=== PATIENT | female | born 1970 | race Caucasian/White ===

== ENCOUNTER → 2016-05-04 | Outpatient (CLI) | payer MEDICARE ==
--- NOTE | 2016-05-04 12:50 | CT ---
EXAMINATION TYPE: CT lumbar spine wo con DATE OF EXAM: 05/04/2016 12:35 PM COMPARISON: 10/30/2012 HISTORY: Spinal stenosis of lumbar region CT DLP: 973 mGycm CONTRAST: Unenhanced CT of the lumbar spine was performed with bone and soft tissue window settings submitted. Unenhanced CT of the lumbar spine was performed. Bone and soft tissue window settings are submitted as well as coronal and sagittal reconstructions. L1-L2: Normal disc space height. No disc herniation protrusion or central stenosis. No facet joint arthropathy. No evidence for foraminal encroachment. L2-L3: Normal disc space height. No disc herniation protrusion or central stenosis. No facet joint arthropathy. No evidence for foraminal encroachment. L3-L4: Interval decompressive laminectomy changes noted. Pedicular screws are in place with streak ar tifact limiting evaluation. Intervertebral stabilizers noted. There is now 6.5 mm anterolisthesis L3 on L4. No definite stenosis or recurrent disc herniation although examination is limited given strea k artifact. L4-L5: Decompressive laminectomy changes noted. Pedicular screws in place. Intervertebral body spacer noted persistent endplate irregularity. Pedicular screws result in streak artifact. Normal alignmen t. No definite stenosis or recurrent disc herniation although examination is limited given streak art ifact. L5-S1: Decompressive laminectomy changes again seen. Vertically oriented fixation screw traverses S1 and L5. Grade 1 retrolisthesis L5 on S1 measuring 5 mm. Streak artifact limits evaluation for recurre nt or residual disease. No obvious recurrent stenosis seen. Pedicular screws are in place. No paraspinal masses are identified. Lumbar segments are free of fracture. IMPRESSION: 1. Extensive postsurgical changes with the result in streak artifact limiting evaluation. As noted th ere is anterolisthesis of L3 on L4 grade 1 type as well as retrolisthesis L5 on S1 grade 1 type. No d efinite recurrent stenosis appreciated at this time. See above.
== END | disposition home or self-care (01) ==
LOC: RADCTMAIN 12:01
PROVIDERS: ATTEND Neurological Surgery
DX: M43.16 Spondylolisthesis, lumbar region (principal); Z98.1 Arthrodesis status
CPT/HCPCS: 72131

== ENCOUNTER 2017-07-02 18:32 | Observation (INO) | payer MEDICARE ==
[2017-07-02] MEDS ORDERED: NITROGLYCERIN OINT 1 INCH/GM PACKET TOPICAL STA (18:52)
[2017-07-02] MEDS ORDERED: ASPIRIN 81 MG PO STA (18:52)
--- NOTE | 2017-07-02 18:54 | ED ---
General Adult HPI - General Chief complaint: Chest Pain Stated complaint: Chest Pain /SOB Time Seen by Provider: 07/02/17 18:35 Source: patient, RN notes reviewed Mode of arrival: wheelchair Limitations: no limitations - History of Present Illness Initial comments: This is a 46-year-old female who presents with chest pain intermittent since Sunday. Patient describes it as a pressure sensation without any radiation. Patient states she also has been more short of breath lately. Patient states she is a smoker and does have high cholesterol. Patient also states she has a strong family history her brother last year at the age of 47 from a heart attack. Patient denies any diaphoretic episodes. Patient denies any nausea. Patient denies abdominal pain. Patient denies any recent fever chills or cough. Patient denies lightheadedness dizziness or near syncopal episode. Patient denies abdominal pain patient denies any vomiting or diarrhea recently. Patient denies any recent injury or trauma. Patient states the pain comes and goes and it does not seem to be brought on a relieved by doing anything. - Related Data Home Medications Medication Instructions Recorded Confirmed ALPRAZolam [Xanax] 0.5 mg PO Q8HR 04/02/14 04/30/14 Hydrocodone/Acetaminophen 1 each PO Q4-6H 04/02/14 04/30/14 [Hydrocodone/Acetaminophen 10-300] Ibuprofen [Motrin] 200 mg PO Q6HR PRN 04/02/14 04/30/14 Mirtazapine [Remeron] 15 mg PO HS 04/02/14 04/30/14 Phentermine HCl [Adipex-P] 37.5 mg PO QAM 04/02/14 04/30/14 Levothyroxine Sodium [Synthroid] 88 mcg PO DAILY 04/20/14 04/30/14 Previous Rx's Medication Instructions Recorded Ciprofloxacin HCl [Cipro] 500 mg PO Q12HR #28 tablet 04/20/14 Allergies Allergy/AdvReac Type Severity Reaction Status Date / Time Morpholine Analogues AdvReac Intermediate Hallucinati Verified 07/02/17 18:37 ons tramadol HCl [From Ultram] AdvReac Mild Unknown Verified 07/02/17 18:37 Review of Systems ROS Statement: Those systems with pertinent positive or pertinent negative responses have been documented in the HPI. ROS Other: All systems not noted in ROS Statement are negative. Past Medical History Past Medical History: Musculoskeletal Disorder, Osteoarthritis (OA), Thyroid Disorder History of Any Multi-Drug Resistant Organisms: MRSA Date of last positivie culture/infection: 2006 MDRO Source:: culture back Past Surgical History: Back Surgery, Section, Tonsillectomy Past Anesthesia/Blood Transfusion Reactions: No Reported Reaction Past Psychological History: Anxiety, Depression Smoking Status: Heavy tobacco smoker Past Alcohol Use History: Heavy Past Drug Use History: Marijuana - Past Family History Father Family Medical History: No Reported History Additional Family Medical History / Comment(s): never knew father. Mother Family Medical History: Diabetes Mellitus, Musculoskeletal Disorder General Exam - General Exam Comments Initial Comments: GENERAL: Patient is well-developed and well-nourished. Patient is nontoxic and well- hydrated and is in mild distress. ENT: Neck is soft and supple. No significant lymphadenopathy is noted. Oropharynx is clear. Moist mucous membranes. Neck has full range of motion without eliciting any pain. EYES: The sclera were anicteric and conjunctiva were pink and moist. Extraocular movements were intact and pupils were equal round and reactive to light. Eyelids were unremarkable. PULMONARY: Unlabored respirations. Good breath sounds bilaterally. No audible rales rhonchi or wheezing was noted. CARDIOVASCULAR: There is a regular rate and rhythm without any murmurs gallops or rubs. ABDOMEN: Soft and nontender with normal bowel sounds. No palpable organomegaly was noted. There is no palpable pulsatile mass. SKIN: Skin is clear with no lesions or rashes and otherwise unremarkable. NEUROLOGIC: Patient is alert and oriented x3. Cranial nerves II through XII are grossly intact. Motor and sensory are also intact. Normal speech, volume and content. Symmetrical smile. MUSCULOSKELETAL: Normal extremities with adequate strength and full range of motion. No lower extremity swelling or edema. No calf tenderness. LYMPHATICS: No significant lymphadenopathy is noted PSYCHIATRIC: Normal psychiatric evaluation. Normal interpersonal interactions appears functionally intact in deals appropriately with others. No signs of depression. No signs of anxiety. Limitations: no limitations Course Vital Signs 07/02/17 18:35 Temperature 98.6 F Pulse Rate 88 Respiratory 18 Rate Blood Pressure 137/82 O2 Sat by Pulse 95 Oximetry Medical Decision Making - Medical Decision Making EKG shows normal sinus rhythm at 82 bpm MI interval is 142 QRS is 80 QT interval 384 QTC is 448. Patient's EKG shows no ST segment elevation or depression or T wave abnormalities are noted. I reviewed the chest x-ray is normal. Because the patient's risk factors and chest pain is started the patient on heparin. I spoke with Dr. Powell's nurse practitioner and she agreed to admit the patient admitted the patient I consult cardiology continue the heparin Nitropaste and aspirin on the floor. - Lab Data Result diagrams: 07/02/17 19:07/02/17 19: Lab Results 07/02/17 07/02/17 07/02/17 Range/Units 19:01 19: 19:01 WBC (3.8-10.6) k/uL RBC (3.80-5.40) m/uL Hgb (11.4-16.0) gm/dL Hct (34.0-46.0) % MCV (80.0-100.0) fL MCH (25.0-35.0) pg MCHC (31.0-37.0) g/dL RDW (11.5-15.5) % Plt Count (150-450) k/uL Neutrophils % % Lymphocytes % % Monocytes % % Eosinophils % % Basophils % % Neutrophils # (1.3-7.7) k/uL Lymphocytes # (1.0-4.8) k/uL Monocytes # (0-1.0) k/uL Eosinophils # (0-0.7) k/uL Basophils # (0-0.2) k/uL PT 9.9 (9.0-12.0) sec INR 1.0 (<1.2) APTT 20.9 L (22.0-30.0) sec Sodium 147 H (137-145) mmol/L Potassium 3.6 (3.5-5.1) mmol/L Chloride 107 (98-107) mmol/L Carbon Dioxide 19 L (22-30) mmol/L Anion Gap 21 mmol/L BUN 11 (7-17) mg/dL Creatinine 0.50 L (0.52-1.04) mg/dL Est GFR (CKD-EPI)AfAm >90 (>60 ml/min/1.73 sqM) Est GFR (CKD-EPI)NonAf >90 (>60 ml/min/1.73 sqM) Glucose 90 (74-99) mg/dL Calcium 9.6 (8.4-10.2) mg/dL Magnesium 1.9 (1.6-2.3) mg/dL Total Bilirubin 0.4 (0.2-1.3) mg/dL AST 28 (14-36) U/L ALT 38 (9-52) U/L Alkaline Phosphatase 108 (38-126) U/L Total Creatine Kinase 431 H (30-135) U/L CK-MB (CK-2) 5.8 H* (0.0-2.4) ng/mL CK-MB (CK-2) Rel Index 1.3 Troponin I <0.012 (0.000-0.034) ng/mL Total Protein 7.7 (6.3-8.2) g/dL Albumin 4.8 (3.5-5.0) g/dL 07/02/17 Range/Units 19:01 WBC 7.2 (3.8-10.6) k/uL RBC 4.74 (3.80-5.40) m/uL Hgb 15.3 (11.4-16.0) gm/dL Hct 44.2 (34.0-46.0) % MCV 93.3 (80.0-100.0) fL MCH 32.2 (25.0-35.0) pg MCHC 34.5 (31.0-37.0) g/dL RDW 13.6 (11.5-15.5) % Plt Count 263 (150-450) k/uL Neutrophils % 67 % Lymphocytes % 26 % Monocytes % 4 % Eosinophils % 2 % Basophils % 1 % Neutrophils # 4.8 (1.3-7.7) k/uL Lymphocytes # 1.8 (1.0-4.8) k/uL Monocytes # 0.3 (0-1.0) k/uL Eosinophils # 0.1 (0-0.7) k/uL Basophils # 0.1 (0-0.2) k/uL PT (9.0-12.0) sec INR (<1.2) APTT (22.0-30.0) sec Sodium (137-145) mmol/L Potassium (3.5-5.1) mmol/L Chloride (98-107) mmol/L Carbon Dioxide (22-30) mmol/L Anion Gap mmol/L BUN (7-17) mg/dL Creatinine (0.52-1.04) mg/dL Est GFR (CKD-EPI)AfAm (>60 ml/min/1.73 sqM) Est GFR (CKD-EPI)NonAf (>60 ml/min/1.73 sqM) Glucose (74-99) mg/dL Calcium (8.4-10.2) mg/dL Magnesium (1.6-2.3) mg/dL Total Bilirubin (0.2-1.3) mg/dL AST (14-36) U/L ALT (9-52) U/L Alkaline Phosphatase (38-126) U/L Total Creatine Kinase (30-135) U/L CK-MB (CK-2) (0.0-2.4) ng/mL CK-MB (CK-2) Rel Index Troponin I (0.000-0.034) ng/mL Total Protein (6.3-8.2) g/dL Albumin (3.5-5.0) g/dL Critical Care Time Critical Care Time: Yes Total Critical Care Time: 35 Disposition Clinical Impression: Unstable angina pectoris Disposition: ADMITTED IP TO THIS HOSP Referrals: Richie Vickers MD [Primary Care Provider] - 1-2 days Time of Disposition: 20:20
[2017-07-02 19:27] LABS: ALT 38 U/L (9-52); AST 28 U/L (14-36); Albumin 4.8 g/dL (3.5-5.0); Alkaline Phosphatase 108 U/L (38-126); Blood Urea Nitrogen 11 mg/dL (7-17); Calcium 9.6 mg/dL (8.4-10.2); Chloride 107 mmol/L (98-107); Glucose 90 mg/dL (74-99); Magnesium 1.9 mg/dL (1.6-2.3); Potassium 3.6 mmol/L (3.5-5.1); Sodium 147 mmol/L (137-145); Total Bilirubin 0.4 mg/dL (0.2-1.3); Total Protein 7.7 g/dL (6.3-8.2)
[2017-07-02 19:39] LABS: Anion Gap 21 mmol/L; Carbon Dioxide 19 mmol/L (22-30)
[2017-07-02 19:56] LABS: Creatine Kinase 431 U/L (30-135)
--- NOTE | 2017-07-02 20:00 | XR ---
EXAMINATION: XR chest 2V DATE AND TIME: 07/02/2017 7:21 PM ORDERING PROVIDER: Jordan Alarcon MD CLINICAL INDICATION: Chest Pain right-sided chest pain TECHNIQUE: PA and lateral COMPARISON: 04/08/2015 DESCRIPTION: There is an ill-defined 2 cm added opacity laterally in the right midlung zone and a 1 cm rounded opa city at the left costophrenic angle. The lungs are otherwise unremarkable, given the overlying prominence of the soft tissues. The pleural spaces are negative. The cardiac silhouette is not enlarged. There is tortuosity of the thoracic aorta, seen on the prior study, perhaps more notable on today's s tudy. The skeletal structures are intact without acute findings. The soft tissues are prominent. IMPRESSION: 1. Subtle 2 cm added opacity laterally in the right midlung zone, suspect developing bronchopneumoni a if clinically corroborated. 2. 1 cm rounded opacity at the left costophrenic angle; would advise 6 week follow-up PA and lateral chest radiograph to further characterize.
[2017-07-02 20:01] LABS: Prothrombin Time 9.9 sec (9.0-12.0)
[2017-07-02 20:03] LABS: Partial Thromboplastin Time 20.9 sec (22.0-30.0)
[2017-07-02 20:09] LABS: Troponin I <0.012 ng/mL (0.000-0.034)
[2017-07-02 20:13] LABS: Creatine Kinase MB 5.8 ng/mL (0.0-2.4)
[2017-07-02 20:18] LABS: Basophils # (A) 0.1 k/uL (0-0.2); Basophils % (A) 1 %; Eosinophils # (A) 0.1 k/uL (0-0.7); Eosinophils % (A) 2 %; HCT 44.2 % (34.0-46.0); HGB 15.3 gm/dL (11.4-16.0); Lymphocytes # (A) 1.8 k/uL (1.0-4.8); Lymphocytes % (A) 26 %; MCH 32.2 pg (25.0-35.0); MCHC 34.5 g/dL (31.0-37.0); MCV 93.3 fL (80.0-100.0); Mean Platelet Volume 7.2; Monocytes # (A) 0.3 k/uL (0-1.0); Monocytes % (A) 4 %; Neutrophils # (A) 4.8 k/uL (1.3-7.7); Neutrophils % (A) 67 %; Platelet Count 263 k/uL (150-450); RBC 4.74 m/uL (3.80-5.40); RDW 13.6 % (11.5-15.5); WBC 7.2 k/uL (3.8-10.6)
[2017-07-02] MEDS ORDERED: HEPARIN SODIUM,PORCINE 5,000 UNIT/ML 1 ML VIAL IV ONE (20:18)
[2017-07-02] MEDS ORDERED: NITROGLYCERIN SL TABS 0.4 MG TAB SUBLINGUAL PRN (20:21)
[2017-07-02] MEDS ORDERED: HEPARIN SODIUM,PORCINE/D5W PMX 25,000 UNIT in DEXTROSE/WATER 1 500ML.BAG IV SCH (20:30)
[2017-07-02 21:51] VITALS: RESP 16
[2017-07-02 22:24] VITALS: BMI 34.9
[2017-07-03] MEDS ORDERED: HYDROCODONE PO PRN (00:15)
[2017-07-03] MEDS ORDERED: ACETAMINOPHEN PO PRN (00:15)
[2017-07-03] MEDS: NITROGLYCERIN OINT 1 INCH/GM PACKET TOPICAL SCH ×2 (00:17→06:31)
[2017-07-03] MEDS: IBUPROFEN 400 MG TAB PO PRN ×2 (00:42→11:49)
[2017-07-03] MEDS: HYDROcodone/APAP 7.5-325MG 1 EACH TAB PO PRN ×3 (00:43→13:47)
[2017-07-03] MEDS: ALPRAZolam 0.25 MG TAB PO PRN ×2 (00:44→11:49)
[2017-07-03] MEDS: NICOTINE 21MG/24HR PATCH TRANSDERM SCH ×2 (01:00→11:48)
[2017-07-03 03:09] LABS: Creatine Kinase 287 U/L (30-135)
[2017-07-03 03:19] LABS: Troponin I <0.012 ng/mL (0.000-0.034)
[2017-07-03] MEDS ORDERED: HEPARIN SODIUM,PORCINE 5,000 UNIT/ML 1 ML VIAL IV PRN (03:30)
[2017-07-03] MEDS ORDERED: LEVOTHYROXINE 88 MCG TAB PO SCH (06:30)
--- NOTE | 2017-07-03 07:27 | P.HPIM ---
History of Present Illness H&P Date: 07/03/17 This is a history of physical and a 38-year-old white female essentially admitted for left-sided chest pressure. She states stabbing type chest pain. Last week she states she had right-sided chest pressure but this was more at rest. The pain did not have any nausea or diaphoresis but because of family history of premature heart disease, she went to the emergency room. Nitroglycerin did relieve the patient's pain. She is now appropriately admitted. Significant tobacco abuse is noted for many many years. She is about 1/2-1 pack a day smoker for about 20 years. No overt syncope or headache. No significant nausea or vomiting. Review of Systems Constitutional: Denies chills, Denies fever Eyes: denies blurred vision, denies pain Cardiovascular: Reports chest pain, Reports shortness of breath Respiratory: Denies cough Gastrointestinal: Denies abdominal pain, Denies diarrhea, Denies nausea, Denies vomiting Genitourinary: Denies dysuria, Denies hematuria Past Medical History Past Medical History: Osteoarthritis (OA), Thyroid Disorder History of Any Multi-Drug Resistant Organisms: MRSA Date of last positivie culture/infection: 2006 MDRO Source:: culture back Past Surgical History: Back Surgery, Section, Tonsillectomy Additional Past Surgical History / Comment(s): back surgery x6. screws in back. Past Anesthesia/Blood Transfusion Reactions: No Reported Reaction Past Psychological History: Anxiety, Depression Smoking Status: Heavy tobacco smoker Past Alcohol Use History: Heavy Additional Past Alcohol Use History / Comment(s): 3 days a week. Past Drug Use History: Marijuana Additional Drug Use History / Comment(s): medical marijuana card. - Past Family History Father Family Medical History: No Reported History Additional Family Medical History / Comment(s): never knew father. Mother Family Medical History: Diabetes Mellitus, Musculoskeletal Disorder Medications and Allergies Home Medications Medication Instructions Recorded Confirmed Type Levothyroxine Sodium [Synthroid] 88 mcg PO DAILY 04/20/14 07/03/17 History ALPRAZolam [Xanax] 0.25 mg PO Q8HR PRN 07/03/17 07/03/17 History Hydrocodone/Acetaminophen 1 tab PO Q4HR PRN 07/03/17 07/03/17 History [Hydrocodone-Acetamin 7.5-300] Ibuprofen 800 mg PO Q6H PRN 07/03/17 07/03/17 History Allergies Allergy/AdvReac Type Severity Reaction Status Date / Time Morpholine Analogues AdvReac Intermediate Hallucinati Verified 07/02/17 18:37 ons tramadol HCl [From Ultram] AdvReac Mild Unknown Verified 07/02/17 18:37 Physical Exam Vitals: Vital Signs Temp Pulse Pulse Resp BP BP Pulse Ox 07/03/17 03:58 98.4 F 65 16 111/59 95 07/02/17 23:58 98.3 F 78 16 115/61 97 07/02/17 23:00 16 07/02/17 21:50 98.6 F 81 16 121/72 93 L 07/02/17 20:57 97.5 F L 76 18 118/7 98 07/02/17 18:35 98.6 F 88 18 137/82 95 Intake and Output 07/02/17 07/03/17 07/03/17 22:59 06:59 14:59 Intake Total 138.079 Balance 138.079 Intake: Intake, IV Titration 138.079 Amount Heparin Sodium,Porcine/ 138.079 D5w Pmx 25,000 unit In Dextrose/Water 1 500ml. bag @ 9.5 UNITS/KG/HR 19. 82 mls/hr IV .Q24H [facility] Rx #:[id number] Other: Weight 104.326 kg - Constitutional General appearance: obese - EENT Eyes: EOMI - Neck Neck: no lymphadenopathy - Cardiovascular Rhythm: regular Heart sounds: normal: S1, S2 Abnormal Heart Sounds: no S3 Gallop - Gastrointestinal General gastrointestinal: soft, no tenderness - Musculoskeletal Musculoskeletal: gait normal - Psychiatric Psychiatric: A&O x's 3, no appropriate affect Results CBC & Chem 7: 07/02/17 19:01 07/02/17 19:01 Labs: Abnormal Lab Results - Last 24 Hours (Table) 07/02/17 07/02/17 07/02/17 Range/Units 19:01 19:01 19:01 APTT 20.9 L (22.0-30.0) sec Sodium 147 H (137-145) mmol/L Carbon Dioxide 19 L (22-30) mmol/L Creatinine 0.50 L (0.52-1.04) mg/dL Total Creatine Kinase 431 H (30-135) U/L CK-MB (CK-2) 5.8 H* (0.0-2.4) ng/mL 07/03/17 Range/Units 02:22 APTT (22.0-30.0) sec Sodium (137-145) mmol/L Carbon Dioxide (22-30) mmol/L Creatinine (0.52-1.04) mg/dL Total Creatine Kinase 287 H (30-135) U/L CK-MB (CK-2) 4.0 H* (0.0-2.4) ng/mL Thrombosis Risk Factor Assmnt - Choose All That Apply Each Factor Represents 1 point: Age 41-60 years Thrombosis Risk Factor Assessment Total Risk Factor Score: 1 Thrombosis Risk Factor Assessment Level: Low Risk Assessment and Plan (1) Cigarette nicotine dependence Current Visit: Yes Status: Acute Code(s): F17.210 - NICOTINE DEPENDENCE, CIGARETTES, UNCOMPLICATED SNOMED Code(s): 81636127 (2) Unstable angina pectoris Current Visit: Yes Status: Acute Code(s): I20.0 - UNSTABLE ANGINA SNOMED Code(s): 7760804 (3) Hypothyroidism Current Visit: Yes Status: Acute Code(s): E03.9 - HYPOTHYROIDISM, UNSPECIFIED SNOMED Code(s): 66122662 Plan: Given her unstable angina, we will go ahead and rule out myocardial infarction and order stress testing per cardiology. Reconcile home medications. We'll continue to follow. The patient understands risks and benefits and we'll continue to follow. Time with Patient: Less than 30
[2017-07-03 07:28] LABS: Cholesterol 184 mg/dL (<200); HDL Cholesterol 32 mg/dL (40-60); LDL Cholesterol,Calculated 112 mg/dL (0-99); Triglycerides 200 mg/dL (<150)
[2017-07-03 07:54] LABS: Creatine Kinase 227 U/L (30-135)
[2017-07-03 08:08] LABS: Troponin I <0.012 ng/mL (0.000-0.034)
[2017-07-03 08:21] LABS: Creatine Kinase MB 3.7 ng/mL (0.0-2.4)
--- NOTE | 2017-07-03 08:31 | P.CRDCN ---
History of Present Illness History of present illness: Mrs. Collado is a pleasant 46-year-old female past medical history significant for hypothyroidism, osteoarthritis, anxiety, chronic nicotine dependence and back surgery x6. She denies history of coronary artery disease, hypertension or diabetes mellitus. She does state that she was recently told she has elevated cholesterol but was attempting lifestyle modifications. We have been asked to see her in consultation for chest pain. She states yesterday while she was working around in her kitchen she felt a stabbing pain in the left precordial region. The pain did not radiate to her arm, back, neck or jaw. She did feel mildly short of breath but denies nausea, vomiting, diaphoresis, palpitations or dizziness. The stabbing was momentary and then a dull ache persisted. No specific aggravating or alleviating factors. The pain ultimately seemed to subside on its own through the night. She has had no further symptoms of chest pain since admission. EKG is sinus mechanism with no acute ST or T-wave abnormalities. Chest xray shows subtle opacity in right midlung zone suspect bronchopneumonia. 1 cm opacity left costrophrenic angle, advise 6-week followup. Laboratory data reviewed, hgb 15.3, plt 263, sodium 147, potassium 3.6, magnesium 1.9, creatinine 0.5, cardiac enzymes negative 3 with elevated CK-MB, LDL 112, HDL 32, triglycerides 200, total cholesterol 184. Current medications include Synthroid, ibuprofen, Xanax and [place]. Review of Systems At the time of my exam: CONSTITUTIONAL: Denies fever. Denies chills. EYES: Denies blurred vision. Denies vision changes. Denies eye pain. EARS, NOSE, MOUTH & THROAT: Denies headache. Denies sore throat. Denies ear pain. CARDIOVASCULAR: Denies chest pain. Denies shortness of breath. Denies orthopnea. Denies PND. Denies palpitations. RESPIRATORY: Denies cough. GASTROINTESTINAL: Denies abdominal pain. Denies diarrhea. Denies constipation. Denies nausea. Denies vomiting. MUSCULOSKELETAL: Denies myalgias. INTEGUMENTARY: Denies pruitis. Denies rash. NEUROLOGIC: Denies numbness. Denies tingling. Denies weakness. PSYCHIATRIC: Denies anxiety. Denies depression. ENDOCRINE: Denies fatigue. Denies weight change. Denies polydipsia. Denies polyurina. GENITOURINARY: Denies burning, hematuria or urgency with micturation. HEMATOLOGIC: Denies history of anemia. Denies bleeding. Past Medical History Past Medical History: Osteoarthritis (OA), Thyroid Disorder History of Any Multi-Drug Resistant Organisms: MRSA Date of last positivie culture/infection: 2006 MDRO Source:: culture back Past Surgical History: Back Surgery, Section, Tonsillectomy Additional Past Surgical History / Comment(s): back surgery x6. screws in back. Past Anesthesia/Blood Transfusion Reactions: No Reported Reaction Past Psychological History: Anxiety, Depression Smoking Status: Heavy tobacco smoker Past Alcohol Use History: Heavy Additional Past Alcohol Use History / Comment(s): 3 days a week. Past Drug Use History: Marijuana Additional Drug Use History / Comment(s): medical marijuana card. - Past Family History Father Family Medical History: No Reported History Additional Family Medical History / Comment(s): never knew father. Mother Family Medical History: Diabetes Mellitus, Musculoskeletal Disorder Medications and Allergies Home Medications Medication Instructions Recorded Confirmed Type Levothyroxine Sodium [Synthroid] 88 mcg PO DAILY 04/20/14 07/03/17 History ALPRAZolam [Xanax] 0.25 mg PO Q8HR PRN 07/03/17 07/03/17 History Hydrocodone/Acetaminophen 1 tab PO Q4HR PRN 07/03/17 07/03/17 History [Hydrocodone-Acetamin 7.5-300] Ibuprofen 800 mg PO Q6H PRN 07/03/17 07/03/17 History Allergies Allergy/AdvReac Type Severity Reaction Status Date / Time Morpholine Analogues AdvReac Intermediate Hallucinati Verified 07/02/17 18:37 ons tramadol HCl [From Ultram] AdvReac Mild Unknown Verified 07/02/17 18:37 Physical Exam Vitals: Vital Signs Temp Pulse Pulse Resp BP BP Pulse Ox 07/03/17 07:37 97.9 F 70 16 129/79 97 07/03/17 04:00 16 07/03/17 03:58 98.4 F 65 16 111/59 95 07/02/17 23:58 98.3 F 78 16 115/61 97 07/02/17 23:00 16 07/02/17 21:50 98.6 F 81 16 121/72 93 L 07/02/17 20:57 97.5 F L 76 18 118/7 98 07/02/17 18:35 98.6 F 88 18 137/82 95 Intake and Output 07/02/17 07/03/17 07/03/17 22:59 06:59 14:59 Intake Total 138.079 Balance 138.079 Intake: Intake, IV Titration 138.079 Amount Heparin Sodium,Porcine/ 138.079 D5w Pmx 25,000 unit In Dextrose/Water 1 500ml. bag @ 9.5 UNITS/KG/HR 19. 82 mls/hr IV .Q24H NOEL Rx #:[id number] Other: # Voids 1 Weight 104.326 kg Blood pressure 129/79 heart rate 70 afebrile maintaining oxygen saturation on room air GENERAL: This is a 46-year-old female in no apparent distress at the time of my examination. Obese. HEENT: Head is atraumatic, normocephalic. Pupils are equal, round. Sclerae anicteric. Conjunctivae are clear. Mucous membranes of the mouth are moist. Neck is supple. There is no jugular venous distention. No carotid bruit is heard. LUNGS: Clear to auscultation no wheezes, rales or rhonchi. No chest wall tenderness is noted on palpation or with deep breathing. HEART: Regular rate and rhythm without murmurs, rubs or gallops. S1 and S2 heard. ABDOMEN: Soft, nontender. Bowel sounds are heard. No organomegaly noted. EXTREMITIES: No evidence of peripheral edema and no calf tenderness noted. VASCULAR: Radial and dorsalis pedis pulses palpated, no evidence of clubbing. NEUROLOGIC: Patient is awake, alert and oriented x3. Results 07/02/17 19:07/02/17 19:01 Cardiac Enzymes 07/02/17 07/02/17 07/03/17 Range/Units 19:01 19:01 02:22 AST 28 (14-36) U/L CK-MB (CK-2) 5.8 H* 4.0 H* (0.0-2.4) ng/mL Troponin I <0.012 <0.012 (0.000-0.034) ng/mL Coagulation 07/02/17 07/03/17 Range/Units 19:01 02:22 PT 9.9 (9.0-12.0) sec APTT 20.9 L 25.6 (22.0-30.0) sec Lipids 07/03/17 Range/Units 06:28 Triglycerides 200 H (<150) mg/dL Cholesterol 184 (<200) mg/dL HDL Cholesterol 32 L (40-60) mg/dL CBC 07/02/17 Range/Units 19:01 WBC 7.2 (3.8-10.6) k/uL RBC 4.74 (3.80-5.40) m/uL Hgb 15.3 (11.4-16.0) gm/dL Hct 44.2 (34.0-46.0) % Plt Count 263 (150-450) k/uL Comprehensive Metabolic Panel 07/02/17 Range/Units 19:01 Sodium 147 H (137-145) mmol/L Potassium 3.6 (3.5-5.1) mmol/L Chloride 107 (98-107) mmol/L Carbon Dioxide 19 L (22-30) mmol/L BUN 11 (7-17) mg/dL Creatinine 0.50 L (0.52-1.04) mg/dL Glucose 90 (74-99) mg/dL Calcium 9.6 (8.4-10.2) mg/dL AST 28 (14-36) U/L ALT 38 (9-52) U/L Alkaline Phosphatase 108 (38-126) U/L Total Protein 7.7 (6.3-8.2) g/dL Albumin 4.8 (3.5-5.0) g/dL Current Medications Generic Name Dose Route Start Last Admin Trade Name Freq PRN Reason Stop Dose Admin Hydrocodone Bitart/Acetaminophen 1 each 07/03/17 00:39 07/03/17 07:00 [place] 7.5-325 PO 1 each Q4HR PRN Administration Pain rated 5 or greater Alprazolam 0.25 mg 07/03/17 00:15 07/03/17 00:44 Xanax PO 0.25 mg Q8HR PRN Administration Anxiety Aspirin 81 mg 07/03/17 09:00 Aspirin PO DAILY NOEL Heparin Sodium (Porcine) 0 unit 07/03/17 03:30 07/03/17 03:57 Heparin IV 4,000 unit PER PROTOCOL PRN Administration Low PTT Protocol Ibuprofen 400 mg 07/03/17 00:15 07/03/17 00:42 Motrin PO 400 mg Q6HR PRN Administration Pain rated 1-4 Levothyroxine Sodium 88 mcg 07/03/17 06:30 07/03/17 06:56 Synthroid PO Not Given 0630 NOEL Nicotine 1 patch 07/03/17 00:46 07/03/17 01:00 Habitrol 21mg/24hr Patch TRANSDERM 1 patch DAILY NOEL Administration Nitroglycerin 0.4 mg 07/02/17 20:21 Nitrostat SUBLINGUAL Q5M PRN Chest Pain Intake and Output 07/02/17 07/03/17 07/03/17 22:59 06:59 14:59 Intake Total 138.079 Balance 138.079 Intake: Intake, IV Titration 138.079 Amount Heparin Sodium,Porcine/ 138.079 D5w Pmx 25,000 unit In Dextrose/Water 1 500ml. bag @ 9.5 UNITS/KG/HR 19. 82 mls/hr IV .Q24H NOEL Rx #:[id number] Other: # Voids 1 Weight 104.326 kg 07/02/17 19:01 07/02/17 19:01 Assessment and Plan Assessment: ASSESSMENT 1. Precordial chest pain, atypical. An acute coronary event has been ruled out. 2. Dyslipidemia 3. Chronic tobacco dependence 4. Abnormalities on the chest x-ray didn't indicate 2 cm opacity in the right mid lung and a 1 cm obesity at the left costophrenic angle. To be managed per primary. 5. Obesity, BMI 35.0. PLAN An acute coronary event has been ruled out. Heparin infusion may be discontinued. Change aspirin to 81 mg daily. Obtain 2-D echocardiogram and Doppler study to assess cardiac structure and function. Perform stress echocardiogram to assess for stress-induced cardiac ischemia. Smoking cessation discussed. Lifestyle modification and weight loss recommended. Thank you kindly for this consultation. The above impression and plan of care have been discussed and directed by the signing physician. Qi Hylton, nurse practitioner, acting as scribe for signing physician.
[2017-07-03] MEDS ORDERED: NICOTINE 21MG/24HR PATCH TRANSDERM SCH (09:00)
[2017-07-03] MEDS ORDERED: ASPIRIN 325 MG TAB PO SCH (09:00)
[2017-07-03] MEDS ORDERED: ASPIRIN 81 MG PO SCH (09:00)
[2017-07-03 12:15] VITALS: TEMP 98.3
--- NOTE | 2017-07-03 12:28 | ECHOF ---
Referral Reason:cp MEASUREMENTS -------- HEIGHT: 172.7 cm WEIGHT: 104.3 kg BP: 129/79 RVIDd: 2.7 cm (< 3.3) IVSd: 1.1 cm (0.6 - 1.1) LVIDd: 4.7 cm (3.9 - 5.3) LVPWd: 1.0 cm (0.6 - 1.1) IVSs: 1.5 cm LVIDs: 3.0 cm LVPWs: 1.7 cm LA Diam: 3.2 cm (2.7 - 3.8) LAESV Index (A-L): 20.07 ml/m Ao Diam: 3.5 cm (2.0 - 3.7) AV Cusp: 2.1 cm (1.5 - 2.6) MV EXCURSION: 16.920 mm (> 18.000) MV EF SLOPE: 79 mm/s (70 - 150) EPSS: 0.4 cm MV E Bryson: 0.98 m/s MV DecT: 215 ms MV A Bryson: 0.83 m/s MV E/A Ratio: 1.19 FINDINGS -------- Sinus rhythm. This was a technically adequate study. The left ventricular size is normal. There is borderline concentric left ventricular hypertrophy. Overall left ventricular systolic function is normal with, an EF between 60 - 65 %. The right ventricle is normal in size. Normal LA size by volume 22+/-6 ml/m2. The right atrium is normal in size. The aortic valve is trileaflet and appears structurally normal. The mitral valve is normal. The tricuspid valve appears structurally normal. The pulmonic valve was not well visualized. The aortic root size is normal. Normal inferior vena cava with normal inspiratory collapse consistent with estimated right atrial pre ssure of 5 mmHg. The inferior vena cava is mildly dilated. There is no pericardial effusion. CONCLUSIONS -------- 1. Sinus rhythm. 2. This was a technically adequate study. 3. The left ventricular size is normal. 4. There is borderline concentric left ventricular hypertrophy. 5. Overall left ventricular systolic function is normal with, an EF between 60 - 65 %. 6. The right ventricle is normal in size. 7. Normal LA size by volume 22+/-6 ml/m2. 8. The right atrium is normal in size. 9. The aortic valve is trileaflet and appears structurally normal. 10. The mitral valve is normal. 11. The tricuspid valve appears structurally normal. 12. The pulmonic valve was not well visualized. 13. The aortic root size is normal. 14. Normal inferior vena cava with normal inspiratory collapse consistent with estimated right atrial pressure of 5 mmHg. 15. The inferior vena cava is mildly dilated. 16. There is no pericardial effusion. FORENSIC AUDIT EXPERT: Tawana Israel RDCS
--- NOTE | 2017-07-03 12:43 | ECHOS ---
STRESS ECHOCARDIOGRAM DATE OF SERVICE: 07/03/2017 INDICATIONS: Chest pain. MEDICATIONS: BASELINE HEART RATE: 80 BASELINE BLOOD PRESSURE: 102/65 MAXIMUM HEART RATE: 146 MAXIMUM BLOOD PRESSURE: 191/99 85% MPHR: 146 100% MPHR: 172 METS: 9 MAXIMUM STAGE REACHED: II TOTAL EXERCISE TIME: 8 minutes CLINICAL INFORMATION: Baseline EKG shows sinus rhythm, normal axis, normal intervals. Patient exercised on Albaro protocol for a total of 8 minutes achieving 9 METs, 85% of predicted maximal heart rate without chest pain or diagnostic ST-segment depression. Baseline echo shows normal left ventricular size, wall motion and systolic function. Postexercise, there is normal hyperdynamic response of all segments of myocardium noted. CONCLUSIONS: 1. Good exercise tolerance. 2. Negative stress test by EKG criteria. 3. Negative stress echo. MMODL / IJN: [id number] /
[2017-07-03 15:36] VITALS: BP 120/75; PULSE 78
--- NOTE | 2017-07-05 21:11 | P.DS ---
Providers Date of admission: 07/02/17 20:21 Expected date of discharge: 07/04/17 Attending physician: Richie Vickers Consults: 07/02/17 20:21 Consult Physician Urgent Consulting Provider: [facility] Consult Reason/Comments: Unstable angina Do you want consulting provider notified?: Yes Primary care physician: Richie Vickers - Discharge Diagnosis(es) (1) Cigarette nicotine dependence Status: Acute (2) Unstable angina pectoris Status: Acute (3) Hypothyroidism Status: Acute Hospital Course: This is discharge summary 38-year-old white female who is essentially admitted forAtypical type [place] tobacco abuse. Essentially, myocardial infarction was ruled out, cardiology was consulted and she had appropriate stress testing which did not reveal any type of ischemic episodes. She is discharged in stable condition pain free tolerating diet and voiding without difficulty. She will follow up with me in 1 week. Patient Condition at Discharge: Stable Plan - Discharge Summary New Discharge Prescriptions: No Action Levothyroxine Sodium [Synthroid] 88 mcg PO DAILY ALPRAZolam [Xanax] 0.25 mg PO Q8HR PRN PRN Reason: Anxiety Ibuprofen 800 mg PO Q6H PRN PRN Reason: Pain HYDROcodone/APAP 7.5-325MG [[place] 7.5-325] 1 tab PO Q4H PRN PRN Reason: Pain Discharge Medication List Levothyroxine Sodium [Synthroid] 88 mcg PO DAILY 04/20/14 [History] ALPRAZolam [Xanax] 0.25 mg PO Q8HR PRN 07/03/17 [History] HYDROcodone/APAP 7.5-325MG [[place] 7.5-325] 1 tab PO Q4H PRN 07/03/17 [History] Ibuprofen 800 mg PO Q6H PRN 07/03/17 [History] Follow up Appointment(s)/Referral(s): Petros Siddiqi MD [STAFF PHYSICIAN] - 07/16/17 2:30 pm Richie Vickers MD [Primary Care Provider] - 1 Week (Call for appointment.) Patient Instructions/Handouts: Chest Pain (DC), Low Fat Diet (DC), Heart Healthy Diet (DC), Cholesterol and Your Health (GEN), Hyperlipidemia (DC) Discharge Disposition: HOME SELF-CARE
== END 2017-07-03 16:27 | disposition home or self-care (01) ==
LOC: EC 18:32 → 3OBS 20:21
PROVIDERS: ADMIT Hospitalist; ATTEND Family Medicine
DX: I20.0 Unstable angina (principal); R74.8 Abnormal levels of other serum enzymes; E78.5 Hyperlipidemia, unspecified; R91.8 Other nonspecific abnormal finding of lung field; E03.9 Hypothyroidism, unspecified; M19.90 Unspecified osteoarthritis, unspecified site; F17.210 Nicotine dependence, cigarettes, uncomplicated; F41.9 Anxiety disorder, unspecified; F32.9 Major depressive disorder, single episode, unspecified; E66.9 Obesity, unspecified; Z68.35 Body mass index [BMI] 35.0-35.9, adult; Z79.890 Hormone replacement therapy; Z79.899 Other long term (current) drug therapy; Z88.5 Allergy status to narcotic agent; Z86.14 Personal history of Methicillin resistant Staphylococcus aureus infection; Z82.49 Family history of ischemic heart disease and other diseases of the circulatory system; Z83.3 Family history of diabetes mellitus; Z82.69 Family history of other diseases of the musculoskeletal system and connective tissue
CPT/HCPCS: 99291 ×2; 96365 ×2; 96376 ×3; 96366 ×2; 36415; 93005; 93306; 93351; 80061; 80053; 82550 ×2; 82553 ×2; 83735; 84484 ×2; 85025; 85610; 85730 ×2; 71046; G0378 ×2; S4990; J1644 ×3

== ENCOUNTER 2018-04-02 10:53 | Emergency (ER) | payer MEDICARE ==
[2018-04-02 11:04] VITALS: TEMP 97.4
[2018-04-02] MEDS ORDERED: SODIUM CHLORIDE 0.9% 1,000 ML IV STA (11:20)
[2018-04-02] MEDS ORDERED: ASPIRIN 325 MG TAB PO STA (11:20)
--- NOTE | 2018-04-02 11:50 | ED ---
General Adult HPI - General Chief complaint: Shortness of Breath Stated complaint: neck/shoulder pain & SOB Time Seen by Provider: 04/02/18 11:12 Source: patient, RN notes reviewed Mode of arrival: ambulatory Limitations: no limitations - History of Present Illness Initial comments: Patient 47-year-old female presented to the emergency room today with a chief complaint of shortness breath over the last 3 days. Patient states that symptoms started 3 days ago. Does seem to be worse when she is up moving around. Better when she is at rest. Today she was going to do some shopping and felt increased shortness of breath and started feeling dizzy and had some tunnel vision. Patient states the symptoms have improved to began. She is resting. Patient also admits to feeling some chest pain yesterday going towards the left arm. Patient states no chest pain at this time. Patient denies any recent fever, chills, back pain, abdominal pain, nausea or vomiting, headaches or visual changes, or any other complaints. - Related Data Home Medications Medication Instructions Recorded Confirmed Levothyroxine Sodium [Synthroid] 88 mcg PO DAILY 04/20/14 04/02/18 ALPRAZolam [Xanax] 0.25 mg PO Q8HR PRN 07/03/17 04/02/18 HYDROcodone/APAP 7.5-325MG [[place] 1 tab PO Q4H PRN 07/03/17 04/02/18 7.5-325] Ibuprofen 800 mg PO Q8H PRN 07/03/17 04/02/18 Phentermine HCl [Adipex-P] 37.5 mg PO [id number] 04/02/18 04/02/18 Allergies Allergy/AdvReac Type Severity Reaction Status Date / Time Morpholine Analogues AdvReac Intermediate Hallucinati Verified 04/02/18 11:04 ons tramadol HCl [From Ultram] AdvReac Mild Unknown Verified 04/02/18 11:04 Review of Systems ROS Statement: Those systems with pertinent positive or pertinent negative responses have been documented in the HPI. ROS Other: All systems not noted in ROS Statement are negative. Past Medical History Past Medical History: Osteoarthritis (OA), Thyroid Disorder History of Any Multi-Drug Resistant Organisms: MRSA Date of last positivie culture/infection: 2006 MDRO Source:: culture back Past Surgical History: Back Surgery, Section, Tonsillectomy Additional Past Surgical History / Comment(s): back surgery x6. screws in back. Past Anesthesia/Blood Transfusion Reactions: No Reported Reaction Past Psychological History: Anxiety, Depression Smoking Status: Heavy tobacco smoker Past Alcohol Use History: Heavy Past Drug Use History: Marijuana - Past Family History Father Family Medical History: No Reported History Additional Family Medical History / Comment(s): never knew father. Mother Family Medical History: Diabetes Mellitus, Musculoskeletal Disorder General Exam - General Exam Comments Initial Comments: General: The patient is awake and alert, in no distress, and does not appear acutely ill. Eye: Pupils are equal, round and reactive to light, extra-ocular movements are intact. No nystagmus. There is normal conjunctiva bilaterally. No signs of icterus. Ears, nose, mouth and throat: There are moist mucous membranes and no oral lesions. Neck: The neck is supple, there is no tenderness or JVD. Cardiovascular: There is a regular rate and rhythm. No murmur, rub or gallop is appreciated. Respiratory: Lungs are clear to auscultation, respirations are non-labored, breath sounds are equal. No wheezes, stridor, rales, or rhonchi. Musculoskeletal: Normal ROM, no tenderness. Strength 5/5. Sensation intact. Pulses equal bilaterally 2+. Neurological: A&O x 3. CN II-XII intact, There are no obvious motor or sensory deficits. Coordination appears grossly intact. Speech is normal. Skin: Skin is warm and dry and no rashes or lesions are noted. Psychiatric: Cooperative, appropriate mood & affect, normal judgment. Limitations: no limitations Course Vital Signs 04/02/18 11:00 Temperature 97.4 F L Pulse Rate 105 H Respiratory 18 Rate Blood Pressure 111/81 O2 Sat by Pulse 96 Oximetry EKG Findings - EKG Comments: EKG Findings:: EKG performed at 1131: Shows normal sinus rhythm at 97 bpm. [place] interval 144. QRS 78. QT/QTc is [id number]. Patient does have inverted T-wave in V3 new compared to old EKG. No acute ST change Medical Decision Making - Medical Decision Making 47-year-old female presented to the emergency room today with chief complaint of shortness breath at rest 3 days. Patient did have elevated d-dimer. CT of the chest was obtained showing: Patient's CT of the chest does reveal a severe burdden bilateral pulmonary emboli with a thin saddle embolus and extensive clot throughout both lungs. Patient resting comfortably here in emergency room. Her vitals have been stable. Patient started on high-dose heparin. Case was discussed with attending physician Dr. Alarcon who did discuss the case with basket surgeon Dr. Bangura who recommends transferring patient to [facility]. Did discuss case with your physician Dr. Smyth who will accept the transfer. Patient has been started on high-dose heparin here in the emergency room. Patient and family at bedside or worsen the plan states understanding and agreement with the plan. - Lab Data Result diagrams: 04/02/18 11:44 04/02/18 11:44 Lab Results 04/02/18 04/02/18 04/02/18 Range/Units 11:44 11:44 11:44 WBC 9.4 (3.8-10.6) k/uL RBC 4.42 (3.80-5.40) m/uL Hgb 14.3 (11.4-16.0) gm/dL Hct 41.8 (34.0-46.0) % MCV 94.4 (80.0-100.0) fL MCH 32.3 (25.0-35.0) pg MCHC 34.2 (31.0-37.0) g/dL RDW 13.3 (11.5-15.5) % Plt Count 196 (150-450) k/uL Neutrophils % 71 % Lymphocytes % 22 % Monocytes % 3 % Eosinophils % 2 % Basophils % 1 % Neutrophils # 6.7 (1.3-7.7) k/uL Lymphocytes # 2.1 (1.0-4.8) k/uL Monocytes # 0.3 (0-1.0) k/uL Eosinophils # 0.2 (0-0.7) k/uL Basophils # 0.1 (0-0.2) k/uL PT (9.0-12.0) sec INR (<1.2) APTT (22.0-30.0) sec D-Dimer (<0.60) mg/L FEU Sodium 142 (137-145) mmol/L Potassium 3.6 (3.5-5.1) mmol/L Chloride 112 H (98-107) mmol/L Carbon Dioxide 20 L (22-30) mmol/L Anion Gap 10 mmol/L BUN 12 (7-17) mg/dL Creatinine 0.59 (0.52-1.04) mg/dL Est GFR (CKD-EPI)AfAm >90 (>60 ml/min/1.73 sqM) Est GFR (CKD-EPI)NonAf >90 (>60 ml/min/1.73 sqM) Glucose 134 H (74-99) mg/dL Calcium 9.4 (8.4-10.2) mg/dL Total Bilirubin 0.7 (0.2-1.3) mg/dL AST 31 (14-36) U/L ALT 42 (9-52) U/L Alkaline Phosphatase 99 (38-126) U/L Total Creatine Kinase 207 H (30-135) U/L CK-MB (CK-2) 4.4 H (0.0-2.4) ng/mL CK-MB (CK-2) Rel Index 2.1 Troponin I 0.091 H* (0.000-0.034) ng/mL Total Protein 7.1 (6.3-8.2) g/dL Albumin 4.2 (3.5-5.0) g/dL 04/02/18 Range/Units 11:44 WBC (3.8-10.6) k/uL RBC (3.80-5.40) m/uL Hgb (11.4-16.0) gm/dL Hct (34.0-46.0) % MCV (80.0-100.0) fL MCH (25.0-35.0) pg MCHC (31.0-37.0) g/dL RDW (11.5-15.5) % Plt Count (150-450) k/uL Neutrophils % % Lymphocytes % % Monocytes % % Eosinophils % % Basophils % % Neutrophils # (1.3-7.7) k/uL Lymphocytes # (1.0-4.8) k/uL Monocytes # (0-1.0) k/uL Eosinophils # (0-0.7) k/uL Basophils # (0-0.2) k/uL PT 11.1 (9.0-12.0) sec INR 1.1 (<1.2) APTT 24.3 (22.0-30.0) sec D-Dimer 4.03 H (<0.60) mg/L FEU Sodium (137-145) mmol/L Potassium (3.5-5.1) mmol/L Chloride (98-107) mmol/L Carbon Dioxide (22-30) mmol/L Anion Gap mmol/L BUN (7-17) mg/dL Creatinine (0.52-1.04) mg/dL Est GFR (CKD-EPI)AfAm (>60 ml/min/1.73 sqM) Est GFR (CKD-EPI)NonAf (>60 ml/min/1.73 sqM) Glucose (74-99) mg/dL Calcium (8.4-10.2) mg/dL Total Bilirubin (0.2-1.3) mg/dL AST (14-36) U/L ALT (9-52) U/L Alkaline Phosphatase (38-126) U/L Total Creatine Kinase (30-135) U/L CK-MB (CK-2) (0.0-2.4) ng/mL CK-MB (CK-2) Rel Index Troponin I (0.000-0.034) ng/mL Total Protein (6.3-8.2) g/dL Albumin (3.5-5.0) g/dL Disposition Clinical Impression: Pulmonary embolism, bilateral Disposition: OTHER INSTITUTION NOT DEFINED Condition: Stable Is patient prescribed a controlled substance at d/c from ED?: No Referrals: Richie Vickers MD [Primary Care Provider] - 1-2 days Time of Disposition: 13:30 ([facility] via EMS) - Out of Hospital Transfer - Req. Specs Out of Hospital Transfer - Requested Specifics: Other Emergency Center ( [facility])
[2018-04-02 12:00] LABS: Basophils # (A) 0.1 k/uL (0-0.2); Basophils % (A) 1 %; Eosinophils # (A) 0.2 k/uL (0-0.7); Eosinophils % (A) 2 %; HCT 41.8 % (34.0-46.0); HGB 14.3 gm/dL (11.4-16.0); Lymphocytes # (A) 2.1 k/uL (1.0-4.8); Lymphocytes % (A) 22 %; MCH 32.3 pg (25.0-35.0); MCHC 34.2 g/dL (31.0-37.0); MCV 94.4 fL (80.0-100.0); Mean Platelet Volume 8.1; Monocytes # (A) 0.3 k/uL (0-1.0); Monocytes % (A) 3 %; Neutrophils # (A) 6.7 k/uL (1.3-7.7); Neutrophils % (A) 71 %; Platelet Count 196 k/uL (150-450); RBC 4.42 m/uL (3.80-5.40); RDW 13.3 % (11.5-15.5); WBC 9.4 k/uL (3.8-10.6)
[2018-04-02 12:11] LABS: ALT 42 U/L (9-52); AST 31 U/L (14-36); Albumin 4.2 g/dL (3.5-5.0); Alkaline Phosphatase 99 U/L (38-126); Anion Gap 10 mmol/L; Blood Urea Nitrogen 12 mg/dL (7-17); Calcium 9.4 mg/dL (8.4-10.2); Carbon Dioxide 20 mmol/L (22-30); Chloride 112 mmol/L (98-107); Glucose 134 mg/dL (74-99); Potassium 3.6 mmol/L (3.5-5.1); Sodium 142 mmol/L (137-145); Total Bilirubin 0.7 mg/dL (0.2-1.3); Total Protein 7.1 g/dL (6.3-8.2)
[2018-04-02 12:19] LABS: INR 1.1 (<1.2); Partial Thromboplastin Time 24.3 sec (22.0-30.0); Prothrombin Time 11.1 sec (9.0-12.0)
[2018-04-02 12:27] LABS: D-Dimer 4.03 mg/L FEU (<0.60)
[2018-04-02 12:32] LABS: Creatine Kinase MB 4.4 ng/mL (0.0-2.4)
--- NOTE | 2018-04-02 12:45 | XR ---
EXAMINATION TYPE: XR chest 2V DATE OF EXAM: 04/02/2018 COMPARISON: 07/02/2017 HISTORY: 47-year-old female with shortness of breath TECHNIQUE: PA and lateral views FINDINGS: Heart upper limits of normal in size. Bilateral hilar prominence could represent enlarged main pulmon ted arteries. Mild hyperinflation mild diffuse interstitial prominence. Improved aeration of the charlie pheral right midlung as compared to 07/02/2017. No richard consolidation or pleural effusion. IMPRESSION: Chronic changes, possible underlying COPD. Hilar prominence is also similar and may reflect underlyin g pulmonary arterial hypertension. No acute cardiopulmonary process.
[2018-04-02 12:46] LABS: Troponin I 0.091 ng/mL (0.000-0.034)
[2018-04-02] MEDS ORDERED: HEPARIN SODIUM,PORCINE 5,000 UNIT/ML 1 ML VIAL IV STA (13:03)
--- NOTE | 2018-04-02 13:08 | CT ---
EXAMINATION TYPE: CT angio chest DATE OF EXAM: 04/02/2018 COMPARISON: 11/26/2012 HISTORY: 47-year-old female SOB, elevated d dimer TECHNIQUE: Contiguous axial scanning of the chest performed with IV Contrast, patient injected with 1 00 mL of Isovue 370. Coronal/sagittal MIP reconstructions performed. CT DLP: 414.4 mGycm Automated exposure control for dose reduction was used. FINDINGS: Heart normal size without pericardial effusion. There is flattening of the interventricular septum wi th enlargement of the right ventricle relative to the left ventricle and reflux of contrast into the hepatic veins. There is a thin central embolus with enlargement of the main pulmonary arteries measuring up to 2.7 c m. Severe clot burden at the distal main pulmonary arteries and additional thrombus extending through out the bilateral lungs. No thoracic lymphadenopathy. Scattered moderate emphysematous change. No consolidation or pleural effusion. Couple subpleural pulmonary nodules at the posterior left base 8 mm were present back in 2013 compati ble with a benign etiology. Additional subpleural nodularity posterior right base is unchanged as wel l. Focal lobulated opacity posterior right lower lobe measures 1.5 cm and should be reassessed at follow -up. 5 mm nodularity peripheral left mid lung not clearly seen previously, axial image 67. Visualized upper abdomen shows an anterior splenule. Bones: No osseous destructive process. Moderate degenerative disc disease lower thoracic spine. IMPRESSION: 1. SEVERE BURDEN OF BILATERAL PULMONARY EMBOLI WITH THIN SADDLE EMBOLUS AND EXTENSIVE CLOT THROUGHOUT BOTH LUNGS. 2. EXAM POSITIVE FOR RIGHT HEART STRAIN. 3. CYSTIC CHANGE IN THE LUNGS SUSPECTED TO BE SECONDARY TO EMPHYSEMA. 4. A FEW NODULES MEASURING UP TO 8 MM ARE UNCHANGED FROM 2013 COMPATIBLE WITH A BENIGN ETIOLOGY. ROGEL RENE, THERE IS SOME ADDITIONAL NODULARITY MEASURING UP TO 1.5 CM POSTERIOR RIGHT LOWER LOBE AND 5 MM I N THE LEFT MIDLUNG WHICH IS NEW SINCE THEN. THREE-MONTH FOLLOW-UP RECOMMENDED TO REASSESS. Critical findings called to Dr. Alarcon in the ER at 1:00 PM.
[2018-04-02] MEDS ORDERED: HEPARIN SOD,PORK IN 0.45% NACL 25,000 UNIT in 0.45% NACL 1 250ML.BAG IV SCH (13:15)
[2018-04-02 13:46] VITALS: BP 128/101; PULSE 86; RESP 19
[2018-04-02 14:59] LABS: Appearance,Urine Cloudy (Clear); Bacteria,Urine Few /hpf; Bilirubin,Urine Negative (Negative); Blood,Urine Small (Negative); Color,Urine Yellow; Glucose,Urine (UA) Negative (Negative); Ketones,Urine Negative (Negative); Leukocyte Esterase,Urine Moderate (Negative); Mucus,Urine Few /hpf; Nitrite,Urine Negative (Negative); Protein,Urine 1+ (Negative); RBC,Urine 3 /hpf (0-5); Specific Gravity,Urine 1.037 (1.001-1.035); Squamous Epithelial Cell,Urine 2 /hpf (0-4)
== END 2018-04-02 14:36 | disposition short-term general hospital (02) ==
LOC: EC 10:53
DX: I26.99 Other pulmonary embolism without acute cor pulmonale (principal); E07.9 Disorder of thyroid, unspecified; F41.9 Anxiety disorder, unspecified; F32.9 Major depressive disorder, single episode, unspecified; F17.200 Nicotine dependence, unspecified, uncomplicated; Z79.890 Hormone replacement therapy; Z79.899 Other long term (current) drug therapy; Z88.5 Allergy status to narcotic agent
CPT/HCPCS: 36415; 93005; 85379; 80053; 82550; 82553; 84484; 85025; 85610; 85730; 81001; 81025; 87086; 71046; 71275; 99285; 96365; 96361 ×2; J1644 ×2; Q9967

== ENCOUNTER 2018-05-24 02:46 | Emergency (ER) | payer MEDICARE ==
[2018-05-24 02:55] VITALS: BP 139/91; PULSE 79; RESP 18; TEMP 97.9
[2018-05-24] MEDS ORDERED: diphenhydrAMINE 25 MG CAP PO STA (03:16)
--- NOTE | 2018-05-24 03:16 | ED ---
Allergic Reaction HPI - General Chief complaint: Allergic Reaction Stated complaint: Rash Time Seen by Provider: 05/24/18 03:06 Source: patient, family Mode of arrival: ambulatory Limitations: physical limitation - History of Present Illness Initial Comments: Kya is a pleasant 89-year-old female who was diagnosed with pulmonary embolism approximately 6 weeks ago at that time the patient was prescribed Xarelto which is been tolerating well. Patient reports she woke from sleep around midnight tonight noted hives on her left shoulder and one hive on her stomach, she did not take any medications for this or tried any treatment. She reports that after reading online that this could be an ALLERGIC reaction is also she decided to the ER for further evaluation. Patient denies any associated shortness of breath, wheezing, nausea, vomiting or lightheadedness. She reports she otherwise feels well and neck she feels that the hives are nearly resolved now that she is arrived in the emergency department. Patient denies any new soaps, lotions, laundry soaps or fabric softeners. She denies any possible contact to any new substances to cause this reaction. - Related Data Home Medications Medication Instructions Recorded Confirmed Levothyroxine Sodium [Synthroid] 88 mcg PO DAILY 04/20/14 04/02/18 ALPRAZolam [Xanax] 0.25 mg PO Q8HR PRN 07/03/17 04/02/18 HYDROcodone/APAP 7.5-325MG [[place] 1 tab PO Q4H PRN 07/03/17 04/02/18 7.5-325] Ibuprofen 800 mg PO Q8H PRN 07/03/17 04/02/18 Phentermine HCl [Adipex-P] 37.5 mg PO AC-BRKFST 04/02/18 04/02/18 Allergies Allergy/AdvReac Type Severity Reaction Status Date / Time Morpholine Analogues AdvReac Intermediate Hallucinati Verified 05/24/18 02:55 ons tramadol HCl [From Ultram] AdvReac Mild Unknown Verified 05/24/18 02:55 Review of Systems ROS Statement: Those systems with pertinent positive or pertinent negative responses have been documented in the HPI. ROS Other: All systems not noted in ROS Statement are negative. Past Medical History Past Medical History: Osteoarthritis (OA), Thyroid Disorder Additional Past Medical History / Comment(s): BLOOD CLOTS IN LUNG AND LEGS History of Any Multi-Drug Resistant Organisms: MRSA Date of last positivie culture/infection: 2006 MDRO Source:: culture back Past Surgical History: Back Surgery, Section, Tonsillectomy Additional Past Surgical History / Comment(s): back surgery x6. screws in back. Past Anesthesia/Blood Transfusion Reactions: No Reported Reaction Past Psychological History: Anxiety, Depression Smoking Status: Heavy tobacco smoker Past Alcohol Use History: Occasional Past Drug Use History: Marijuana - Past Family History Father Family Medical History: No Reported History Additional Family Medical History / Comment(s): never knew father. Mother Family Medical History: Diabetes Mellitus, Musculoskeletal Disorder General Exam - General Exam Comments Initial Comments: Physical Exam GENERAL: Patient is well-developed and well-nourished. Patient is nontoxic and well-hydrated and is in no distress. HENT: Normocephalic, Atraumatic. EYES: PERRL, EOMI PULMONARY: Unlabored respirations. No audible rales rhonchi or wheezing was noted. CARDIOVASCULAR: There is a regular rate and rhythm without any murmurs gallops or rubs. ABDOMEN: Soft and nontender with normal bowel sounds. SKIN: 3 small wheels on the left shoulder each approx 1-2cm in diameter, No lesions on trunk or other extremities : Deferred NEUROLOGIC: Patient is alert and oriented x3. Moving all extremities spontaneously MUSCULOSKELETAL: Normal extremities with adequate strength and full range of motion. No lower extremity swelling or edema. No calf tenderness. PSYCHIATRIC: Normal psychiatric evaluation. Limitations: no limitations Limitations: physical limitation Course Vital Signs 05/24/18 02:49 Temperature 97.9 F Pulse Rate 79 Respiratory 18 Rate Blood Pressure 139/91 O2 Sat by Pulse 99 Oximetry Medical Decision Making - Medical Decision Making Patient was seen and evaluated history is obtained from the patient and review of medical record Physical 47-year-old female who is been on Xarelto for approximately 5-6 weeks presenting with hives on the left shoulder. Patient reports she has a history of getting hives intermittently but hasn't done so a number of years. She is concerned this may be an ALLERGIC reaction to her also. She's not having any other signs of ALLERGIC reaction, physical exam is otherwise unremarkable. At this time patient has resolving high on the left shoulder no other signs or symptoms. Treat with by mouth Benadryl. Patient will follow up with her primary care physician later today for reevaluation and discussion of alternate anticoagulant medication. Disposition Clinical Impression: Urticaria Disposition: HOME SELF-CARE Condition: Stable Instructions (If sedation given, give patient instructions): Anaphylaxis (ED) Additional Instructions: Follow up with Dr. Vickers later today for reevaluation and discussion of possibly changing Xarelto to an alternate medication. Is patient prescribed a controlled substance at d/c from ED?: No Referrals: Richie Vickers MD [Primary Care Provider] - 1-2 days
== END 2018-05-24 03:36 | disposition home or self-care (01) ==
LOC: EC 02:46
DX: L50.9 Urticaria, unspecified (principal); E07.9 Disorder of thyroid, unspecified; M19.90 Unspecified osteoarthritis, unspecified site; F17.200 Nicotine dependence, unspecified, uncomplicated; Z88.5 Allergy status to narcotic agent; Z91.048 Other nonmedicinal substance allergy status; Z79.01 Long term (current) use of anticoagulants; Z79.890 Hormone replacement therapy; Z79.899 Other long term (current) drug therapy; Z86.14 Personal history of Methicillin resistant Staphylococcus aureus infection; Z86.711 Personal history of pulmonary embolism; Z96.698 Presence of other orthopedic joint implants
CPT/HCPCS: 99282

== ENCOUNTER → 2018-09-23 | Outpatient (CLI) | payer MEDICARE ==
[2018-09-23 13:15] LABS: INR 3.4 (<1.2); Prothrombin Time 32.7 sec (9.0-12.0)
== END | disposition home or self-care (01) ==
LOC: LABWHC1 12:16
PROVIDERS: ATTEND Internal Medicine
DX: I26.99 Other pulmonary embolism without acute cor pulmonale (principal)
CPT/HCPCS: 36415; 85610

== ENCOUNTER → 2018-09-27 | Outpatient (CLI) | payer MEDICARE, OTHER ==
--- NOTE | 2018-09-30 10:00 | PE ---
EXAMINATION TYPE: PET CT fusion skull to thigh DATE OF EXAM: 09/27/2018 COMPARISON: CTA chest 04/02/2018 Prior PET/CT: None HISTORY: Solitary pulmonary nodule TECHNIQUE: Following the intravenous administration of 11.88 mCi of F-18 FDG, whole body images are performed from the skull base to the midthigh. Images are reviewed on the computer in the coronal, a xial, and sagittal planes. Reconstructed rotating images are created on independent workstation and reviewed on the computer. A localization and attenuation correction CT is performed in conjunction with the PET scan. DLP: 453.07 mGycm SCAN: Initial Blood glucose: 89 mg/dL Average Mediastinum SUV: 1.43 Average Liver SUV: 2.23 FINDINGS: NECK: No abnormal uptake THORAX: Within an area of increased density in the posterior medial right lung base, PET image 112, t he uptake is 1.71 which is intermediate in could be related to inflammatory change. Early metastatic or primary disease is not excluded and follow-up is recommended. There may be some very subtle uptake Within a small posterior right hilar lymph node with an SUV value 2.5, PET image 95. Small posterior density is evident on lung windows in the posterior lateral left lung base, series 3 image 114. This has an SUV value of 1.55. Small pleural-based density in the posterior lateral right lung base, PET i mage 120 hasn't SUV value 1.37. ABDOMEN: No abnormal uptake PELVIS: No abnormal uptake OSSEOUS STRUCTURES: No abnormal uptake LOCALIZATION CT: Some peripheral increased densities in the right middle lobe, series 3 image 97. Thi s has a SUV value of 0.5. Emphysematous changes are through the bilateral lungs. COMPARISON: Small density in the posterior lateral left apex is diminished in size and density from c omparison CT. Additional densities were present previously without evidence of enlargement. Posterio r lateral density at the right lower lung field may be somewhat diminished in size from comparison cu rrently measuring 1.2 cm with the previous measurement of 1.5 cm. IMPRESSION: 1. Lung findings are suggestive for inflammatory changes based on SUV values. Lower metabolic neoplas m could be considered and monitoring with standard CT chest with contrast recommended. If this should change, repeat PET imaging can be performed.
== END | disposition home or self-care (01) ==
LOC: RADPETMAIN 13:50
PROVIDERS: ATTEND Internal Medicine
DX: R91.1 Solitary pulmonary nodule (principal)
CPT/HCPCS: 78815; A9552

== ENCOUNTER 2018-11-26 21:41 | Inpatient (IN) | payer MEDICARE, OTHER ==
[2018-11-26] MEDS ORDERED: SODIUM CHLORIDE 0.9% 500 ML 500 ML IV STA (22:34)
[2018-11-26] MEDS ORDERED: SODIUM CHLORIDE 0.9% 1,000 ML IV STA (22:34)
--- NOTE | 2018-11-26 23:14 | ED ---
SOB HPI - General Chief Complaint: Shortness of Breath Stated Complaint: Diff Breathing Time Seen by Provider: 11/26/18 22:08 Source: patient, RN notes reviewed, old records reviewed Mode of arrival: ambulatory Limitations: no limitations - History of Present Illness Initial Comments: This 48-year-old female the ER today. This a for evaluation of what she admits to being anxiety. She also is concern that she may be having recurrence of PE. Patient has history of PE recently about 6 weeks of blood thinners began having exertional and occasional shortness of breath no palpitations as of late. Occasional pain. No swelling in her legs she did have DVTs in her lower extremities as well during initial PE. No prior history of PE. No surgeries. No recent travel history no sick contacts no fevers cough or congestion currently patient is asymptomatic MD Complaint: shortness of breath, pain with inspiration -: days(s) Radiation: back Severity: mild Quality: aching Consistency: constant Improves With: nothing Worsens With: exertion Known History Of: DVT, other (History of PE) Context: recent URI Associated Symptoms: cough Treatments Prior to Arrival: none - Related Data Home Medications Medication Instructions Recorded Confirmed Levothyroxine Sodium [Synthroid] 88 mcg PO DAILY 04/20/14 11/26/18 HYDROcodone/APAP 7.5-325MG [[place] 1 tab PO Q6H PRN 07/03/17 11/26/18 7.5-325] Ibuprofen 800 mg PO Q8H PRN 07/03/17 11/26/18 Allergies Allergy/AdvReac Type Severity Reaction Status Date / Time Morpholine Analogues AdvReac Intermediate Hallucinati Verified 11/26/18 22:02 ons tramadol HCl [From Ultram] AdvReac Mild Unknown Verified 11/26/18 22:02 Review of Systems ROS Statement: Those systems with pertinent positive or pertinent negative responses have been documented in the HPI. ROS Other: All systems not noted in ROS Statement are negative. Past Medical History Past Medical History: Deep Vein Thrombosis (DVT), Osteoarthritis (OA), Pulmonary Embolus (PE), Thyroid Disorder Additional Past Medical History / Comment(s): BLOOD CLOTS IN LUNG AND LEGS History of Any Multi-Drug Resistant Organisms: MRSA Date of last positivie culture/infection: 2006 MDRO Source:: culture back Past Surgical History: Back Surgery, Section, Tonsillectomy Additional Past Surgical History / Comment(s): back surgery x6. screws in back. Past Anesthesia/Blood Transfusion Reactions: No Reported Reaction Past Psychological History: Anxiety, Depression Smoking Status: Heavy tobacco smoker Past Alcohol Use History: Occasional Past Drug Use History: Marijuana - Past Family History Father Family Medical History: No Reported History Additional Family Medical History / Comment(s): never knew father. Mother Family Medical History: Diabetes Mellitus, Musculoskeletal Disorder General Exam Limitations: no limitations General appearance: alert, in no apparent distress, anxious Head exam: Present: atraumatic, normocephalic, normal inspection Eye exam: Present: normal appearance, PERRL, EOMI. Absent: scleral icterus, conjunctival injection, periorbital swelling ENT exam: Present: normal exam, mucous membranes moist Neck exam: Present: normal inspection. Absent: tenderness, meningismus, lymphadenopathy Respiratory exam: Present: normal lung sounds bilaterally. Absent: respiratory distress, wheezes, rales, rhonchi, stridor Cardiovascular Exam: Present: regular rate, normal rhythm, normal heart sounds. Absent: systolic murmur, diastolic murmur, rubs, gallop, clicks GI/Abdominal exam: Present: soft, normal bowel sounds. Absent: distended, tenderness, guarding, rebound, rigid Extremities exam: Present: normal inspection, full ROM, normal capillary refill. Absent: tenderness, pedal edema, joint swelling, calf tenderness Back exam: Present: normal inspection Neurological exam: Present: alert, oriented X3, CN II-XII intact Psychiatric exam: Present: normal affect, normal mood Skin exam: Present: warm, dry, intact, normal color. Absent: rash Course Vital Signs 11/26/18 21:54 Temperature 99.0 F Pulse Rate 93 Respiratory 22 Rate Blood Pressure 167/98 O2 Sat by Pulse 92 L Oximetry - Reevaluation(s) Reevaluation #1: 11/26/18 23:14 medical record is reviewed Reevaluation #2: 11/26/18 23:39 Patient's in no significant headache patient's in no significant acute distress - Consultations Consultation #1: Spoke with Dr. Vickers will admit for anticoagulation Medical Decision Making - Medical Decision Making 48 female to the ER for or shortness of breath chest pain after exertion, patient is positive for PE. Patient be admitted for anticoagulation - Radiology Data Radiology results: report reviewed (CT is positive for PE), image reviewed Disposition Clinical Impression: Pulmonary embolism Disposition: ADMITTED IP TO THIS HOSP Condition: Fair Is patient prescribed a controlled substance at d/c from ED?: No Referrals: Richie Vickers MD [Primary Care Provider] - 1-2 days
--- NOTE | 2018-11-26 23:31 | CT ---
EXAMINATION TYPE: CT angio chest DATE OF EXAM: 11/26/2018 11:17 PM COMPARISON: 04/02/2018 HISTORY: USHA CT DLP: 736.5 mGycm Automated exposure control for dose reduction was used. CONTRAST: CTA scan of the thorax is performed with IV Contrast, patient injected with 100mL mL of Isovue 370, p ulmonary embolism protocol. . There are 3-D post processed images. FINDINGS: There is some pulmonary emphysema. There is mild reticular interstitial infiltrates in both lungs. Th ere is 5 mm pleural-based nodules in the posterior lung [place]. There is 1 cm somewhat stellate infil trate right paraspinal right lower lobe. There is no pleural effusion. Heart size is normal. There is no pericardial effusion. There are multiple filling defects in the pulmonary arteries bilaterally. This is more in both lower lobes. There is also involvement right upper lobe. There is no definite bronchial adenopathy. There is no mediastinal adenopathy. Thoracic aorta shows n o sign of aneurysm or dissection. IMPRESSION: MULTIPLE LARGE PULMONARY EMBOLI THAT APPEAR MORE EXTENSIVE THAN LAST CT SCAN. THERE IS INVOLVEMENT OF THE MORE CENTRAL PULMONARY ARTERIES. EXTENSIVE RETICULAR AND NODULAR PULMONARY INFILTRATES SLIGHTLY INCREASED COMPARED TO OLD EXAM. MILD P ULMONARY EMPHYSEMA.
[2018-11-26] MEDS ORDERED: MORPHINE SULFATE 4 MG/ML SYRINGE IV PRN (23:36)
[2018-11-26] MEDS ORDERED: NITROGLYCERIN SL TABS 0.4 MG TAB SUBLINGUAL PRN (23:36)
[2018-11-26] MEDS ORDERED: HEPARIN SODIUM,PORCINE 5,000 UNIT/ML 1 ML VIAL IV PRN (23:36)
[2018-11-26] MEDS ORDERED: HEPARIN SODIUM,PORCINE 10,000 UNIT/ML 1 ML VIAL IV ONE (23:36)
[2018-11-26 23:55] LABS: ALT 27 U/L (9-52); AST 23 U/L (14-36); African American GFR (CKD) >90 (>60 ml/min/1.73 sqM); Albumin 4.7 g/dL (3.5-5.0); Alkaline Phosphatase 103 U/L (38-126); Anion Gap 12 mmol/L; Blood Urea Nitrogen 11 mg/dL (7-17); Calcium 9.7 mg/dL (8.4-10.2); Carbon Dioxide 23 mmol/L (22-30); Chloride 106 mmol/L (98-107); Glucose 112 mg/dL (74-99); Magnesium 1.8 mg/dL (1.6-2.3); Non-African American GFR(CKD) >90 (>60 ml/min/1.73 sqM); Potassium 3.7 mmol/L (3.5-5.1); Sodium 141 mmol/L (137-145); Total Bilirubin 0.5 mg/dL (0.2-1.3)
[2018-11-26 23:58] LABS: Basophils # (A) 0.1 k/uL (0-0.2); Basophils % (A) 1 %; Eosinophils # (A) 0.2 k/uL (0-0.7); Eosinophils % (A) 3 %; HGB 15.1 gm/dL (11.4-16.0); Lymphocytes % (A) 26 %; MCH 32.5 pg (25.0-35.0); MCHC 34.4 g/dL (31.0-37.0); MCV 94.6 fL (80.0-100.0); Mean Platelet Volume 6.6; Monocytes # (A) 0.2 k/uL (0-1.0); Monocytes % (A) 3 %; Neutrophils # (A) 4.9 k/uL (1.3-7.7); Neutrophils % (A) 66 %; Platelet Count 234 k/uL (150-450); RBC 4.66 m/uL (3.80-5.40); RDW 12.8 % (11.5-15.5); WBC 7.4 k/uL (3.8-10.6)
[2018-11-27 00:03] LABS: D-Dimer 1.71 mg/L FEU (<0.60); INR 0.9 (<1.2); Partial Thromboplastin Time 23.9 sec (22.0-30.0); Prothrombin Time 10.1 sec (9.0-12.0)
[2018-11-27] MEDS: HEPARIN SOD,PORK IN 0.45% NACL 25,000 UNIT in 0.45% NACL 1 250ML.BAG IV SCH ×2 (01:01→14:09)
[2018-11-27] MEDS: SODIUM CHLORIDE 0.9% 1,000 ML IV SCH ×3 (01:15→17:30)
[2018-11-27] MEDS: ALPRAZolam 0.25 MG TAB PO PRN ×2 (01:57→14:14)
[2018-11-27 02:24] VITALS: BMI 36.3
[2018-11-27] MEDS: NICOTINE 14MG/24HR PATCH TRANSDERM SCH ×2 (03:22→03:30)
[2018-11-27] MEDS: HYDROcodone/APAP 7.5-325MG 1 EACH TAB PO PRN ×4 (04:33→23:34)
[2018-11-27 06:49] LABS: Basophils # (A) 0.1 k/uL (0-0.2); Basophils % (A) 1 %; Eosinophils # (A) 0.2 k/uL (0-0.7); Eosinophils % (A) 3 %; HCT 39.5 % (34.0-46.0); HGB 13.4 gm/dL (11.4-16.0); Lymphocytes # (A) 1.7 k/uL (1.0-4.8); Lymphocytes % (A) 29 %; MCH 32.5 pg (25.0-35.0); MCV 95.7 fL (80.0-100.0); Mean Platelet Volume 7.1; Monocytes # (A) 0.2 k/uL (0-1.0); Monocytes % (A) 4 %; Neutrophils # (A) 3.6 k/uL (1.3-7.7); Neutrophils % (A) 62 %; Platelet Count 182 k/uL (150-450); RBC 4.13 m/uL (3.80-5.40); RDW 12.9 % (11.5-15.5); WBC 5.9 k/uL (3.8-10.6)
[2018-11-27 06:55] LABS: Partial Thromboplastin Time 92.1 sec (22.0-30.0); Prothrombin Time 10.8 sec (9.0-12.0)
[2018-11-27 06:59] LABS: Cholesterol 162 mg/dL (<200); HDL Cholesterol 34 mg/dL (40-60); LDL Cholesterol,Calculated 94 mg/dL (0-99); Triglycerides 172 mg/dL (<150)
--- NOTE | 2018-11-27 08:27 | P.HPIM ---
History of Present Illness H&P Date: 11/27/18 Chief Complaint: Shortness of breath This is a history and physical on a 48-year-old white female with history of PE and DVT in the past 2 has struggled with side effects from anticoagulants. She has had difficulty with GI upset from taking Coumadin and we had switched her to Xarelto. She supposedly had rash and has stopped anticoagulation for several weeks. She now has significant shortness of breath and hypoxia. She is continuing to smoke but evaluation emergency room has shown recurrent PE. She has not heparin and we will try to see if Eliquis is better tolerated. No significant diarrhea at this time. No nausea or vomiting. She seems to be breathing without difficulty. Review of Systems Constitutional: Denies chills, Denies fever Eyes: denies blurred vision, denies pain Ears, nose, mouth and throat: Denies headache, Denies sore throat Cardiovascular: Reports dyspnea on exertion, Reports shortness of breath, Denies chest pain Respiratory: Denies cough Gastrointestinal: Denies abdominal pain, Denies diarrhea, Denies nausea, Denies vomiting Genitourinary: Denies dysuria, Denies hematuria Musculoskeletal: Denies myalgias Integumentary: Denies pruritus, Denies rash Neurological: Denies numbness, Denies weakness Endocrine: Denies fatigue, Denies weight change Past Medical History Past Medical History: Deep Vein Thrombosis (DVT), Osteoarthritis (OA), Pulmonary Embolus (PE), Thyroid Disorder Additional Past Medical History / Comment(s): BLOOD CLOTS IN LUNG AND LEGS History of Any Multi-Drug Resistant Organisms: MRSA Date of last positivie culture/infection: 2006 MDRO Source:: culture back Past Surgical History: Back Surgery, Section, Tonsillectomy Additional Past Surgical History / Comment(s): back surgery x6. screws in back. Past Anesthesia/Blood Transfusion Reactions: No Reported Reaction Past Psychological History: Anxiety, Depression Smoking Status: Heavy tobacco smoker Past Alcohol Use History: Occasional Additional Past Alcohol Use History / Comment(s): 3 days a week. Past Drug Use History: Marijuana Additional Drug Use History / Comment(s): medical marijuana card. - Past Family History Father Family Medical History: No Reported History Additional Family Medical History / Comment(s): never knew father. Mother Family Medical History: Diabetes Mellitus, Musculoskeletal Disorder Medications and Allergies Home Medications Medication Instructions Recorded Confirmed Type Levothyroxine Sodium [Synthroid] 88 mcg PO DAILY 04/20/14 11/26/18 History HYDROcodone/APAP 7.5-325MG [[place] 1 tab PO Q6H PRN 07/03/17 11/26/18 History 7.5-325] Ibuprofen 800 mg PO Q8H PRN 07/03/17 11/26/18 History ALPRAZolam [Xanax] 0.25 mg PO BID PRN 11/27/18 11/27/18 History Allergies Allergy/AdvReac Type Severity Reaction Status Date / Time Morpholine Analogues AdvReac Intermediate Hallucinati Verified 11/26/18 22:02 ons tramadol HCl [From Ultram] AdvReac Mild Unknown Verified 11/26/18 22:02 Physical Exam Vitals: Vital Signs Temp Pulse Pulse Resp BP BP Pulse Ox 11/27/18 04:00 97.2 F L 71 19 116/84 97 11/27/18 00:00 98.8 F 85 22 134/93 94 L 11/26/18 23:36 94 L 11/26/18 21:54 99.0 F 93 22 167/98 92 L Intake and Output 11/26/18 11/27/18 11/27/18 22:59 06:59 14:59 Intake Total 600 118.444 Balance 600 118.444 Intake: Intake, IV Titration 600 118.444 Amount Heparin Sod,Pork in 0.45% 118.444 NaCl 25,000 unit In 0.45 % NaCl 1 250ml.bag @ 18 UNITS/KG/HR 18.411 mls/hr IV .[id number] NOEL Rx#: [id number] Sodium Chloride 0.9% 1, 100 000 ml @ 100 mls/hr IV . Q10H NOEL Rx#:[id number] Sodium Chloride 0.9% 500 500 ml 500 ml @ 999 mls/hr IV .Q31M STA Rx#:[id number] Other: # Voids 1 Weight 102.285 kg - Constitutional General appearance: no acute distress - EENT Eyes: EOMI - Neck Neck: no lymphadenopathy - Respiratory Respiratory: bilateral: diminished - Cardiovascular Rhythm: regular Heart sounds: normal: S1, S2 Abnormal Heart Sounds: no S3 Gallop - Gastrointestinal General gastrointestinal: soft, no splenomegaly, no tenderness - Psychiatric Psychiatric: A&O x's 3, no appropriate affect Results CBC & Chem 7: 11/27/18 05:25 11/26/18 23:00 Labs: Abnormal Lab Results - Last 24 Hours (Table) 11/26/18 11/26/18 11/27/18 Range/Units 23:00 23:00 05:25 APTT 92.1 H (22.0-30.0) sec D-Dimer 1.71 H (<0.60) mg/L FEU Creatinine 0.51 L (0.52-1.04) mg/dL Glucose 112 H (74-99) mg/dL Triglycerides (<150) mg/dL HDL Cholesterol (40-60) mg/dL 11/27/18 Range/Units 05:25 APTT (22.0-30.0) sec D-Dimer (<0.60) mg/L FEU Creatinine (0.52-1.04) mg/dL Glucose (74-99) mg/dL Triglycerides 172 H (<150) mg/dL HDL Cholesterol 34 L (40-60) mg/dL Thrombosis Risk Factor Assmnt - Choose All That Apply Each Factor Represents 1 point: Age 41-60 years Each Risk Factor Represents 3 Points: History of DVT/PE Thrombosis Risk Factor Assessment Total Risk Factor Score: 4 Thrombosis Risk Factor Assessment Level: Moderate Risk Assessment and Plan (1) Pulmonary embolism Current Visit: Yes Status: Acute Code(s): I26.99 - OTHER PULMONARY EMBOLISM WITHOUT ACUTE COR PULMONALE SNOMED Code(s): 28215413 (2) Cigarette nicotine dependence Current Visit: No Status: Acute Code(s): F17.210 - NICOTINE DEPENDENCE, CIGARETTES, UNCOMPLICATED SNOMED Code(s): 34329659 (3) Hypothyroidism Current Visit: No Status: Acute Code(s): E03.9 - HYPOTHYROIDISM, UNSPECIFIED SNOMED Code(s): 49877879 Plan: Continue anticoagulation. Reconcile medications. Neurology consult due to pulmonary embolus element. We will go ahead and see if we can get Eliquis covered and hopefully discharge once the patient is loaded. She orders otherwise. Time with Patient: Greater than 30
[2018-11-27] MEDS: LEVOTHYROXINE 88 MCG TAB PO SCH (09:23)
[2018-11-27] MEDS: ASPIRIN 325 MG TAB PO SCH (09:24)
--- NOTE | 2018-11-27 09:25 | ECHOF ---
Referral Reason:pe, recurrent MEASUREMENTS -------- HEIGHT: 167.6 cm WEIGHT: 102.1 kg BP: RVIDd: 2.5 cm (< 3.3) IVSd: 1.1 cm (0.6 - 1.1) LVIDd: 4.4 cm (3.9 - 5.3) LVPWd: 1.3 cm (0.6 - 1.1) IVSs: 1.8 cm LVIDs: 3.3 cm LVPWs: 1.9 cm LAESV Index (A-L): 24.27 ml/m Ao Diam: 3.3 cm (2.0 - 3.7) LA Diam: 3.0 cm (2.7 - 3.8) MV EXCURSION: 21.518 mm (> 18.000) MV EF SLOPE: 138 mm/s (70 - 150) EPSS: 1.8 cm MV E Bryson: 0.77 m/s MV DecT: 208 ms MV A Bryson: 0.94 m/s MV E/A Ratio: 0.82 AR PHT: 221 ms RAP: 5.00 mmHg RVSP: 13.09 mmHg TAPSE: 23.82 mm FINDINGS -------- Sinus rhythm. This was a technically difficult study with suboptimal views. The left ventricular size is normal. There is mild concentric left ventricular hypertrophy. Overa ll left ventricular systolic function is low-normal with, an EF between 50 - 55 %. The diastolic fi lling pattern is normal for the age of the patient 11.46. The right ventricle is normal in size. The right ventricular systolic function is normal. The left atrial size is normal. Normal LA size by volume 22+/-6 ml/m2. The right atrial size is normal. Lumason used The aortic valve is trileaflet and appears structurally normal. The mitral valve is normal. There is trace mitral regurgitation. The tricuspid valve appears structurally normal. Trace tricuspid regurgitation present. Right dada tricular systolic pressure is normal at < 35 mmHg. There is no pulmonic regurgitation present. The aortic root size is normal. IVC Not well visulized. There is no pericardial effusion. CONCLUSIONS -------- 1. Sinus rhythm. 2. This was a technically difficult study with suboptimal views. 3. The left ventricular size is normal. 4. There is mild concentric left ventricular hypertrophy. 5. Overall left ventricular systolic function is low-normal with, an EF between 50 - 55 %. 6. The diastolic filling pattern is normal for the age of the patient 11.46 7. The right ventricle is normal in size. 8. The right ventricular systolic function is normal. 9. The left atrial size is normal. 10. Normal LA size by volume 22+/-6 ml/m2. 11. The right atrial size is normal. 12. Lumason used 13. The aortic valve is trileaflet and appears structurally normal. 14. The mitral valve is normal. 15. There is trace mitral regurgitation. 16. The tricuspid valve appears structurally normal. 17. Trace tricuspid regurgitation present. 18. Right ventricular systolic pressure is normal at < 35 mmHg. 19. There is no pulmonic regurgitation present. 20. The aortic root size is normal. 21. IVC Not well visulized. 22. There is no pericardial effusion. SILK WORKER: Twyla Conti RDCS
--- NOTE | 2018-11-27 15:04 | P.CNPUL ---
History of Present Illness Consult date: 11/27/18 Requesting physician: Richie Vickers Reason for consult: dyspnea, pulmonary embolism Chief complaint: Dyspnea, intermittent History of present illness: This is a 48-year-old white female patient of Dr. Vickers, with past medical history of pulmonary embolism, and lower extremity DVT in March 2018 for which the patient required catheter directed TPA/thrombolytic infusion, following which patient was placed on is aroused of a chronic anticoagulation. Patient was unable to tolerate Xarelto related to development of a rash, she was then placed on Coumadin and she found it was very hard to monitor, and she was also experiencing side effects. She completed the 6 months of anticoagulation coverage, and she had been off any anticoagulation. Yesterday on 11/26/2018 patient presented to the emergency department for evaluation of a week long history of intermittent shortness of breath, patient did have an episode of brief chest pain that felt like burning across her chest, lasting less than a minute and spontaneously resolved, however she had noted that her shortness of breath has been getting worse, she attributed it to her weight gain, she denied any increased swelling in her lower extremities or calf tenderness or redness. She denied any hemoptysis, denied any syncopal episodes. She denied any recent immobility, denied any recent illness, or procedures. She follows with a pulm onologist from out of town whose name she does not remember, and she is does have a history of COPD the severity of which is unknown to us, extensive history of smoking on and off for 33 years, and patient is currently cutting back down to 6 cigarettes per day. Other medical history includes hypothyroidism. CTA chest completed revealing multiple large pulmonary emboli that appear more extensive than last CT scan from 04/02/2018 and there is involvement of the more central pulmonary arteries, also showed extensive reticular and nodular pulmonary infiltrates increased compared to old exam, mild pulmonary emphysema. Patient was started on heparin infusion. Review of Systems All systems: negative Constitutional: Denies chills, Denies fever Eyes: denies blurred vision, denies pain Ears, nose, mouth and throat: Denies headache, Denies sore throat Cardiovascular: Denies chest pain, Denies shortness of breath Respiratory: Reports dyspnea, Denies cough Gastrointestinal: Denies abdominal pain, Denies diarrhea, Denies nausea, Denies vomiting Genitourinary: Denies dysuria, Denies hematuria Musculoskeletal: Denies myalgias Integumentary: Denies pruritus, Denies rash Neurological: Denies numbness, Denies weakness Psychiatric: Denies anxiety, Denies depression Endocrine: Denies fatigue, Denies weight change Past Medical History Past Medical History: Deep Vein Thrombosis (DVT), Osteoarthritis (OA), Pulmonary Embolus (PE), Thyroid Disorder Additional Past Medical History / Comment(s): BLOOD CLOTS IN LUNG AND LEGS History of Any Multi-Drug Resistant Organisms: MRSA Date of last positivie culture/infection: 2006 MDRO Source:: culture back Past Surgical History: Back Surgery, Section, Tonsillectomy Additional Past Surgical History / Comment(s): back surgery x6. screws in back. Past Anesthesia/Blood Transfusion Reactions: No Reported Reaction Past Psychological History: Anxiety, Depression Smoking Status: Heavy tobacco smoker Past Alcohol Use History: Occasional Additional Past Alcohol Use History / Comment(s): 3 days a week. Past Drug Use History: Marijuana Additional Drug Use History / Comment(s): medical marijuana card. - Past Family History Father Family Medical History: No Reported History Additional Family Medical History / Comment(s): never knew father. Mother Family Medical History: Diabetes Mellitus, Musculoskeletal Disorder Medications and Allergies Home Medications Medication Instructions Recorded Confirmed Type Levothyroxine Sodium [Synthroid] 88 mcg PO DAILY 04/20/14 11/26/18 History HYDROcodone/APAP 7.5-325MG [[place] 1 tab PO Q6H PRN 07/03/17 11/26/18 History 7.5-325] Ibuprofen 800 mg PO Q8H PRN 07/03/17 11/26/18 History ALPRAZolam [Xanax] 0.25 mg PO BID PRN 11/27/18 11/27/18 History Allergies Allergy/AdvReac Type Severity Reaction Status Date / Time Morpholine Analogues AdvReac Intermediate Hallucinati Verified 11/26/18 22:02 ons tramadol HCl [From Ultram] AdvReac Mild Unknown Verified 11/26/18 22:02 Physical Exam Vitals: Vital Signs Temp Pulse Pulse Resp BP BP Pulse Ox 11/27/18 08:15 97.0 F L 78 18 121/98 98 11/27/18 04:00 97.2 F L 71 19 116/84 97 11/27/18 00:00 98.8 F 85 22 134/93 94 L 11/26/18 23:36 94 L 11/26/18 21:54 99.0 F 93 22 167/98 92 L Intake and Output 11/26/18 11/27/18 11/27/18 22:59 06:59 14:59 Intake Total 600 118.444 Balance 600 118.444 Intake: Intake, IV Titration 600 118.444 Amount Heparin Sod,Pork in 0.45% 118.444 NaCl 25,000 unit In 0.45 % NaCl 1 250ml.bag @ 18 UNITS/KG/HR 18.411 mls/hr IV .[id number] NOEL Rx#: [id number] Sodium Chloride 0.9% 1, 100 000 ml @ 100 mls/hr IV . Q10H NOEL Rx#:[id number] Sodium Chloride 0.9% 500 500 ml 500 ml @ 999 mls/hr IV .Q31M STA Rx#:[id number] Other: # Voids 1 Weight 102.285 kg GENERAL EXAM: Alert, pleasant, 48-year-old obese white female comfortable in no apparent distress. HEAD: Normocephalic/atraumatic. EYES: Normal reaction of pupils, equal size. Conjunctiva pink, sclera white. NOSE: Clear with pink turbinates. THROAT: No erythema or exudates. NECK: No masses, no JVD, no thyroid enlargement, no adenopathy. CHEST: No chest wall deformity. Symmetrical expansion. LUNGS: Equal air entry with no crackles, wheeze, rhonchi or dullness. CVS: Regular rate and rhythm, normal S1 and S2, no gallops, no murmurs, no rubs ABDOMEN: Soft, nontender. No hepatosplenomegaly, normal bowel sounds, no guarding or rigidity. EXTREMITIES: No clubbing, no edema, no cyanosis, 2+ pulses and upper and lower extremities. MUSCULOSKELETAL: Muscle strength and tone normal. SPINE: No scoliosis or deformity. Healed scar along the lumbar spine SKIN: No rashes CENTRAL NERVOUS SYSTEM: Alert and oriented -3. No focal deficits, tone is normal in all 4 extremities. PSYCHIATRIC: Alert and oriented -3. Appropriate affect. Intact judgment and insight. Results - Laboratory Findings CBC and BMP: 11/27/18 05:25 11/26/18 23:00 PT/INR, D-dimer PT 10.8 sec (9.0-12.0) 11/27/18 05:25 INR 1.0 (<1.2) 11/27/18 05:25 D-Dimer 1.71 mg/L FEU (<0.60) H 11/26/18 23:00 Abnormal lab findings: Abnormal Labs 11/26/18 11/26/18 11/27/18 23:00 23:00 05:25 APTT 92.1 H D-Dimer 1.71 H Creatinine 0.51 L Glucose 112 H Triglycerides HDL Cholesterol 11/27/18 05:25 APTT D-Dimer Creatinine Glucose Triglycerides 172 H HDL Cholesterol 34 L - Diagnostic Findings CT scan - chest: report reviewed Additional studies: EKG reviewed Assessment and Plan Plan: Assessment: #1. Acute recurrent pulmonary emboli, CTA chest showed multiple large pulmonary emboli that appears to be more extensive than on last CT from March 2018 #2. Shortness of breath related to the above #3. History of pulmonary embolism in March 2018, and a CTA chest at that time showed a severe burden of pulmonary emboli in both lungs, with a thin saddle embolus and extensive clot throughout both lungs. Patient was sent to [facility] for catheter directed TPA infusion #4. History of COPD, the severity of which is unknown #5. Chronic smoker, carries [id number] smoking history, currently trying to cut back #6. Chronic back pain, spondylosis of the lumbar spine, status post surgical fusion #7. Area of increased density in the posterior medial right lung base, and a recent PET scan on 09/27/2018 showed intermediate uptake which could relate to inflammatory change, however early metastatic or primary disease is not excluded and patient will need follow-up. #8. History of DVT #9. History of MRSA infection #10. Hypothyroidism Plan: We'll continue with heparin infusion, patient will need coverage checked for Eliquis, she states she had previously been on Xarelto and apparently developed some type of a rash, and she had difficulty with Coumadin related to difficulty in monitoring therapeutic levels, and reportedly some constipation and diarrhea which are not typical side effects of Coumadin. Echocardiogram reviewed, showing no evidence of right ventricular strain. Will consider switching the patient to Eliquis next 24 hours. Hemodynamically she remains stable, she is on 3 L of oxygen her pulse ox of 98%, wean FiO2, raising some intermittent shortness of breath, no chest pain, no hemoptysis. We'll continue to follow, patient will need lifelong anticoagulation I performed a history & physical examination of the patient and discussed their management with my nurse practitioner, Chrystal Luz. I reviewed the nurse practitioner's note and agree with the documented findings and plan of care. Lung sounds are positive for diminished breath sounds. The findings and the impression was discussed with the patient. I attest to the documentation by the nurse practitioner. Time with Patient: Greater than 30
[2018-11-27] MEDS ORDERED: IPRATROPIUM-ALBUTEROL 3 ML NEB INHALATION PRN (15:12)
[2018-11-27] MEDS: IPRATROPIUM-ALBUTEROL 3 ML NEB INHALATION SCH ×2 (17:16→20:36)
[2018-11-27] MEDS: APIXABAN 5 MG TAB PO SCH ×2 (17:29→23:30)
[2018-11-28] MEDS: IPRATROPIUM-ALBUTEROL 3 ML NEB INHALATION SCH ×4 (00:53→12:03)
[2018-11-28 04:53] VITALS: RESP 16
[2018-11-28] MEDS: LEVOTHYROXINE 88 MCG TAB PO SCH (05:52)
[2018-11-28] MEDS: ALPRAZolam 0.25 MG TAB PO PRN (05:54)
[2018-11-28] MEDS: SODIUM CHLORIDE 0.9% 1,000 ML IV SCH (07:10)
[2018-11-28 07:14] LABS: Basophils % (A) 1 %; Eosinophils # (A) 0.1 k/uL (0-0.7); Eosinophils % (A) 2 %; HCT 38.3 % (34.0-46.0); HGB 12.6 gm/dL (11.4-16.0); Lymphocytes # (A) 0.9 k/uL (1.0-4.8); Lymphocytes % (A) 21 %; MCH 31.6 pg (25.0-35.0); MCV 95.9 fL (80.0-100.0); Mean Platelet Volume 6.5; Monocytes # (A) 0.1 k/uL (0-1.0); Monocytes % (A) 3 %; Neutrophils # (A) 3.3 k/uL (1.3-7.7); Neutrophils % (A) 73 %; Platelet Count 171 k/uL (150-450); RBC 3.99 m/uL (3.80-5.40); RDW 12.8 % (11.5-15.5); WBC 4.5 k/uL (3.8-10.6)
--- NOTE | 2018-11-28 08:23 | P.DS ---
Providers Date of admission: 11/26/18 23:38 Attending physician: Richie Vickers Consults: 11/26/18 23:36 Consult Physician Routine Consulting Provider: Heaven Gandhi Consult Reason/Comments: PE Do you want consulting provider notified?: Yes Consult Physician Urgent Consulting Provider: Fili Carroll Consult Reason/Comments: PE Do you want consulting provider notified?: Yes Primary care physician: Richie Vickers - Discharge Diagnosis(es) (1) Pulmonary embolism Current Visit: Yes Status: Acute (2) Cigarette nicotine dependence Current Visit: No Status: Acute (3) Hypothyroidism Current Visit: No Status: Acute Hospital Course: This discharge summary 48-year-old white female with history of tobacco use and admitted for recurrent pulmonary embolus. The patient was placed on heparin. Eliquis will be given due to intolerability of Xarelto and Coumadin in the past. The patient is discharged in stable condition and will be sent home with home oxygen if necessary. Patient Condition at Discharge: Fair Plan - Discharge Summary Discharge Rx Participant: No New Discharge Prescriptions: New Apixaban [Eliquis] 10 mg PO BID #12 tab Nicotine 14Mg/24Hr Patch [Habitrol] 1 patch TRANSDERM DAILY #30 patch Continue Levothyroxine Sodium [Synthroid] 88 mcg PO DAILY Ibuprofen 800 mg PO Q8H PRN PRN Reason: Pain HYDROcodone/APAP 7.5-325MG [[place] 7.5-325] 1 tab PO Q6H PRN PRN Reason: Pain ALPRAZolam [Xanax] 0.25 mg PO BID PRN PRN Reason: Agitation Or Acute Anxiety Discharge Medication List Levothyroxine Sodium [Synthroid] 88 mcg PO DAILY 04/20/14 [History] HYDROcodone/APAP 7.5-325MG [[place] 7.5-325] 1 tab PO Q6H PRN 07/03/17 [History] Ibuprofen 800 mg PO Q8H PRN 07/03/17 [History] ALPRAZolam [Xanax] 0.25 mg PO BID PRN 11/27/18 [History] Apixaban [Eliquis] 10 mg PO BID #12 tab 11/28/18 [Rx] Nicotine 14Mg/24Hr Patch [Habitrol] 1 patch TRANSDERM DAILY #30 patch 11/28/18 [Rx] Follow up Appointment(s)/Referral(s): Barrington Mcguire MD [STAFF PHYSICIAN] - 1 Week Richie Vickers MD [Primary Care Provider] - 1-2 days Discharge Disposition: HOME SELF-CARE
[2018-11-28] MEDS: HYDROcodone/APAP 7.5-325MG 1 EACH TAB PO PRN (08:37)
[2018-11-28] MEDS: APIXABAN 5 MG TAB PO SCH (08:38)
[2018-11-28] MEDS: NICOTINE 14MG/24HR PATCH TRANSDERM SCH (08:38)
[2018-11-28] MEDS: ASPIRIN 325 MG TAB PO SCH (08:39)
[2018-11-28 08:41] VITALS: BP 125/86; TEMP 97.7
--- NOTE | 2018-11-28 11:41 | P.PN ---
Subjective Progress Note Date: 11/28/18 Principal diagnosis: Acute recurrent pulmonary emboli This is a 48-year-old white female patient of Dr. Vickers, with past medical history of pulmonary embolism, and lower extremity DVT in March 2018 for which the patient required catheter directed TPA/thrombolytic infusion, f ollowing which patient was placed on is aroused of a chronic anticoagulation. Patient was unable to tolerate Xarelto related to development of a rash, she was then placed on Coumadin and she found it was very hard to monitor, and she was also experiencing side effects. She completed the 6 months of anticoagulation coverage, and she had been off any anticoagulation. Yesterday on 11/26/2018 patient presented to the emergency department for evaluation of a week long history of intermittent shortness of breath, patient did have an episode of brief chest pain that felt like burning across her chest, lasting less than a minute and spontaneously resolved, however she had noted that her shortness of breath has been getting worse, she attributed it to her weight gain, she denied any increased swelling in her lower extremities or calf tenderness or redness. She denied any hemoptysis, denied any syncopal episodes. She denied any recent immobility, denied any recent illness, or procedures. She follows with a test puller from out of town whose name she does not remember, and she is does have a history of COPD the severity of which is unknown to us, extensive history of smoking on and off for 33 years, and patient is currently cutting back down to 6 cigarettes per day. Other medical history includes hypothyroidism. CTA chest completed revealing multiple large pulmonary emboli that appear more extensive than last CT scan from 04/02/2018 and there is involvement of the more central pulmonary arteries, also showed extensive reticular and nodular pulmonary infiltrates increased compared to old exam, mild pulmonary emphysema. Patient was started on heparin infusion. On 11/28/2018 patient seen in follow-up on selective care unit, she is awake and alert, in no acute distress, she still reports some mild shortness of breath, but no complaint of chest pain, room air pulse ox is 90-95%, she is afebrile, hemodynamically patient is stable. She is tolerating ambulation, in the hallway. No lightheadedness or dizziness, no tachycardia, tolerating ambulation quite well. He has been initiated on oral anticoagulation with Eliquis, heparin drip has been discontinued. Her echocardiogram showed no evidence of right ventricular strain, no evidence of pulmonary hypertension. From pulmonary perspective patient is stable, she is anticipated to go home today. Objective - Vital Signs Vital signs: Vital Signs Temp 97.7 F 11/28/18 08:00 Pulse 83 11/28/18 11:30 Resp 16 11/28/18 08:00 BP 125/86 11/28/18 08:00 Pulse Ox 90 L 11/28/18 11:30 Intake & Output 11/27/18 11/28/18 11/28/18 18:59 06:59 18:59 Intake Total 828.096 240 Balance 828.096 240 Weight 103.1 kg Intake: Intake, IV Titration 228.096 Amount Heparin Sod,Pork in 0.45% 228.096 NaCl 25,000 unit In 0.45 % NaCl 1 250ml.bag @ 18 UNITS/KG/HR 18.411 mls/hr IV .[id number] NOEL Rx#: [id number] Oral 600 240 Other: Voiding Method Toilet # Voids 1 - Exam GENERAL EXAM: Alert, pleasant, 48-year-old obese white female comfortable in no apparent distress. HEAD: Normocephalic/atraumatic. EYES: Normal reaction of pupils, equal size. Conjunctiva pink, sclera white. NOSE: Clear with pink turbinates. THROAT: No erythema or exudates. NECK: No masses, no JVD, no thyroid enlargement, no adenopathy. CHEST: No chest wall deformity. Symmetrical expansion. LUNGS: Equal air entry with no crackles, wheeze, rhonchi or dullness. CVS: Regular rate and rhythm, normal S1 and S2, no gallops, no murmurs, no rubs ABDOMEN: Soft, nontender. No hepatosplenomegaly, normal bowel sounds, no guarding or rigidity. EXTREMITIES: No clubbing, no edema, no cyanosis, 2+ pulses and upper and lower extremities. MUSCULOSKELETAL: Muscle strength and tone normal. SPINE: No scoliosis or deformity. Healed scar along the lumbar spine SKIN: No rashes CENTRAL NERVOUS SYSTEM: Alert and oriented -3. No focal deficits, tone is n ormal in all 4 extremities. PSYCHIATRIC: Alert and oriented -3. Appropriate affect. Intact judgment and insight. - Labs CBC & Chem 7: 11/28/18 06:29 11/26/18 23:00 Labs: Abnormal Lab Results - Last 24 Hours (Table) 11/27/18 11/28/18 Range/Units 14:10 06:29 Lymphocytes # 0.9 L (1.0-4.8) k/uL APTT 52.5 H (22.0-30.0) sec Assessment and Plan Plan: Assessment: #1. Acute recurrent pulmonary emboli, CTA chest showed multiple large pulmonary emboli that appears to be more extensive than on last CT from March 2018 #2. Shortness of breath related to the above #3. History of pulmonary embolism in March 2018, and a CTA chest at that time showed a severe burden of pulmonary emboli in both lungs, with a thin saddle embolus and extensive clot throughout both lungs. Patient was sent to [facility] for catheter directed TPA infusion #4. History of COPD, the severity of which is unknown #5. Chronic smoker, carries [id number] smoking history, currently trying to cut back #6. Chronic back pain, spondylosis of the lumbar spine, status post surgical fusion #7. Area of increased density in the posterior medial right lung base, and a recent PET scan on 09/27/2018 showed intermediate uptake which could relate to inflammatory change, however early metastatic or primary disease is not excluded and patient will need follow-up. #8. History of DVT #9. History of MRSA infection #10. Hypothyroidism Plan: Patient is tolerating ambulation, she is on room air, echocardiogram showed no evidence of right ventricular strain, no evidence of pulmonary hypertension, hemodynamically stable, no complaint of chest pain, still has some mild intermittent shortness of breath, but overall tolerating activity quite well, no lightheadedness or dizziness, no tachycardia. She has been initiated on Eliquis, heparin drip has been discontinued. She is being discharged home today, she was advised to either follow-up with her own test puller or if she wishes to follow with Dr. Davis, we will be happy to see her as the patient for her pulmonary needs. I performed a history & physical examination of the patient and discussed their management with my nurse practitioner, Chrystal Luz. I reviewed the nurse practitioner's note and agree with the documented findings and plan of care. Lung sounds are positive for diminished breath sounds. The findings and the impression was discussed with the patient. I attest to the documentation by the nurse practitioner. Time with Patient: Less than 30
[2018-11-28 12:06] VITALS: PULSE 82
--- NOTE | 2018-11-28 12:17 | P.CRDCN ---
History of Present Illness History of present illness: This is Dr. Ireland dictating a consult on this patient The patient was interviewed and examined by me IMPRESSION / ASSESSMENT: Recurrent pulmonary embolism with new pulmonary emboli on computed tomography scan Increasing shortness of breath, chest discomfort about a week back On anticoagulation PLAN: Management of pulmonary emboli per pulmonary medicine 2-D echo and Doppler study been ordered assess RV size and systolic function and to look for any obvious right atrial thrombi or masses Please call as needed HPI Patient presenting with increasing shortness of breath for the last one week or so Chest discomfort about a week back ROS: No fever chills or rigors, no cough, phlegm or expectoration, no nausea, vomiting or diarrhea, no hematuria, dysuria, no musculoskeletal complaints, no strokes or seizures, no skin lesions. EXAMINATION: Temperature 90.5F Pulse rate in the 80s and 90s Short of breath respirations 22 Blood pressure 167/98 and 134/93 mmHg pulse ox 92% on room air REVIEW OF LABS, ECG & MEDICAL DATA Hemoglobin 15.1 hematocrit 44 Sodium 141 potassium 3.7 BUN 11 and creatinine 0.51 Magnesium 1.8 Cardiac enzyme 1 normal Twelve-lead ECG shows sinus rhythm normal NC interval narrow QRS normal ST segments Past Medical History Past Medical History: Deep Vein Thrombosis (DVT), Osteoarthritis (OA), Pulmonary Embolus (PE), Thyroid Disorder Additional Past Medical History / Comment(s): BLOOD CLOTS IN LUNG AND LEGS History of Any Multi-Drug Resistant Organisms: MRSA Date of last positivie culture/infection: 2006 MDRO Source:: culture back Past Surgical History: Back Surgery, Section, Tonsillectomy Additional Past Surgical History / Comment(s): back surgery x6. screws in back. Past Anesthesia/Blood Transfusion Reactions: No Reported Reaction Past Psychological History: Anxiety, Depression Smoking Status: Heavy tobacco smoker Past Alcohol Use History: Occasional Additional Past Alcohol Use History / Comment(s): 3 days a week. Past Drug Use History: Marijuana Additional Drug Use History / Comment(s): medical marijuana card. - Past Family History Father Family Medical History: No Reported History Additional Family Medical History / Comment(s): never knew father. Mother Family Medical History: Diabetes Mellitus, Musculoskeletal Disorder Medications and Allergies Home Medications Medication Instructions Recorded Confirmed Type Levothyroxine Sodium [Synthroid] 88 mcg PO DAILY 04/20/14 11/26/18 History HYDROcodone/APAP 7.5-325MG [Bergoo 1 tab PO Q6H PRN 07/03/17 11/26/18 History 7.5-325] Ibuprofen 800 mg PO Q8H PRN 07/03/17 11/26/18 History ALPRAZolam [Xanax] 0.25 mg PO BID PRN 11/27/18 11/27/18 History Apixaban [Eliquis Starter Pack 0 mg PO DIRECTED 30 Days #1 pack 11/28/18 Rx (for VTE)] Nicotine 14Mg/24Hr Patch [Habitrol] 1 patch TRANSDERM DAILY #30 patch 11/28/18 Rx Allergies Allergy/AdvReac Type Severity Reaction Status Date / Time Morpholine Analogues AdvReac Intermediate Hallucinati Verified 11/26/18 22:02 ons tramadol HCl [From Ultram] AdvReac Mild Unknown Verified 11/26/18 22:02 Physical Exam Vitals: Vital Signs Temp Pulse Pulse Resp BP BP Pulse Ox 11/27/18 04:00 97.2 F L 71 19 116/84 97 11/27/18 00:00 98.8 F 85 22 134/93 94 L 11/26/18 23:36 94 L 11/26/18 21:54 99.0 F 93 22 167/98 92 L Intake and Output 11/26/18 11/27/18 11/27/18 22:59 06:59 14:59 Intake Total 600 118.444 Balance 600 118.444 Intake: Intake, IV Titration 600 118.444 Amount Heparin Sod,Pork in 0.45% 118.444 NaCl 25,000 unit In 0.45 % NaCl 1 250ml.bag @ 18 UNITS/KG/HR 18.411 mls/hr IV .[id number] NOEL Rx#: [id number] Sodium Chloride 0.9% 1, 100 000 ml @ 100 mls/hr IV . Q10H NOEL Rx#:[id number] Sodium Chloride 0.9% 500 500 ml 500 ml @ 999 mls/hr IV .Q31M STA Rx#:[id number] Other: # Voids 1 Weight 102.285 kg Results 11/28/18 06:29 11/26/18 23:00 Cardiac Enzymes 11/26/18 11/26/18 11/27/18 Range/Units 23:00 23:00 05:25 AST 23 (14-36) U/L Troponin I <0.012 <0.012 (0.000-0.034) ng/mL Coagulation 11/26/18 11/27/18 Range/Units 23:00 05:25 PT 10.1 10.8 (9.0-12.0) sec APTT 23.9 92.1 H (22.0-30.0) sec Lipids 11/27/18 Range/Units 05:25 Triglycerides 172 H (<150) mg/dL Cholesterol 162 (<200) mg/dL HDL Cholesterol 34 L (40-60) mg/dL CBC 11/26/18 11/27/18 Range/Units 23:00 05:25 WBC 7.4 5.9 (3.8-10.6) k/uL RBC 4.66 4.13 (3.80-5.40) m/uL Hgb 15.1 13.4 (11.4-16.0) gm/dL Hct 44.0 39.5 (34.0-46.0) % Plt Count 234 182 (150-450) k/uL Comprehensive Metabolic Panel 11/26/18 Range/Units 23:00 Sodium 141 (137-145) mmol/L Potassium 3.7 (3.5-5.1) mmol/L Chloride 106 (98-107) mmol/L Carbon Dioxide 23 (22-30) mmol/L BUN 11 (7-17) mg/dL Creatinine 0.51 L (0.52-1.04) mg/dL Glucose 112 H (74-99) mg/dL Calcium 9.7 (8.4-10.2) mg/dL AST 23 (14-36) U/L ALT 27 (9-52) U/L Alkaline Phosphatase 103 (38-126) U/L Total Protein 8.0 (6.3-8.2) g/dL Albumin 4.7 (3.5-5.0) g/dL Current Medications Generic Name Dose Route Start Last Admin Trade Name Freq PRN Reason Stop Dose Admin Hydrocodone Bitart/Acetaminophen 1 each 11/27/18 01:17 11/27/18 04:33 Bergoo 7.5-325 PO 1 each Q6H PRN Administration Pain Alprazolam 0.25 mg 11/27/18 01:17 11/27/18 01:57 Xanax PO 0.25 mg BID PRN Administration Agitation or Acute Anxiety Apixaban 10 mg 11/27/18 09:00 Eliquis PO 12/04/18 09:01 BID [facility] Aspirin 325 mg 11/27/18 09:00 11/27/18 09:24 Aspirin PO 325 mg DAILY NOEL Administration Heparin Sodium (Porcine) 0 unit 11/26/18 23:36 Heparin IV PER PROTOCOL PRN Low PTT Protocol Heparin Sodium/Sodium Chloride 250 mls @ 18.411 mls/hr 11/26/18 23:45 11/27/18 07:27 25,000 unit/ Sodium Chloride IV 16 units/kg/hr .[id number] NOEL 16.366 mls/hr Titration Protocol 18 UNITS/KG/HR Sodium Chloride 1,000 mls @ 100 mls/hr 11/26/18 23:45 11/27/18 09:25 Saline 0.9% IV 100 mls/hr .Q10H NOEL Administration Levothyroxine Sodium 88 mcg 11/27/18 06:30 11/27/18 09:23 Synthroid PO 88 mcg DAILY@0630 [facility] Administration Morphine Sulfate 4 mg 11/26/18 23:36 Morphine Sulfate (Inj) IV Q4HR PRN Chest Pain Nicotine 1 patch 11/27/18 01:20 11/27/18 03:30 Habitrol 14mg/24hr Patch TRANSDERM 1 patch DAILY [facility] Administration Nitroglycerin 0.4 mg 11/26/18 23:36 Nitrostat SUBLINGUAL Q5M PRN Chest Pain Intake and Output 11/26/18 11/27/18 11/27/18 22:59 06:59 14:59 Intake Total 600 118.444 Balance 600 118.444 Intake: Intake, IV Titration 600 118.444 Amount Heparin Sod,Pork in 0.45% 118.444 NaCl 25,000 unit In 0.45 % NaCl 1 250ml.bag @ 18 UNITS/KG/HR 18.411 mls/hr IV .[id number] NOEL Rx#: [id number] Sodium Chloride 0.9% 1, 100 000 ml @ 100 mls/hr IV . Q10H NOEL Rx#:[id number] Sodium Chloride 0.9% 500 500 ml 500 ml @ 999 mls/hr IV .Q31M STA Rx#:[id number] Other: # Voids 1 Weight 102.285 kg 11/27/18 05:25 11/26/18 23:00
--- NOTE | 2018-11-28 12:51 | P.PN ---
Subjective Progress Note Date: 11/28/18 This is a 48-year-old white female , with past medical history of pulmonary embolism, and lower extremity DVT in March 2018 for which the patient required catheter directed TPA/thrombolytic infusion, following which patient was placed on chronic anticoagulation. Patient was unable to tolerate Xarelto related to development of a rash, she was then placed on Coumadin and she found it was very hard to monitor, and she was also experiencing side effects. She completed the 6 months of anticoagulation coverage, and she had been off any anticoagulation. On Sunday patient presented to the emergency department for evaluation of a week long history of intermittent shortness of breath, patient did have an episode of brief chest pain that felt like burning across her chest, lasting less than a minute and spontaneously resolved, however she had noted that her shortness of breath has been getting worse, she attributed it to her weight gain, she denied any increased swelling in her lower extremities or calf tenderness or redness. She denied any hemoptysis, denied any syncopal episodes. She denied any recent immobility, denied any recent illness, or procedures. Patient does have an extensive history of nicotine dependence, hypothyroidism. CTA chest was performed revealing multiple large pulmonary emboli that appear more extensive than last CT scan from 04/02/2018 and there is involvement of the more central pulmonary arteries, also showed extensive reticular and nodular pulmonary infiltrates increased compared to old exam, mild pulmonary emphysema. Patient was started on heparin infusion. Echocardiogram with Doppler study was performed which revealed an ejection fraction of 50-55%. Right ventricle was normal in size, right ventricular systolic function normal. Blood pressure 125/86 with a heart rate in the 80s. White blood cell count 4.5, hemoglobin 12.6, platelet count 171. Patient overall feels well today, denies any chest pain in her breathing is stable. Objective - Vital Signs Vital signs: Vital Signs Temp 97.7 F 11/28/18 08:00 Pulse 82 11/28/18 12:15 Resp 16 11/28/18 08:00 BP 125/86 11/28/18 08:00 Pulse Ox 90 L 11/28/18 11:30 Intake & Output 11/27/18 11/28/18 11/28/18 18:59 06:59 18:59 Intake Total 828.096 240 Balance 828.096 240 Weight 103.1 kg Intake: Intake, IV Titration 228.096 Amount Heparin Sod,Pork in 0.45% 228.096 NaCl 25,000 unit In 0.45 % NaCl 1 250ml.bag @ 18 UNITS/KG/HR 18.411 mls/hr IV .[id number] NEOL Rx#: [id number] Oral 600 240 Other: Voiding Method Toilet # Voids 1 - Exam PHYSICAL EXAMINATION: GENERAL: 48-year-old female in no acute distress at the time of my HEENT: Head is atraumatic, normocephalic. Pupils equal, round. Sclera anicteric. Conjunctiva are clear. Mucous membranes of the mouth are moist. Neck is supple. There is no elevated jugular venous pressure. No carotid bruit is heard. HEART EXAMINATION: Heart S1, S2 normal. No murmur or gallop heard. CHEST EXAMINATION: Lungs are clear to auscultation and precussion. No chest wall tenderness is noted on palpation or with deep breathing. ABDOMEN: Soft, nontender. Bowel sounds are heard. No organomegaly noted. EXTREMITIES: 2+ peripheral pulses with no evidence of peripheral edema and no calf tenderness noted. NEUROLOGIC patient is awake, alert and oriented 3 . . - Labs CBC & Chem 7: 11/28/18 06:29 11/26/18 23:00 Labs: Abnormal Lab Results - Last 24 Hours (Table) 11/27/18 11/28/18 Range/Units 14:10 06:29 Lymphocytes # 0.9 L (1.0-4.8) k/uL APTT 52.5 H (22.0-30.0) sec Assessment and Plan Plan: Assessment and plan: #1. Acute recurrent pulmonary emboli, CTA chest showed multiple large pulmonary emboli that appears to be more extensive than on last CT from March 2018 #2. Shortness of breath related to the above #3. History of pulmonary embolism in March 2018, and a CTA chest at that time showed a severe burden of pulmonary emboli in both lungs, with a thin s addle embolus and extensive clot throughout both lungs. Patient was sent to [facility] for catheter directed TPA infusion #4. History of COPD, the severity of which is unknown #5. Chronic smoker, carries [id number] smoking history, currently trying to cut back #6. Chronic back pain, spondylosis of the lumbar spine, status post surgical fusion #7. Area of increased density in the posterior medial right lung base, and a recent PET scan on 09/27/2018 showed intermediate uptake which could relate to inflammatory change, however early metastatic or primary disease is not excluded and patient will need follow-up. #8. History of DVT #9. History of MRSA infection #10. Hypothyroidism Plan Patient will be on anticoagulation as per PE protocol, patient has been instructed that she needs to take oral anticoagulation lifelong. We will make her a follow-up appointment once she is discharged home. DNP note has been reviewed, I agree with a documented findings and plan of care. Patient was seen and examined.
== END 2018-11-28 12:47 | disposition home or self-care (01) | DRG 176 ==
LOC: EC 21:41 → 3SCARD 23:38
PROVIDERS: ADMIT Family Medicine; ATTEND Family Medicine
DX: I26.99 Other pulmonary embolism without acute cor pulmonale (principal); E03.9 Hypothyroidism, unspecified; F17.210 Nicotine dependence, cigarettes, uncomplicated; F32.9 Major depressive disorder, single episode, unspecified; F41.9 Anxiety disorder, unspecified; G89.29 Other chronic pain; J43.9 Emphysema, unspecified; M47.816 Spondylosis without myelopathy or radiculopathy, lumbar region; Z98.1 Arthrodesis status; R09.02 Hypoxemia; Z79.01 Long term (current) use of anticoagulants; Z79.890 Hormone replacement therapy; Z83.3 Family history of diabetes mellitus; Z86.14 Personal history of Methicillin resistant Staphylococcus aureus infection; Z86.711 Personal history of pulmonary embolism; Z86.718 Personal history of other venous thrombosis and embolism; Z79.891 Long term (current) use of opiate analgesic; Z79.899 Other long term (current) drug therapy; Z88.6 Allergy status to analgesic agent; Z88.5 Allergy status to narcotic agent
CPT/HCPCS: 71275; 80053; 80061; 83690; 83735; 83880; 84484; 85025; 85379; 85610; 85730; 93005; 93306; 94640; 94760; 96365; 96366; 96376; 99285

== ENCOUNTER → 2020-05-11 | Outpatient (CLI) | payer MEDICARE, OTHER ==
--- NOTE | 2020-05-11 13:49 | MM ---
Reason for exam: clinical finding. History: Patient is postmenopausal. Took hormonal contraceptives for 6 months. Physical Findings: Nurse did not find any significant physical abnormalities on exam. MG 3D Diag Mammo W/Cad EMERY Bilateral CC and MLO view(s) were taken. There are scattered fibroglandular densities. Prominent right axilla lymph nodes (no vaccine). These results were verbally communicated with the patient and result sheet given to the patient on 05/11/20. ASSESSMENT: Incomplete: need additional imaging evaluation, BI-RAD 0 RECOMMENDATION: Ultrasound of the right breast.
--- NOTE | 2020-05-11 13:52 | USB ---
Reason for exam: additional evaluation requested from abnormal screening. History: Patient is postmenopausal. Took hormonal contraceptives for 6 months. US Breast Axilla RT Right breast axilla ultrasound demonstrates a 2.0 x 1.6cm oval, solid lesion at the axilla and a 2.0 x 1.7cm oval, solid lesion at the axilla. Suspicious. Biopsy recommended. These results were verbally communicated with the patient and result sheet given to the patient on 05/11/20. ASSESSMENT: Suspicious, BI-RAD 4 RECOMMENDATION: Ultrasound core biopsy of the right breast. Called Dr. Vickers with mammographic findings and has scheduled an appointment for the patient for 05/20/20 at 2:[address] Bruce. PRELIMINARY REPORT CALLED AND FAXED TO DR. BRUCE ON 05/11/20.
== END | disposition home or self-care (01) ==
LOC: RADMAMWWP 11:04
PROVIDERS: ATTEND Family Medicine
DX: R92.8 Other abnormal and inconclusive findings on diagnostic imaging of breast (principal); N63.10 Unspecified lump in the right breast, unspecified quadrant
CPT/HCPCS: 77066; 76642; G0279; 77062

== ENCOUNTER 2020-05-31 12:56 | Day surgery (SDC) | payer MEDICARE, OTHER ==
[2020-05-31] MEDS ORDERED: ALPRAZolam 0.5 MG TAB PO STA (13:35)
[2020-05-31 14:19] VITALS: RESP 16
[2020-05-31 14:20] VITALS: TEMP 98.1
[2020-05-31 15:31] VITALS: BP 114/74; PULSE 84
--- NOTE | 2020-05-31 17:37 | USB ---
EXAMINATION TYPE: US breast needle core RT DATE OF EXAM: 05/31/2020 HISTORY: Right axillary adenopathy. Correlation to ultrasound breast 05/11/2020 FINDINGS: Maximal barrier technique was utilized. Hand hygiene achieved with soap and water and alco hol-based hand rub. The skin overlying a suitable path to the patient's mass in the right axilla was localized with ultrasound and the overlying skin prepped and draped. Ultrasound was utilized with st erile technique. Lidocaine was used for local anesthesia. A skin amena was made with a scalpel. An 18-gauge needle was advanced under direct ultrasound guidance and core specimen obtained of the super ficial larger mass. Marker was deployed within the mass. Specimen submitted in formalin to Pathology . Using similar technique the deeper mass was subsequently sampled with a 18-gauge needle and additi onal marker was deployed. Following the procedure, hemostasis achieved and the patient is discharged in stable condition without complication. IMPRESSION:STATUS POST ULTRASOUND GUIDED CORE BIOPSY OF 2 discrete right axillary MASSES, PATHOLOGY I S PENDING. THIS PROCEDURE IS PERFORMED BY THE UNDERSIGNED.
== END 2020-05-31 15:10 | disposition home or self-care (01) ==
LOC: RADPROMAIN 12:56
PROVIDERS: ATTEND Surgery
DX: C44.509 Unspecified malignant neoplasm of skin of other part of trunk (principal); C49.3 Malignant neoplasm of connective and soft tissue of thorax
CPT/HCPCS: 88305; 88342; 88341; 19083; 19084; A4648

== ENCOUNTER → 2020-06-16 | Outpatient (CLI) | payer MEDICARE, OTHER ==
--- NOTE | 2020-06-17 06:30 | CT ---
EXAMINATION TYPE: CT chest abdomen w con DATE OF EXAM: 06/16/2020 COMPARISON: Correlation is made with prior CT scan of the chest from 11/26/2018. HISTORY: Breast cancer. Lump under RT axilla. CT DLP: 950.20 mGycm. Automated Exposure Control for Dose Reduction was Utilized. Multiplanar reconst ructions were performed. CONTRAST: CT scan of the thorax, abdomen and pelvis is performed with IV Contrast, patient injected with 100 mL of Isovue 300. FINDINGS: There is a large left adrenal mass measuring 6.8 x 6.4 cm. Right adrenal gland is within normal limit s. LUNGS: 2 large masses seen in the right axilla with the largest measuring 3 x 4 cm. Right lung is diminished secondary to large area of consolidation involving the right upper and right lower lobe. There is trace pleural effusion. There is necrosis of the largest mass in the right lower lobe extending to the right hilum. There is mass effect on the pulmonary artery and the right bronchus. There is complete opacification of the se gmental bronchus of the right lower lobe and segments of the right upper lobe. There is 1.2 cm nodule in the left lower lobe laterally seen best on image 175 unchanged compared to prior examination from 2019. Heart and mediastinum are shifted towards the right. No filling defects seen in the pulmonary arterie s to suggest pulmonary embolism. There is mass effect on the left atrium on the right side. There is a 2.9 x 2.7 cm low attenuating lesion in anterior aspect of the spleen and this is new brandon red to 2019. MEDIASTINUM: Right hilar mass extends to the right paratracheal space. There is no pericardial effusi on. IMPRESSION: Advanced metastatic disease to the left adrenal gland, spleen, right lung, right hilar, and right axi lla.
== END | disposition home or self-care (01) ==
LOC: RADCTMAIN 18:38
PROVIDERS: ATTEND Surgery
DX: C50.919 Malignant neoplasm of unspecified site of unspecified female breast (principal); C79.72 Secondary malignant neoplasm of left adrenal gland
CPT/HCPCS: 71260; 74160; Q9967

== ENCOUNTER → 2020-06-29 | Outpatient (CLI) | payer MEDICARE, OTHER ==
--- NOTE | 2020-06-29 14:42 | MR ---
PRE AND POSTCONTRAST ENHANCED MRI OF THE BRAIN: CLINICAL HISTORY: Brain metastases CONTRAST: Gadavist 8 ml Multiplanar and multispin-echo imaging of the brain was performed both before and after the administr ation of contrast. There is an enhancing mass within the left basal ganglia measuring 2.9 x 2.4 cm with moderate surroun ding vasogenic edema. There is mass effect with left to right shift of approximately 3.6 mm. Impendin g subfalcine herniation is difficult to exclude. 7 mm enhancing lesion high right frontal lobe. Left occipital lobe lesion measuring approximately 9.4 mm. No intracranial hemorrhage identified. No extra-axial collections seen. The paranasal sinuses and mastoid air cells are well-aerated. IMPRESSION: 1. There is evidence of metastatic disease with dominant lesion in the region of the left basal gangl ia measuring 2.9 x 2.4 cm. Moderate surrounding vasogenic edema noted with left to right midline shif t at 3.6 mm. Impending subfalcine herniation is difficult to exclude. 2 additional smaller lesions ar e noted as indicated above. A Red level critical message alert has been initiated for Mahsa Castro MD via the [employer] Critical Results System on 06/29/2020 2:39 PM. This message alert has been sent to Mahsa Castro MD via the preferences provided by the clinician for the receipt of Radiology Critical Findings. Message ID [id number].
== END | disposition home or self-care (01) ==
LOC: RADMRIMAIN 13:05
PROVIDERS: ATTEND Internal Medicine Hematology & Oncology
DX: C79.31 Secondary malignant neoplasm of brain (principal); G93.6 Cerebral edema; G93.9 Disorder of brain, unspecified
CPT/HCPCS: 70553

== ENCOUNTER → 2020-07-01 | Outpatient (CLI) | payer MEDICARE, OTHER ==
--- NOTE | 2020-07-01 15:58 | NM ---
EXAMINATION TYPE: NM bone scan whole body DATE OF EXAM: 07/01/2020 COMPARISON: CT 06/16/2020 HISTORY: Breast cancer Delayed whole-body scanning was performed following the injection of 24.2 mCi Tc 99m MDP. Images acq uired 3 hours post injection. FINDINGS: The anterior right fourth and seventh ribs show focal uptake, there is some corresponding sclerosis s een at these levels, suggestion of fracture, contour abnormalities, correlate for history of trauma. Soft tissue uptake is normal. Uptake within the maxilla may be due to sinus disease, thickened and ma ndible is likely due to periodontal disease. Uptake within the shoulders, knees, feet, wrists and gabriel rnoclavicular joints is likely degenerative. IMPRESSION: Findings an anterior ribs may be due to trauma, correlate for appropriate history. No additional area s of suspicious uptake.
== END | disposition home or self-care (01) ==
LOC: RADNMMAIN 11:09
PROVIDERS: ATTEND Internal Medicine Hematology & Oncology
DX: C50.919 Malignant neoplasm of unspecified site of unspecified female breast (principal)
CPT/HCPCS: 78306; A9503

== ENCOUNTER 2020-07-15 11:43 | Inpatient (IN) | payer MEDICARE, OTHER ==
[2020-07-15] MEDS ORDERED: IPRATROPIUM-ALBUTEROL 3 ML NEB INHALATION STA (11:50)
--- NOTE | 2020-07-15 11:55 | ED ---
General Adult HPI - General Stated complaint: USHA Time Seen by Provider: 07/15/20 11:45 Source: patient, EMS, RN notes reviewed Mode of arrival: EMS Limitations: no limitations - History of Present Illness Initial comments: Patient is a pleasant 49-year-old female presenting to the emergency department with complaints of dyspnea. Onset of symptoms was yesterday and has progressed since that time. Patient states she is not thinking clearly and is not comfortable with her answers. 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 Patient is currently undergoing radiation to the brain. Patient states mild cough that has been productive somewhat, unclear on color. No fevers. Patient is on Xarelto. No leg pain or leg swelling. - Related Data Home Medications Medication Instructions Recorded Confirmed Levothyroxine Sodium [Synthroid] 88 mcg PO DAILY 04/20/14 07/15/20 Ibuprofen 800 mg PO TID PRN 07/03/17 07/15/20 ALPRAZolam [Xanax] 0.25 mg PO TID PRN 11/27/18 07/15/20 Albuterol Inhaler [Ventolin Hfa 2 puff INHALATION RT-QID PRN 07/15/20 07/15/20 Inhaler] Albuterol Nebulized [Ventolin 2.5 mg INHALATION RT-QID PRN 07/15/20 07/15/20 Nebulized] Apixaban [Eliquis] 2.5 mg PO BID 07/15/20 07/15/20 Ascorbic Acid [Vitamin C] 1,000 mg PO DAILY 07/15/20 07/15/20 Dexamethasone [Decadron] 4 mg PO TID 07/15/20 07/15/20 HYDROcodone/APAP 10-325MG [[place] 1 tab PO Q4H PRN 07/15/20 07/15/20 10-325] Magnesium Oxide 400 mg PO BID 07/15/20 07/15/20 Omeprazole 40 mg PO DAILY 07/15/20 07/15/20 Potassium Chloride ER [K-Dur 20] 40 meq PO DAILY 07/15/20 07/15/20 Allergies Allergy/AdvReac Type Severity Reaction Status Date / Time Morpholine Analogues AdvReac Intermediate Hallucinati Verified 07/15/20 14:07 ons tramadol HCl [From Ultram] AdvReac Mild Unknown Verified 07/15/20 14:07 Review of Systems ROS Statement: Those systems with pertinent positive or pertinent negative responses have been documented in the HPI. ROS Other: All systems not noted in ROS Statement are negative. Constitutional: Denies: fever Eyes: Denies: eye pain ENT: Denies: ear pain Respiratory: Reports: cough, dyspnea Cardiovascular: Denies: chest pain Endocrine: Denies: fatigue Gastrointestinal: Denies: abdominal pain Genitourinary: Denies: dysuria Musculoskeletal: Denies: back pain Skin: Denies: rash Neurological: Denies: weakness Past Medical History Past Medical History: Deep Vein Thrombosis (DVT), Osteoarthritis (OA), Pulmonary Embolus (PE), Thyroid Disorder Additional Past Medical History / Comment(s): BLOOD CLOTS IN LUNG AND LEGS - never did figure out why History of Any Multi-Drug Resistant Organisms: MRSA Date of last positivie culture/infection: 2006 MDRO Source:: culture back Past Surgical History: Back Surgery, Section, Tonsillectomy Additional Past Surgical History / Comment(s): back surgery x7. screws in back. Past Anesthesia/Blood Transfusion Reactions: No Reported Reaction Past Psychological History: Anxiety, Depression Smoking Status: Current every day smoker Past Alcohol Use History: Occasional Past Drug Use History: Marijuana - Past Family History Father Family Medical History: No Reported History Additional Family Medical History / Comment(s): never knew father. Mother Family Medical History: Diabetes Mellitus, Musculoskeletal Disorder General Exam Limitations: no limitations General appearance: alert Head exam: Present: atraumatic Eye exam: Present: normal appearance Neck exam: Present: normal inspection Respiratory exam: Present: decreased breath sounds (Right-sided) Cardiovascular Exam: Present: tachycardia GI/Abdominal exam: Present: soft. Absent: tenderness Extremities exam: Present: normal inspection. Absent: pedal edema, calf tenderness Neurological exam: Present: alert Psychiatric exam: Present: normal affect, normal mood Skin exam: Present: normal color Course Vital Signs 07/15/20 07/15/20 07/15/20 11:48 11:55 11:58 Temperature 98.0 F Pulse Rate 110 H 109 H 107 H Respiratory 26 H 24 24 Rate Blood Pressure 126/80 115/78 115/80 O2 Sat by Pulse 53 L 76 L 95 Oximetry 07/15/20 07/15/20 07/15/20 12:04 12:09 12:49 Temperature Pulse Rate 105 H 93 Respiratory 26 H 26 H 26 H Rate Blood Pressure 113/81 113/81 O2 Sat by Pulse 97 95 Oximetry 07/15/20 07/15/20 13:14 14:11 Temperature Pulse Rate 96 92 Respiratory 20 18 Rate Blood Pressure 131/81 117/78 O2 Sat by Pulse 92 L 91 L Oximetry - Reevaluation(s) Reevaluation #1: 07/15/20 12:27 Repeat EKG shows sinus rhythm with rate of 100. WA 106. QRS 70. QT 342. QTC 441. Normal axis. Normal QRS. No acute ST change. 07/15/20 13:01 Blood work pending. Patient reevaluated and desatted into the 80s with 50% Ventimask. 07/15/20 14:09 Case was discussed with Dr. Crabtree, who will come evaluate patient. 07/15/20 14:24 Case was again discussed with Dr. Shabazz who does want steroids and antibiotics and IV fluids. He states patient is DO NOT RESUSCITATE and does not need to be placed in ICU. He states No need for CT. 07/15/20 14:27 Fluid bolus of 30 mL/kg ideal. A weight of 54.4 kg equals 1632 ml 07/15/20 14:43 Case also discussed with Dr. Vickers, who will admit his patient. EKG Findings - EKG Comments: EKG Findings:: Sinus tachycardia with rate of 109. WA 128. QRS 68. QT 314. QTC 420. Normal axis. Q wave in lead III. No acute ST change. LVH. Procedures - Sepsis Sepsis Focused Exam #1 Time Sepsis Criteria Met: 14:10 Sepsis Focused Exam Date: 07/15/20 Sepsis Focused Exam Time: 14:58 Sepsis Focused Exam Complete: Yes Vital Signs & RN Notes Reviewed: Yes Capillary Refill: < 2 Seconds: Fingers, Toes Peripheral Pulses: Normal: Radial (R), Radial (L) Skin Color: Normal for Patient Respiratory Exam: decreased breath sounds Cardiovascular Exam: tachycardia Medical Decision Making - Lab Data Result diagrams: 07/15/20 11:52 07/15/20 13:06 Lab Results 07/15/20 07/15/20 07/15/20 Range/Units 11:52 11:52 11:52 WBC 32.8 H (3.8-10.6) k/uL RBC 4.70 (3.80-5.40) m/uL Hgb 14.6 (11.4-16.0) gm/dL Hct 43.1 (34.0-46.0) % MCV 91.7 (80.0-100.0) fL MCH 31.0 (25.0-35.0) pg MCHC 33.8 (31.0-37.0) g/dL RDW 13.7 (11.5-15.5) % Plt Count 257 (150-450) k/uL MPV 8.3 Neutrophils % 96 % Lymphocytes % 1 % Monocytes % 2 % Eosinophils % 1 % Basophils % 0 % Neutrophils # 31.4 H (1.3-7.7) k/uL Lymphocytes # 0.5 L (1.0-4.8) k/uL Monocytes # 0.6 (0-1.0) k/uL Eosinophils # 0.2 (0-0.7) k/uL Basophils # 0.1 (0-0.2) k/uL Manual Slide Review Performed RBC Morphology Normal PT 11.2 (9.0-12.0) sec INR 1.1 (<1.2) APTT 22.5 (22.0-30.0) sec VBG pH (7.31-7.41) VBG pCO2 (37-51) mmHg VBG HCO3 (24-28) mmol/L Sodium (137-145) mmol/L Potassium (3.5-5.1) mmol/L Chloride (98-107) mmol/L Carbon Dioxide (22-30) mmol/L Anion Gap mmol/L BUN (7-17) mg/dL Creatinine (0.52-1.04) mg/dL Est GFR (CKD-EPI)AfAm (>60 ml/min/1.73 sqM) Est GFR (CKD-EPI)NonAf (>60 ml/min/1.73 sqM) Glucose (74-99) mg/dL Lactic Ac Sepsis Rflx Plasma Lactic Acid Malvin 4.5 H* (0.7-2.0) mmol/L Calcium (8.4-10.2) mg/dL Total Bilirubin (0.2-1.3) mg/dL AST (14-36) U/L ALT (4-34) U/L Alkaline Phosphatase (38-126) U/L Troponin I (0.000-0.034) ng/mL NT-Pro-B Natriuret Pep pg/mL Total Protein (6.3-8.2) g/dL Albumin (3.5-5.0) g/dL Coronavirus (PCR) (Not Detectd) 07/15/20 07/15/20 07/15/20 Range/Units 11:52 11:53 12:09 WBC (3.8-10.6) k/uL RBC (3.80-5.40) m/uL Hgb (11.4-16.0) gm/dL Hct (34.0-46.0) % MCV (80.0-100.0) fL MCH (25.0-35.0) pg MCHC (31.0-37.0) g/dL RDW (11.5-15.5) % Plt Count (150-450) k/uL MPV Neutrophils % % Lymphocytes % % Monocytes % % Eosinophils % % Basophils % % Neutrophils # (1.3-7.7) k/uL Lymphocytes # (1.0-4.8) k/uL Monocytes # (0-1.0) k/uL Eosinophils # (0-0.7) k/uL Basophils # (0-0.2) k/uL Manual Slide Review RBC Morphology PT (9.0-12.0) sec INR (<1.2) APTT (22.0-30.0) sec VBG pH 7.50 H (7.31-7.41) VBG pCO2 23 L (37-51) mmHg VBG HCO3 18 L (24-28) mmol/L Sodium (137-145) mmol/L Potassium (3.5-5.1) mmol/L Chloride (98-107) mmol/L Carbon Dioxide (22-30) mmol/L Anion Gap mmol/L BUN (7-17) mg/dL Creatinine (0.52-1.04) mg/dL Est GFR (CKD-EPI)AfAm (>60 ml/min/1.73 sqM) Est GFR (CKD-EPI)NonAf (>60 ml/min/1.73 sqM) Glucose (74-99) mg/dL Lactic Ac Sepsis Rflx Plasma Lactic Acid Malvin (0.7-2.0) mmol/L Calcium (8.4-10.2) mg/dL Total Bilirubin (0.2-1.3) mg/dL AST (14-36) U/L ALT (4-34) U/L Alkaline Phosphatase (38-126) U/L Troponin I (0.000-0.034) ng/mL NT-Pro-B Natriuret Pep 850 pg/mL Total Protein (6.3-8.2) g/dL Albumin (3.5-5.0) g/dL Coronavirus (PCR) Not Detected (Not Detectd) 07/15/20 07/15/20 07/15/20 Range/Units 12:35 13:06 13:06 WBC (3.8-10.6) k/uL RBC (3.80-5.40) m/uL Hgb (11.4-16.0) gm/dL Hct (34.0-46.0) % MCV (80.0-100.0) fL MCH (25.0-35.0) pg MCHC (31.0-37.0) g/dL RDW (11.5-15.5) % Plt Count (150-450) k/uL MPV Neutrophils % % Lymphocytes % % Monocytes % % Eosinophils % % Basophils % % Neutrophils # (1.3-7.7) k/uL Lymphocytes # (1.0-4.8) k/uL Monocytes # (0-1.0) k/uL Eosinophils # (0-0.7) k/uL Basophils # (0-0.2) k/uL Manual Slide Review RBC Morphology PT (9.0-12.0) sec INR (<1.2) APTT (22.0-30.0) sec VBG pH (7.31-7.41) VBG pCO2 (37-51) mmHg VBG HCO3 (24-28) mmol/L Sodium 132 L (137-145) mmol/L Potassium 4.4 (3.5-5.1) mmol/L Chloride 97 L (98-107) mmol/L Carbon Dioxide 24 (22-30) mmol/L Anion Gap 11 mmol/L BUN 12 (7-17) mg/dL Creatinine 0.34 L (0.52-1.04) mg/dL Est GFR (CKD-EPI)AfAm >90 (>60 ml/min/1.73 sqM) Est GFR (CKD-EPI)NonAf >90 (>60 ml/min/1.73 sqM) Glucose 237 H (74-99) mg/dL Lactic Ac Sepsis Rflx Y Plasma Lactic Acid Malvin (0.7-2.0) mmol/L Calcium 9.0 (8.4-10.2) mg/dL Total Bilirubin 0.5 (0.2-1.3) mg/dL AST 33 (14-36) U/L ALT 38 H (4-34) U/L Alkaline Phosphatase 256 H (38-126) U/L Troponin I <0.012 (0.000-0.034) ng/mL NT-Pro-B Natriuret Pep pg/mL Total Protein 6.0 L (6.3-8.2) g/dL Albumin 3.2 L (3.5-5.0) g/dL Coronavirus (PCR) (Not Detectd) - Radiology Data Radiology results: image reviewed (Chest x-ray shows right greater than left effusion and bibasilar infiltrates, correlate for CHF or diffuse bilateral pneumonia.) Critical Care Time Critical Care Time: Yes Total Critical Care Time: 34 Disposition Clinical Impression: Acute respiratory failure, Pneumonia Disposition: ADMITTED IP TO THIS [facility] Condition: Serious Is patient prescribed a controlled substance at d/c from ED?: No Decision Time: 14:10
--- NOTE | 2020-07-15 12:03 | XR ---
EXAMINATION TYPE: XR chest 1V portable DATE OF EXAM: 07/15/2020 COMPARISON: 04/02/2018 HISTORY: Shortness of breath FINDINGS: There are bilateral pleural effusions with cardiomegaly and bibasilar infiltrate. There is a diffuse interstitial pattern. No pneumothorax. Diffuse osteopenia and arthropathy of the shoulders. IMPRESSION: 1. Correlate for CHF otherwise consider diffuse bilateral pneumonia
[2020-07-15 12:18] LABS: VBG PH 7.5 (7.31-7.41)
[2020-07-15 12:22] LABS: Basophils # (A) 0.1 k/uL (0-0.2); Basophils % (A) 0 %; Eosinophils # (A) 0.2 k/uL (0-0.7); Eosinophils % (A) 1 %; HCT 43.1 % (34.0-46.0); HGB 14.6 gm/dL (11.4-16.0); Lymphocytes # (A) 0.5 k/uL (1.0-4.8); Lymphocytes % (A) 1 %; MCHC 33.8 g/dL (31.0-37.0); MCV 91.7 fL (80.0-100.0); Mean Platelet Volume 8.3; Monocytes # (A) 0.6 k/uL (0-1.0); Monocytes % (A) 2 %; Neutrophils # (A) 31.4 k/uL (1.3-7.7); Neutrophils % (A) 96 %; Platelet Count 257 k/uL (150-450); RDW 13.7 % (11.5-15.5); WBC 32.8 k/uL (3.8-10.6)
[2020-07-15 13:09] LABS: INR 1.1 (<1.2); Partial Thromboplastin Time 22.5 sec (22.0-30.0); Prothrombin Time 11.2 sec (9.0-12.0)
[2020-07-15 13:32] LABS: AST 33 U/L (14-36); African American GFR (CKD) >90 (>60 ml/min/1.73 sqM); Albumin 3.2 g/dL (3.5-5.0); Alkaline Phosphatase 256 U/L (38-126); Anion Gap 11 mmol/L; Blood Urea Nitrogen 12 mg/dL (7-17); Carbon Dioxide 24 mmol/L (22-30); Chloride 97 mmol/L (98-107); Glucose 237 mg/dL (74-99); Non-African American GFR(CKD) >90 (>60 ml/min/1.73 sqM); Potassium 4.4 mmol/L (3.5-5.1); Sodium 132 mmol/L (137-145); Total Bilirubin 0.5 mg/dL (0.2-1.3)
[2020-07-15 13:44] LABS: ALT 38 U/L (4-34)
[2020-07-15] MEDS ORDERED: HYDROcodone/APAP 7.5-325MG 1 EACH TAB PO ONE (14:04)
[2020-07-15] MEDS ORDERED: PIPERACILLIN-TAZOBACTAM 3.375 GM in SODIUM CHLORIDE 0.9% 100 ML IVPB STA (14:20)
[2020-07-15] MEDS ORDERED: SODIUM CHLORIDE 0.9% 500 ML 700 ML IV STA (14:20)
[2020-07-15] MEDS ORDERED: PNEUMONIA PROTOCOL UTILIZED 1 EACH MISC PO PRN (14:20)
[2020-07-15] MEDS ORDERED: SODIUM CHLORIDE 0.9% 1,000 ML IV STA (14:20)
[2020-07-15] MEDS ORDERED: AZITHROMYCIN 500 MG in SODIUM CHLORIDE 0.9% 250 ML IVPB STA (14:20)
[2020-07-15] MEDS ORDERED: NALOXONE 0.4 MG/ML 1 ML VIAL IV PRN (14:25)
[2020-07-15] MEDS: SODIUM CHLORIDE 0.9% 1,000 ML IV SCH (14:54)
--- NOTE | 2020-07-15 15:06 | P.CNPUL ---
History of Present Illness Consult date: 07/15/20 Requesting physician: Richie Vickers Reason for consult: dyspnea Chief complaint: Dyspnea History of present illness: 49-year-old white female patient of Dr. Vickers with recent diagnosis of lung cancer in May 2020, with biopsy of the right axillary mass showing poorly differentiated adenocarcinoma, and the differential diagnosis slightly favored metastatic lung adenocarcinoma. Metastatic poorly differentiated mammary carcinoma was also considered. CT of the chest, abdomen and pelvis on 06/05 showed advanced metastatic disease to the left adrenal gland, spleen, right lung, right hilar and right axilla. MRI of the brain on 06/29/2020 showed evidence of metastatic disease with dominant lesion in the region and left basal ganglia measuring 2.9 x 2.4 cm, with moderate surrounding vasogenic edema with left to right midline shift. There was impending subfalcine herniation and 2 additional smaller lesions were noted. Patient received radiation treatment to the brain, she has not started chemotherapy, she follows with Dr. Castro and Dr. Howard from radiation oncology. Patient carries a long history of smoking, around [id number] smoking history, and she still smoking around 2-3 cigarettes per day. She has a history of COPD, normally on oxygen. We had seen patient in 2019 when she was hospitalized with recurrent pulmonary emboli, and patient is on lifelong anticoagulation in the form of Eliquis. Patient had previously been on Zaroxolyn and developed some type of a rash, and she also had Coumadin which was a difficult to monitor. During the same admission in 2019 with did note an area of increased density in the posterior medial right lung base and a PET scan from September 2018 showing intermediate uptake in the area with the possibility of early metastatic or primary lung cancer and patient was advised to follow-up however patient did not follow-up with the pulmonary service after discharge. On 07/15/2020 patient presented to the emergency department with complaints of dyspnea that started last night. He had to significantly progressed since that time, patient was becoming more confused, more dyspneic, and more hypoxic, she had been transported to the ER per EMS. She was placed on supplemental oxygen, currently on 100% nonrebreather. She is complaining of a mild cough with some phlegm production, denies any fever, no leg pain or leg swelling, no nausea vomiting or diarrhea, patient tested negative for COVID 19. Chest x-ray showed bilateral pleural effusions with cardiomegaly and bibasilar infiltrates, and a diffuse interstitial pattern. Patient had significantly elevated white count at 32.8, hemoglobin was 14.6, serum sodium was 132, potassium is 4.4, chloride was 97, BUN of 12, creatinine 0.34, alkaline phosphatase was 256, troponin was less than 0.012. ProBNP was 850, lactic acid was 4.5. Patient was given 2 L in IV fluid bolus, and her maintenance IV fluids are infusing at a rate of 130 ML per hour, she was started on antibiotics with Zosyn and azithromycin. She is on breathing treatments. He is tachypneic and short of breath, but no altered mentation, she is providing simple answers to questions, her daughter and daughter in law are at the bedside helping with the history. Patient's spouse recently a few months ago from metastatic lung cancer. She slightly tachycardic, in sinus mechanism with a rate of low 100 BPM, blood pressure is 117/78, she is not requiring any vasopressor support. Review of Systems All systems: negative Constitutional: Denies chills, Denies fever Eyes: denies blurred vision, denies pain Ears, nose, mouth and throat: Denies headache, Denies sore throat Cardiovascular: Denies chest pain, Denies shortness of breath Respiratory: Reports dyspnea, Reports respiratory infections, Denies cough Gastrointestinal: Denies abdominal pain, Denies diarrhea, Denies nausea, Denies vomiting Genitourinary: Denies dysuria, Denies hematuria Musculoskeletal: Denies myalgias Integumentary: Denies pruritus, Denies rash Neurological: Denies numbness, Denies weakness Psychiatric: Denies anxiety, Denies depression Endocrine: Denies fatigue, Denies weight change Past Medical History Past Medical History: Deep Vein Thrombosis (DVT), Osteoarthritis (OA), Pulmonary Embolus (PE), Thyroid Disorder Additional Past Medical History / Comment(s): BLOOD CLOTS IN LUNG AND LEGS - never did figure out why History of Any Multi-Drug Resistant Organisms: MRSA Date of last positivie culture/infection: 2006 MDRO Source:: culture back Past Surgical History: Back Surgery, Section, Tonsillectomy Additional Past Surgical History / Comment(s): back surgery x7. screws in back. Past Anesthesia/Blood Transfusion Reactions: No Reported Reaction Past Psychological History: Anxiety, Depression Smoking Status: Current every day smoker Past Alcohol Use History: Occasional Past Drug Use History: Marijuana - Past Family History Father Family Medical History: No Reported History Additional Family Medical History / Comment(s): never knew father. Mother Family Medical History: Diabetes Mellitus, Musculoskeletal Disorder Medications and Allergies Home Medications Medication Instructions Recorded Confirmed Type Levothyroxine Sodium [Synthroid] 88 mcg PO DAILY 04/20/14 07/15/20 History Ibuprofen 800 mg PO TID PRN 07/03/17 07/15/20 History ALPRAZolam [Xanax] 0.25 mg PO TID PRN 11/27/18 07/15/20 History Albuterol Inhaler [Ventolin Hfa 2 puff INHALATION RT-QID PRN 07/15/20 07/15/20 History Inhaler] Albuterol Nebulized [Ventolin 2.5 mg INHALATION RT-QID PRN 07/15/20 07/15/20 History Nebulized] Apixaban [Eliquis] 2.5 mg PO BID 07/15/20 07/15/20 History Ascorbic Acid [Vitamin C] 1,000 mg PO DAILY 07/15/20 07/15/20 History Dexamethasone [Decadron] 4 mg PO TID 07/15/20 07/15/20 History HYDROcodone/APAP 10-325MG [[place] 1 tab PO Q4H PRN 07/15/20 07/15/20 History 10-325] Magnesium Oxide 400 mg PO BID 07/15/20 07/15/20 History Omeprazole 40 mg PO DAILY 07/15/20 07/15/20 History Potassium Chloride ER [K-Dur 20] 40 meq PO DAILY 07/15/20 07/15/20 History Allergies Allergy/AdvReac Type Severity Reaction Status Date / Time Morpholine Analogues AdvReac Intermediate Hallucinati Verified 07/15/20 14:07 ons tramadol HCl [From Ultram] AdvReac Mild Unknown Verified 07/15/20 14:07 Physical Exam Vitals: Vital Signs Temp Pulse Resp BP Pulse Ox 07/15/20 14:11 92 18 117/78 91 L 07/15/20 13:14 96 20 131/81 92 L 07/15/20 12:49 93 26 H 113/81 95 07/15/20 12:09 105 H 26 H 113/81 97 07/15/20 12:04 26 H 07/15/20 11:58 107 H 24 115/80 95 07/15/20 11:55 109 H 24 115/78 76 L 07/15/20 11:48 98.0 F 110 H 26 H 126/80 53 L Intake and Output 07/14/20 07/15/20 07/15/20 22:59 06:59 14:59 Other: Weight 77.111 kg GENERAL EXAM: Alert, dyspneic, 49-year-old white female, on 100% nonrebreather, with a pulse ox of 91-95%, comfortable in no apparent distress. HEAD: Normocephalic/atraumatic. EYES: Normal reaction of pupils, equal size. Conjunctiva pink, sclera white. NOSE: Clear with pink turbinates. THROAT: No erythema or exudates. NECK: No masses, no JVD, no thyroid enlargement, no adenopathy. CHEST: No chest wall deformity. Symmetrical expansion. LUNGS: Equal air entry with diminished breath sounds, diffuse rhonchi CVS: Regular rate and rhythm, normal S1 and S2, no gallops, no murmurs, no rubs ABDOMEN: Soft, nontender. No hepatosplenomegaly, normal bowel sounds, no guarding or rigidity. EXTREMITIES: No clubbing, no edema, no cyanosis, 2+ pulses and upper and lower extremities. MUSCULOSKELETAL: Muscle strength and tone normal. SPINE: No scoliosis or deformity SKIN: No rashes CENTRAL NERVOUS SYSTEM: Alert and oriented -3. No focal deficits, tone is normal in all 4 extremities. PSYCHIATRIC: Alert and oriented -3. Appropriate affect. Intact judgment and insight. Results - Laboratory Findings CBC and BMP: 07/15/20 11:52 07/15/20 13:06 PT/INR, D-dimer PT 11.2 sec (9.0-12.0) 07/15/20 11:52 INR 1.1 (<1.2) 07/15/20 11:52 Abnormal lab findings: Abnormal Labs 07/15/20 07/15/20 07/15/20 11:52 11:52 11:53 WBC 32.8 H Neutrophils # 31.4 H Lymphocytes # 0.5 L VBG pH 7.50 H VBG pCO2 23 L VBG HCO3 18 L Sodium Chloride Creatinine Glucose Plasma Lactic Acid Malvin 4.5 H* ALT Alkaline Phosphatase Total Protein Albumin 07/15/20 13:06 WBC Neutrophils # Lymphocytes # VBG pH VBG pCO2 VBG HCO3 Sodium 132 L Chloride 97 L Creatinine 0.34 L Glucose 237 H Plasma Lactic Acid Malvin ALT 38 H Alkaline Phosphatase 256 H Total Protein 6.0 L Albumin 3.2 L - Diagnostic Findings Chest x-ray: report reviewed, image reviewed Assessment and Plan Plan: Assessment: #1. Acute hypoxic respiratory failure related to acute pneumonia, COVID-19 PCR was negative, patient is currently on combination of azithromycin and Zosyn #2. 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 Patient has not started chemotherapy #3. Status post radiation treatment to the brain #4. History of COPD, severity is unknown, normally not oxygen dependent #5. Chronic tobacco dependence, carries over [id number] smoking history, still smoking currently down to 2-3 cigarettes per day #6. History of recurrent pulmonary embolisms, patient is currently on Eliquis #7. Chronic back pain, spondylosis of the lumbar spine, status post surgical fusion #8. History of DVT #9. History of MRSA infection #10. Hypothyroidism Plan: Continue current antibiotics Patient has been fluid resuscitated We'll monitor lactic acid level Hemodynamically stable, just slightly tachycardic ,NO Altered mentation Patient is clear that she does not want heroics, and her CODE STATUS is DO NOT RESUSCITATE She does want to continue supportive treatment at this time Her daughter is at the bedside, the patient recently lost her spouse to lung cancer Her children confirmed that they do not want to prolong patient suffering if she continues to deteriorate and if there is no response to medical treatment For now we'll continue supportive treatment Continue breathing treatments We will add IV steroids, Pulmicort, Perforomist and DuoNeb, discontinue azithromycin Overall prognosis is poor I performed a history & physical examination of the patient and discussed their management with my nurse practitioner, Chrystal Luz. I reviewed the nurse practitioner's note and agree with the documented findings and plan of care. Lung sounds are positive for diffuse rhonchi throughout the lung [place]. The findings and the impression was discussed with the patient. I attest to the documentation by the nurse practitioner. Time with Patient: Greater than 30
[2020-07-15] MEDS: IPRATROPIUM-ALBUTEROL 3 ML NEB INHALATION SCH ×2 (15:26→19:51)
[2020-07-15] MEDS: NICOTINE 21MG/24HR PATCH TRANSDERM SCH (17:15)
[2020-07-15] MEDS: LORazepam 2 MG/ML INJ IV PRN ×2 (18:00→22:32)
[2020-07-15] MEDS: methylPREDNISolone SOD SUCCI 125 MG/2 ML VIAL IV SCH (18:04)
--- NOTE | 2020-07-15 19:20 | P.CONS ---
History of Present Illness - Reason for Consult Consult date: 07/15/20 metastatic non-small cell lung cancer Requesting physician: Baldemar Méndez - Chief Complaint difficulty in breathing - History of Present Illness Mrs. Collado is a very pleasant lady who presented in April 2020 with a enlarging mass in the right axilla. Mammogram was performed, revealed suspicious right axillary node, biopsy 05/31/20 was positive for metastatic adenocarcinoma, IHC consistent with a lung primary. Staging CT CAP 06/16/20 revealed a large necrotic right lower lobe mass, 7 x 8 cm, complete opacification of the segmental branches of the right lower lobe, mediastinal and hilar nodes, large axilla nodes on the right, left adrenal mass 6.8 x 6.4 cm. NGS revealed PIK 3 mutation, BRAF non-V600e mutation, PDL 1 was 30-40%. 07/01/20 bone scan was negative for metastatic disease. 06/29/20 MRI of the brain revealed 3 brain lesions. She has been receiving radiation to these lesions, she was due for her last dose today. chemotherapy/biotherapy with carboplatin/Alimta/keytruda was recommended and the patient was going to begin treatment next week. She has complaints of feeling tired, weak, she has lost 30 pounds since April but she states she was just getting her appetite back except now, it is difficult to eat because of her declining respiratory status. She has difficulty finding words at times, denies headache, no intractable cough, she had right sided chest pain but states that that is fine right now. Review of Systems 14 point review of systems is negative except as stated in HPI Past Medical History Past Medical History: Cancer, Deep Vein Thrombosis (DVT), Osteoarthritis (OA), Pulmonary Embolus (PE), Thyroid Disorder Additional Past Medical History / Comment(s): BLOOD CLOTS IN LUNG AND LEGS - never did figure out why History of Any Multi-Drug Resistant Organisms: MRSA Year Discovered:: 2006 MDRO Source:: culture back Past Surgical History: Back Surgery, Section, Tonsillectomy Additional Past Surgical History / Comment(s): back surgery x7. screws in back. Past Anesthesia/Blood Transfusion Reactions: No Reported Reaction Past Psychological History: Anxiety, Depression Smoking Status: Current every day smoker Past Alcohol Use History: Occasional Past Drug Use History: Marijuana - Past Family History Father Family Medical History: No Reported History Additional Family Medical History / Comment(s): never knew father. Mother Family Medical History: Diabetes Mellitus, Musculoskeletal Disorder Medications and Allergies Home Medications Medication Instructions Recorded Confirmed Type Levothyroxine Sodium [Synthroid] 88 mcg PO DAILY 04/20/14 07/15/20 History Ibuprofen 800 mg PO TID PRN 07/03/17 07/15/20 History ALPRAZolam [Xanax] 0.25 mg PO TID PRN 11/27/18 07/15/20 History Albuterol Inhaler [Ventolin Hfa 2 puff INHALATION RT-QID PRN 07/15/20 07/15/20 History Inhaler] Albuterol Nebulized [Ventolin 2.5 mg INHALATION RT-QID PRN 07/15/20 07/15/20 History Nebulized] Apixaban [Eliquis] 2.5 mg PO BID 07/15/20 07/15/20 History Ascorbic Acid [Vitamin C] 1,000 mg PO DAILY 07/15/20 07/15/20 History Dexamethasone [Decadron] 4 mg PO TID 07/15/20 07/15/20 History HYDROcodone/APAP 10-325MG [[place] 1 tab PO Q4H PRN 07/15/20 07/15/20 History 10-325] Magnesium Oxide 400 mg PO BID 07/15/20 07/15/20 History Omeprazole 40 mg PO DAILY 07/15/20 07/15/20 History Potassium Chloride ER [K-Dur 20] 40 meq PO DAILY 07/15/20 07/15/20 History Allergies Allergy/AdvReac Type Severity Reaction Status Date / Time Morpholine Analogues AdvReac Intermediate Hallucinati Verified 07/15/20 14:07 ons tramadol HCl [From Ultram] AdvReac Mild Unknown Verified 07/15/20 14:07 Physical Exam Vitals: Vital Signs Temp Pulse Resp BP Pulse Ox 07/15/20 18:40 92 18 109/60 89 L 07/15/20 18:05 95 24 116/91 92 L 07/15/20 17:32 81 L 07/15/20 15:36 93 35 H 07/15/20 15:28 92 30 H 07/15/20 14:58 92 20 117/78 92 L 07/15/20 14:11 92 18 117/78 91 L 07/15/20 13:14 96 20 131/81 92 L 07/15/20 12:49 93 26 H 113/81 95 07/15/20 12:09 105 H 26 H 113/81 97 07/15/20 12:04 26 H 07/15/20 11:58 107 H 24 115/80 95 07/15/20 11:55 109 H 24 115/78 76 L 07/15/20 11:48 98.0 F 110 H 26 H 126/80 53 L Intake and Output 07/15/20 07/15/20 07/15/20 06:59 14:59 22:59 Other: Weight 77.111 kg - Constitutional General appearance: average body habitus, cooperative, severe distress - EENT Eyes: anicteric sclerae, EOMI ENT: hearing grossly normal, normal oropharynx - Neck 6 cm right axillary mass, not certain if it is a node versus a soft tissue mass. No other adenopathy in the cervical, supraclavicular or left axilla Neck: lymphadenopathy - Respiratory Respiratory: right: other (absent breath sounds only a slight wheeze noted), left: rhonchi, wheezing - Cardiovascular Rhythm: regular Heart sounds: normal: S1, S2 Abnormal Heart Sounds: no systolic murmur, no diastolic murmur, no rub, no S3 Gallop, no S4 Gallop, no click, no other leg Peripheral Edema: bilateral: None - Gastrointestinal General gastrointestinal: no absent bowel sounds, no decreased bowel sounds, no distended, no hepatomegaly, no hyperactive bowel sounds, normal bowel sounds, no organomegaly, no rigid, no scaphoid, soft, no splenomegaly, no tenderness, no umbilical hernia, no ventral hernia - Neurologic Neurologic: CNII-XII intact - Musculoskeletal Musculoskeletal: strength equal bilaterally - Psychiatric Psychiatric: A&O x's 3, appropriate affect, intact judgment & insight Results CBC & Chem 7: 07/15/20 11:52 07/15/20 13:06 Labs: Abnormal Lab Results - Last 24 Hours (Table) 07/15/20 07/15/20 07/15/20 Range/Units 11:52 11:52 11:53 WBC 32.8 H (3.8-10.6) k/uL Neutrophils # 31.4 H (1.3-7.7) k/uL Lymphocytes # 0.5 L (1.0-4.8) k/uL VBG pH 7.50 H (7.31-7.41) VBG pCO2 23 L (37-51) mmHg VBG HCO3 18 L (24-28) mmol/L Sodium (137-145) mmol/L Chloride (98-107) mmol/L Creatinine (0.52-1.04) mg/dL Glucose (74-99) mg/dL Plasma Lactic Acid Malvin 4.5 H* (0.7-2.0) mmol/L ALT (4-34) U/L Alkaline Phosphatase (38-126) U/L Total Protein (6.3-8.2) g/dL Albumin (3.5-5.0) g/dL 07/15/20 07/15/20 Range/Units 13:06 15:08 WBC (3.8-10.6) k/uL Neutrophils # (1.3-7.7) k/uL Lymphocytes # (1.0-4.8) k/uL VBG pH (7.31-7.41) VBG pCO2 (37-51) mmHg VBG HCO3 (24-28) mmol/L Sodium 132 L (137-145) mmol/L Chloride 97 L (98-107) mmol/L Creatinine 0.34 L (0.52-1.04) mg/dL Glucose 237 H (74-99) mg/dL Plasma Lactic Acid Malvin 4.2 H* (0.7-2.0) mmol/L ALT 38 H (4-34) U/L Alkaline Phosphatase 256 H (38-126) U/L Total Protein 6.0 L (6.3-8.2) g/dL Albumin 3.2 L (3.5-5.0) g/dL Chest x-ray: report reviewed Assessment and Plan (1) Acute respiratory failure Narrative/Plan: Patient has been seen by Pulmonary. She is being treated for the same. Patient has a history of a PE. She states she is only been taking 2.5 mg of eliquis once a day. We will order CTA. Current Visit: Yes Status: Acute Priority: High Code(s): J96.00 - ACUTE RESPIRATORY FAILURE, UNSP W HYPOXIA OR HYPERCAPNIA SNOMED Code(s): 46092446 (2) Non-small cell lung cancer (NSCLC) Narrative/Plan: Patient had one more radiation to the brain to complete and then she was going to begin palliative chemotherapy/I0 for her lung cancer. Unfortunately, patient respiratory status has declined rather rapidly. Pulmonary is working with her and providing antibiotics and medications to see if that will improve her respiratory status. Concerns for the patient's rapid respiratory decline include infection, airway obstruction or possibly lymphangitic spread of disease. Patient and the family have had a very realistic outlook on her diagnosis and prognosis. She is a no code. Her symptoms are being aggressively treated. Current Visit: Yes Status: Acute Priority: High Code(s): C34.90 - MALIGNANT NEOPLASM OF UNSP PART OF UNSP BRONCHUS OR LUNG SNOMED Code(s): 262634216
[2020-07-15] MEDS: BUDESONIDE 1 MG/2 ML NEBU INHALATION SCH (19:51)
[2020-07-15] MEDS: FORMOTEROL FUMARATE 20 MCG/2 ML NEBU INHALATION SCH (19:51)
[2020-07-15] MEDS: HYDROcodone/APAP 10-325MG 1 EACH TAB PO PRN (20:26)
[2020-07-15] MEDS: MAGNESIUM OXIDE 400 MG TAB PO SCH (22:36)
[2020-07-15] MEDS: IPRATROPIUM-ALBUTEROL 3 ML NEB INHALATION PRN (23:46)
[2020-07-16] MEDS: methylPREDNISolone SOD SUCCI 125 MG/2 ML VIAL IV SCH ×5 (00:28→23:44)
[2020-07-16] MEDS: PIPERACILLIN-TAZOBACTAM 3.375 GM in SODIUM CHLORIDE 0.9% 100 ML IVPB SCH ×4 (00:32→23:43)
[2020-07-16] MEDS: SODIUM CHLORIDE 0.9% 1,000 ML IV SCH ×4 (01:13→20:40)
[2020-07-16] MEDS: IPRATROPIUM-ALBUTEROL 3 ML NEB INHALATION PRN (03:20)
[2020-07-16] MEDS: HYDROcodone/APAP 10-325MG 1 EACH TAB PO PRN ×3 (05:17→23:44)
--- NOTE | 2020-07-16 07:21 | P.PN ---
Subjective Progress Note Date: 07/16/20 Principal diagnosis: Metastatic lung cancer. 49-year-old white female patient of Dr. Vickers with recent diagnosis of lung cancer in May 2020, with biopsy of the right axillary mass showing poorly differentiated adenocarcinoma, and the differential diagnosis slightly favored metastatic lung adenocarcinoma. Metastatic poorly differentiated mammary carcinoma was also considered. CT of the chest, abdomen and pelvis on 06/16/2020 showed advanced metastatic disease to the left adrenal gland, spleen, right lung, right hilar and right axilla. MRI of the brain on 06/29/2020 showed evidence of metastatic disease with dominant lesion in the region and left basal ganglia measuring 2.9 x 2.4 cm, with moderate surrounding vasogenic edema with left to right midline shift. There was impending subfalcine herniation and 2 additional smaller lesions were noted. Patient received radiation treatment to the brain, she has not started chemotherapy, she follows with Dr. Castro and Dr. Howard from radiation oncology. Patient carries a long history of smoking, around [id number] smoking history, and she still smoking around 2-3 cigarettes per day. She has a history of COPD, normally on oxygen. We had seen patient in 2019 when she was hospitalized with recurrent pulmonary emboli, and patient is on lifelong anticoagulation in the form of Eliquis. Patient had previously been on Zaroxolyn and developed some type of a rash, and she also had Coumadin which was a difficult to monitor. During the same admission in 2019 with did note an area of increased density in the posterior medial right lung base and a PET scan from September 2018 showing intermediate uptake in the area with the possibility of early metastatic or primary lung cancer and patient was advised to follow-up however patient did not follow-up with the pulmonary service after discharge. On 07/15/2020 patient presented to the emergency department with complaints of dyspnea that started last night. He had to significantly progressed since that time, patient was becoming more confused, more dyspneic, and more hypoxic, she had been transported to the ER per EMS. She was placed on supplemental oxygen, currently on 100% nonrebreather. She is complaining of a mild cough with some phlegm production, denies any fever, no leg pain or leg swelling, no nausea vomiting or diarrhea, patient tested negative for COVID 19. Chest x-ray showed bilateral pleural effusions with cardiomegaly and bibasilar infiltrates, and a diffuse interstitial pattern. Patient had significantly elevated white count at 32.8, hemoglobin was 14.6, serum sodium was 132, potassium is 4.4, chloride was 97, BUN of 12, creatinine 0.34, alkaline phosphatase was 256, troponin was less than 0.012. ProBNP was 850, lactic acid was 4.5. Patient was given 2 L in IV fluid bolus, and her maintenance IV fluids are infusing at a rate of 130 ML per hour, she was started on antibiotics with Zosyn and azithromycin. She is on breathing treatments. He is tachypneic and short of breath, but no altered mentation, she is providing simple answers to questions, her daughter and daughter in law are at the bedside helping with the history. Patient's spouse recently a few months ago from metastatic lung cancer. She slightly tachycardic, in sinus mechanism with a rate of low 100 BPM, blood pressure is 117/78, she is not requiring any vasopressor support. Progress note dated 07/16/2020. 49-year-old female smoker, with history of metastatic lung cancer. She has metastasis to the axillary lymph nodes, adrenal glands, and brain. He was diagnosed recently with poorly differentiated adenocarcinoma. It was a biopsy of the right axillary mass. The patient has had radiation therapy to the brain. No chemotherapy as yet. She came into the emergency department complaining of increasing shortness of breath. I did have a chance to speak to her her family yesterday and she is a DO NOT RESUSCITATE. Currently, she still in the emergency room, room 4. She is on BiPAP at 10/5, and 100%. The patient saturations are 95%. The patient is insistent on going home. The patient does not want intubation or mechanical ventilation. The patient does not want any aggressive therapy whatsoever. Her recently also from lung cancer. Unfortunately, the patient continues to smoke cigarettes. No new lab work for today. Chest x-ray shows almost complete opacification of the right lung, and diffuse airspace disease bilaterally. In my opinion, the patient is likely a good candidate for home hospice. Objective - Vital Signs Vital signs: Vital Signs Temp 97.7 F 07/16/20 00:35 Pulse 97 07/16/20 04:07 Resp 20 07/16/20 04:07 BP 138/95 07/16/20 04:07 Pulse Ox 96 07/16/20 04:55 Intake & Output 07/15/20 07/16/20 07/16/20 18:59 06:59 18:59 Weight 77.111 kg - Exam Oriented 3, tachypnea, with conversational dyspnea. HEENT examination is grossly unremarkable. BiPAP mask in place. Neck supple. Full range of motion. No adenopathy thyromegaly or neck vein distention. Cardiovascular examination reveals regular rhythm rate. S1-S2 normal. No S3 or S4. No discernible murmur noted. Heart sounds distant. Heart rate 97 bpm. Lungs reveal coarse bilateral breath sounds. No wheezes. Scattered bilateral rhonchi are noted. No crackles. Breath sounds diminished throughout practically in the right lung.. Abdomen soft bowel sounds are heard. No masses or tenderness. Extremities are intact. No cyanosis clubbing or edema. Skin is without rash or lesion. Neurologic examination is brief but nonfocal. - Labs CBC & Chem 7: 07/15/20 11:52 07/15/20 13:06 Labs: Abnormal Lab Results - Last 24 Hours (Table) 07/15/20 07/15/20 07/15/20 Range/Units 11:52 11:52 11:53 WBC 32.8 H (3.8-10.6) k/uL Neutrophils # 31.4 H (1.3-7.7) k/uL Lymphocytes # 0.5 L (1.0-4.8) k/uL VBG pH 7.50 H (7.31-7.41) VBG pCO2 23 L (37-51) mmHg VBG HCO3 18 L (24-28) mmol/L Sodium (137-145) mmol/L Chloride (98-107) mmol/L Creatinine (0.52-1.04) mg/dL Glucose (74-99) mg/dL Plasma Lactic Acid Malvin 4.5 H* (0.7-2.0) mmol/L ALT (4-34) U/L Alkaline Phosphatase (38-126) U/L Total Protein (6.3-8.2) g/dL Albumin (3.5-5.0) g/dL 07/15/20 07/15/20 07/15/20 Range/Units 13:06 15:08 19:17 WBC (3.8-10.6) k/uL Neutrophils # (1.3-7.7) k/uL Lymphocytes # (1.0-4.8) k/uL VBG pH (7.31-7.41) VBG pCO2 (37-51) mmHg VBG HCO3 (24-28) mmol/L Sodium 132 L (137-145) mmol/L Chloride 97 L (98-107) mmol/L Creatinine 0.34 L (0.52-1.04) mg/dL Glucose 237 H (74-99) mg/dL Plasma Lactic Acid Malvin 4.2 H* 3.9 H* (0.7-2.0) mmol/L ALT 38 H (4-34) U/L Alkaline Phosphatase 256 H (38-126) U/L Total Protein 6.0 L (6.3-8.2) g/dL Albumin 3.2 L (3.5-5.0) g/dL 07/15/20 07/16/20 Range/Units 21:52 01:04 WBC (3.8-10.6) k/uL Neutrophils # (1.3-7.7) k/uL Lymphocytes # (1.0-4.8) k/uL VBG pH (7.31-7.41) VBG pCO2 (37-51) mmHg VBG HCO3 (24-28) mmol/L Sodium (137-145) mmol/L Chloride (98-107) mmol/L Creatinine (0.52-1.04) mg/dL Glucose (74-99) mg/dL Plasma Lactic Acid Malvin 3.1 H* 2.8 H* (0.7-2.0) mmol/L ALT (4-34) U/L Alkaline Phosphatase (38-126) U/L Total Protein (6.3-8.2) g/dL Albumin (3.5-5.0) g/dL Assessment and Plan Assessment: #1. Acute hypoxic respiratory failure related to acute pneumonia, COVID-19 PCR was negative, patient is currently on combination of azithromycin and Zosyn. #2. 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 Patient has not started chemotherapy. #3. Status post radiation treatment to the brain. #4. History of COPD, severity is unknown, normally not oxygen dependent. #5. Chronic tobacco dependence, carries over [id number] smoking history, still smoking currently down to 2-3 cigarettes per day. #6. History of recurrent pulmonary embolisms, patient is currently on Eliquis. #7. Chronic back pain, spondylosis of the lumbar spine, status post surgical fusion. #8. History of DVT. #9. History of MRSA infection. #10. Hypothyroidism. Plan: Plan dated 07/16/2020. The patient is again seen today in the emergency room, in room 4. She is on B iPAP 10/5 and 100%. Saturations are in the mid 90s. The patient's adamant about going home. I think she should be hospice patient. She can go to inpatient hospice or home hospice. Her predicament is quite bad. She will not survive this illness. She did make herself a DO NOT RESUSCITATE yesterday. That is also very appropriate given her metastatic lung cancer. Time with Patient: Less than 30
[2020-07-16 07:33] LABS: Glucose,Whole Blood 129 mg/dL (75-99)
[2020-07-16] MEDS: BUDESONIDE 1 MG/2 ML NEBU INHALATION SCH ×2 (07:37→20:08)
[2020-07-16] MEDS: IPRATROPIUM-ALBUTEROL 3 ML NEB INHALATION SCH ×4 (07:37→20:07)
[2020-07-16] MEDS: FORMOTEROL FUMARATE 20 MCG/2 ML NEBU INHALATION SCH ×2 (07:37→20:08)
[2020-07-16] MEDS: NICOTINE 21MG/24HR PATCH TRANSDERM SCH (07:58)
[2020-07-16] MEDS: LORazepam 2 MG/ML INJ IV PRN ×2 (07:58→11:15)
[2020-07-16] MEDS: APIXABAN 2.5 MG TABLET PO SCH ×2 (08:00→20:39)
[2020-07-16] MEDS: MAGNESIUM OXIDE 400 MG TAB PO SCH ×2 (08:01→20:39)
--- NOTE | 2020-07-16 08:12 | P.HPIM ---
History of Present Illness H&P Date: 07/16/20 Chief Complaint: Respiratory distress This is a 49-year-old female who has an underlying history of metastatic lung cancer. Unfortunately, she has struggled with grief related to recent of . She comes in with significant S4 distress. Appreciate multiple consultants input. She is now on significant for supplemental oxygen. She's quite anxious and is otherwise a very good historian. Significant anxiety is noted Review of Systems Constitutional: Reports chronic pain, Reports weight loss, Denies chills, Denies fever Eyes: denies blurred vision, denies pain Ears, nose, mouth and throat: Denies headache, Denies sore throat Cardiovascular: Denies chest pain, Denies shortness of breath Respiratory: Reports as per HPI, Reports home oxygen Gastrointestinal: Denies abdominal pain, Denies diarrhea, Denies nausea, Denies vomiting Musculoskeletal: Denies myalgias Past Medical History Past Medical History: Cancer, Deep Vein Thrombosis (DVT), Osteoarthritis (OA), Pulmonary Embolus (PE), Thyroid Disorder Additional Past Medical History / Comment(s): BLOOD CLOTS IN LUNG AND LEGS - never did figure out why History of Any Multi-Drug Resistant Organisms: MRSA Date of last positivie culture/infection: 2006 MDRO Source:: culture back Past Surgical History: Back Surgery, Section, Tonsillectomy Additional Past Surgical History / Comment(s): back surgery x7. screws in back. Past Anesthesia/Blood Transfusion Reactions: No Reported Reaction Past Psychological History: Anxiety, Depression Smoking Status: Current every day smoker Past Alcohol Use History: Occasional Past Drug Use History: Marijuana - Past Family History Father Family Medical History: No Reported History Additional Family Medical History / Comment(s): never knew father. Mother Family Medical History: Diabetes Mellitus, Musculoskeletal Disorder Medications and Allergies Home Medications Medication Instructions Recorded Confirmed Type Levothyroxine Sodium [Synthroid] 88 mcg PO DAILY 04/20/14 07/15/20 History Ibuprofen 800 mg PO TID PRN 07/03/17 07/15/20 History ALPRAZolam [Xanax] 0.25 mg PO TID PRN 11/27/18 07/15/20 History Albuterol Inhaler [Ventolin Hfa 2 puff INHALATION RT-QID PRN 07/15/20 07/15/20 History Inhaler] Albuterol Nebulized [Ventolin 2.5 mg INHALATION RT-QID PRN 07/15/20 07/15/20 History Nebulized] Apixaban [Eliquis] 2.5 mg PO BID 07/15/20 07/15/20 History Ascorbic Acid [Vitamin C] 1,000 mg PO DAILY 07/15/20 07/15/20 History Dexamethasone [Decadron] 4 mg PO TID 07/15/20 07/15/20 History HYDROcodone/APAP 10-325MG [[place] 1 tab PO Q4H PRN 07/15/20 07/15/20 History 10-325] Magnesium Oxide 400 mg PO BID 07/15/20 07/15/20 History Omeprazole 40 mg PO DAILY 07/15/20 07/15/20 History Potassium Chloride ER [K-Dur 20] 40 meq PO DAILY 07/15/20 07/15/20 History Allergies Allergy/AdvReac Type Severity Reaction Status Date / Time Morpholine Analogues AdvReac Intermediate Hallucinati Verified 07/15/20 14:07 ons tramadol HCl [From Ultram] AdvReac Mild Unknown Verified 07/15/20 14:07 Physical Exam Vitals: Vital Signs Temp Pulse Resp BP Pulse Ox 07/16/20 08:04 98 07/16/20 08:02 105 H 24 133/85 93 L 07/16/20 07:54 100 07/16/20 07:53 100 07/16/20 07:40 90 07/16/20 04:55 96 07/16/20 04:07 97 20 138/95 94 L 07/16/20 03:25 94 88 L 07/16/20 00:35 97.7 F 93 26 H 129/93 86 L 07/16/20 00:32 87 L 07/15/20 23:57 84 07/15/20 23:47 86 90 L 07/15/20 22:39 97.7 F 88 20 124/81 92 L 07/15/20 20:19 90 07/15/20 20:13 90 07/15/20 19:52 92 91 L 07/15/20 18:40 92 18 109/60 89 L 07/15/20 18:05 95 24 116/91 92 L 07/15/20 17:32 81 L 07/15/20 15:36 93 35 H 07/15/20 15:28 92 30 H 07/15/20 14:58 92 20 117/78 92 L 07/15/20 14:11 92 18 117/78 91 L 07/15/20 13:14 96 20 131/81 92 L 07/15/20 12:49 93 26 H 113/81 95 07/15/20 12:09 105 H 26 H 113/81 97 07/15/20 12:04 26 H 07/15/20 11:58 107 H 24 115/80 95 07/15/20 11:55 109 H 24 115/78 76 L 07/15/20 11:48 98.0 F 110 H 26 H 126/80 53 L - Constitutional General appearance: cooperative, severe distress - EENT Eyes: EOMI - Neck Neck: no lymphadenopathy - Respiratory Respiratory: bilateral: other (Significant tachypnea with rhonchi.) - Cardiovascular Rhythm: regular Heart sounds: normal: S1, S2 Abnormal Heart Sounds: no S3 Gallop - Gastrointestinal General gastrointestinal: soft, no tenderness - Integumentary Integumentary: no ulcer - Psychiatric Psychiatric: A&O x's 3, appropriate affect Results CBC & Chem 7: 07/15/20 11:52 07/15/20 13:06 Labs: Abnormal Lab Results - Last 24 Hours (Table) 07/15/20 07/15/20 07/15/20 Range/Units 11:52 11:52 11:53 WBC 32.8 H (3.8-10.6) k/uL Neutrophils # 31.4 H (1.3-7.7) k/uL Lymphocytes # 0.5 L (1.0-4.8) k/uL VBG pH 7.50 H (7.31-7.41) VBG pCO2 23 L (37-51) mmHg VBG HCO3 18 L (24-28) mmol/L Sodium (137-145) mmol/L Chloride (98-107) mmol/L Creatinine (0.52-1.04) mg/dL Glucose (74-99) mg/dL POC Glucose (mg/dL) (75-99) mg/dL Plasma Lactic Acid [place] 4.5 H* (0.7-2.0) mmol/L ALT (4-34) U/L Alkaline Phosphatase (38-126) U/L Total Protein (6.3-8.2) g/dL Albumin (3.5-5.0) g/dL 07/15/20 07/15/20 07/15/20 Range/Units 13:06 15:08 19:17 WBC (3.8-10.6) k/uL Neutrophils # (1.3-7.7) k/uL Lymphocytes # (1.0-4.8) k/uL VBG pH (7.31-7.41) VBG pCO2 (37-51) mmHg VBG HCO3 (24-28) mmol/L Sodium 132 L (137-145) mmol/L Chloride 97 L (98-107) mmol/L Creatinine 0.34 L (0.52-1.04) mg/dL Glucose 237 H (74-99) mg/dL POC Glucose (mg/dL) (75-99) mg/dL Plasma Lactic Acid [place] 4.2 H* 3.9 H* (0.7-2.0) mmol/L ALT 38 H (4-34) U/L Alkaline Phosphatase 256 H (38-126) U/L Total Protein 6.0 L (6.3-8.2) g/dL Albumin 3.2 L (3.5-5.0) g/dL 07/15/20 07/16/20 07/16/20 Range/Units 21:52 01:04 07:30 WBC (3.8-10.6) k/uL Neutrophils # (1.3-7.7) k/uL Lymphocytes # (1.0-4.8) k/uL VBG pH (7.31-7.41) VBG pCO2 (37-51) mmHg VBG HCO3 (24-28) mmol/L Sodium (137-145) mmol/L Chloride (98-107) mmol/L Creatinine (0.52-1.04) mg/dL Glucose (74-99) mg/dL POC Glucose (mg/dL) 129 H (75-99) mg/dL Plasma Lactic Acid Malvin 3.1 H* 2.8 H* (0.7-2.0) mmol/L ALT (4-34) U/L Alkaline Phosphatase (38-126) U/L Total Protein (6.3-8.2) g/dL Albumin (3.5-5.0) g/dL Assessment and Plan (1) Acute respiratory failure Current Visit: Yes Status: Acute Priority: High Code(s): J96.00 - ACUTE RESPIRATORY FAILURE, UNSP W HYPOXIA OR HYPERCAPNIA SNOMED Code(s): 88129593 (2) Non-small cell lung cancer (NSCLC) Current Visit: Yes Status: Acute Priority: High Code(s): C34.90 - MALIGNANT NEOPLASM OF UNSP PART OF UNSP BRONCHUS OR LUNG SNOMED Code(s): 647491078 (3) Cigarette nicotine dependence Current Visit: No Status: Acute Code(s): F17.210 - NICOTINE DEPENDENCE, CIGARETTES, UNCOMPLICATED SNOMED Code(s): 20786240 Plan: Continue significant respiratory support. Reconcile medications. Anxiety medications as necessary. Prognosis is poor given her overall comorbidities and Continue supportive care.
--- NOTE | 2020-07-16 08:55 | XR ---
EXAMINATION TYPE: XR chest 1V DATE OF EXAM: 07/16/2020 COMPARISON: 07/15/2020 HISTORY: Shortness of breath TECHNIQUE: Single frontal view of the chest is obtained. FINDINGS: Diffuse bilateral infiltrates with marked progression on the right with near complete opac ification now noted. Bilateral pleural effusions. Heart size stable. No pneumothorax. IMPRESSION: 1. Interval marked worsening appearance of the chest with near complete opacification the right hemit horax. Persistent diffuse left-sided infiltrates.
[2020-07-16] MEDS ORDERED: AZITHROMYCIN 500 MG in SODIUM CHLORIDE 0.9% 250 ML IVPB SCH (09:00)
--- NOTE | 2020-07-16 11:27 | CDI ---
Documentation Clarification Form Date: 07/16/2020 10:34:55 AM From: Elsi Aaron RN, CCDS Admit Date: 07/15/2020 02:25:00 PM Patient Name: Kya Collado Visit Number: [id number] Discharge Date: ATTENTION: The Clinical Documentation Specialists (CDI) and [facility] Coding Staff appreciate your assistance in clarifying documentation. Please respond to the clarification below the line at the bottom and electronically sign. The CDI & [facility] Coding staff will review the response and follow-up if needed. Please note: Queries are made part of the Legal Health Record. If you have any questions, please contact the author of this message via ITS. Dr. Richie Vickers [Pneumonia is documented in the pulmonary progress notes on 07/15/20, but is not noted in your H/P. Clarification is requested. History/Risk Factors: Pulmonary Embolus, DVT, Metastatic adenocarcinoma with lung primary Clinical Indicators: 49-demetrice-old female present on 07/15 with shortness of breath. Lungs: Right absent breath sounds only slight wheeze. Left: rhonchi, wheezing 07/15 Vital signs: 07/15 WBC 32.8, NA+ 132 Lactic acid 4.5 07/15 CXR: Correlate for CHF otherwise consider diffuse bilateral pneumonia 07/16 CXR: interval marked worsening appearance of the chest with near complete opacification the right hemithorax. Persistent diffuse left-sided infiltrates. Treatment: Duoneb 0.5 mg-3Mg/3ML solution QID and PRN Pulmicort 1MG Inhalation BID Preformists 20 mcg Inhalation BID Solu-Medrol 60 MG IV Q 6 HRS (Titrate) Zosyn 3.375 MG IV Q 8HR .9NS @130 MLS/HR Please clarify if the Pneumonia [ x] Pneumonia confirmed, POA, remains under treatment [ ] Pneumonia, confirmed, POA, resolved [ ] Pneumonia, ruled out [ ] Other condition, please specify [ ] Unable to determine (Template Last Revised: April 2020) MTDD
--- NOTE | 2020-07-16 17:39 | P.PN ---
Subjective Progress Note Date: 07/16/20 Objective - Vital Signs Vital signs: Vital Signs Temp 97.8 F 07/16/20 16:00 Pulse 86 07/16/20 16:00 Resp 33 H 07/16/20 16:00 BP 121/80 07/16/20 16:00 Pulse Ox 98 07/16/20 16:00 Intake & Output 07/15/20 07/16/20 07/16/20 18:59 06:59 18:59 Weight 77.111 kg 77.111 kg Other: Voiding Method Indwelling Catheter - Exam - Constitutional General appearance: average body habitus, cooperative, severe distress - EENT Eyes: anicteric sclerae, EOMI ENT: hearing grossly normal, normal oropharynx - Neck 6 cm right axillary mass, not certain if it is a node versus a soft tissue mass. No other adenopathy in the cervical, supraclavicular or left axilla Neck: lymphadenopathy - Respiratory Respiratory: right: other (absent breath sounds only a slight wheeze noted), left: rhonchi, wheezing - Cardiovascular Rhythm: regular Heart sounds: normal: S1, S2 Abnormal Heart Sounds: no systolic murmur, no diastolic murmur, no rub, no S3 Gallop, no S4 Gallop, no click, no other leg Peripheral Edema: bilateral: None - Gastrointestinal General gastrointestinal: no absent bowel sounds, no decreased bowel sounds, no distended, no hepatomegaly, no hyperactive bowel sounds, normal bowel sounds, no organomegaly, no rigid, no scaphoid, soft, no splenomegaly, no tenderness, no umbilical hernia, no ventral hernia - Neurologic Neurologic: CNII-XII intact - Musculoskeletal Musculoskeletal: strength equal bilaterally - Psychiatric Psychiatric: A&O x's 3, appropriate affect, intact judgment & insight - Labs CBC & Chem 7: 07/15/20 11:52 07/15/20 13:06 Labs: Abnormal Lab Results - Last 24 Hours (Table) 07/15/20 07/15/20 07/16/20 Range/Units 19:17 21:52 01:04 POC Glucose (mg/dL) (75-99) mg/dL Plasma Lactic Acid Malvin 3.9 H* 3.1 H* 2.8 H* (0.7-2.0) mmol/L 07/16/20 Range/Units 07:30 POC Glucose (mg/dL) 129 H (75-99) mg/dL Plasma Lactic Acid Malvin (0.7-2.0) mmol/L Microbiology - Last 24 Hours (Table) 07/15/20 14:48 Blood Culture - Preliminary Blood No Growth after 24 hours 07/15/20 14:48 Blood Culture - Preliminary Blood No Growth after 24 hours Assessment and Plan Plan: Chest x-ray: report reviewed Assessment and Plan Acute respiratory failure - Pulmonary is following Patient has a history of a PE. She states she is only been taking 2.5 mg of eliquis once a day. We will order CTA. Non-small cell lung cancer (NSCLC) - Status Post radiation to the brain , begin palliative chemotherapy/I0 for her lung cancer. -Appears to have rapid progression, worsening respiratory status due to airway obstruction or possibly lymphangitic spread of disease. She is a no code. Her symptoms are being aggressively treated. Goal of care palliatiive intent Current Visit: Yes Status: Acute Priority: High Code(s): C34.90 - MALIGNANT NEOPLASM OF UNSP PART OF UNSP BRONCHUS OR LUNG SNOMED Code(s): 009069303 Physician Attest: I have completed the full history and physical and agree with above dictation dictated as a ascribe
[2020-07-16 20:20] LABS: Glucose,Whole Blood 137 mg/dL (75-99)
[2020-07-16] MEDS: INSULIN ASPART (NovoLOG) 100 UNIT/ML VIAL SQ SCH (20:40)
[2020-07-16] MEDS: HYDROmorphone 1 MG/ML 1 ML SYRINGE IVP PRN (20:40)
[2020-07-16] MEDS: DIAZEPAM 5 MG/ML 2 ML INJ IVP PRN (23:44)
[2020-07-17] MEDS: SODIUM CHLORIDE 0.9% 1,000 ML IV SCH ×4 (04:29→20:05)
[2020-07-17] MEDS: HYDROmorphone 1 MG/ML 1 ML SYRINGE IVP PRN (04:29)
[2020-07-17 06:15] LABS: Glucose,Whole Blood 116 mg/dL (75-99)
[2020-07-17] MEDS: INSULIN ASPART (NovoLOG) 100 UNIT/ML VIAL SQ SCH ×4 (06:20→20:03)
[2020-07-17] MEDS: methylPREDNISolone SOD SUCCI 125 MG/2 ML VIAL IV SCH ×4 (06:26→23:14)
[2020-07-17] MEDS: NICOTINE 21MG/24HR PATCH TRANSDERM SCH (06:27)
[2020-07-17] MEDS: HYDROcodone/APAP 10-325MG 1 EACH TAB PO PRN ×4 (06:33→22:09)
[2020-07-17] MEDS: MAGNESIUM OXIDE 400 MG TAB PO SCH ×2 (08:07→19:59)
[2020-07-17] MEDS: APIXABAN 2.5 MG TABLET PO SCH ×2 (08:07→19:59)
[2020-07-17] MEDS: PIPERACILLIN-TAZOBACTAM 3.375 GM in SODIUM CHLORIDE 0.9% 100 ML IVPB SCH ×3 (08:13→23:14)
[2020-07-17] MEDS: BUDESONIDE 1 MG/2 ML NEBU INHALATION SCH ×2 (08:49→19:59)
[2020-07-17] MEDS: IPRATROPIUM-ALBUTEROL 3 ML NEB INHALATION SCH ×4 (08:49→19:59)
[2020-07-17] MEDS: FORMOTEROL FUMARATE 20 MCG/2 ML NEBU INHALATION SCH ×2 (08:49→19:59)
[2020-07-17] MEDS: DIAZEPAM 5 MG/ML 2 ML INJ IVP PRN (09:37)
--- NOTE | 2020-07-17 11:08 | P.CNPUL ---
History of Present Illness Consult date: 07/17/20 Reason for consult: dyspnea, cough, hypoxemia, lung mass, abnormal CXR/CT Chief complaint: Shortness of breath/respiratory failure History of present illness: Patient presented to the emergency department with complaints of dyspnea that started 1 day prior to admission. Patient presented to emergency department with progressive shortness of breath hypoxia and confusion she was initially seen by another pulmonary group but she elected to change the book editor. Currently patient is off of 100% nonrebreather Shelby has been on BiPAP machine off and on with the BiPAP setting of 146 with 100% oxygen, patient has been switched to high flow oxygen sats are 91-92% plan is to use his BiPAP machine at night high flow during the day. She is complaining of a mild cough with some phlegm production, denies any fever, no leg pain or leg swelling, no nausea vomiting or diarrhea, patient tested negative for COVID 19. Chest x-ray showed bilateral pleural effusions with cardiomegaly and bibasilar infiltrates, and a diffuse interstitial pattern. Patient had significantly elevated white count at 32.8, hemoglobin was 14.6, serum sodium was 132, potassium is 4.4, chloride was 97, BUN of 12, creatinine 0.34, alkaline phosphatase was 256, troponin was less than 0.012. ProBNP was 850, lactic acid was 4.5. Patient was given 2 L in IV fluid bolus, and her maintenance IV fluids are infusing at a rate of 130 ML per hour, she was started on antibiotics with Zosyn and azithromycin. She is on breathing treatments. He is tachypneic and short of breath, improved mentation, she is providing simple answers to questions, her daughter at the bedside helping with the history. Patient's spouse recently a few months ago from metastatic lung cancer. Her past history significant of smoking and nicotine use is still smoking actively, patient was diagnosed as lung cancer stage IV in May 2020, patient had biopsy of right axillary mass, pathology significant for adenocarcinoma patient has advanced metastatic disease to the adrenal gland the spleen and hilar with excellent a floor, patient is currently on radiation, patient also has a history of pulmonary embolism has been on Coumadin, Patient has finished chemotherapy but appears to be still on radiation therapy she has been considered for hospice but however patient wants to complete radiation therapy Her chest x-ray and July 16 showing near complete opacification of right hemithorax likely mucous plug and tumor related Past Medical History Past Medical History: Cancer, COPD, Deep Vein Thrombosis (DVT), GERD/Reflux, Osteoarthritis (OA), Pulmonary Embolus (PE), Respiratory Disorder, Thyroid Disorder Additional Past Medical History / Comment(s): 04/2020 R axilla mass/biopsy/ metastatic cancer, R lung to several areas including the brain/pt receiving radiation treatments, recurrent PEs. History of Any Multi-Drug Resistant Organisms: MRSA Date of last positivie culture/infection: 2006 MDRO Source:: culture back Past Surgical History: Back Surgery, Section, Tonsillectomy Additional Past Surgical History / Comment(s): R axillary mass bx, back surgery x7, screws in back. Past Anesthesia/Blood Transfusion Reactions: No Reported Reaction Smoking Status: Current every day smoker - Past Family History Father Family Medical History: No Reported History Additional Family Medical History / Comment(s): never knew father. Mother Family Medical History: Diabetes Mellitus, Musculoskeletal Disorder Medications and Allergies Home Medications Medication Instructions Recorded Confirmed Type Levothyroxine Sodium [Synthroid] 88 mcg PO DAILY 04/20/14 07/15/20 History Ibuprofen 800 mg PO TID PRN 07/03/17 07/15/20 History ALPRAZolam [Xanax] 0.25 mg PO TID PRN 11/27/18 07/15/20 History Albuterol Inhaler [Ventolin Hfa 2 puff INHALATION RT-QID PRN 07/15/20 07/15/20 History Inhaler] Albuterol Nebulized [Ventolin 2.5 mg INHALATION RT-QID PRN 07/15/20 07/15/20 History Nebulized] Apixaban [Eliquis] 2.5 mg PO BID 07/15/20 07/15/20 History Ascorbic Acid [Vitamin C] 1,000 mg PO DAILY 07/15/20 07/15/20 History Dexamethasone [Decadron] 4 mg PO TID 07/15/20 07/15/20 History HYDROcodone/APAP 10-325MG [[place] 1 tab PO Q4H PRN 07/15/20 07/15/20 History 10-325] Magnesium Oxide 400 mg PO BID 07/15/20 07/15/20 History Omeprazole 40 mg PO DAILY 07/15/20 07/15/20 History Potassium Chloride ER [K-Dur 20] 40 meq PO DAILY 07/15/20 07/15/20 History Allergies Allergy/AdvReac Type Severity Reaction Status Date / Time Morpholine Analogues AdvReac Intermediate Hallucinati Verified 07/15/20 14:07 ons tramadol HCl [From Ultram] AdvReac Mild Unknown Verified 07/15/20 14:07 Physical Exam Vitals: Vital Signs Temp Pulse Pulse Resp BP BP Pulse Ox 07/17/20 09:12 84 07/17/20 09:00 84 07/17/20 08:49 84 07/17/20 08:03 98.2 F 79 26 H 133/83 100 07/17/20 04:00 96.8 F L 77 35 H 129/84 99 07/17/20 01:33 25 H 07/17/20 00:00 96.7 F L 91 37 H 138/83 99 07/16/20 20:33 84 07/16/20 20:23 80 07/16/20 20:22 80 07/16/20 20:08 80 07/16/20 20:00 98.1 F 98 41 H 133/87 98 07/16/20 16:00 97.8 F 86 33 H 121/80 98 07/16/20 15:52 86 28 H 07/16/20 15:39 80 27 H 07/16/20 14:27 85 18 118/74 95 07/16/20 14:00 86 33 H 07/16/20 12:30 101 H 18 136/86 96 07/16/20 11:15 112 H 18 126/86 85 L 07/16/20 11:10 109 H 07/16/20 11:02 110 H Intake and Output 07/16/20 07/17/20 07/17/20 22:59 06:59 14:59 Intake Total 240 240 Output Total 600 400 Balance -360 -160 Intake: Oral 240 240 Output: Urine 600 400 Other: Voiding Method Indwelling Catheter Indwelling Catheter Indwelling Catheter Weight 82 kg - Constitutional General appearance: average body habitus, disheveled - EENT Eyes: PERRLA ENT: hearing grossly normal Ears: bilateral: normal - Neck Neck: normal ROM Carotids: bilateral: upstroke normal Thyroid: bilateral: normal size - Respiratory Respiratory: bilateral: diminished, wheezing (On forced expiration fine expiratory wheezing present) - Cardiovascular Rhythm: regular Heart sounds: normal: S1, S2 - Gastrointestinal General gastrointestinal: normal bowel sounds - Neurologic Neurologic: CNII-XII intact - Musculoskeletal Musculoskeletal: gait normal, generalized weakness, strength equal bilaterally - Psychiatric Psychiatric: A&O x's 3, appropriate affect, intact judgment & insight Results - Laboratory Findings CBC and BMP: 07/15/20 11:52 07/15/20 13:06 PT/INR, D-dimer PT 11.2 sec (9.0-12.0) 07/15/20 11:52 INR 1.1 (<1.2) 07/15/20 11:52 Abnormal lab findings: Abnormal Labs 07/15/20 07/15/20 07/15/20 11:52 11:52 11:53 WBC 32.8 H Neutrophils # 31.4 H Lymphocytes # 0.5 L VBG pH 7.50 H VBG pCO2 23 L VBG HCO3 18 L Sodium Chloride Creatinine Glucose POC Glucose (mg/dL) Plasma Lactic Acid Malvin 4.5 H* ALT Alkaline Phosphatase Total Protein Albumin 07/15/20 07/15/20 07/15/20 13:06 15:08 19:17 WBC Neutrophils # Lymphocytes # VBG pH VBG pCO2 VBG HCO3 Sodium 132 L Chloride 97 L Creatinine 0.34 L Glucose 237 H POC Glucose (mg/dL) Plasma Lactic Acid Malvin 4.2 H* 3.9 H* ALT 38 H Alkaline Phosphatase 256 H Total Protein 6.0 L Albumin 3.2 L 07/15/20 07/16/20 07/16/20 21:52 01:04 07:30 WBC Neutrophils # Lymphocytes # VBG pH VBG pCO2 VBG HCO3 Sodium Chloride Creatinine Glucose POC Glucose (mg/dL) 129 H Plasma Lactic Acid Malvin 3.1 H* 2.8 H* ALT Alkaline Phosphatase Total Protein Albumin 07/16/20 07/17/20 20:12 06:13 WBC Neutrophils # Lymphocytes # VBG pH VBG pCO2 VBG HCO3 Sodium Chloride Creatinine Glucose POC Glucose (mg/dL) 137 H 116 H Plasma Lactic Acid Malvin ALT Alkaline Phosphatase Total Protein Albumin - Diagnostic Findings Chest x-ray: report reviewed, image reviewed CT scan - chest: report reviewed, image reviewed Assessment and Plan Assessment: Bilateral pneumonia Right lung atelectasis likely tumor related with secondary mucus plugging Acute on chronic hypoxic respiratory failure Stage IV 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 with m etastases to brain and adrenal glands and spleen and axillary or hilar lymph nodes On radiation therapy to the brain which she wants to finish it Extensive history of smoking and nicotine use Recurrent pulmonary embolism on direct oral anticoagulant Plan: Patient is a poor surgical candidate for bronchoscopy as high risk of inducing respiratory failure and need for ventilator Continue bronchodilator gentle physical therapy and chest PT Continue IV antibiotics Repeat chest x-ray and labs in the morning Continue supportive care with bronchodilators and IV steroids Radiation therapy to the brain as per patient choice Continue high flow oxygen during the day and BiPAP machine at nighttime Continue diabetic oral anticoagulants Repeat labs and x-ray in the morning Overall prognosis long-term very poor We'll follow clinical course closely further recommendations pending plan of care as per clinical response of the patient Time with Patient: Greater than 30
[2020-07-17 11:59] LABS: Glucose,Whole Blood 134 mg/dL (75-99)
--- NOTE | 2020-07-17 12:54 | P.PN ---
Subjective Progress Note Date: 07/16/20 Principal diagnosis: respiratory distress Patient seen late on 07/16/2020: she is tired and was requiring bipap therapy. CXR shows right hemithorax opacification which is an interval change. Objective - Vital Signs Vital signs: Vital Signs Temp 98.1 F 07/17/20 12:32 Pulse 77 07/17/20 12:32 Resp 22 07/17/20 12:32 BP 114/67 07/17/20 12:32 Pulse Ox 94 L 07/17/20 12:32 Intake & Output 07/16/20 07/17/20 07/17/20 18:59 06:59 18:59 Intake Total 0 480 Output Total 1000 Balance 0 -520 Weight 77.111 kg 82 kg Intake: Oral 0 480 Output: Urine 1000 Other: Voiding Method Indwelling Catheter Indwelling Catheter Indwelling Catheter - Constitutional General appearance: Present: mild distress - EENT Eyes: Present: EOMI, PERRLA ENT: Present: hearing grossly normal - Respiratory Respiratory: right: diminished, left: dullness - Cardiovascular Rhythm: regular - Gastrointestinal General gastrointestinal: Absent: distended - Integumentary Integumentary: Absent: pale - Neurologic Neurologic: Present: CNII-XII intact - Psychiatric Psychiatric: Present: appropriate affect - Labs CBC & Chem 7: 07/15/20 11:52 07/15/20 13:06 Labs: Abnormal Lab Results - Last 24 Hours (Table) 07/16/20 07/17/20 07/17/20 Range/Units 20:12 06:13 11:57 POC Glucose (mg/dL) 137 H 116 H 134 H (75-99) mg/dL Microbiology - Last 24 Hours (Table) 07/15/20 14:48 Blood Culture - Preliminary Blood No Growth after 24 hours 07/15/20 14:48 Blood Culture - Preliminary Blood No Growth after 24 hours Assessment and Plan Assessment: 49 year old female with recently diagnosed metastatic non-small cell lung cancer. She presented with metastatic disease involving the brain and had one treatment of radiotherapy remaining when she was hospitalized for increased dyspnea. Plan: 1. Respiratory distress: Possible underlying pneumonia. Of note, the patient had partial collapse of the right lung due to tumor at the time of her fernanda gnosis. This could have progressed resulting in more complete collapse or mucous plugging may have worsened this. Cont supportive measures - agree with no DNR/DNI. 2. Brain metastases: Treatment on hold as long as the patient remains in this type of distress. She was on Decadron as an outpatient - would place her back on 4 mg BID but she is currently on IV steroids. This likely at least partially explains her leukocytosis. 3. Metastatic non-small cell lung cancer: Unfortunately patient has not yet started systemic therapy. She had stage IV disease at presentation with brain and adrenal metastases. If her breathing does not improve with supportive care then hospice/comfort measures would be best. Time with Patient: Less than 30
[2020-07-17 17:27] LABS: Glucose,Whole Blood 157 mg/dL (75-99)
--- NOTE | 2020-07-17 17:57 | P.PN ---
Subjective Progress Note Date: 07/17/20 Principal diagnosis: Metastatic non-small cell lung cancer; status post brain radiation/palliative chemotherapy Acute hypoxic respiratory failure; right lung atelectasis/secondary mucous plugging 49-year-old female smoker, with history of metastatic lung cancer. She has metastasis to the axillary lymph nodes, adrenal glands, and brain. He was diagnosed recently with poorly differentiated adenocarcinoma. It was a biopsy of the right axillary mass. The patient has had radiation therapy to the brain. No chemotherapy as yet. She came into the emergency department complaining of increasing shortness of breath. 07/17/2020 Patient is seen and evaluated with multiple family members at bedside; remains on BiPAP; indicating to family that she would like CT of the brain followed by radiation therapy Vital signs are reviewed with temperature of 98.1, pulse 77, respiration 22 and blood pressure of 114/67 Patient has had right lung atelectasis likely tumor related it's secondary mucous plugging resulting in acute hypoxic respiratory failure; pulmonary on board; patient is a poor candidate for bronchoscopy with high risk for inducing respiratory failure and ventilator need; patient will be continued on bronchodilator therapy along with chest PT; IV antibiotics and continued; continue with IV steroids Patient remains on high flow oxygen during the day with BiPAP at nighttime Patient will have a repeat chest x-ray tomorrow morning Objective - Vital Signs Vital signs: Vital Signs Temp 98.2 F 07/17/20 08:03 Pulse 84 07/17/20 09:12 Resp 26 H 07/17/20 08:03 BP 133/83 07/17/20 08:03 Pulse Ox 100 07/17/20 08:03 Intake & Output 07/16/20 07/17/20 07/17/20 18:59 06:59 18:59 Intake Total 0 480 Output Total 1000 Balance 0 -520 Weight 77.111 kg 82 kg Intake: Oral 0 480 Output: Urine 1000 Other: Voiding Method Indwelling Catheter Indwelling Catheter Indwelling Catheter - Exam General appearance: Present: average body habitus, cooperative, no acute distress Neck: Present: normal ROM. Absent: lymphadenopathy, rigidity, thyromegaly Carotids: negative: bruit present Thyroid: bilateral: normal size, negative: enlarged, nodule Respiratory: bilateral: CTA, negative: rales, rhonchi, wheezing Heart sounds: normal: S1, S2 Abnormal Heart Sounds: Absent: systolic murmur, diastolic murmur General gastrointestinal: Present: normal bowel sounds, soft. Absent: distended, organomegaly, tenderness Integumentary: Present: normal turgor. Absent: jaundiced, rash, ulcer Neurologic: Present: CNII-XII intact. Absent: focal deficits Musculoskeletal: Present: gait normal, strength equal bilaterally Psychiatric: Present: A&O x's 3, appropriate affect, intact judgment & insight - Labs CBC & Chem 7: 07/15/20 11:52 07/15/20 13:06 Labs: Abnormal Lab Results - Last 24 Hours (Table) 07/16/20 07/17/20 Range/Units 20:12 06:13 POC Glucose (mg/dL) 137 H 116 H (75-99) mg/dL Microbiology - Last 24 Hours (Table) 07/15/20 14:48 Blood Culture - Preliminary Blood No Growth after 24 hours 07/15/20 14:48 Blood Culture - Preliminary Blood No Growth after 24 hours Assessment and Plan Assessment: 1. Right lung atelectasis likely tumor related with secondary mucus plugging - Patient will continue to use high flow nasal cannula during day and BiPAP machine at nighttime; patient is a poor candidate for bronchoscopy due to high risk of inducing worsening respiratory failure and need for ventilator - Pulmonary on board and recommending to continue with IV antibiotics, bronchodilators and chest physical therapy 2. Acute on chronic hypoxic respiratory failure; currently on BiPAP; patient is to use ice or nasal cannula during the day keeping SpO2 greater than 80% 3. 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 Recurrent pulmonary embolism; remains on direct oral anticoagulant 5. Chronic tobacco use; patient remains on nicotine patch DVT prophylaxis; SCDs/systemic anticoagulation CODE STATUS; DO NOT RESUSCITATE/DO NOT INTUBATE
[2020-07-17 20:03] LABS: Glucose,Whole Blood 199 mg/dL (75-99)
[2020-07-18] MEDS: DIAZEPAM 5 MG/ML 2 ML INJ IVP PRN (00:31)
[2020-07-18] MEDS: SODIUM CHLORIDE 0.9% 1,000 ML IV SCH (03:26)
[2020-07-18] MEDS: HYDROmorphone 1 MG/ML 1 ML SYRINGE IVP PRN ×3 (03:29→20:51)
[2020-07-18 06:09] LABS: Glucose,Whole Blood 104 mg/dL (75-99)
[2020-07-18] MEDS: INSULIN ASPART (NovoLOG) 100 UNIT/ML VIAL SQ SCH ×4 (06:12→20:53)
[2020-07-18] MEDS: NICOTINE 21MG/24HR PATCH TRANSDERM SCH (06:41)
[2020-07-18] MEDS: methylPREDNISolone SOD SUCCI 125 MG/2 ML VIAL IV SCH ×3 (06:41→17:30)
--- NOTE | 2020-07-18 07:54 | XR ---
EXAMINATION TYPE: XR chest 1V DATE OF EXAM: 07/18/2020 COMPARISON: 07/16/2020 HISTORY: 49 year-old female right lung atelectasis TECHNIQUE: Single frontal view of the chest is obtained. FINDINGS: Worsening on the right now with complete whiteout. Volume loss on the right with some right-sided pricilla ft. Groundglass airspace disease throughout the left lung shows some improvement. IMPRESSION: Some interval worsening on the right now with complete whiteout. At least partial underlying atelecta sis given the volume loss and right-sided shift. Groundglass airspace disease throughout the left lonnie g shows slight improvement.
[2020-07-18] MEDS: HYDROcodone/APAP 10-325MG 1 EACH TAB PO PRN ×3 (08:40→22:28)
[2020-07-18] MEDS: APIXABAN 2.5 MG TABLET PO SCH (08:40)
[2020-07-18] MEDS: MAGNESIUM OXIDE 400 MG TAB PO SCH ×2 (08:40→20:52)
[2020-07-18] MEDS: BUDESONIDE 1 MG/2 ML NEBU INHALATION SCH ×2 (08:45→20:00)
[2020-07-18] MEDS: FORMOTEROL FUMARATE 20 MCG/2 ML NEBU INHALATION SCH ×2 (08:45→20:00)
[2020-07-18] MEDS: IPRATROPIUM-ALBUTEROL 3 ML NEB INHALATION SCH ×4 (08:45→20:00)
[2020-07-18] MEDS: PIPERACILLIN-TAZOBACTAM 3.375 GM in SODIUM CHLORIDE 0.9% 100 ML IVPB SCH ×2 (08:51→16:19)
[2020-07-18 08:56] LABS: Basophils % (A) 0 %; Eosinophils # (A) 0.1 k/uL (0-0.7); Eosinophils % (A) 0 %; HCT 33.7 % (34.0-46.0); Lymphocytes # (A) 0.3 k/uL (1.0-4.8); Lymphocytes % (A) 2 %; MCH 31.3 pg (25.0-35.0); MCV 94.9 fL (80.0-100.0); Mean Platelet Volume 7.4; Monocytes # (A) 0.4 k/uL (0-1.0); Monocytes % (A) 3 %; Neutrophils # (A) 15.1 k/uL (1.3-7.7); Neutrophils % (A) 94 %; Platelet Count 173 k/uL (150-450); RBC 3.55 m/uL (3.80-5.40); RDW 13.7 % (11.5-15.5)
[2020-07-18 09:09] LABS: ALT 58 U/L (4-34); AST 33 U/L (14-36); African American GFR (CKD) >90 (>60 ml/min/1.73 sqM); Albumin 2.8 g/dL (3.5-5.0); Alkaline Phosphatase 206 U/L (38-126); Anion Gap 9 mmol/L; Blood Urea Nitrogen 16 mg/dL (7-17); Carbon Dioxide 26 mmol/L (22-30); Chloride 106 mmol/L (98-107); Glucose 111 mg/dL (74-99); Non-African American GFR(CKD) >90 (>60 ml/min/1.73 sqM); Potassium 3.8 mmol/L (3.5-5.1); Sodium 141 mmol/L (137-145); Total Bilirubin 0.4 mg/dL (0.2-1.3); Total Protein 5.4 g/dL (6.3-8.2)
[2020-07-18 09:11] LABS: HGB 11.1 gm/dL (11.4-16.0)
--- NOTE | 2020-07-18 10:44 | P.PN ---
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 axillary or hilar lymph nodes On radiation therapy to the brain which she wants to finish it Extensive history of smoking and nicotine use Recurrent pulmonary embolism on direct oral anticoagulant 07/18/2020, patient seen eval examined during the rounds labs reviewed medications reviewed care plan discussed, chest x-ray reviewed from this morning patient continued to have atelectasis of the right lung, discussed with the staff and respiratory therapist plan to start bronchodilators with Mucomyst o rders given, will initiate chest PT as well, patient remains on high flow oxygen, oxygen saturation remains stable 90-92%, afebrile hemodynamic status is stable, chest x-ray performed today reviewed large pleural effusion on the right side cannot be excluded with secondary mucus plugging causing complete obliteration of right lung, will hold and requests order ultrasound of the chest as well Patient presented to the emergency department with complaints of dyspnea that started 1 day prior to admission. 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 Currently patient is off of 100% nonrebreather Shelby has been on BiPAP machine off and on with the BiPAP setting of 14/6 with 100% oxygen, patient has been switched to high flow oxygen sats are 91-92% plan is to use his BiPAP machine at night high flow during the day. She is complaining of a mild cough with some phlegm production, denies any fever, no leg pain or leg swelling, no nausea vom iting or diarrhea, patient tested negative for COVID 19. Chest x-ray showed bilateral pleural effusions with cardiomegaly and bibasilar infiltrates, and a diffuse interstitial pattern. Patient had significantly elevated white count at 32.8, hemoglobin was 14.6, serum sodium was 132, potassium is 4.4, chloride was 97, BUN of 12, creatinine 0.34, alkaline phosphatase was 256, troponin was less than 0.012. ProBNP was 850, lactic acid was 4.5. Patient was given 2 L in IV fluid bolus, and her maintenance IV fluids are infusing at a rate of 130 ML per hour, she was started on antibiotics with Zosyn and azithromycin. She is on breathing treatments. He is tachypneic and short of breath, improved mentation, she is providing simple answers to questions, her daughter at the bedside helping with the history. Patient's spouse recently a few months ago from metastatic lung cancer. Her past history significant of smoking and nicotine use is still smoking actively, patient was diagnosed as lung cancer stage IV in May 2020, patient had biopsy of right axillary mass, pathology significant for adenocarcinoma patient has advanced metastatic disease to the adrenal gland the spleen and hilar with excellent a floor, patient is currently on radiation, patient also has a history of pulmonary embolism has been on Coumadin, Patient has finished chemotherapy but appears to be still on radiation therapy she has been considered for hospice but however patient wants to complete rad iation therapy Her chest x-ray and July 16 showing near complete opacification of right hemithorax likely mucous plug and tumor related Objective - Vital Signs Vital signs: Vital Signs Temp 97.8 F 07/18/20 07:50 Pulse 84 07/18/20 09:07 Resp 24 07/18/20 07:50 BP 142/83 07/18/20 07:50 Pulse Ox 100 07/18/20 04:00 Intake & Output 07/17/20 07/18/20 07/18/20 18:59 06:59 18:59 Intake Total 240 Output Total 250 975 Balance -250 -735 Weight 82 kg 84.5 kg Intake: Oral 240 Output: Urine 250 975 Other: Voiding Method Indwelling Catheter Indwelling Catheter - Exam - Constitutional General appearance: average body habitus, disheveled - EENT Eyes: PERRLA ENT: hearing grossly normal Ears: bilateral: normal - Neck Neck: normal ROM Carotids: bilateral: upstroke normal Thyroid: bilateral: normal size - Respiratory Respiratory: bilateral: diminished especially on the right side with poor air entry, wheezing (On forced expiration fine expiratory wheezing present) over left side - Cardiovascular Rhythm: regular Heart sounds: normal: S1, S2 - Gastrointestinal General gastrointestinal: normal bowel sounds - Neurologic Neurologic: CNII-XII intact - Musculoskeletal Musculoskeletal: gait normal, generalized weakness, strength equal bilaterally - Psychiatric Psychiatric: A&O x's 3, appropriate affect, intact judgment & insight - Labs CBC & Chem 7: 07/18/20 08:25 06/13/21 08:25 Labs: Abnormal Lab Results - Last 24 Hours (Table) 07/17/20 07/17/20 07/17/20 Range/Units 11:57 17:21 20:01 WBC (3.8-10.6) k/uL RBC (3.80-5.40) m/uL Hgb (11.4-16.0) gm/dL Hct (34.0-46.0) % Neutrophils # (1.3-7.7) k/uL Lymphocytes # (1.0-4.8) k/uL Creatinine (0.52-1.04) mg/dL Glucose (74-99) mg/dL POC Glucose (mg/dL) 134 H 157 H 199 H (75-99) mg/dL ALT (4-34) U/L Alkaline Phosphatase (38-126) U/L Total Protein (6.3-8.2) g/dL Albumin (3.5-5.0) g/dL 07/18/20 07/18/20 07/18/20 Range/Units 06:08 08:25 08:25 WBC 16.0 H (3.8-10.6) k/uL RBC 3.55 L (3.80-5.40) m/uL Hgb 11.1 L D (11.4-16.0) gm/dL Hct 33.7 L (34.0-46.0) % Neutrophils # 15.1 H (1.3-7.7) k/uL Lymphocytes # 0.3 L (1.0-4.8) k/uL Creatinine 0.29 L (0.52-1.04) mg/dL Glucose 111 H (74-99) mg/dL POC Glucose (mg/dL) 104 H (75-99) mg/dL ALT 58 H (4-34) U/L Alkaline Phosphatase 206 H (38-126) U/L Total Protein 5.4 L (6.3-8.2) g/dL Albumin 2.8 L (3.5-5.0) g/dL Microbiology - Last 24 Hours (Table) 07/15/20 14:48 Blood Culture - Preliminary Blood No Growth after 48 hours 07/15/20 14:48 Blood Culture - Preliminary Blood No Growth after 48 hours Assessment and Plan Assessment: Bilateral pneumonia Right lung atelectasis likely tumor related with secondary mucus plugging Right-sided pleural effusion Acute on chronic hypoxic respiratory failure 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 axillary or hilar lymph nodes On radiation therapy to the brain which she wants to finish it Extensive history of smoking and nicotine use Recurrent pulmonary embolism on direct oral anticoagulant Plan: Patient is a poor surgical candidate for bronchoscopy as high risk of inducing respiratory failure and need for ventilator Continue bronchodilator with Mucomyst Continue physical therapy and chest PT Continue IV antibiotics Ultrasound of the chest bilateral and possible thoracentesis if needed Repeat chest x-ray and labs in the morning Continue supportive care with bronchodilators and IV steroids Radiation therapy to the brain as per patient choice Continue high flow oxygen during the day and BiPAP machine at nighttime Hold direct oral anticoagulants Repeat labs and x-ray in the morning Overall prognosis long-term very poor We'll follow clinical course closely further recommendations pending plan of care as per clinical response of the patient Time with Patient: Greater than 30
[2020-07-18 11:41] LABS: Glucose,Whole Blood 105 mg/dL (75-99)
[2020-07-18] MEDS: ACETYLCYSTEINE 800 MG/4 ML VIAL INHALATION SCH ×3 (11:58→20:00)
--- NOTE | 2020-07-18 13:35 | CT ---
EXAMINATION TYPE: CT angio chest DATE OF EXAM: 07/18/2020 COMPARISON: 07/18/2020 HISTORY: 49-year-old female EMBOLISM, pleural effusion, right lung atelectasis TECHNIQUE: Contiguous axial scanning of the chest performed with IV Contrast, patient injected with 1 00 mL of Isovue 370. Coronal/sagittal MIP reconstructions performed. CT DLP: 431 mGycm Automated exposure control for dose reduction was used. FINDINGS: The heart is normal size without pericardial effusion. No flattening of the interventricular septum o r reflux of contrast into the hepatic veins. Mildly ectatic ascending aorta 3.7 cm. Conventional arch vessel branching anatomy. Slightly large caliber to the main right and left pulmonary arteries measuring up to 2.6 and 2.7 cm, respectively suggesting underlying pulmonary hypertension. Punctate emboli within the anterior segmen alec branch of the left upper lobe, axial image 54 and coronal image 89. Tiny embolus at the lobar bra nch point of the left lower lobe, axial image 84. There is redemonstrated large right infrahilar mass partially encasing the distal right main pulmonar y artery and cutting off the distal right mainstem bronchus. There is invasion into the posterior med iastinum and likely invasion of the inferior right pulmonary vein and posterior left atrial wall. Thi s mass measures approximately 9.1 cm AP and 10.1 cm wide (axial image 68 and coronal image 107). Ther e is consolidation of the entire remainder of the right lung and a moderate pleural effusion. Scattered mediastinal lymphadenopathy measuring up to 1.4 cm short axis. Right axillary lymphadenopat hy measuring 3.3 cm versus 2.9 cm, previously. Subpectoral lymphadenopathy measuring 1.5 cm. Partiall y visualized larger right axillary lymphadenopathy measuring up to 5.6 cm versus 4.4 cm, previously. Subpleural nodularity in the left lower lobe. Diffuse groundglass changes throughout the left lung an d underlying emphysema. Large left adrenal mass measuring 8.4 cm versus 7.4 cm, previously. Anterior splenule. Bones: No osseous destructive process clearly identified. IMPRESSION: 1. LARGE RIGHT INFRAHILAR MASS CONTINUES TO CUT OFF THE RIGHT MAINSTEM BRONCHUS AND ENCASES RIGHT HIL AR STRUCTURES. THERE IS INVASION INTO THE WALL OF THE LEFT ATRIUM AND CUT OFF OF THE RIGHT INFERIOR P ULMONARY VEIN. MASS ESTIMATED UP TO 10.1 CM. 2. PULMONARY ARTERIAL HYPERTENSION , BACKGROUND OF MILD COPD. EXAM IS POSITIVE FOR A COUPLE PUNCTATE EMBOLI ON THE LEFT INVOLVING UPPER LOBE AND LOWER LOBE SEGMENTAL BRANCHES. TRACE BURDEN. NO CT EVIDEN CE FOR RIGHT HEART STRAIN. 3. MODERATE RIGHT PLEURAL EFFUSION. NOW COMPLETE CONSOLIDATION OF THE REMAINDER OF THE RIGHT LUNG. CO RRELATE FOR SEVERE POSTOBSTRUCTIVE PNEUMONIA. 4. NEW EXTENSIVE GROUNDGLASS CHANGES THROUGHOUT THE LEFT LUNG. PULMONARY EDEMA OR PNEUMONITIS. CLINIC ALLY CORRELATE. 5. METASTATIC MEDIASTINAL LYMPHADENOPATHY, RIGHT AXILLARY LYMPHADENOPATHY (UP TO 5.6 CM), AND LEFT AD RENAL MASS (8.4 CM), ALL INCREASING IN SIZE.
--- NOTE | 2020-07-18 14:07 | US ---
EXAMINATION TYPE: US chest DATE OF EXAM: 07/18/2020 COMPARISON: CT CLINICAL HISTORY: 49-year-old female. Pleural effusion TECHNIQUE: Targeted ultrasound of the posterior lower bilateral hemithoraces FINDINGS: EXAM MEASUREMENTS: Right Pleural Effusion pocket size: 5.0 cm Right skin surface to fluid distance: 2.4 cm Left Pleural Effusion pocket size: no significant fluid collection at this time Right side marked for possible thoracentesis same day outside the dept. Left side NOT marked for possible thoracentesis outside the dept. Pulmonologists are able to review the images in the patient?s EMR. IMPRESSIONS: Moderate right effusion. Underlying lung appears irregular and with suspected partial visualization o f the patient's known mass. Much of the lung retains its volume suggesting underlying consolidation. No effusion on the left.
[2020-07-18 17:03] LABS: Glucose,Whole Blood 137 mg/dL (75-99)
[2020-07-18 20:34] LABS: Glucose,Whole Blood 233 mg/dL (75-99)
[2020-07-18] MEDS: HEPARIN SODIUM,PORCINE/PF 5,000 UNIT/0.5 ML SYRINGE SQ SCH (20:52)
[2020-07-19] MEDS: PIPERACILLIN-TAZOBACTAM 3.375 GM in SODIUM CHLORIDE 0.9% 100 ML IVPB SCH ×4 (00:01→23:24)
--- NOTE | 2020-07-19 00:10 | P.PN ---
Subjective Progress Note Date: 07/18/20 Principal diagnosis: Metastatic non-small cell lung cancer; status post brain radiation/palliative chemotherapy Acute hypoxic respiratory failure; right lung atelectasis/secondary mucous plugging 49-year-old female smoker, with history of metastatic lung cancer. She has metastasis to the axillary lymph nodes, adrenal glands, and brain. He was diagnosed recently with poorly differentiated adenocarcinoma. It was a biopsy of the right axillary mass. The patient has had radiation therapy to the brain. No chemotherapy as yet. She came into the emergency department complaining of increasing shortness of breath. 07/17/2020 Patient is seen and evaluated with multiple family members at bedside; remains on BiPAP; indicating to family that she would like CT of the brain followed by radiation therapy Vital signs are reviewed with temperature of 98.1, pulse 77, respiration 22 and blood pressure of 114/67 Patient has had right lung atelectasis likely tumor related it's secondary mucous plugging resulting in acute hypoxic respiratory failure; pulmonary on board; patient is a poor candidate for bronchoscopy with high risk for inducing respiratory failure and ventilator need; patient will be continued on bronchodilator therapy along with chest PT; IV antibiotics and continued; continue with IV steroids Patient remains on high flow oxygen during the day with BiPAP at nighttime Patient will have a repeat chest x-ray tomorrow morning 07/18/2020 Patient is seen evaluated in room with multiple family members at bedside; continues to require oxygen per HFOH Chest x-ray reviewed from this morning patient continued to have atelectasis of the right lung; Pulmonary recommending to start bronchodilators with Mucomyst, chest PT as well, patient remains on high flow oxygen, oxygen saturation remains stable 90-92%, afebrile hemodynamic status is stable, chest x-ray performed today reviewed large pleural effusion on the right side cannot be excluded with secondary mucus plugging causing complete obliteration of right lung; ultrasound of the chest as well as CTA chest to rule out PE Objective - Vital Signs Vital signs: Vital Signs Temp 97.8 F 07/18/20 07:50 Pulse 84 07/18/20 09:07 Resp 24 07/18/20 07:50 BP 142/83 07/18/20 07:50 Pulse Ox 100 07/18/20 04:00 Intake & Output 07/17/20 07/18/20 07/18/20 18:59 06:59 18:59 Intake Total 240 Output Total 250 975 Balance -250 -735 Weight 82 kg 84.5 kg Intake: Oral 240 Output: Urine 250 975 Other: Voiding Method Indwelling Catheter Indwelling Catheter - Exam General appearance: Present: average body habitus, cooperative, no acute distress Neck: Present: normal ROM. Absent: lymphadenopathy, rigidity, thyromegaly Carotids: negative: bruit present Thyroid: bilateral: normal size, negative: enlarged, nodule Respiratory: bilateral: CTA, negative: rales, rhonchi, wheezing Heart sounds: normal: S1, S2 Abnormal Heart Sounds: Absent: systolic murmur, diastolic murmur General gastrointestinal: Present: normal bowel sounds, soft. Absent: distended, organomegaly, tenderness Integumentary: Present: normal turgor. Absent: jaundiced, rash, ulcer Neurologic: Present: CNII-XII intact. Absent: focal deficits Musculoskeletal: Present: gait normal, strength equal bilaterally Psychiatric: Present: A&O x's 3, appropriate affect, intact judgment & insight - Labs CBC & Chem 7: 07/18/20 08:25 07/18/20 08:25 Labs: Abnormal Lab Results - Last 24 Hours (Table) 07/17/20 07/17/20 07/17/20 Range/Units 11:57 17:21 20:01 WBC (3.8-10.6) k/uL RBC (3.80-5.40) m/uL Hgb (11.4-16.0) gm/dL Hct (34.0-46.0) % Neutrophils # (1.3-7.7) k/uL Lymphocytes # (1.0-4.8) k/uL Creatinine (0.52-1.04) mg/dL Glucose (74-99) mg/dL POC Glucose (mg/dL) 134 H 157 H 199 H (75-99) mg/dL ALT (4-34) U/L Alkaline Phosphatase (38-126) U/L Total Protein (6.3-8.2) g/dL Albumin (3.5-5.0) g/dL 07/18/20 07/18/20 07/18/20 Range/Units 06:08 08:25 08:25 WBC 16.0 H (3.8-10.6) k/uL RBC 3.55 L (3.80-5.40) m/uL Hgb 11.1 L D (11.4-16.0) gm/dL Hct 33.7 L (34.0-46.0) % Neutrophils # 15.1 H (1.3-7.7) k/uL Lymphocytes # 0.3 L (1.0-4.8) k/uL Creatinine 0.29 L (0.52-1.04) mg/dL Glucose 111 H (74-99) mg/dL POC Glucose (mg/dL) 104 H (75-99) mg/dL ALT 58 H (4-34) U/L Alkaline Phosphatase 206 H (38-126) U/L Total Protein 5.4 L (6.3-8.2) g/dL Albumin 2.8 L (3.5-5.0) g/dL Microbiology - Last 24 Hours (Table) 07/15/20 14:48 Blood Culture - Preliminary Blood No Growth after 48 hours 07/15/20 14:48 Blood Culture - Preliminary Blood No Growth after 48 hours Assessment and Plan Assessment: 1. Right lung atelectasis likely tumor related with secondary mucus plugging - Patient will continue to use high flow nasal cannula during day and BiPAP machine at nighttime; patient is a poor candidate for bronchoscopy due to high risk of inducing worsening respiratory failure and need for ventilator - Pulmonary on board and recommending to continue with IV antibiotics, bronchodilators and chest physical therapy 2. Acute on chronic hypoxic respiratory failure; currently on BiPAP; patient is to use ice or nasal cannula during the day keeping SpO2 greater than 80% 3. 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 Recurrent pulmonary embolism; remains on direct oral anticoagulant 5. Chronic tobacco use; patient remains on nicotine patch DVT prophylaxis; SCDs/systemic anticoagulation CODE STATUS; DO NOT RESUSCITATE/DO NOT INTUBATE
[2020-07-19] MEDS: DIAZEPAM 5 MG/ML 2 ML INJ IVP PRN (03:54)
[2020-07-19] MEDS: methylPREDNISolone SOD SUCCI 125 MG/2 ML VIAL IV SCH ×5 (05:54→23:23)
[2020-07-19] MEDS: HYDROcodone/APAP 10-325MG 1 EACH TAB PO PRN ×3 (05:55→21:18)
[2020-07-19] MEDS: INSULIN ASPART (NovoLOG) 100 UNIT/ML VIAL SQ SCH ×4 (06:33→21:19)
[2020-07-19 06:35] LABS: Glucose,Whole Blood 127 mg/dL (75-99)
[2020-07-19] MEDS: FORMOTEROL FUMARATE 20 MCG/2 ML NEBU INHALATION SCH ×2 (07:16→20:34)
[2020-07-19] MEDS: ACETYLCYSTEINE 800 MG/4 ML VIAL INHALATION SCH ×4 (07:16→20:34)
[2020-07-19] MEDS: IPRATROPIUM-ALBUTEROL 3 ML NEB INHALATION SCH ×4 (07:16→20:34)
[2020-07-19] MEDS: BUDESONIDE 1 MG/2 ML NEBU INHALATION SCH ×2 (07:16→20:34)
[2020-07-19 08:16] LABS: Basophils % (A) 0 %; Eosinophils # (A) 0.1 k/uL (0-0.7); Eosinophils % (A) 1 %; HCT 33.3 % (34.0-46.0); HGB 11.3 gm/dL (11.4-16.0); Lymphocytes # (A) 0.4 k/uL (1.0-4.8); Lymphocytes % (A) 2 %; MCH 31.8 pg (25.0-35.0); MCHC 33.9 g/dL (31.0-37.0); MCV 93.7 fL (80.0-100.0); Mean Platelet Volume 7.7; Monocytes # (A) 0.4 k/uL (0-1.0); Monocytes % (A) 3 %; Neutrophils # (A) 15.1 k/uL (1.3-7.7); Neutrophils % (A) 94 %; Platelet Count 191 k/uL (150-450); RBC 3.55 m/uL (3.80-5.40); RDW 13.6 % (11.5-15.5); WBC 16.1 k/uL (3.8-10.6)
--- NOTE | 2020-07-19 08:21 | P.PN ---
Subjective Progress Note Date: 07/19/20 Principal diagnosis: Weakness shortness of breath adenocarcinoma This is a continue progress on a 49-year-old female essentially admitted for respiratory failure related to carcinoma. The patient seems much better on Airvo supplementation at this time. Bronchoscopy is being discussed for clearance of mucous plugs. Objective - Vital Signs Vital signs: Vital Signs Temp 98.5 F 07/19/20 04:00 Pulse 84 07/19/20 07:45 Resp 22 07/19/20 04:00 BP 123/72 07/19/20 04:00 Pulse Ox 97 07/19/20 04:00 Intake & Output 07/18/20 07/19/20 07/19/20 18:59 06:59 18:59 Intake Total 960 660 Output Total 950 600 Balance 10 60 Weight 83.5 kg Intake: Oral 960 660 Output: Urine 950 600 Uretheral (Kevin) 100 Other: Voiding Method Bedside Commode Bedside Commode # Voids 3 # Bowel Movements 1 - Constitutional General appearance: Present: average body habitus, mild distress - EENT Eyes: Absent: abnormal pupil - Neck Neck: Absent: lymphadenopathy - Respiratory Respiratory: bilateral: diminished - Cardiovascular Rhythm: regular Heart sounds: normal: S1, S2 Abnormal Heart Sounds: Absent: S3 Gallop - Gastrointestinal General gastrointestinal: Present: soft. Absent: tenderness - Integumentary Integumentary: Absent: rash - Psychiatric Psychiatric: Absent: A&O x's 3 - Labs CBC & Chem 7: 07/19/20 07:07 07/18/20 08:25 Labs: Abnormal Lab Results - Last 24 Hours (Table) 07/18/20 07/18/20 07/18/20 Range/Units 08:25 08:25 11:39 WBC 16.0 H (3.8-10.6) k/uL RBC 3.55 L (3.80-5.40) m/uL Hgb 11.1 L D (11.4-16.0) gm/dL Hct 33.7 L (34.0-46.0) % Neutrophils # 15.1 H (1.3-7.7) k/uL Lymphocytes # 0.3 L (1.0-4.8) k/uL Creatinine 0.29 L (0.52-1.04) mg/dL Glucose 111 H (74-99) mg/dL POC Glucose (mg/dL) 105 H (75-99) mg/dL ALT 58 H (4-34) U/L Alkaline Phosphatase 206 H (38-126) U/L Total Protein 5.4 L (6.3-8.2) g/dL Albumin 2.8 L (3.5-5.0) g/dL 07/18/20 07/18/20 07/19/20 Range/Units 17:01 20:23 06:33 WBC (3.8-10.6) k/uL RBC (3.80-5.40) m/uL Hgb (11.4-16.0) gm/dL Hct (34.0-46.0) % Neutrophils # (1.3-7.7) k/uL Lymphocytes # (1.0-4.8) k/uL Creatinine (0.52-1.04) mg/dL Glucose (74-99) mg/dL POC Glucose (mg/dL) 137 H 233 H 127 H (75-99) mg/dL ALT (4-34) U/L Alkaline Phosphatase (38-126) U/L Total Protein (6.3-8.2) g/dL Albumin (3.5-5.0) g/dL 07/19/20 Range/Units 07:07 WBC 16.1 H (3.8-10.6) k/uL RBC 3.55 L (3.80-5.40) m/uL Hgb 11.3 L (11.4-16.0) gm/dL Hct 33.3 L (34.0-46.0) % Neutrophils # 15.1 H (1.3-7.7) k/uL Lymphocytes # 0.4 L (1.0-4.8) k/uL Creatinine (0.52-1.04) mg/dL Glucose (74-99) mg/dL POC Glucose (mg/dL) (75-99) mg/dL ALT (4-34) U/L Alkaline Phosphatase (38-126) U/L Total Protein (6.3-8.2) g/dL Albumin (3.5-5.0) g/dL Microbiology - Last 24 Hours (Table) 07/15/20 14:48 Blood Culture - Preliminary Blood No Growth after 72 hours 06/10/21 14:48 Blood Culture - Preliminary Blood No Growth after 72 hours Assessment and Plan (1) Acute respiratory failure Current Visit: Yes Status: Acute Priority: High Code(s): J96.00 - ACUTE R ESPIRATORY FAILURE, UNSP W HYPOXIA OR HYPERCAPNIA SNOMED Code(s): 92703736 (2) Non-small cell lung cancer (NSCLC) Current Visit: Yes Status: Acute Priority: High Code(s): C34.90 - MALIGNANT NEOPLASM OF UNSP PART OF UNSP BRONCHUS OR LUNG SNOMED Code(s): 977834740 (3) Cigarette nicotine dependence Current Visit: No Status: Acute Code(s): F17.210 - NICOTINE DEPENDENCE, CIGARETTES, UNCOMPLICATED SNOMED Code(s): 62585046 Plan: Continue significant respiratory support. Reconcile medications. Anxiety medications as necessary. Prognosis is poor given her overall comorbidities and Continue supportive care. Appreciate pulmonology input. Check CBC and CMP in a.m.
[2020-07-19] MEDS: MAGNESIUM OXIDE 400 MG TAB PO SCH ×2 (08:31→21:18)
[2020-07-19] MEDS: HEPARIN SODIUM,PORCINE/PF 5,000 UNIT/0.5 ML SYRINGE SQ SCH ×2 (08:31→21:19)
[2020-07-19] MEDS: NICOTINE 21MG/24HR PATCH TRANSDERM SCH (08:32)
[2020-07-19 09:07] LABS: African American GFR (CKD) >90 (>60 ml/min/1.73 sqM); Anion Gap 8 mmol/L; Blood Urea Nitrogen 18 mg/dL (7-17); Calcium 8.9 mg/dL (8.4-10.2); Carbon Dioxide 28 mmol/L (22-30); Chloride 103 mmol/L (98-107); Glucose 82 mg/dL (74-99); Non-African American GFR(CKD) >90 (>60 ml/min/1.73 sqM); Potassium 4.1 mmol/L (3.5-5.1); Sodium 139 mmol/L (137-145)
--- NOTE | 2020-07-19 11:53 | P.PN ---
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 axillary or hilar lymph nodes On radiation therapy to the brain which she wants to finish it Extensive history of smoking and nicotine use Recurrent pulmonary embolism on direct oral anticoagulant 07/19/2020, patient seen eval examined during the rounds labs reviewed medications reviewed ultrasound of the chest as well as the computed tomography scan reviewed, patient ultrasound revealed a small pleural effusion not enough to drain it, the computed tomography scan shows total atelectasis of the right lung which appears to have progressed there is an appearance of endobronchial mass on the right mainstem, care plan discussed with the patient and family, we'll not do the thoracentesis, bronchoscopy is an option avoided oxygenation is improved highly likely patient with end up with life support and ventilator currently, patient is on 100% nonrebreather mask and high flow oxygen, undergoing chest PT and physical therapy for the right lung as well as Mucomyst with bronchodilator to remove additional mucous plugs 07/18/2020, patient seen eval examined during the rounds labs reviewed medicati ons reviewed care plan discussed, chest x-ray reviewed from this morning patient continued to have atelectasis of the right lung, discussed with the staff and respiratory therapist plan to start bronchodilators with Mucomyst orders given, will initiate chest PT as well, patient remains on high flow oxygen, oxygen saturation remains stable 90-92%, afebrile hemodynamic status is stable, chest x-ray performed today reviewed large pleural effusion on the right side cannot be excluded with secondary mucus plugging causing complete obliteration of right lung, will hold and requests order ultrasound of the chest as well Patient presented to the emergency department with complaints of dyspnea that started 1 day prior to admission. Patient presented to emergency department with progressive shortness of breath hypoxia and confusion she was initially seen by another pulmonary group but she elected to change the gear hobber. Currently patient is off of 100% nonrebreather Shelby has been on BiPAP machine off and on with the BiPAP setting of 19/07 with 100% oxygen, patient has been switched to high flow oxygen sats are 91-92% plan is to use his BiPAP machine at night high flow during the day. She is complaining of a mild cough with some phlegm production, denies any fever, no leg pain or leg swelling, no nausea vomiting or diarrhea, patient tested negative for COVID 19. Chest x-ray showed bilateral pleural effusions with cardiomegaly and bibasilar infiltrates, and a diffuse interstitial pattern. Patient had significantly elevated white count at 32.8, hemoglobin was 14.6, serum sodium was 132, potassium is 4.4, chloride was 97, BUN of 12, creatinine 0.34, alkaline phosphatase was 256, troponin was less than 0.012. ProBNP was 850, lactic acid was 4.5. Patient was given 2 L in IV fluid bolus, and her maintenance IV fluids are infusing at a rate of 130 ML per hour, she was started on antibiotics with Zosyn and azithromycin. She is on breathing treatments. He is tachypneic and short of breath, improved mentation, she is providing simple answers to questions, her daughter at the bedside helping with the history. Patient's spouse recently a few months ago from metastatic lung cancer. Her past history significant of smoking and nicotine use is still smoking actively, patient was diagnosed as lung cancer stage IV in May 2020, patient had biopsy of right axillary mass, pathology significant for adenocarcinoma patient has advanced metastatic disease to the adrenal gland the spleen and hilar with excellent a floor, patient is currently on radiation, patient also has a history of pulmonary embolism has been on Coumadin, Patient has finished chemotherapy but appears to be still on radiation therapy she has been considered for hospice but however patient wants to complete radiation therapy Her chest x-ray and July 16 showing near complete opacification of right hemithorax likely mucous plug and tumor related Objective - Vital Signs Vital signs: Vital Signs Temp 98.4 F 07/19/20 08:00 Pulse 88 07/19/20 11:33 Resp 22 07/19/20 08:00 BP 127/71 07/19/20 08:00 Pulse Ox 100 07/19/20 08:00 Intake & Output 07/18/20 07/19/20 07/19/20 18:59 06:59 18:59 Intake Total 960 660 Output Total 950 600 Balance 10 60 Weight 83.5 kg Intake: Oral 960 660 Output: Urine 950 600 Uretheral (Kevin) 100 Other: Voiding Method Bedside Commode Bedside Commode # Voids 3 # Bowel Movements 1 - Exam - Constitutional General appearance: average body habitus, disheveled - EENT Eyes: PERRLA ENT: hearing grossly normal Ears: bilateral: normal - Neck Neck: normal ROM Carotids: bilateral: upstroke normal Thyroid: bilateral: normal size - Respiratory Respiratory: bilateral: diminished especially on the right side with poor air entry, wheezing (On forced expiration fine expiratory wheezing present) over left side - Cardiovascular Rhythm: regular Heart sounds: normal: S1, S2 - Gastrointestinal General gastrointestinal: normal bowel sounds - Neurologic Neurologic: CNII-XII intact - Musculoskeletal Musculoskeletal: gait normal, generalized weakness, strength equal bilaterally - Psychiatric Psychiatric: A&O x's 3, appropriate affect, intact judgment & insight - Labs CBC & Chem 7: 07/19/20 07:07 07/19/20 07:07 Labs: Abnormal Lab Results - Last 24 Hours (Table) 07/18/20 07/18/20 07/19/20 Range/Units 17:01 20:23 06:33 WBC (3.8-10.6) k/uL RBC (3.80-5.40) m/uL Hgb (11.4-16.0) gm/dL Hct (34.0-46.0) % Neutrophils # (1.3-7.7) k/uL Lymphocytes # (1.0-4.8) k/uL BUN (7-17) mg/dL Creatinine (0.52-1.04) mg/dL POC Glucose (mg/dL) 137 H 233 H 127 H (75-99) mg/dL 07/19/20 07/19/20 Range/Units 07:07 07:07 WBC 16.1 H (3.8-10.6) k/uL RBC 3.55 L (3.80-5.40) m/uL Hgb 11.3 L (11.4-16.0) gm/dL Hct 33.3 L (34.0-46.0) % Neutrophils # 15.1 H (1.3-7.7) k/uL Lymphocytes # 0.4 L (1.0-4.8) k/uL BUN 18 H (7-17) mg/dL Creatinine 0.34 L (0.52-1.04) mg/dL POC Glucose (mg/dL) (75-99) mg/dL Microbiology - Last 24 Hours (Table) 07/15/20 14:48 Blood Culture - Preliminary Blood No Growth after 72 hours 07/15/20 14:48 Blood Culture - Preliminary Blood No Growth after 72 hours Assessment and Plan Assessment: Bilateral pneumonia Right lung atelectasis likely tumor related with secondary mucus plugging Right-sided pleural effusion Acute on chronic hypoxic respiratory failure 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 axillary or hilar lymph nodes On radiation therapy to the brain which she wants to finish it Extensive history of smoking and nicotine use Recurrent pulmonary embolism on direct oral anticoagulant Plan: No plans for thoracentesis Patient is a poor surgical candidate for bronchoscopy as high risk of inducing respiratory failure and need for ventilator Continue bronchodilator with Mucomyst Continue physical therapy and chest PT Continue IV antibiotics Ultrasound of the chest and computed tomography scan of the chest reviewed Repeat chest x-ray and labs in the morning Continue supportive care with bronchodilators and IV steroids Radiation therapy to the brain as per patient choice Continue high flow oxygen during the day and BiPAP machine at nighttime Resume direct oral anticoagulants, we'll discuss with thoracic/radiation oncology Repeat labs and x-ray in the morning Overall prognosis long-term very poor We'll follow clinical course closely further recommendations pending plan of care as per clinical response of the patient Time with Patient: Greater than 30
[2020-07-19 11:54] LABS: Glucose,Whole Blood 106 mg/dL (75-99)
--- NOTE | 2020-07-19 14:50 | P.PN ---
Subjective Progress Note Date: 07/19/20 Principal diagnosis: Metastatic Cancer and Respiratory Failure Patient complains of pain, not controlled and shortness of breath, with high flow. Family/support at bedside. Right lung with appearance of lymphagetic spread. Objective - Vital Signs Vital signs: Vital Signs Temp 98.4 F 07/19/20 08:00 Pulse 85 07/19/20 12:00 Resp 20 07/19/20 12:00 BP 122/61 07/19/20 12:00 Pulse Ox 97 07/19/20 12:00 Intake & Output 07/18/20 07/19/20 07/19/20 18:59 06:59 18:59 Intake Total 960 660 Output Total 950 600 Balance 10 60 Weight 83.5 kg Intake: Oral 960 660 Output: Urine 950 600 Uretheral (Kevin) 100 Other: Voiding Method Bedside Commode Bedside Commode # Voids 3 1 # Bowel Movements 1 - Exam - Constitutional General appearance: average body habitus, cooperative, severe distress - EENT Eyes: anicteric sclerae, EOMI ENT: hearing grossly normal, normal oropharynx - Neck 6 cm right axillary mass, not certain if it is a node versus a soft tissue mass. No other adenopathy in the cervical, supraclavicular or left axilla Neck: lymphadenopathy - Respiratory Respiratory: right: other (absent breath sounds only a slight wheeze noted), left: rhonchi, wheezing - Cardiovascular Rhythm: regular Heart sounds: normal: S1, S2 Abnormal Heart Sounds: no systolic murmur, no diastolic murmur, no rub, no S3 Gallop, no S4 Gallop, no click, no other leg Peripheral Edema: bilateral: None - Gastrointestinal General gastrointestinal: no absent bowel sounds, no decreased bowel sounds, no distended, no hepatomegaly, no hyperactive bowel sounds, normal bowel sounds, no organomegaly, no rigid, no scaphoid, soft, no splenomegaly, no tenderness, no umbilical hernia, no ventral hernia - Neurologic Neurologic: CNII-XII intact - Musculoskeletal Musculoskeletal: strength equal bilaterally - Psychiatric Psychiatric: A&O x's 3, appropriate affect, intact judgment & insight - Labs CBC & Chem 7: 07/19/20 07:07 07/19/20 07:07 Labs: Abnormal Lab Results - Last 24 Hours (Table) 07/18/20 07/18/20 07/19/20 Range/Units 17:01 20:23 06:33 WBC (3.8-10.6) k/uL RBC (3.80-5.40) m/uL Hgb (11.4-16.0) gm/dL Hct (34.0-46.0) % Neutrophils # (1.3-7.7) k/uL Lymphocytes # (1.0-4.8) k/uL BUN (7-17) mg/dL Creatinine (0.52-1.04) mg/dL POC Glucose (mg/dL) 137 H 233 H 127 H (75-99) mg/dL 07/19/20 07/19/20 07/19/20 Range/Units 07:07 07:07 11:52 WBC 16.1 H (3.8-10.6) k/uL RBC 3.55 L (3.80-5.40) m/uL Hgb 11.3 L (11.4-16.0) gm/dL Hct 33.3 L (34.0-46.0) % Neutrophils # 15.1 H (1.3-7.7) k/uL Lymphocytes # 0.4 L (1.0-4.8) k/uL BUN 18 H (7-17) mg/dL Creatinine 0.34 L (0.52-1.04) mg/dL POC Glucose (mg/dL) 106 H (75-99) mg/dL Microbiology - Last 24 Hours (Table) 07/19/20 07:43 Sputum Culture - Preliminary Sputum 07/15/20 14:48 Blood Culture - Preliminary Blood No Growth after 72 hours 07/15/20 14:48 Blood Culture - Preliminary Blood No Growth after 72 hours Assessment and Plan Plan: Chest x-ray: report reviewed Assessment and Plan Acute respiratory failure - Pulmonary is following - Patient has a history of a PE. on anticoagulation, Brain mets have been radiated no sign of hemorrhagic lesions Non-small cell lung cancer (NSCLC) - Status Post radiation to the brain plan for palliative chemotherapy -Appears to have rapid progression, worsening respiratory status due to airway obstruction or possibly lymphangitic spread of disease. Long discussion regarding code status last week, and code status was changed to no CPR, since this time she has been changed back to FULL CPR, they are not ready to discuss hospice care, understanding her overall prognosis is poor and goals of care are strictly palliative. Current Visit: Yes Status: Acute Priority: High Code(s): C34.90 - MALIGNANT NEOPLASM OF UNSP PART OF UNSP BRONCHUS OR LUNG SNOMED Code(s): 166732617
[2020-07-19 16:31] LABS: Glucose,Whole Blood 152 mg/dL (75-99)
[2020-07-19 19:56] LABS: Glucose,Whole Blood 224 mg/dL (75-99)
[2020-07-20] MEDS: DIAZEPAM 5 MG/ML 2 ML INJ IVP PRN ×2 (01:56→17:03)
[2020-07-20] MEDS: HYDROcodone/APAP 10-325MG 1 EACH TAB PO PRN ×3 (04:31→19:11)
[2020-07-20 06:02] LABS: Glucose,Whole Blood 88 mg/dL (75-99)
[2020-07-20] MEDS: methylPREDNISolone SOD SUCCI 125 MG/2 ML VIAL IV SCH ×4 (06:03→23:14)
[2020-07-20] MEDS: HYDROmorphone 1 MG/ML 1 ML SYRINGE IVP PRN ×2 (06:04→23:14)
[2020-07-20] MEDS: INSULIN ASPART (NovoLOG) 100 UNIT/ML VIAL SQ SCH ×4 (06:43→21:04)
[2020-07-20 07:16] LABS: HCT 29.7 % (34.0-46.0); HGB 10.3 gm/dL (11.4-16.0); MCH 32.1 pg (25.0-35.0); MCHC 34.5 g/dL (31.0-37.0); MCV 92.9 fL (80.0-100.0); Mean Platelet Volume 7.1; Platelet Count 180 k/uL (150-450); RDW 13.6 % (11.5-15.5); WBC 12.7 k/uL (3.8-10.6)
[2020-07-20 07:31] LABS: ALT 42 U/L (4-34); AST 20 U/L (14-36); African American GFR (CKD) >90 (>60 ml/min/1.73 sqM); Albumin 2.7 g/dL (3.5-5.0); Alkaline Phosphatase 145 U/L (38-126); Anion Gap 2 mmol/L; Blood Urea Nitrogen 15 mg/dL (7-17); Calcium 8.5 mg/dL (8.4-10.2); Carbon Dioxide 33 mmol/L (22-30); Chloride 103 mmol/L (98-107); Glucose 85 mg/dL (74-99); Non-African American GFR(CKD) >90 (>60 ml/min/1.73 sqM); Potassium 3.9 mmol/L (3.5-5.1); Sodium 138 mmol/L (137-145); Total Bilirubin 0.5 mg/dL (0.2-1.3); Total Protein 5.1 g/dL (6.3-8.2)
[2020-07-20] MEDS: FORMOTEROL FUMARATE 20 MCG/2 ML NEBU INHALATION SCH ×2 (08:11→19:48)
[2020-07-20] MEDS: BUDESONIDE 1 MG/2 ML NEBU INHALATION SCH ×2 (08:11→19:48)
[2020-07-20] MEDS: ACETYLCYSTEINE 800 MG/4 ML VIAL INHALATION SCH ×4 (08:11→19:48)
[2020-07-20] MEDS: IPRATROPIUM-ALBUTEROL 3 ML NEB INHALATION SCH ×4 (08:11→19:48)
[2020-07-20] MEDS: NICOTINE 21MG/24HR PATCH TRANSDERM SCH (08:31)
[2020-07-20] MEDS: PIPERACILLIN-TAZOBACTAM 3.375 GM in SODIUM CHLORIDE 0.9% 100 ML IVPB SCH ×3 (08:31→23:14)
[2020-07-20] MEDS: DOCUSATE 100 MG CAP PO SCH ×2 (08:33→21:04)
[2020-07-20] MEDS: HEPARIN SODIUM,PORCINE/PF 5,000 UNIT/0.5 ML SYRINGE SQ SCH ×2 (08:34→21:04)
[2020-07-20] MEDS: MAGNESIUM OXIDE 400 MG TAB PO SCH ×2 (08:34→21:04)
--- NOTE | 2020-07-20 10:11 | CDI ---
Documentation Clarification Form Date: 07/20/2020 09:32:53 AM From: Elsi Aaron RN, CCDS Admit Date: 07/15/2020 02:25:00 PM Patient Name: Kya Collado Visit Number: [id number] Discharge Date: ATTENTION: The Clinical Documentation Specialists (CDI) and [facility] Coding Staff appreciate your assistance in clarifying documentation. Please respond to the clarification below the line at the bottom and electronically sign. The CDI & [facility] Coding staff will review the response and follow-up if needed. Please note: Queries are made part of the Legal Health Record. If you have any questions, please contact the author of this message via ITS. Dr. Richie Vickers The patient presented with the following clinical indicators. Additional clarification regarding the etiology/cause of the clinical indicators is requested. History/Risk Factors: Metastatic lung cancer with brain metastasis, DVT, PE, Clinical Indicators: 49-year-old female present on 07/15 with complaints of dyspnea, labored breathing with accessory muscle use with hyperpnea.. She was ruled in for bilateral pneumonia per pulmonary consult on . 07/15 Chest X-ray: Correlate for CHF orthewise consider diffuse bilateral pneumonia. 07/15 WBC: 32.8 07/15Lactic acid: 4.5 07/15 Blood cultures: Pending, no growth after 96 hrs 07/15 Vital signs on admission: 126/80 110 26 98.0 (AX) 53 % RA 07/15 ED notes Sepsis focus exam at 14:10 Treatment: Telemetry Monitoring Zosyn 3.375 GM IVPB Q 8 HRS Azithromycin 500 mg IVPB Daily (07/15-07/16) Duoneb 0.5 Mg-g Mg/s Ml soln Pulmicort Inhalation BID Mucomyst 400 mg Inhalation QID Perforomist 20 mcg Inhalation BID Solu-Medrol 60 MG IV Q 6HRS IV Bolus: .9NS 1000 ml x2 In your professional opinion, please clarify if these findings signify one of the following conditions: [ x ] Sepsis POA [ ] Sepsis ruled out [ ] Other, please specify [ ] Unable to determine SIRS Criteria: 2 or more of the following may indicate SIRS -Temperature < 96.8F (36C) or > 101.0F (38.3C) -Heart Rate > 90 bpm -Respiratory Rate > 20 breaths/min or PaCO2 < 32 mmHg -White Blood Cell Count > 12,000 or < 4,000 cells/mm3 or > 10% bands (Template Last Reviewed: March 2020) [facility]
[2020-07-20 12:02] LABS: Glucose,Whole Blood 141 mg/dL (75-99)
--- NOTE | 2020-07-20 13:33 | P.PN ---
Subjective Progress Note Date: 07/20/20 Principal diagnosis: respiratory failure and metastatic cancer Patient complains of pain, not controlled and shortness of breath, with high flow. Family/support at bedside. Right lung with appearance of lymphagetic spread. will discuss further with Dr. Howard for potential palliative radiation. Alicia discussed having hospice care come back to talk with them Objective - Vital Signs Vital signs: Vital Signs Temp 98.7 F 07/20/20 08:00 Pulse 78 07/20/20 12:16 Resp 20 07/20/20 11:37 BP 125/69 07/20/20 11:37 Pulse Ox 97 07/20/20 11:37 Intake & Output 07/19/20 07/20/20 07/20/20 18:59 06:59 18:59 Intake Total 0 Balance 0 Weight 84 kg 84 kg Intake: Oral 0 Other: Voiding Method Bedside Commode Bedside Commode Bedside Commode # Voids 1 1 1 - Exam - Constitutional General appearance: average body habitus, cooperative, severe distress - EENT Eyes: anicteric sclerae, EOMI ENT: hearing grossly normal, normal oropharynx - Neck 6 cm right axillary mass, not certain if it is a node versus a soft tissue mass. No other adenopathy in the cervical, supraclavicular or left axilla Neck: lymphadenopathy - Respiratory Respiratory: right: other (absent breath sounds only a slight wheeze noted), left: rhonchi, wheezing - Cardiovascular Rhythm: regular Heart sounds: normal: S1, S2 Abnormal Heart Sounds: no systolic murmur, no diastolic murmur, no rub, no S3 Gallop, no S4 Gallop, no click, no other leg Peripheral Edema: bilateral: None - Gastrointestinal General gastrointestinal: no absent bowel sounds, no decreased bowel sounds, no distended, no hepatomegaly, no hyperactive bowel sounds, normal bowel sounds, no organomegaly, no rigid, no scaphoid, soft, no splenomegaly, no tenderness, no umbilical hernia, no ventral hernia - Neurologic Neurologic: CNII-XII intact - Musculoskeletal Musculoskeletal: strength equal bilaterally - Psychiatric Psychiatric: A&O x's 3, appropriate affect, intact judgment & insight - Labs CBC & Chem 7: 07/20/20 06:27 07/20/20 06:27 Labs: Abnormal Lab Results - Last 24 Hours (Table) 07/19/20 07/19/2007/20/21 Range/Units 16:29 19:54 06:27 WBC 12.7 H (3.8-10.6) k/uL RBC 3.20 L (3.80-5.40) m/uL Hgb 10.3 L (11.4-16.0) gm/dL Hct 29.7 L (34.0-46.0) % Carbon Dioxide (22-30) mmol/L Creatinine (0.52-1.04) mg/dL POC Glucose (mg/dL) 152 H 224 H (75-99) mg/dL ALT (4-34) U/L Alkaline Phosphatase (38-126) U/L Total Protein (6.3-8.2) g/dL Albumin (3.5-5.0) g/dL 07/20/20 07/20/20 Range/Units 06:27 12:00 WBC (3.8-10.6) k/uL RBC (3.80-5.40) m/uL Hgb (11.4-16.0) gm/dL Hct (34.0-46.0) % Carbon Dioxide 33 H (22-30) mmol/L Creatinine 0.40 L (0.52-1.04) mg/dL POC Glucose (mg/dL) 141 H (75-99) mg/dL ALT 42 H (4-34) U/L Alkaline Phosphatase 145 H (38-126) U/L Total Protein 5.1 L (6.3-8.2) g/dL Albumin 2.7 L (3.5-5.0) g/dL Microbiology - Last 24 Hours (Table) 07/15/20 14:48 Blood Culture - Preliminary Blood No Growth after 96 hours 07/15/20 14:48 Blood Culture - Preliminary Blood No Growth after 96 hours 07/19/20 07:43 Gram Stain - Preliminary Sputum Sputum Culture - Preliminary Assessment and Plan Plan: Chest x-ray: report reviewed Assessment and Plan Acute respiratory failure - Pulmonary is following - Patient has a history of a PE. on anticoagulation, Brain mets have been radiated no sign of hemorrhagic lesions Non-small cell lung cancer (NSCLC) - Status Post radiation to the brain plan for palliative chemotherapy -Appears to have rapid progression, worsening respiratory status due to airway obstruction or possibly lymphangitic spread of disease. Long discussion regarding code status last week, and code status was changed to no CPR, since this time she has been changed back to FULL CPR, they are not ready to discuss hospice care, understanding her overall prognosis is poor and goals of care are strictly palliative. Current Visit: Yes Status: Acute Priority: High Code(s): C34.90 - MALIGNANT NEOPLASM OF UNSP PART OF UNSP BRONCHUS OR LUNG SNOMED Code(s): 541716891 PLan: - Overall prognosis is poor, Hospice is apprpriate - Will discuss if room for palliaitive radiation to right lung to improve symtoms - They refused hospice on 07/16/20, and still full cpr. Will continue to discuss.
--- NOTE | 2020-07-20 13:44 | P.PN ---
Subjective Principal diagnosis: Weakness shortness of breath adenocarcinoma This is a continue progress on a 49-year-old female essentially admitted for respiratory failure related to carcinoma. The patient seems much better on Airvo supplementation at this time. Bronchoscopy is being discussed for clearance of mucous plugs. The patient states poor sleep but she looks better rested today. Objective - Vital Signs Vital signs: Vital Signs Temp 98.7 F 07/20/20 08:00 Pulse 78 07/20/20 12:16 Resp 20 07/20/20 11:37 BP 125/69 07/20/20 11:37 Pulse Ox 97 07/20/20 11:37 Intake & Output 07/19/20 07/20/20 07/20/20 18:59 06:59 18:59 Intake Total 0 Balance 0 Weight 84 kg 84 kg Intake: Oral 0 Other: Voiding Method Bedside Commode Bedside Commode Bedside Commode # Voids 1 1 1 - Constitutional General appearance: Present: average body habitus, mild distress - EENT Eyes: Absent: abnormal pupil - Respiratory Respiratory: bilateral: diminished - Cardiovascular Rhythm: regular Heart sounds: normal: S1, S2 Abnormal Heart Sounds: Absent: S3 Gallop - Gastrointestinal General gastrointestinal: Present: soft. Absent: tenderness - Musculoskeletal Musculoskeletal: Present: generalized weakness - Psychiatric Psychiatric: Present: A&O x's 3 - Labs CBC & Chem 7: 07/20/20 06:27 07/20/20 06:27 Labs: Abnormal Lab Results - Last 24 Hours (Table) 07/19/20 07/19/20 07/20/20 Range/Units 16:29 19:54 06:27 WBC 12.7 H (3.8-10.6) k/uL RBC 3.20 L (3.80-5.40) m/uL Hgb 10.3 L (11.4-16.0) gm/dL Hct 29.7 L (34.0-46.0) % Carbon Dioxide (22-30) mmol/L Creatinine (0.52-1.04) mg/dL POC Glucose (mg/dL) 152 H 224 H (75-99) mg/dL ALT (4-34) U/L Alkaline Phosphatase (38-126) U/L Total Protein (6.3-8.2) g/dL Albumin (3.5-5.0) g/dL 07/20/20 07/20/20 Range/Units 06:27 12:00 WBC (3.8-10.6) k/uL RBC (3.80-5.40) m/uL Hgb (11.4-16.0) gm/dL Hct (34.0-46.0) % Carbon Dioxide 33 H (22-30) mmol/L Creatinine 0.40 L (0.52-1.04) mg/dL POC Glucose (mg/dL) 141 H (75-99) mg/dL ALT 42 H (4-34) U/L Alkaline Phosphatase 145 H (38-126) U/L Total Protein 5.1 L (6.3-8.2) g/dL Albumin 2.7 L (3.5-5.0) g/dL Microbiology - Last 24 Hours (Table) 07/15/20 14:48 Blood Culture - Preliminary Blood No Growth after 96 hours 07/15/20 14:48 Blood Culture - Preliminary Blood No Growth after 96 hours 07/19/20 07:43 Gram Stain - Preliminary Sputum Sputum Culture - Preliminary Assessment and Plan (1) Acute respiratory failure Current Visit: Yes Status: Acute Priority: High Code(s): J96.00 - ACUTE RESPIRATORY FAILURE, UNSP W HYPOXIA OR HYPERCAPNIA SNOMED Code(s): 19158745 (2) Non-small cell lung cancer (NSCLC) Current Visit: Yes Status: Acute Priority: High Code(s): C34.90 - MALIGNANT NEOPLASM OF UNSP PART OF UNSP BRONCHUS OR LUNG SNOMED Code(s): 281786083 (3) Cigarette nicotine dependence Current Visit: No Status: Acute Code(s): F17.210 - NICOTINE DEPENDENCE, CIGARETTES, UNCOMPLICATED SNOMED Code(s): 23702017 Plan: Continue significant respiratory support. Reconcile medications. Anxiety medications as necessary. Prognosis is poor given her overall comorbidities and Continue supportive care. Appreciate pulmonology input. Check CBC and CMP in a.m.
--- NOTE | 2020-07-20 16:18 | P.PN ---
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 axillary or hilar lymph nodes On radiation therapy to the brain which she wants to finish it Extensive history of smoking and nicotine use Recurrent pulmonary embolism on direct oral anticoagulant 07/20/2020, patient seen and evaluated examined, remains on high flow nasal cannula 90% 60 L saturation is 97% hemodynamically stable, patient is afebrile, patient being considered for palliative radiation and chemotherapy 07/19/2020, patient seen eval examined during the rounds labs reviewed medications reviewed ultrasound of the chest as well as the computed tomography scan reviewed, patient ultrasound revealed a small pleural effusion not enough to drain it, the computed tomography scan shows total atelectasis of the right lung which appears to have progressed there is an appearance of endobronchial mass on the right mainstem, care plan discussed with the patient and family, we'll not do the thoracentesis, bronchoscopy is an option avoided oxygenation is improved highly likely patient with end up with life support and ventilator currently, patient is on 100% nonrebreather mask and high flow oxygen, undergoing chest PT and physical therapy for the right lung as well as Mucomyst with bronchodilator to remove additional mucous plugs 07/18/2020, patient seen eval examined during the rounds labs reviewed medications reviewed care plan discussed, chest x-ray reviewed from this morning patient continued to have atelectasis of the right lung, discussed with the staff and respiratory therapist plan to start bronchodilators with Mucomyst orders given, will initiate chest PT as well, patient remains on high flow oxygen, oxygen saturation remains stable 90-92%, afebrile hemodynamic status is stable, chest x-ray performed today reviewed large pleural effusion on the right side cannot be excluded with secondary mucus plugging causing complete obliteration of right lung, will hold and requests order ultrasound of the chest as well Patient presented to the emergency department with complaints of dyspnea that started 1 day prior to admission. 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 Currently patient is off of 100% nonrebreather Shelby has been on BiPAP machine off and on with the BiPAP setting of 19/07 with 100% oxygen, patient has been switched to high flow oxygen sats are 91-92% plan is to use his BiPAP machine at night high flow during the day. She is complaining of a mild cough with some phlegm production, denies any fever, no leg pain or leg swelling, no nausea vomiting or diarrhea, patient tested negative for COVID 19. Chest x-ray showed bilateral pleural effusions with cardiomegaly and bibasilar infiltrates, and a diffuse interstitial pattern. Patient had significantly elevated white count at 32.8, hemoglobin was 14.6, serum sodium was 132, potassium is 4.4, chloride was 97, BUN of 12, creatinine 0.34, alkaline phosphatase was 256, troponin was less than 0.012. ProBNP was 850, lactic acid was 4.5. Patient was given 2 L in IV fluid bolus, and her maintenance IV fluids are infusing at a rate of 130 ML per hour, she was started on antibiotics with Zosyn and azithromycin. She is on breathing treatments. He is tachypneic and short of breath, improved mentation, she is providing simple answers to questions, her daughter at the bedside helping with the history. Patient's spouse recently a few months ago from metastatic lung cancer. Her past history significant of smoking and nicotine use is still smoking actively, patient was diagnosed as lung cancer stage IV in May 2020, patient had biopsy of right axillary mass, pathology significant for adenocarcinoma patient has advanced metastatic disease to the adrenal gland the spleen and hilar with excellent a floor, patient is currently on radiation, patient also has a history of pulmonary embolism has been on Coumadin, Patient has finished chemotherapy but appears to be still on radiation therapy she has been considered for hospice but however patient wants to complete radiation therapy Her chest x-ray and July 16 showing near complete opacification of right hemithorax likely mucous plug and tumor related Objective - Vital Signs Vital signs: Vital Signs Temp 98.7 F 07/20/20 08:00 Pulse 78 07/20/20 12:16 Resp 20 07/20/20 11:37 BP 125/69 07/20/20 11:37 Pulse Ox 97 07/20/20 11:37 Intake & Output 07/19/20 07/20/20 07/20/20 18:59 06:59 18:59 Intake Total 0 Balance 0 Weight 84 kg 84 kg Intake: Oral 0 Other: Voiding Method Bedside Commode Bedside Commode Bedside Commode # Voids 1 1 1 - Exam - Constitutional General appearance: average body habitus, disheveled - EENT Eyes: PERRLA ENT: hearing grossly normal Ears: bilateral: normal - Neck Neck: normal ROM Carotids: bilateral: upstroke normal Thyroid: bilateral: normal size - Respiratory Respiratory: bilateral: diminished especially on the right side with poor air entry, wheezing (On forced expiration fine expiratory wheezing present) over left side - Cardiovascular Rhythm: regular Heart sounds: normal: S1, S2 - Gastrointestinal General gastrointestinal: normal bowel sounds - Neurologic Neurologic: CNII-XII intact - Musculoskeletal Musculoskeletal: gait normal, generalized weakness, strength equal bilaterally - Psychiatric Psychiatric: A&O x's 3, appropriate affect, intact judgment & insight - Labs CBC & Chem 7: 07/20/20 06:27 07/20/20 06:27 Labs: Abnormal Lab Results - Last 24 Hours (Table) 07/19/20 07/19/20 07/20/20 Range/Units 16:29 19:54 06:27 WBC 12.7 H (3.8-10.6) k/uL RBC 3.20 L (3.80-5.40) m/uL Hgb 10.3 L (11.4-16.0) gm/dL Hct 29.7 L (34.0-46.0) % Carbon Dioxide (22-30) mmol/L Creatinine (0.52-1.04) mg/dL POC Glucose (mg/dL) 152 H 224 H (75-99) mg/dL ALT (4-34) U/L Alkaline Phosphatase (38-126) U/L Total Protein (6.3-8.2) g/dL Albumin (3.5-5.0) g/dL 07/20/20 07/20/20 Range/Units 06:27 12:00 WBC (3.8-10.6) k/uL RBC (3.80-5.40) m/uL Hgb (11.4-16.0) gm/dL Hct (34.0-46.0) % Carbon Dioxide 33 H (22-30) mmol/L Creatinine 0.40 L (0.52-1.04) mg/dL POC Glucose (mg/dL) 141 H (75-99) mg/dL ALT 42 H (4-34) U/L Alkaline Phosphatase 145 H (38-126) U/L Total Protein 5.1 L (6.3-8.2) g/dL Albumin 2.7 L (3.5-5.0) g/dL Microbiology - Last 24 Hours (Table) 07/15/20 14:48 Blood Culture - Preliminary Blood No Growth after 96 hours 07/15/20 14:48 Blood Culture - Preliminary Blood No Growth after 96 hours 07/19/20 07:43 Gram Stain - Preliminary Sputum Sputum Culture - Preliminary Assessment and Plan Assessment: Right lung atelectasis likely tumor with some contribution with secondary mucus plugging Right-sided pleural effusion, small Acute on chronic hypoxic respiratory failure 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 axillary or hilar lymph nodes Bilateral pneumonia On radiation therapy to the brain which she wants to finish it Extensive history of smoking and nicotine use Recurrent pulmonary embolism on direct oral anticoagulant Plan: Agree with palliative chemo and radiation therapy No plans for thoracentesis Patient is a poor surgical candidate for bronchoscopy as high risk of inducing respiratory failure and need for ventilator Continue bronchodilator with Mucomyst Continue physical therapy and chest PT Continue IV antibiotics Ultrasound of the chest and computed tomography scan of the chest reviewed Repeat chest x-ray and labs in the morning Continue supportive care with bronchodilators and IV steroids Radiation therapy to the brain as per patient choice Continue high flow oxygen during the day and BiPAP machine at nighttime Resume direct oral anticoagulants, we'll discuss with thoracic/radiation oncology Repeat labs and x-ray in the morning Overall prognosis long-term very poor We'll follow clinical course closely further recommendations pending plan of care as per clinical response of the patient Time with Patient: Greater than 30
[2020-07-20 16:49] LABS: Glucose,Whole Blood 166 mg/dL (75-99)
[2020-07-20 19:48] LABS: Glucose,Whole Blood 157 mg/dL (75-99)
[2020-07-21] MEDS: HYDROcodone/APAP 10-325MG 1 EACH TAB PO PRN ×4 (02:39→22:54)
[2020-07-21] MEDS: HYDROmorphone 1 MG/ML 1 ML SYRINGE IVP PRN ×3 (05:01→21:00)
[2020-07-21 06:08] LABS: Glucose,Whole Blood 117 mg/dL (75-99)
[2020-07-21] MEDS: INSULIN ASPART (NovoLOG) 100 UNIT/ML VIAL SQ SCH ×4 (06:18→20:56)
[2020-07-21] MEDS: methylPREDNISolone SOD SUCCI 125 MG/2 ML VIAL IV SCH ×4 (06:29→23:01)
[2020-07-21] MEDS: BUDESONIDE 1 MG/2 ML NEBU INHALATION SCH ×2 (07:58→19:54)
[2020-07-21] MEDS: FORMOTEROL FUMARATE 20 MCG/2 ML NEBU INHALATION SCH ×2 (07:58→19:55)
[2020-07-21] MEDS: ACETYLCYSTEINE 800 MG/4 ML VIAL INHALATION SCH ×4 (07:58→19:36)
[2020-07-21] MEDS: IPRATROPIUM-ALBUTEROL 3 ML NEB INHALATION SCH ×4 (07:58→19:36)
[2020-07-21] MEDS: PIPERACILLIN-TAZOBACTAM 3.375 GM in SODIUM CHLORIDE 0.9% 100 ML IVPB SCH ×3 (08:58→23:00)
[2020-07-21] MEDS: NICOTINE 21MG/24HR PATCH TRANSDERM SCH (09:04)
[2020-07-21] MEDS: MAGNESIUM OXIDE 400 MG TAB PO SCH ×2 (09:04→20:59)
[2020-07-21] MEDS: HEPARIN SODIUM,PORCINE/PF 5,000 UNIT/0.5 ML SYRINGE SQ SCH ×2 (09:04→20:59)
[2020-07-21] MEDS: DOCUSATE 100 MG CAP PO SCH ×2 (09:04→20:58)
--- NOTE | 2020-07-21 16:10 | P.PN ---
Subjective Progress Note Date: 07/21/20 Principal diagnosis: respiratory failure and metastatic cancer Spoke with Dr. Howard regarding potential opportunity for radiation however unable to move forward while on Hi Flow oxygen. Bronchoscopy to release potential mucus plug if warranted per pulmonary. Objective - Vital Signs Vital signs: Vital Signs Temp 97.9 F 07/21/20 04:00 Pulse 75 07/21/20 15:45 Resp 20 07/21/20 15:14 BP 117/71 07/21/20 15:14 Pulse Ox 99 07/21/20 15:31 Intake & Output 07/20/20 07/21/20 07/21/20 18:59 06:59 18:59 Intake Total 120 100 480 Output Total 0 Balance 120 100 480 Weight 84 kg 81.5 kg Intake: Intake, IV Titration 100 Amount Piperacillin-Tazobactam 3 100 .375 gm In Sodium Chloride 0.9% 100 ml @ 25 mls/hr IVPB Q8HR NOEL Rx# :[id number] Oral 120 480 Output: Urine 0 Other: Voiding Method Bedside Commode Bedside Commode Bedside Commode # Voids 1 2 1 - Exam - Constitutional General appearance: average body habitus, cooperative, severe distress - EENT Eyes: anicteric sclerae, EOMI ENT: hearing grossly normal, normal oropharynx - Neck 6 cm right axillary mass, not certain if it is a node versus a soft tissue mass. No other adenopathy in the cervical, supraclavicular or left axilla Neck: lymphadenopathy - Respiratory Respiratory: right: other (absent breath sounds only a slight wheeze noted), left: rhonchi, wheezing - Cardiovascular Rhythm: regular Heart sounds: normal: S1, S2 Abnormal Heart Sounds: no systolic murmur, no diastolic murmur, no rub, no S3 Gallop, no S4 Gallop, no click, no other leg Peripheral Edema: bilateral: None - Gastrointestinal General gastrointestinal: no absent bowel sounds, no decreased bowel sounds, no distended, no hepatomegaly, no hyperactive bowel sounds, normal bowel sounds, no organomegaly, no rigid, no scaphoid, soft, no splenomegaly, no tenderness, no umbilical hernia, no ventral hernia - Neurologic Neurologic: CNII-XII intact - Musculoskeletal Musculoskeletal: strength equal bilaterally - Psychiatric Psychiatric: A&O x's 3, appropriate affect, intact judgment & insight - Labs CBC & Chem 7: 07/20/20 06:27 07/20/20 06:27 Labs: Abnormal Lab Results - Last 24 Hours (Table) 07/20/20 07/20/20 07/21/20 Range/Units 16:48 19:45 06:05 POC Glucose (mg/dL) 166 H 157 H 117 H (75-99) mg/dL Microbiology - Last 24 Hours (Table) 07/19/20 07:43 Gram Stain - Final Sputum Sputum Culture - Final 07/15/20 14:48 Blood Culture - Preliminary Blood No Growth after 120 hours 07/15/20 14:48 Blood Culture - Preliminary Blood No Growth after 120 hours Assessment and Plan Plan: Chest x-ray: report reviewed Assessment and Plan Acute respiratory failure - Pulmonary is following - Patient has a history of a PE. on anticoagulation, Brain mets have been radiated no sign of hemorrhagic lesions Non-small cell lung cancer (NSCLC) - Status Post radiation to the brain plan for palliative chemotherapy -Appears to have rapid progression, worsening respiratory status due to airway obstruction or possibly lymphangitic spread of disease. Long discussion regarding code status last week, and code status was changed to no CPR, since this time she has been changed back to FULL CPR, they are not ready to discuss hospice care, understanding her overall prognosis is poor and goals of care are strictly palliative. Current Visit: Yes Status: Acute Priority: High Code(s): C34.90 - MALIGNANT NEOPLASM OF UNSP PART OF UNSP BRONCHUS OR LUNG SNOMED Code(s): 462349185 PLan: - Overall prognosis is poor, Hospice is appropriate although are not ready at this time - Would still feel bronch appropriate if possible to assist in management of oxygen therefore we can attempt palliaitive radiation, discussed in detail with Dr. Howard. - Discussed options of palliative chemo with Dr. Castro would need to be able to withstand bronchoscopy and radiation prior if possible, will defer back to pulmonary and discuss further with family.
--- NOTE | 2020-07-21 16:37 | P.PN ---
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 axillary or hilar lymph nodes On radiation therapy to the brain which she wants to finish it Extensive history of smoking and nicotine use Recurrent pulmonary embolism on direct oral anticoagulant 07/21/2020, patient continued to have shortness of breath still on high flow oxygen, radiation oncology and oncology service contemplating palliative radiation and chemotherapy, patient is at high risk of respiratory failure and ventilator requirement with anesthesia and bronchoscopy 07/20/2020, patient seen and evaluated examined, remains on high flow nasal cannula 90% 60 L saturation is 97% hemodynamically stable, patient is afebrile, patient being considered for palliative radiation and chemotherapy 07/19/2020, patient seen eval examined during the rounds labs reviewed medications reviewed ultrasound of the chest as well as the computed tomography scan reviewed, patient ultrasound revealed a small pleural effusion not enough to drain it, the computed tomography scan shows total atelectasis of the right lung which appears to have progressed there is an appearance of endobronchial mass on the right mainstem, care plan discussed with the patient and family, we'll not do the thoracentesis, bronchoscopy is an option avoided oxygenation is improved highly likely patient with end up with life support and ventilator currently, patient is on 100% nonrebreather mask and high flow oxygen, und ergoing chest PT and physical therapy for the right lung as well as Mucomyst with bronchodilator to remove additional mucous plugs 07/18/2020, patient seen eval examined during the rounds labs reviewed medications reviewed care plan discussed, chest x-ray reviewed from this morning patient continued to have atelectasis of the right lung, discussed with the staff and respiratory therapist plan to start bronchodilators with Mucomyst orders given, will initiate chest PT as well, patient remains on high flow oxygen, oxygen saturation remains stable 90-92%, afebrile hemodynamic status is stable, chest x-ray performed today reviewed large pleural effusion on the right side cannot be excluded with secondary mucus plugging causing complete obliteration of right lung, will hold and requests order ultrasound of the chest as well Patient presented to the emergency department with complaints of dyspnea that started 1 day prior to admission. 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 Currently patient is off of 100% nonrebreather Shelby has been on BiPAP machine off and on with the BiPAP setting of 19/07 with 100% oxygen, patient has been s witched to high flow oxygen sats are 91-92% plan is to use his BiPAP machine at night high flow during the day. She is complaining of a mild cough with some phlegm production, denies any fever, no leg pain or leg swelling, no nausea vomiting or diarrhea, patient tested negative for COVID 19. Chest x-ray showed bilateral pleural effusions with cardiomegaly and bibasilar infiltrates, and a diffuse interstitial pattern. Patient had significantly elevated white count at 32.8, hemoglobin was 14.6, serum sodium was 132, potassium is 4.4, chloride was 97, BUN of 12, creatinine 0.34, alkaline phosphatase was 256, troponin was less than 0.012. ProBNP was 850, lactic acid was 4.5. Patient was given 2 L in IV fluid bolus, and her maintenance IV fluids are infusing at a rate of 130 ML per hour, she was started on antibiotics with Zosyn and azithromycin. She is on breathing treatments. He is tachypneic and short of breath, improved mentation, she is providing simple answers to questions, her daughter at the bedside helping with the history. Patient's spouse recently a few months ago from metastatic lung cancer. Her past history significant of smoking and nicotine use is still smoking actively, patient was diagnosed as lung cancer stage IV in May 2020, patient had biopsy of right axillary mass, pathology significant for adenocarcinoma patient has advanced metastatic disease to the adrenal gland the spleen and hilar with excellent a floor, patient is currently on radiation, patient also has a history of pulmonary embolism has been on Coumadin, Patient has finished chemotherapy but appears to be still on radiation therapy she has been considered for hospice but however patient wants to complete radiation therapy Her chest x-ray and July 16 showing near complete opacification of right hemithorax likely mucous plug and tumor related Objective - Vital Signs Vital signs: Vital Signs Temp 97.9 F 07/21/20 04:00 Pulse 75 07/21/20 15:45 Resp 20 07/21/20 15:14 BP 117/71 07/21/20 15:14 Pulse Ox 99 07/21/20 15:31 Intake & Output 07/20/20 07/21/20 07/21/20 18:59 06:59 18:59 Intake Total 120 100 480 Output Total 0 Balance 120 100 480 Weight 84 kg 81.5 kg Intake: Intake, IV Titration 100 Amount Piperacillin-Tazobactam 3 100 .375 gm In Sodium Chloride 0.9% 100 ml @ 25 mls/hr IVPB Q8HR NOEL Rx# :[id number] Oral 120 480 Output: Urine 0 Other: Voiding Method Bedside Commode Bedside Commode Bedside Commode # Voids 1 2 3 - Exam - Constitutional General appearance: average body habitus, disheveled - EENT Eyes: PERRLA ENT: hearing grossly normal Ears: bilateral: normal - Neck Neck: normal ROM Carotids: bilateral: upstroke normal Thyroid: bilateral: normal size - Respiratory Respiratory: bilateral: diminished especially on the right side with poor air entry, wheezing (On forced expiration fine expiratory wheezing present) over left side - Cardiovascular Rhythm: regular Heart sounds: normal: S1, S2 - Gastrointestinal General gastrointestinal: normal bowel sounds - Neurologic Neurologic: CNII-XII intact - Musculoskeletal Musculoskeletal: gait normal, generalized weakness, strength equal bilaterally - Psychiatric Psychiatric: A&O x's 3, appropriate affect, intact judgment & insight - Labs CBC & Chem 7: 07/20/20 06:27 07/20/20 06:27 Labs: Abnormal Lab Results - Last 24 Hours (Table) 07/20/20 07/20/20 07/21/20 Range/Units 16:48 19:45 06:05 POC Glucose (mg/dL) 166 H 157 H 117 H (75-99) mg/dL Microbiology - Last 24 Hours (Table) 07/19/20 07:43 Gram Stain - Final Sputum Sputum Culture - Final 07/15/20 14:48 Blood Culture - Preliminary Blood No Growth after 120 hours 07/15/20 14:48 Blood Culture - Preliminary Blood No Growth after 120 hours Assessment and Plan Assessment: Right lung atelectasis likely tumor with some contribution with secondary mucus plugging Right-sided pleural effusion, small Acute on chronic hypoxic respiratory failure 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 axillary or hilar lymph nodes Bilateral pneumonia On radiation therapy to the brain which she wants to finish it Extensive history of smoking and nicotine use Recurrent pulmonary embolism on direct oral anticoagulant Plan: Agree with palliative chemo and radiation therapy No plans for thoracentesis Patient is a poor surgical candidate for bronchoscopy as high risk of inducing respiratory failure and need for ventilator, repeat chest x-ray Continue bronchodilator with Mucomyst Continue physical therapy and chest PT Continue IV antibiotics Ultrasound of the chest and computed tomography scan of the chest reviewed Repeat chest x-ray and labs in the morning Continue supportive care with bronchodilators and IV steroids Radiation therapy to the brain as per patient choice Continue high flow oxygen during the day and BiPAP machine at nighttime Resume direct oral anticoagulants, we'll discuss with thoracic/radiation oncology Repeat labs and x-ray in the morning Overall prognosis long-term very poor We'll follow clinical course closely further recommendations pending plan of care as per clinical response of the patient Time with Patient: Greater than 30
[2020-07-21 16:54] LABS: Glucose,Whole Blood 107 mg/dL (75-99)
[2020-07-21 20:26] LABS: Glucose,Whole Blood 93 mg/dL (75-99)
--- NOTE | 2020-07-21 22:19 | P.PN ---
Subjective Principal diagnosis: Weakness shortness of breath adenocarcinoma This is a continue progress on a 49-year-old female essentially admitted for respiratory failure related to carcinoma. The patient seems much better on Airvo supplementation at this time. Bronchoscopy is being Declined at this time secondary to her overall risk of intubation. The patient states poor sleep but she looks better rested today. Objective - Vital Signs Vital signs: Vital Signs Temp 97.9 F 07/21/20 04:00 Pulse 82 07/21/20 20:15 Resp 20 07/21/20 20:15 BP 117/71 07/21/20 15:14 Pulse Ox 100 07/21/20 19:36 Intake & Output 07/21/20 07/21/20 07/22/20 06:59 18:59 06:59 Intake Total 100 480 Output Total 0 Balance 100 480 Weight 81.5 kg Intake: Intake, IV Titration 100 Amount Piperacillin-Tazobactam 3 100 .375 gm In Sodium Chloride 0.9% 100 ml @ 25 mls/hr IVPB Q8HR NOEL Rx# :[id number] Oral 480 Output: Urine 0 Other: Voiding Method Bedside Commode Bedside Commode # Voids 2 3 - Constitutional General appearance: Present: cooperative, mild distress - Respiratory Respiratory: right: wheezing, bilateral: diminished - Cardiovascular Rhythm: regular Heart sounds: normal: S1, S2 Abnormal Heart Sounds: Absent: S3 Gallop - Gastrointestinal General gastrointestinal: Present: soft. Absent: tenderness - Neurologic Neurologic: Absent: CNII-XII intact - Musculoskeletal Musculoskeletal: Present: generalized weakness - Psychiatric Psychiatric: Present: A&O x's 3, appropriate affect - Labs CBC & Chem 7: 07/20/20 06:27 07/20/20 06:27 Labs: Abnormal Lab Results - Last 24 Hours (Table) 07/21/20 07/21/20 Range/Units 06:05 16:50 POC Glucose (mg/dL) 117 H 107 H (75-99) mg/dL Microbiology - Last 24 Hours (Table) 07/15/20 14:48 Blood Culture - Final Blood No Growth after 144 hours 07/15/20 14:48 Blood Culture - Final Blood No Growth after 144 hours 07/19/20 07:43 Gram Stain - Final Sputum Sputum Culture - Final Assessment and Plan (1) Acute respiratory failure Current Visit: Yes Status: Acute Priority: High Code(s): J96.00 - ACUTE RESPIRATORY FAILURE, UNSP W HYPOXIA OR HYPERCAPNIA SNOMED Code(s): 15772563 (2) Non-small cell lung cancer (NSCLC) Current Visit: Yes Status: Acute Priority: High Code(s): C34.90 - MALIGNANT NEOPLASM OF UNSP PART OF UNSP BRONCHUS OR LUNG SNOMED Code(s): 737715070 (3) Cigarette nicotine dependence Current Visit: No Status: Acute Code(s): F17.210 - NICOTINE DEPENDENCE, CIGARETTES, UNCOMPLICATED SNOMED Code(s): 64893037 Plan: Continue significant respiratory support. Relative improvement compared to several days ago. Reconcile medications. Anxiety medications as necessary. Prognosis is poor given her overall comorbidities Continue supportive care. Appreciate pulmonology input. Check CBC and CMP in a.m.
[2020-07-21 23:14] LABS: Basophils % (A) 0 %; Eosinophils # (A) 0.3 k/uL (0-0.7); Eosinophils % (A) 3 %; HCT 38.6 % (34.0-46.0); HGB 12.2 gm/dL (11.4-16.0); Lymphocytes # (A) 0.8 k/uL (1.0-4.8); Lymphocytes % (A) 9 %; MCH 29.5 pg (25.0-35.0); MCHC 31.5 g/dL (31.0-37.0); MCV 93.8 fL (80.0-100.0); Mean Platelet Volume 6.9; Monocytes # (A) 0.1 k/uL (0-1.0); Monocytes % (A) 2 %; Neutrophils # (A) 8.1 k/uL (1.3-7.7); Neutrophils % (A) 86 %; Platelet Count 160 k/uL (150-450); RBC 4.12 m/uL (3.80-5.40); RDW 14.1 % (11.5-15.5); WBC 9.5 k/uL (3.8-10.6)
[2020-07-22] MEDS: HYDROmorphone 1 MG/ML 1 ML SYRINGE IVP PRN (01:00)
[2020-07-22] MEDS: HYDROcodone/APAP 10-325MG 1 EACH TAB PO PRN ×3 (05:19→18:52)
[2020-07-22] MEDS: methylPREDNISolone SOD SUCCI 125 MG/2 ML VIAL IV SCH ×3 (05:19→17:27)
[2020-07-22 06:28] LABS: Glucose,Whole Blood 250 mg/dL (75-99)
[2020-07-22] MEDS: INSULIN ASPART (NovoLOG) 100 UNIT/ML VIAL SQ SCH ×4 (06:58→21:14)
[2020-07-22 08:04] LABS: HCT 36.6 % (34.0-46.0); HGB 12.4 gm/dL (11.4-16.0); MCH 31.5 pg (25.0-35.0); MCHC 33.9 g/dL (31.0-37.0); MCV 92.8 fL (80.0-100.0); Mean Platelet Volume 7.2; Platelet Count 172 k/uL (150-450); RBC 3.94 m/uL (3.80-5.40); RDW 13.7 % (11.5-15.5); WBC 11.5 k/uL (3.8-10.6)
[2020-07-22 08:16] LABS: ALT 35 U/L (4-34); AST 21 U/L (14-36); African American GFR (CKD) >90 (>60 ml/min/1.73 sqM); Albumin 3.2 g/dL (3.5-5.0); Alkaline Phosphatase 145 U/L (38-126); Anion Gap 7 mmol/L; Blood Urea Nitrogen 14 mg/dL (7-17); Calcium 8.7 mg/dL (8.4-10.2); Carbon Dioxide 30 mmol/L (22-30); Chloride 98 mmol/L (98-107); Glucose 201 mg/dL (74-99); Non-African American GFR(CKD) >90 (>60 ml/min/1.73 sqM); Potassium 4.3 mmol/L (3.5-5.1); Sodium 135 mmol/L (137-145); Total Bilirubin 0.5 mg/dL (0.2-1.3); Total Protein 5.9 g/dL (6.3-8.2)
--- NOTE | 2020-07-22 08:26 | XR ---
EXAMINATION TYPE: XR chest 1V DATE OF EXAM: 07/22/2020 COMPARISON: 07/19/2019 HISTORY: Shortness of breath TECHNIQUE: Single frontal view of the chest is obtained. FINDINGS: Complete opacification of the right lung with abrupt cut off the right mainstem bronchus. Mucous plug or endobronchial lesion in the differential diagnosis with hilar or obstructing mass not excluded. Pleural effusion and consolidation likely present. Interstitial prominence and groundglass changes in the left stable. There is no pneumothorax. Heart size stable. Diffuse osteopenia and arthr opathy shoulders. IMPRESSION: 1. Stable chest x-ray demonstrating complete opacification right hemithorax. Volume loss with an obst ructing endobronchial lesion or mucous plug in the differential diagnosis. Consolidative process and pleural effusion also suspected. 2. Interstitial groundglass changes involving the left lung stable.
[2020-07-22] MEDS: ACETYLCYSTEINE 800 MG/4 ML VIAL INHALATION SCH ×4 (08:32→20:13)
[2020-07-22] MEDS: IPRATROPIUM-ALBUTEROL 3 ML NEB INHALATION SCH ×4 (08:33→20:13)
[2020-07-22] MEDS: NICOTINE 21MG/24HR PATCH TRANSDERM SCH (08:58)
[2020-07-22] MEDS: HEPARIN SODIUM,PORCINE/PF 5,000 UNIT/0.5 ML SYRINGE SQ SCH ×2 (08:58→21:14)
[2020-07-22] MEDS: MAGNESIUM OXIDE 400 MG TAB PO SCH ×2 (08:58→21:14)
[2020-07-22] MEDS: DOCUSATE 100 MG CAP PO SCH ×2 (08:59→21:14)
[2020-07-22] MEDS: DIAZEPAM 5 MG/ML 2 ML INJ IVP PRN (09:08)
[2020-07-22] MEDS: FORMOTEROL FUMARATE 20 MCG/2 ML NEBU INHALATION SCH ×2 (11:42→20:13)
[2020-07-22] MEDS: BUDESONIDE 1 MG/2 ML NEBU INHALATION SCH ×2 (11:42→20:13)
[2020-07-22 12:09] LABS: Glucose,Whole Blood 124 mg/dL (75-99)
--- NOTE | 2020-07-22 16:37 | P.PN ---
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 axillary or hilar lymph nodes On radiation therapy to the brain which she wants to finish it Extensive history of smoking and nicotine use Recurrent pulmonary embolism on direct oral anticoagulant 07/22/2020, patient seen eval examined during the rounds labs reviewed medications reviewed care plan discussed, respiratory status slightly better patient is on 50 L 50% high flow oxygen, slightly better than yesterday, today's chest x-ray reviewed continued to show complete atelectasis of the right lung appeared to be related to large endobronchial tumor/mass, we'll continue monitor observe closely no plans for bronchoscopy at this time as patient has been marginal high risk of injury is in respiratory failure, we'll continue conservative measures with bronchodilator, Mucomyst, chest PT 07/21/2020, patient continued to have shortness of breath still on high flow oxygen, radiation oncology and oncology service contemplating palliative radiation and chemotherapy, patient is at high risk of respiratory failure and ventilator requirement with anesthesia and bronchoscopy 07/20/2020, patient seen and evaluated examined, remains on high flow nasal cannula 90% 60 L saturation is 97% hemodynamically stable, patient is afebrile, patient being considered for palliative radiation and chemotherapy 07/19/2020, patient seen eval examined during the rounds labs reviewed medications reviewed ultrasound of the chest as well as the computed tomography scan reviewed, patient ultrasound revealed a small pleural effusion not enough to drain it, the computed tomography scan shows total atelectasis of the right lung which appears to have progressed there is an appearance of endobronchial mass on the right mainstem, care plan discussed with the patient and family, we'll not do the thoracentesis, bronchoscopy is an option avoided oxygenation is improved highly likely patient with end up with life support and ventilator currently, patient is on 100% nonrebreather mask and high flow oxygen, underg oing chest PT and physical therapy for the right lung as well as Mucomyst with bronchodilator to remove additional mucous plugs 07/18/2020, patient seen eval examined during the rounds labs reviewed medications reviewed care plan discussed, chest x-ray reviewed from this morning patient continued to have atelectasis of the right lung, discussed with the staff and respiratory therapist plan to start bronchodilators with Mucomyst orders given, will initiate chest PT as well, patient remains on high flow oxygen, oxygen saturation remains stable 90-92%, afebrile hemodynamic status is stable, chest x-ray performed today reviewed large pleural effusion on the right side cannot be excluded with secondary mucus plugging causing complete obliteration of right lung, will hold and requests order ultrasound of the chest as well Patient presented to the emergency department with complaints of dyspnea that started 1 day prior to admission. Patient presented to emergency department with progressive shortness of breath hypoxia and confusion she was initially seen by another pulmonary group but she elected to change the corrections nurse. Currently patient is off of 100% nonrebreather [place] has been on BiPAP machine off and on with the BiPAP setting of 14/6 with 100% oxygen, patient has been switched to high flow oxygen sats are 91-92% plan is to use his BiPAP machine at night high flow during the day. She is complaining of a mild cough with some phlegm production, denies any fever, no leg pain or leg swelling, no nausea vomiting or diarrhea, patient tested negative for COVID 19. Chest x-ray showed bilateral pleural effusions with cardiomegaly and bibasilar infiltrates, and a diffuse interstitial pattern. Patient had significantly elevated white count at 32.8, hemoglobin was 14.6, serum sodium was 132, potassium is 4.4, chloride was 97, BUN of 12, creatinine 0.34, alkaline phosphatase was 256, troponin was less than 0.012. ProBNP was 850, lactic acid was 4.5. Patient was given 2 L in IV fluid bolus, and her maintenance IV fluids are infusing at a rate of 130 ML per hour, she was started on antibiotics with Zosyn and azithromycin. She is on breathing treatments. He is tachypneic and short of breath, improved mentation, she is providing simple answers to questions, her daughter at the bedside helping with the history. Patient's spouse recently a few months ago from metastatic lung cancer. Her past history significant of smoking and nicotine use is still smoking actively, patient was diagnosed as lung cancer stage IV in May 2020, patient had biopsy of right axillary mass, pathology significant for adenocarcinoma patient has advanced metastatic disease to the adrenal gland the spleen and hilar with excellent a floor, patient is currently on radiation, patient also has a history of pulmonary embolism has been on Coumadin, Patient has finished chemotherapy but appears to be still on radiation therapy she has been considered for hospice but however patient wants to complete radiation therapy Her chest x-ray and July 16 showing near complete opacification of right hemithorax likely mucous plug and tumor related Objective - Vital Signs Vital signs: Vital Signs Temp 97.9 F 07/22/20 11:55 Pulse 72 07/22/20 16:26 Resp 20 07/22/20 11:55 BP 105/70 07/22/20 11:55 Pulse Ox 98 07/22/20 16:27 Intake & Output 07/21/20 07/22/20 07/22/20 18:59 06:59 18:59 Intake Total 480 10 480 Output Total 650 Balance 480 -640 480 Weight 84 kg Intake: IV 10 Invasive Line 2 10 Oral 480 480 Output: Urine 650 Other: Voiding Method Bedside Commode Bedside Commode Bedside Commode # Voids 3 1 0 - Exam - Constitutional General appearance: average body habitus, disheveled - EENT Eyes: PERRLA ENT: hearing grossly normal Ears: bilateral: normal - Neck Neck: normal ROM Carotids: bilateral: upstroke normal Thyroid: bilateral: normal size - Respiratory Respiratory: bilateral: diminished especially on the right side with poor air entry, wheezing (On forced expiration fine expiratory wheezing present) over left side - Cardiovascular Rhythm: regular Heart sounds: normal: S1, S2 - Gastrointestinal General gastrointestinal: normal bowel sounds - Neurologic Neurologic: CNII-XII intact - Musculoskeletal Musculoskeletal: gait normal, generalized weakness, strength equal bilaterally - Psychiatric Psychiatric: A&O x's 3, appropriate affect, intact judgment & insight - Labs CBC & Chem 7: 07/22/20 07:46 07/22/20 07:46 Labs: Abnormal Lab Results - Last 24 Hours (Table) 07/21/20 07/21/20 07/22/20 Range/Units 16:50 23:01 06:26 WBC (3.8-10.6) k/uL Neutrophils # 8.1 H (1.3-7.7) k/uL Lymphocytes # 0.8 L (1.0-4.8) k/uL Sodium (137-145) mmol/L Creatinine (0.52-1.04) mg/dL Glucose (74-99) mg/dL POC Glucose (mg/dL) 107 H 250 H (75-99) mg/dL ALT (4-34) U/L Alkaline Phosphatase (38-126) U/L Total Protein (6.3-8.2) g/dL Albumin (3.5-5.0) g/dL 07/22/20 07/22/20 07/22/20 Range/Units 07:46 07:46 12:07 WBC 11.5 H (3.8-10.6) k/uL Neutrophils # (1.3-7.7) k/uL Lymphocytes # (1.0-4.8) k/uL Sodium 135 L (137-145) mmol/L Creatinine 0.35 L (0.52-1.04) mg/dL Glucose 201 H (74-99) mg/dL POC Glucose (mg/dL) 124 H (75-99) mg/dL ALT 35 H (4-34) U/L Alkaline Phosphatase 145 H (38-126) U/L Total Protein 5.9 L (6.3-8.2) g/dL Albumin 3.2 L (3.5-5.0) g/dL Microbiology - Last 24 Hours (Table) 07/15/20 14:48 Blood Culture - Final Blood No Growth after 144 hours 07/15/20 14:48 Blood Culture - Final Blood No Growth after 144 hours Assessment and Plan Assessment: Right lung atelectasis likely tumor with some contribution with secondary mucus plugging Right-sided pleural effusion, small Acute on chronic hypoxic respiratory failure 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 axillary or hilar lymph nodes Bilateral pneumonia On radiation therapy to the brain which she wants to finish it Extensive history of smoking and nicotine use Recurrent pulmonary embolism on direct oral anticoagulant Plan: Agree with palliative chemo and radiation therapy No plans for thoracentesis Patient is a poor surgical candidate for bronchoscopy as high risk of inducing r espiratory failure and need for ventilator, repeat chest x-ray reviewed Continue bronchodilator with Mucomyst Continue physical therapy and chest PT Continue IV antibiotics Ultrasound of the chest and computed tomography scan of the chest reviewed Continue supportive care with bronchodilators and IV steroids Radiation therapy to the brain as per patient choice Continue high flow oxygen during the day and BiPAP machine at nighttime Resume direct oral anticoagulants, we'll discuss with thoracic/radiation oncology Repeat labs and x-ray in the morning Overall prognosis long-term very poor We'll follow clinical course closely further recommendations pending plan of care as per clinical response of the patient Time with Patient: Greater than 30
[2020-07-22 16:57] LABS: Glucose,Whole Blood 141 mg/dL (75-99)
[2020-07-22 20:47] LABS: Glucose,Whole Blood 212 mg/dL (75-99)
[2020-07-23] MEDS: HYDROcodone/APAP 10-325MG 1 EACH TAB PO PRN ×4 (00:30→21:04)
[2020-07-23] MEDS: methylPREDNISolone SOD SUCCI 125 MG/2 ML VIAL IV SCH ×4 (00:30→17:24)
[2020-07-23] MEDS: HYDROmorphone 1 MG/ML 1 ML SYRINGE IVP PRN ×2 (03:31→17:32)
[2020-07-23 06:51] LABS: Glucose,Whole Blood 165 mg/dL (75-99)
[2020-07-23] MEDS: INSULIN ASPART (NovoLOG) 100 UNIT/ML VIAL SQ SCH ×4 (07:03→21:04)
[2020-07-23] MEDS: HEPARIN SODIUM,PORCINE/PF 5,000 UNIT/0.5 ML SYRINGE SQ SCH ×2 (08:38→21:04)
[2020-07-23] MEDS: MAGNESIUM OXIDE 400 MG TAB PO SCH ×2 (08:39→21:04)
[2020-07-23] MEDS: DOCUSATE 100 MG CAP PO SCH ×2 (08:39→21:04)
[2020-07-23] MEDS: IPRATROPIUM-ALBUTEROL 3 ML NEB INHALATION SCH ×4 (09:08→19:23)
[2020-07-23] MEDS: ACETYLCYSTEINE 800 MG/4 ML VIAL INHALATION SCH ×4 (09:08→19:23)
[2020-07-23] MEDS: FORMOTEROL FUMARATE 20 MCG/2 ML NEBU INHALATION SCH ×2 (09:08→19:23)
[2020-07-23] MEDS: BUDESONIDE 1 MG/2 ML NEBU INHALATION SCH ×2 (09:08→19:23)
[2020-07-23 11:46] LABS: Glucose,Whole Blood 140 mg/dL (75-99)
[2020-07-23] MEDS: NICOTINE 7MG/24HR PATCH TRANSDERM SCH (12:56)
[2020-07-23 14:14] VITALS: BMI 31.2
--- NOTE | 2020-07-23 14:28 | P.PN ---
Subjective Progress Note Date: 07/23/20 This is a 49-year-old female who was recently admitted with acute respiratory failure related to carcinoma and is being closely monitored. She follows with Dr. Vickers in the outpatient setting and currently covering. Patient continues on Airvo and slowly titrating per respiratory with a flow rate of 50 and an FiO2 of 50%. Patient was seen and evaluated and being followed by pulmonary Dr. Ferris. Per respiratory patient is not a candidate for bronchoscopy given her high risk. Patient does have a history of smoking and requesting a pipeline construction inspector dose nicotine patch which was ordered. Review of systems: Constitutional: No reports of fatigue, fever, or chills Cardiovascular: No reports of chest pain or palpitations Respiratory: reports of shortness of breath GI: No reports of nausea, vomiting, or diarrhea : No reports of dysuria or retention Neurovascular: Reports occasional generalized weakness All medications have been reviewed Objective - Vital Signs Vital signs: Vital Signs Temp 98 F 07/23/20 08:35 Pulse 80 07/23/20 09:41 Resp 18 07/23/20 08:35 BP 117/77 07/23/20 08:35 Pulse Ox 100 07/23/20 08:44 Intake & Output 07/22/20 07/23/20 07/23/20 18:59 06:59 18:59 Intake Total 1460 Output Total 2500 Balance 1460 -2500 Weight 82.5 kg Intake: Oral 1460 Output: Urine 2500 Other: Voiding Method Bedside Commode Bedside Commode Bedside Commode # Voids 1 # Bowel Movements 0 - Exam Gen: This is a 49-year-old female awake alert and oriented 3 well-developed, well-nourished. Sitting up in the chair HEENT: Head is atraumatic, normocephalic. Pupils equal, round. Sclerae is anicteric. Airvo noted NECK: Supple. No JVD. No lymphadenopathy. No thyromegaly. LUNGS: Diminished breath sounds bilaterally some expiratory wheezing noted. HEART: Regular rate and rhythm. No murmur. ABDOMEN: Soft. Bowel sounds are present. No masses. No tenderness. EXTREMITIES: No pedal edema. No calf tenderness. NEUROLOGICAL: Patient is awake, alert and oriented x3. Cranial nerves 2 through 12 are grossly intact. - Labs CBC & Chem 7: 07/22/20 07:46 07/22/20 07:46 Labs: Abnormal Lab Results - Last 24 Hours (Table) 07/22/20 07/22/20 07/22/20 Range/Units 12:07 16:56 20:34 POC Glucose (mg/dL) 124 H 141 H 212 H (75-99) mg/dL 07/23/20 Range/Units 06:50 POC Glucose (mg/dL) 165 H (75-99) mg/dL Assessment and Plan Assessment: Non-small cell lung cancer with metastasis Acute hypoxic hypercapnic respiratory failure secondary to above Continued ongoing nicotine dependence Anxiety Full code Plan: Recommend continue with current management and medications. Pulmonary Dr. Ferris following along with oncology. Discussions have been had with Dr. Howard who is also following for radiation palliative treatment as this patient does have brain metastasis. Plans were for possible bronchoscopy although given high risk pulmonary feels she is not a candidate. She continues on airvo with respiratory to wean as tolerated. Family at the bedside. Per nursing staff patient was ap parently agreeable to hospice and had signed on with some although now feels she is not ready for hospice and would like to continue treatments. Prognosis remains extremely poor and guarded given the extent of metastasis and needs to be discussed further with family and the patient. Will continue to monitor closely.
[2020-07-23] MEDS: NICOTINE 21MG/24HR PATCH TRANSDERM SCH (14:51)
[2020-07-23 16:52] LABS: Glucose,Whole Blood 189 mg/dL (75-99)
[2020-07-23 20:14] LABS: Glucose,Whole Blood 177 mg/dL (75-99)
--- NOTE | 2020-07-23 21:52 | P.PN ---
Subjective Progress Note Date: 07/23/20 Principal diagnosis: respiratory failure and metastatic cancer Discussed with Dr. Howard, plan is to try to wean oxygen to nasal canula for option of radiation palliative, although if unable will have no other options than to proceed with hospice care. Objective - Vital Signs Vital signs: Vital Signs Temp 98 F 07/23/20 08:35 Pulse 80 07/23/20 12:36 Resp 18 07/23/20 08:35 BP 117/77 07/23/20 08:35 Pulse Ox 100 07/23/20 12:15 Intake & Output 07/22/20 07/23/20 07/23/20 18:59 06:59 18:59 Intake Total 1460 660 Output Total 2500 600 Balance 1460 -2500 60 Weight 82.5 kg Intake: Oral 1460 660 Output: Urine 2500 600 Other: Voiding Method Bedside Commode Bedside Commode Bedside Commode # Voids 1 # Bowel Movements 0 1 - Exam - Constitutional General appearance: average body habitus, cooperative, severe distress - EENT Eyes: anicteric sclerae, EOMI ENT: hearing grossly normal, normal oropharynx - Neck 6 cm right axillary mass, not certain if it is a node versus a soft tissue mass. No other adenopathy in the cervical, supraclavicular or left axilla Neck: lymphadenopathy - Respiratory Respiratory: right: other (absent breath sounds only a slight wheeze noted), left: rhonchi, wheezing - Cardiovascular Rhythm: regular Heart sounds: normal: S1, S2 Abnormal Heart Sounds: no systolic murmur, no diastolic murmur, no rub, no S3 Gallop, no S4 Gallop, no click, no other leg Peripheral Edema: bilateral: None - Gastrointestinal General gastrointestinal: no absent bowel sounds, no decreased bowel sounds, no distended, no hepatomegaly, no hyperactive bowel sounds, normal bowel sounds, no organomegaly, no rigid, no scaphoid, soft, no splenomegaly, no tenderness, no umbilical hernia, no ventral hernia - Neurologic Neurologic: CNII-XII intact - Musculoskeletal Musculoskeletal: strength equal bilaterally - Psychiatric Psychiatric: A&O x's 3, appropriate affect, intact judgment & insight - Labs CBC & Chem 7: 07/22/20 07:46 07/22/20 07:46 Labs: Abnormal Lab Results - Last 24 Hours (Table) 07/22/20 07/22/20 07/23/20 Range/Units 16:56 20:34 06:50 POC Glucose (mg/dL) 141 H 212 H 165 H (75-99) mg/dL 07/23/20 Range/Units 11:45 POC Glucose (mg/dL) 140 H (75-99) mg/dL Assessment and Plan Plan: Chest x-ray: report reviewed Assessment and Plan Acute respiratory failure - Pulmonary is following - Patient has a history of a PE. on anticoagulation, Brain mets have been radiated no sign of hemorrhagic lesions Non-small cell lung cancer (NSCLC) - Status Post radiation to the brain plan for palliative chemotherapy -Appears to have rapid progression, worsening respiratory status due to airway obstruction or possibly lymphangitic spread of disease. Long discussion regarding code status last week, and code status was changed to no CPR, since this time she has been changed back to FULL CPR, they are not ready to discuss hospice care, understanding her overall prognosis is poor and goals of care are strictly palliative. Current Visit: Yes Status: Acute Priority: High Code(s): C34.90 - MALIGNANT NEOPLASM OF UNSP PART OF UNSP BRONCHUS OR LUNG SNOMED Code(s): 997291256 PLan: - Overall prognosis is poor, Hospice is appropriate although are not ready at this time - Dr. Howard discussed further the only way to proceed with radiation options would be if oxygen need was less to nasal canula and if unable hospice consideration would be highly advised
[2020-07-24] MEDS: methylPREDNISolone SOD SUCCI 125 MG/2 ML VIAL IV SCH ×4 (00:52→17:27)
[2020-07-24] MEDS: HYDROmorphone 1 MG/ML 1 ML SYRINGE IVP PRN ×4 (00:52→21:10)
[2020-07-24] MEDS: HYDROcodone/APAP 10-325MG 1 EACH TAB PO PRN ×3 (04:31→17:27)
[2020-07-24 06:03] LABS: Glucose,Whole Blood 136 mg/dL (75-99)
[2020-07-24] MEDS: INSULIN ASPART (NovoLOG) 100 UNIT/ML VIAL SQ SCH ×4 (06:38→21:10)
[2020-07-24] MEDS: BUDESONIDE 1 MG/2 ML NEBU INHALATION SCH ×2 (07:44→20:36)
[2020-07-24] MEDS: ACETYLCYSTEINE 800 MG/4 ML VIAL INHALATION SCH ×4 (07:44→20:36)
[2020-07-24] MEDS: FORMOTEROL FUMARATE 20 MCG/2 ML NEBU INHALATION SCH ×2 (07:45→20:36)
[2020-07-24] MEDS: IPRATROPIUM-ALBUTEROL 3 ML NEB INHALATION SCH ×4 (07:45→20:36)
[2020-07-24] MEDS: NICOTINE 7MG/24HR PATCH TRANSDERM SCH (08:32)
[2020-07-24] MEDS: HEPARIN SODIUM,PORCINE/PF 5,000 UNIT/0.5 ML SYRINGE SQ SCH ×2 (08:32→21:10)
[2020-07-24] MEDS: DOCUSATE 100 MG CAP PO SCH ×2 (08:32→21:09)
[2020-07-24] MEDS: MAGNESIUM OXIDE 400 MG TAB PO SCH ×2 (08:32→21:09)
[2020-07-24 11:47] LABS: Glucose,Whole Blood 199 mg/dL (75-99)
--- NOTE | 2020-07-24 13:53 | P.PN ---
Subjective On-call hospitalist covering Dr. Vickers This is a pleasant 49 years old female with known small cell lung cancer with metastasis to the brain status post radiation therapy with radiation oncology team. Also she has history of PE on anticoagulation with the Eliquis 2.5 mg at home. Presents with respiratory distress thought it is related to her right lung atelectasis. 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 Given her bad prognosis then hospice was suggested to patient and family but they declined now Patient today was sitting in the chair, and mild to moderate respiratory distress, she is fully awake and oriented. He wanted to continue treatment. Her oxygen saturation is 5-6 L/m via nasal cannula. Mild leukocytosis with 11.5 K due to his steroids while she is on Solu-Medrol 60 mg. Patient was on Eliquis at home for her history of PE which is held on admission and switched to subcutaneous heparin. We will defer the decision for anticoagulation per Dr. Vickers and hematology/oncology teams. Currently patient pulmonary symptoms is improving, therefore suspicion for PE is low besides anticoagulation has risk for brain metastasis. several consults are on the case including hematology/oncology teams, pulmonary , and radiation oncology Objective - Vital Signs Vital signs: Vital Signs Temp 98.3 F 07/24/20 08:28 Pulse 78 07/24/20 11:45 Resp 18 07/24/20 11:45 BP 113/68 07/24/20 11:45 Pulse Ox 98 07/24/20 11:45 Intake & Output 07/23/20 07/24/20 07/24/20 18:59 06:59 18:59 Intake Total 1380 10 454 Output Total 1200 1220 Balance 180 -1210 454 Weight 82.5 kg 82 kg Intake: IV 10 10 Invasive Line 2 10 10 Oral 1380 444 Output: Urine 1200 1220 Other: Voiding Method Bedside Commode Bedside Commode Bedside Commode # Voids 1 2 # Bowel Movements 1 1 - Exam -GENERAL: The patient is alert and oriented x3, in mild to moderate acute respiratory distress. Well developed, well nourished. HEENT: Pupils are round and equally reacting to light. EOMI. No scleral icterus. No conjunctival pallor. Normocephalic, atraumatic. No pharyngeal erythema. No thyromegaly. CARDIOVASCULAR: S1 and S2 present. No murmurs, rubs, or gallops. PULMONARY: Chest is clear to auscultation, no wheezing scattered crepitation Abdomen: Soft, nontender, nondistended, normoactive bowel sounds. No palpable organomegaly. MUSCULOSKELETAL: No joint swelling or deformity. EXTREMITIES: No cyanosis, clubbing, or pedal edema. NEUROLOGICAL: Gross neurological examination did not reveal any focal deficits. SKIN: No rashes. No petechiae - Labs CBC & Chem 7: 07/22/20 07:46 07/22/20 07:46 Labs: Abnormal Lab Results - Last 24 Hours (Table) 07/23/20 07/23/20 07/24/20 Range/Units 16:51 19:56 06:00 POC Glucose (mg/dL) 189 H 177 H 136 H (75-99) mg/dL 07/24/20 Range/Units 11:46 POC Glucose (mg/dL) 199 H (75-99) mg/dL Assessment and Plan Assessment: Non-small cell lung cancer with metastasis to the brain Acute hypoxic respiratory failure with right lung metastasis and possible lymphatic metastasis as well History of PE was on anticoagulation and currently on subcutaneous heparin COPD with acute exacerbation Osteoarthritis History of GERD This is a pleasant 49 female who presents with respiratory distress secondary to COPD, lung atelectasis and possible lung metastases. Acute hypoxia. Continue with oxygen. Continue with Solu-Medrol. Patient is found by several consultants including hematology/oncology and radiation oncology. Operations Chief also evaluated the patient However given her progressive advanced stage disease she may benefit from palliative team consult with possible hospice care soon. Labs and medication were reviewed.. Continue same treatment. Continue with symptomatic treatment. Resume home medication. Monitor lytes and vitals. DVT and GI prophylaxis. Further recommendationsas per clinical course of the patient DVT prophylaxis: Subcutaneous heparin GI Prophylaxis: Pepcid Prognosis is guarded
[2020-07-24] MEDS: IPRATROPIUM-ALBUTEROL 3 ML NEB INHALATION PRN (14:24)
[2020-07-24 17:18] LABS: Glucose,Whole Blood 159 mg/dL (75-99)
[2020-07-24 20:26] LABS: Glucose,Whole Blood 281 mg/dL (75-99)
[2020-07-24] MEDS: FAMOTIDINE 20 MG/2 ML VIAL IV SCH (21:09)
[2020-07-25] MEDS: HYDROcodone/APAP 10-325MG 1 EACH TAB PO PRN ×4 (00:10→23:09)
[2020-07-25] MEDS: methylPREDNISolone SOD SUCCI 125 MG/2 ML VIAL IV SCH ×5 (00:11→23:10)
[2020-07-25] MEDS: HYDROmorphone 1 MG/ML 1 ML SYRINGE IVP PRN ×2 (04:26→13:21)
[2020-07-25 06:01] LABS: Glucose,Whole Blood 203 mg/dL (75-99)
[2020-07-25] MEDS: INSULIN ASPART (NovoLOG) 100 UNIT/ML VIAL SQ SCH ×4 (06:36→20:18)
[2020-07-25] MEDS: BUDESONIDE 1 MG/2 ML NEBU INHALATION SCH ×2 (07:51→20:42)
[2020-07-25] MEDS: IPRATROPIUM-ALBUTEROL 3 ML NEB INHALATION SCH ×4 (07:51→20:43)
[2020-07-25] MEDS: FORMOTEROL FUMARATE 20 MCG/2 ML NEBU INHALATION SCH ×2 (07:51→20:43)
[2020-07-25] MEDS: ACETYLCYSTEINE 800 MG/4 ML VIAL INHALATION SCH ×4 (07:51→20:43)
[2020-07-25] MEDS: MAGNESIUM OXIDE 400 MG TAB PO SCH ×2 (08:32→20:18)
[2020-07-25] MEDS: FAMOTIDINE 20 MG/2 ML VIAL IV SCH ×4 (08:33→20:19)
[2020-07-25] MEDS: DOCUSATE 100 MG CAP PO SCH ×2 (08:33→20:18)
[2020-07-25] MEDS: HEPARIN SODIUM,PORCINE/PF 5,000 UNIT/0.5 ML SYRINGE SQ SCH ×2 (08:34→20:18)
[2020-07-25] MEDS: NICOTINE 7MG/24HR PATCH TRANSDERM SCH (12:30)
[2020-07-25 12:36] LABS: Glucose,Whole Blood 128 mg/dL (75-99)
[2020-07-25 17:21] LABS: Glucose,Whole Blood 182 mg/dL (75-99)
--- NOTE | 2020-07-25 17:49 | P.PN ---
Subjective On-call hospitalist covering Dr. Vickers This is a pleasant 49 years old female with known small cell lung cancer with metastasis to the brain status post radiation therapy with radiation oncology team. Also she has history of PE on anticoagulation with the Eliquis 2.5 mg at home. Presents with respiratory distress thought it is related to her right lung atelectasis. 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 Given her bad prognosis then hospice was suggested to patient and family but they declined now Patient today was sitting in the chair, and mild to moderate respiratory distress, she is fully awake and oriented. He wanted to continue treatment. Her oxygen saturation is 5-6 L/m via nasal cannula. Mild leukocytosis with 11.5 K due to his steroids while she is on Solu-Medrol 60 mg. Patient was on Eliquis at home for her history of PE which is held on admission and switched to subcutaneous heparin. We will defer the decision for anticoagulation per Dr. Vickers and hematology/oncology teams. Currently patient pulmonary symptoms is improving, therefore suspicion for PE is low besides anticoagulation has risk for brain metastasis. several consults are on the case including hematology/oncology teams, pulmonary , and radiation oncology 07/25/2020 Kelsey change in her clinical situation, she is pleasant, sitting in chair, fully awake and oriented, slightly tachypneic. Her oxygen requirement actually could be dropped today from 5 down to 4 L/m via nasal cannula. No chest pain but some mild to moderate dry cough. Vitals are stable. Sugar monitored closely. Patient remains on Solu-Medrol 60 mg. Pulmonary team on the case Oncology and radiation oncology team on the case for her lung cancer with brain metastases, they recommend continue with radiation therapy versus hospice when appropriate and patient is ready Dr. Vickers will resume the patient's care tomorrow Objective - Vital Signs Vital signs: Vital Signs Temp 97.8 F 07/25/20 16:20 Pulse 79 07/25/20 16:20 Resp 18 07/25/20 16:20 BP 120/76 07/25/20 16:20 Pulse Ox 97 07/25/20 16:20 Intake & Output 07/24/20 07/25/20 07/25/20 18:59 06:59 18:59 Intake Total 1148 10 600 Output Total 1 Balance 1148 9 600 Weight 78.4 kg Intake: IV 20 10 Invasive Line 2 20 10 Oral 1128 600 Output: Urine/Stool Mix 1 Other: Voiding Method Bedside Commode Toilet Toilet # Voids 2 3 1 - Exam -GENERAL: The patient is alert and oriented x3, in mild to moderate acute re spiratory distress. Well developed, well nourished. HEENT: Pupils are round and equally reacting to light. EOMI. No scleral icterus. No conjunctival pallor. Normocephalic, atraumatic. No pharyngeal erythema. No thyromegaly. CARDIOVASCULAR: S1 and S2 present. No murmurs, rubs, or gallops. PULMONARY: Chest is clear to auscultation, no wheezing scattered crepitation Abdomen: Soft, nontender, nondistended, normoactive bowel sounds. No palpable organomegaly. MUSCULOSKELETAL: No joint swelling or deformity. EXTREMITIES: No cyanosis, clubbing, or pedal edema. NEUROLOGICAL: Gross neurological examination did not reveal any focal deficits. SKIN: No rashes. No petechiae - Labs CBC & Chem 7: 07/22/20 07:46 07/22/20 07:46 Labs: Abnormal Lab Results - Last 24 Hours (Table) 07/24/20 07/25/20 07/25/20 Range/Units 20:25 06:00 12:25 POC Glucose (mg/dL) 281 H 203 H 128 H (75-99) mg/dL 07/25/20 Range/Units 17:05 POC Glucose (mg/dL) 182 H (75-99) mg/dL Assessment and Plan Assessment: Non-small cell lung cancer with metastasis to the brain Acute hypoxic respiratory failure with right lung metastasis and possible lymphatic metastasis as well History of PE was on anticoagulation and currently on subcutaneous heparin COPD with acute exacerbation Osteoarthritis History of GERD This is a pleasant 49 female who presents with respiratory distress secondary to COPD, lung atelectasis and possible lung metastases. Acute hypoxia. Continue with oxygen. Continue with Solu-Medrol. Patient is found by several consultants including hematology/oncology and radiation oncology. Director Of Housing also evaluated the patient However given her progressive advanced stage disease she may benefit from palliative team consult with possible hospice care soon. Labs and medication were reviewed.. Continue same treatment. Continue with symptomatic treatment. Resume home medication. Monitor lytes and vitals. DVT and GI prophylaxis. Further recommendationsas per clinical course of the patient DVT prophylaxis: Subcutaneous heparin GI Prophylaxis: Pepcid Prognosis is guarded
[2020-07-25 20:03] LABS: Glucose,Whole Blood 181 mg/dL (75-99)
[2020-07-25] MEDS: DIAZEPAM 5 MG/ML 2 ML INJ IVP PRN (20:14)
[2020-07-26] MEDS: HYDROmorphone 1 MG/ML 1 ML SYRINGE IVP PRN ×2 (00:38→17:35)
[2020-07-26] MEDS: methylPREDNISolone SOD SUCCI 125 MG/2 ML VIAL IV SCH ×4 (05:56→23:15)
[2020-07-26] MEDS: INSULIN ASPART (NovoLOG) 100 UNIT/ML VIAL SQ SCH ×4 (06:00→20:27)
[2020-07-26 06:01] LABS: Glucose,Whole Blood 110 mg/dL (75-99)
[2020-07-26] MEDS: HYDROcodone/APAP 10-325MG 1 EACH TAB PO PRN ×3 (06:07→22:17)
[2020-07-26] MEDS: FORMOTEROL FUMARATE 20 MCG/2 ML NEBU INHALATION SCH ×2 (08:35→20:43)
[2020-07-26] MEDS: ACETYLCYSTEINE 800 MG/4 ML VIAL INHALATION SCH ×4 (08:35→20:42)
[2020-07-26] MEDS: HEPARIN SODIUM,PORCINE/PF 5,000 UNIT/0.5 ML SYRINGE SQ SCH ×2 (08:35→20:26)
[2020-07-26] MEDS: MAGNESIUM OXIDE 400 MG TAB PO SCH ×2 (08:35→20:27)
[2020-07-26] MEDS: DOCUSATE 100 MG CAP PO SCH ×2 (08:35→17:38)
[2020-07-26] MEDS: FAMOTIDINE 20 MG/2 ML VIAL IV SCH ×2 (08:35→20:27)
[2020-07-26] MEDS: IPRATROPIUM-ALBUTEROL 3 ML NEB INHALATION SCH ×4 (08:35→20:43)
[2020-07-26] MEDS: BUDESONIDE 1 MG/2 ML NEBU INHALATION SCH ×2 (08:36→20:43)
[2020-07-26] MEDS: NICOTINE 7MG/24HR PATCH TRANSDERM SCH (08:36)
--- NOTE | 2020-07-26 10:29 | P.PN ---
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 axillary or hilar lymph nodes On radiation therapy to the brain which she wants to finish it Extensive history of smoking and nicotine use Recurrent pulmonary embolism on direct oral anticoagulant 07/26/2020, patient seen eval examined, patient is scheduled for palliative radiation today, oxygen is down to 4 L, stable pulmonary standpoint for discharge home 07/22/2020, patient seen eval examined during the rounds labs reviewed medications reviewed care plan discussed, respiratory status slightly better patient is on 50 L 50% high flow oxygen, slightly better than yesterday, today's chest x-ray reviewed continued to show complete atelectasis of the right lung appeared to be related to large endobronchial tumor/mass, we'll continue monitor observe closely no plans for bronchoscopy at this time as patient has been marginal high risk of injury is in respiratory failure, we'll continue conserva tive measures with bronchodilator, Mucomyst, chest PT 07/21/2020, patient continued to have shortness of breath still on high flow oxygen, radiation oncology and oncology service contemplating palliative radiation and chemotherapy, patient is at high risk of respiratory failure and ventilator requirement with anesthesia and bronchoscopy 07/20/2020, patient seen and evaluated examined, remains on high flow nasal cannula 90% 60 L saturation is 97% hemodynamically stable, patient is afebrile, patient being considered for palliative radiation and chemotherapy 07/19/2020, patient seen eval examined during the rounds labs reviewed medications reviewed ultrasound of the chest as well as the computed tomography scan reviewed, patient ultrasound revealed a small pleural effusion not enough to drain it, the computed tomography scan shows total atelectasis of the right lung which appears to have progressed there is an appearance of endobronchial mass on the right mainstem, care plan discussed with the patient and family, we'll not do the thoracentesis, bronchoscopy is an option avoided oxygenation is improved highly likely patient with end up with life support and ventilator currently, patient is on 100% nonrebreather mask and high flow oxygen, undergoing chest PT and physical therapy for the right lung as well as Mucomyst with bronchodilator to remove additional mucous plugs 07/18/2020, patient seen eval examined during the rounds labs reviewed medications reviewed care plan discussed, chest x-ray reviewed from this morning patient continued to have atelectasis of the right lung, discussed with the staff and respiratory therapist plan to start bronchodilators with Mucomyst ord ers given, will initiate chest PT as well, patient remains on high flow oxygen, oxygen saturation remains stable 90-92%, afebrile hemodynamic status is stable, chest x-ray performed today reviewed large pleural effusion on the right side cannot be excluded with secondary mucus plugging causing complete obliteration of right lung, will hold and requests order ultrasound of the chest as well Patient presented to the emergency department with complaints of dyspnea that started 1 day prior to admission. Patient presented to emergency department with progressive shortness of breath hypoxia and confusion she was initially seen by another pulmonary group but she elected to change the special agent group insurance. Currently patient is off of 100% nonrebreather [place] has been on BiPAP machine off and on with the BiPAP setting of 14/6 with 100% oxygen, patient has been switched to high flow oxygen sats are 91-92% plan is to use his BiPAP machine at night high flow during the day. She is complaining of a mild cough with some phlegm production, denies any fever, no leg pain or leg swelling, no nausea vomiting or diarrhea, patient tested negative for COVID 19. Chest x-ray showed bilateral pleural effusions with cardiomegaly and bibasilar infiltrates, and a diffuse interstitial pattern. Patient had significantly elevated white count at 32.8, hemoglobin was 14.6, serum sodium was 132, potassium is 4.4, chloride was 97, BUN of 12, creatinine 0.34, alkaline phosphatase was 256, troponin was less than 0.012. ProBNP was 850, lactic acid was 4.5. Patient was given 2 L in IV fluid bolus, and her maintenance IV fluids are infusing at a rate of 130 ML per hour, she was started on antibiotics with Zosyn and azithromycin. She is on breathing treatments. He is tachypneic and short of breath, improved mentation, she is providing simple answers to questions, her daughter at the bedside helping with the history. Patient's spouse recently a few months ago from metastatic lung cancer. Her past history significant of smoking and nicotine use is still smoking actively, patient was diagnosed as lung cancer stage IV in May 2020, patient had biopsy of right axillary mass, pathology significant for adenocarcinoma patient has advanced metastatic disease to the adrenal gland the spleen and hilar with excellent a floor, patient is currently on radiation, patient also has a history of pulmonary embolism has been on Coumadin, Patient has finished chemotherapy but appears to be still on radiation therapy she has been considered for hospice but however patient wants to complete radia tion therapy Her chest x-ray and July 16 showing near complete opacification of right hemithorax likely mucous plug and tumor related Objective - Vital Signs Vital signs: Vital Signs Temp 97.5 F L 07/26/20 08:15 Pulse 84 07/26/20 09:06 Resp 22 07/26/20 08:15 BP 130/76 07/26/20 08:15 Pulse Ox 98 07/26/20 08:15 Intake & Output 07/25/20 07/26/20 07/26/20 18:59 06:59 18:59 Intake Total 1080 Balance 1080 Weight 79 kg Intake: Oral 1080 Other: Voiding Method Toilet Toilet # Voids 1 1 - Exam - Constitutional General appearance: average body habitus, disheveled - EENT Eyes: PERRLA ENT: hearing grossly normal Ears: bilateral: normal - Neck Neck: normal ROM Carotids: bilateral: upstroke normal Thyroid: bilateral: normal size - Respiratory Respiratory: bilateral: diminished especially on the right side with poor air entry, wheezing (On forced expiration fine expiratory wheezing present) over left side - Cardiovascular Rhythm: regular Heart sounds: normal: S1, S2 - Gastrointestinal General gastrointestinal: normal bowel sounds - Neurologic Neurologic: CNII-XII intact - Musculoskeletal Musculoskeletal: gait normal, generalized weakness, strength equal bilaterally - Psychiatric Psychiatric: A&O x's 3, appropriate affect, intact judgment & insight - Labs CBC & Chem 7: 07/22/20 07:46 07/22/20 07:46 Labs: Abnormal Lab Results - Last 24 Hours (Table) 07/25/20 07/25/20 07/25/20 Range/Units 12:25 17:05 20:02 POC Glucose (mg/dL) 128 H 182 H 181 H (75-99) mg/dL 07/26/20 Range/Units 06:00 POC Glucose (mg/dL) 110 H (75-99) mg/dL Assessment and Plan Assessment: Right lung atelectasis likely tumor with some contribution with secondary mucus plugging Right-sided pleural effusion, small Acute on chronic hypoxic respiratory failure 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 axillary or hilar lymph nodes Bilateral pneumonia On radiation therapy to the brain which she wants to finish it Extensive history of smoking and nicotine use Recurrent pulmonary embolism on direct oral anticoagulant Plan: Agree with palliative chemo and radiation therapy Discharge planning follow-up as outpatient No plans for thoracentesis Patient is a poor surgical candidate for bronchoscopy as high risk of inducing respiratory failure and need for ventilator, repeat chest x-ray reviewed Continue bronchodilator with Mucomyst Continue physical therapy and chest PT Antibiotics can be changed to oral Ultrasound of the chest and computed tomography scan of the chest reviewed Continue supportive care with bronchodilators and IV steroids Radiation therapy to the brain as per patient choice Resume direct oral anticoagulants, we'll discuss with thoracic/radiation oncology Overall prognosis long-term very poor We'll follow clinical course closely further recommendations pending plan of c are as per clinical response of the patient Time with Patient: Greater than 30
[2020-07-26 12:37] LABS: Glucose,Whole Blood 132 mg/dL (75-99)
--- NOTE | 2020-07-26 13:16 | P.PN ---
Subjective Progress Note Date: 07/26/20 Principal diagnosis: dyspnea, lung cancer Patient states she is feeling better now. She is currently on 4L of O2 after being on hi-flow this Sunday. She has not been coughing much and she denies chest discomfort. She denies headache or nausea. Objective - Vital Signs Vital signs: Vital Signs Temp 97.5 F L 07/26/20 08:15 Pulse 86 07/26/20 12:28 Resp 22 07/26/20 08:15 BP 130/76 07/26/20 08:15 Pulse Ox 98 07/26/20 08:15 Intake & Output 07/25/20 07/26/20 07/26/20 18:59 06:59 18:59 Intake Total 1080 Balance 1080 Weight 79 kg Intake: Oral 1080 Other: Voiding Method Toilet Toilet # Voids 1 1 - Constitutional General appearance: Present: no acute distress - EENT Eyes: Present: EOMI, PERRLA ENT: Present: hearing grossly normal - Neck Neck: Absent: lymphadenopathy - Respiratory Respiratory: right: diminished, left: CTA - Cardiovascular Rhythm: regular - Gastrointestinal General gastrointestinal: Absent: distended - Integumentary Integumentary: Absent: pale, rash - Neurologic Neurologic: Present: CNII-XII intact - Musculoskeletal Musculoskeletal: Present: generalized weakness - Psychiatric Psychiatric: Present: A&O x's 3, appropriate affect - Labs CBC & Chem 7: 07/22/20 07:46 07/22/20 07:46 Labs: Abnormal Lab Results - Last 24 Hours (Table) 07/25/20 07/25/20 07/26/20 Range/Units 17:05 20:02 06:00 POC Glucose (mg/dL) 182 H 181 H 110 H (75-99) mg/dL 07/26/20 Range/Units 12:36 POC Glucose (mg/dL) 132 H (75-99) mg/dL Assessment and Plan Assessment: 49 year old female with recently diagnosed metastatic non-small cell lung cancer. She is status post 4 of 5 planned treatments for brain metastases when she was admitted with respiratory failure requiring BiPAP support. 1. Respiratory distress: Much improved, likely multifactorial. Right lung remains collapsed at least in part due to tumor obstruction. Discussed with patient undergoing a short course of palliative radiotherapy with the goal of opening the airway. She was agreeable and underwent CT Simulation this AM. Discharge later today is possible so we will have the patient return as outpatient tomorrow to continue with treatment (also to finish brain radiation). If she stays in house we will try to initiate treatment to the lung as soon as possible. 2. Metastatic NSCLC: Will need outpatient follow-up with medical oncology. If she continues to improve it would be reasonable to discuss systemic therapy. Time with Patient: Less than 30
[2020-07-26 17:24] LABS: Glucose,Whole Blood 178 mg/dL (75-99)
[2020-07-26 20:18] LABS: Glucose,Whole Blood 210 mg/dL (75-99)
--- NOTE | 2020-07-26 21:26 | P.PN ---
Subjective Progress Note Date: 07/26/20 Principal diagnosis: respiratory failure and metastatic cancer Patient seen earlier in day, up in chair on 3 liters oxygen. She is looking and feeling so much better. Radiation to begin tomorrow with Dr. Howard. Objective - Vital Signs Vital signs: Vital Signs Temp 97.8 F 07/26/20 17:00 Pulse 86 07/26/20 21:12 Resp 22 07/26/20 17:00 BP 130/79 07/26/20 17:00 Pulse Ox 96 07/26/20 17:00 Intake & Output 07/26/20 07/26/20 07/27/20 06:59 18:59 06:59 Intake Total 800 Output Total 200 Balance 600 Weight 79 kg Intake: Oral 800 Output: Urine 200 Other: Voiding Method Toilet # Voids 1 1 - Exam - Constitutional General appearance: average body habitus, cooperative, NAD 3Liter NC - EENT Eyes: anicteric sclerae, EOMI ENT: hearing grossly normal, normal oropharynx - Neck 6 cm right axillary mass, not certain if it is a node versus a soft tissue mass. No other adenopathy in the cervical, supraclavicular or left axilla Neck: lymphadenopathy - Respiratory Respiratory: right: other (absent breath sounds only a slight wheeze noted), left: rhonchi, wheezing, NC - Cardiovascular Rhythm: regular Heart sounds: normal: S1, S2 Abnormal Heart Sounds: no systolic murmur, no diastolic murmur, no rub, no S3 Gallop, no S4 Gallop, no click, no other leg Peripheral Edema: bilateral: None - Gastrointestinal General gastrointestinal: no absent bowel sounds, no decreased bowel sounds, no distended, no hepatomegaly, no hyperactive bowel sounds, normal bowel sounds, no organomegaly, no rigid, no scaphoid, soft, no splenomegaly, no tenderness, no um bilical hernia, no ventral hernia - Neurologic Neurologic: CNII-XII intact - Musculoskeletal Musculoskeletal: strength equal bilaterally - Psychiatric Psychiatric: A&O x's 3, appropriate affect, intact judgment & insight - Labs CBC & Chem 7: 07/22/20 07:46 07/22/20 07:46 Labs: Abnormal Lab Results - Last 24 Hours (Table) 07/26/20 07/26/20 07/26/20 Range/Units 06:00 12:36 17:22 POC Glucose (mg/dL) 110 H 132 H 178 H (75-99) mg/dL 07/26/20 Range/Units 20:16 POC Glucose (mg/dL) 210 H (75-99) mg/dL Assessment and Plan Plan: Chest x-ray: report reviewed Assessment and Plan Acute respiratory failure - Pulmonary is following - Patient has a history of a PE. on anticoagulation, Brain mets have been radiated no sign of hemorrhagic lesions Non-small cell lung cancer (NSCLC) - Status Post radiation to the brain plan for palliative chemotherapy -Appears to have rapid progression, worsening respiratory status due to airway obstruction or possibly lymphangitic spread of disease. Long discussion regarding code status last week, and code status was changed to no CPR, since this time she has been changed back to FULL CPR, they are not ready to discuss hospice care, understanding her overall prognosis is poor and goals of care are strictly palliative. Current Visit: Yes Status: Acute Priority: High Code(s): C34.90 - MALIGNANT NEOPLASM OF UNSP PART OF UNSP BRONCHUS OR LUNG SNOMED Code(s): 869369224 PLan: - Nasal canula and holding adequate saturation, will trial palliaitive radiation this week. - Will follow up with us shortly after radiation complete for options of palliaitive chemo - Long discussion with patient and daughter this afternoon - Ok for discharge from oncology perspective
[2020-07-27] MEDS: HYDROmorphone 1 MG/ML 1 ML SYRINGE IVP PRN ×2 (00:50→09:26)
[2020-07-27] MEDS: HYDROcodone/APAP 10-325MG 1 EACH TAB PO PRN (05:42)
[2020-07-27] MEDS: methylPREDNISolone SOD SUCCI 125 MG/2 ML VIAL IV SCH ×2 (05:43→12:35)
[2020-07-27 06:12] LABS: Glucose,Whole Blood 125 mg/dL (75-99)
[2020-07-27] MEDS: INSULIN ASPART (NovoLOG) 100 UNIT/ML VIAL SQ SCH ×2 (06:19→12:37)
--- NOTE | 2020-07-27 07:50 | P.DS ---
Providers Date of admission: 07/15/20 14:25 Attending physician: Richie Vickers Consults: 07/15/20 14:26 Consult Physician Urgent Consulting Provider: Mahsa Castro Consult Reason/Comments: dyspnea Do you want consulting provider notified?: Already Contacted 07/15/20 17:34 Consult Physician Routine Consulting Provider: Shivam Howard Consult Reason/Comments: pt currently receiving radiation Do you want consulting provider notified?: Yes, Notify in am 07/17/20 04:35 Consult Physician Routine Consulting Provider: Codey Ferris Consult Reason/Comments: dyspnea, lung cancer Do you want consulting provider notified?: Yes, Notify in am Primary care physician: Richie Vickers - Discharge Diagnosis(es) (1) Acute respiratory failure Current Visit: Yes Status: Acute Priority: High (2) Non-small cell lung cancer (NSCLC) Current Visit: Yes Status: Acute Priority: High (3) Cigarette nicotine dependence Current Visit: No Status: Acute Hospital Course: This discharge summary 49-year-old white female essentially admitted for significant respiratory failure. The patient has underlying history of metastatic non-small cell cancer. Multiple consultants were convene including pulmonology and oncology and a treatment plan was produced. She is going to have palliative care with radiation treatment. The patient is stable for di scharge she had significant need for supplemental oxygen but she is now able to go home on oxygen therapy at a minimal rate. She is tolerating diet without significant new voiding difficulties. The patient will have significant prognosis but will be sent home with palliative care. The patient will be discharged once cleared by consultants Patient Condition at Discharge: Serious Plan - Discharge Summary Discharge Rx Participant: No New Discharge Prescriptions: New Docusate [Colace] 100 mg PO BID #60 cap Magnesium Oxide [Mag-Ox] 400 mg PO BID #60 tab Formoterol Fumarate [Perforomist] 20 mcg INHALATION RT-BID #60 nebu Budesonide [Pulmicort] 1 mg INHALATION RT-BID #120 ml predniSONE [Deltasone] 0 mg PO DIRECTED #18 tab Ipratropium-Albuterol Nebulize [Duoneb 0.5 mg-3 mg/3 ml Soln] 3 ml INHALATION RT-QID ml Nicotine 7Mg/24Hr Patch [Habitrol] 1 patch TRANSDERM DAILY #30 patch Continue Levothyroxine Sodium [Synthroid] 88 mcg PO DAILY Ibuprofen 800 mg PO TID PRN PRN Reason: Pain ALPRAZolam [Xanax] 0.25 mg PO TID PRN PRN Reason: Anxiety Albuterol Nebulized [Ventolin Nebulized] 2.5 mg INHALATION RT-QID PRN PRN Reason: Shortness Of Breath Albuterol Inhaler [Ventolin Hfa Inhaler] 2 puff INHALATION RT-QID PRN PRN Reason: Shortness Of Breath Potassium Chloride ER [K-Dur 20] 40 meq PO DAILY HYDROcodone/APAP 10-325MG [[place] 10-325] 1 tab PO Q4H PRN PRN Reason: Pain Omeprazole 40 mg PO DAILY Apixaban [Eliquis] 2.5 mg PO BID Magnesium Oxide 400 mg PO BID Dexamethasone [Decadron] 4 mg PO TID Ascorbic Acid [Vitamin C] 1,000 mg PO DAILY Discharge Medication List Levothyroxine Sodium [Synthroid] 88 mcg PO DAILY 04/20/14 [History] Ibuprofen 800 mg PO TID PRN 07/03/17 [History] ALPRAZolam [Xanax] 0.25 mg PO TID PRN 11/27/18 [History] Albuterol Inhaler [Ventolin Hfa Inhaler] 2 puff INHALATION RT-QID PRN 07/15/20 [History] Albuterol Nebulized [Ventolin Nebulized] 2.5 mg INHALATION RT-QID PRN 07/15/20 [History] Apixaban [Eliquis] 2.5 mg PO BID 07/15/20 [History] Ascorbic Acid [Vitamin C] 1,000 mg PO DAILY 07/15/20 [History] Dexamethasone [Decadron] 4 mg PO TID 07/15/20 [History] HYDROcodone/APAP 10-325MG [[place] 10-325] 1 tab PO Q4H PRN 07/15/20 [History] Magnesium Oxide 400 mg PO BID 07/15/20 [History] Omeprazole 40 mg PO DAILY 07/15/20 [History] Potassium Chloride ER [K-Dur 20] 40 meq PO DAILY 07/15/20 [History] Budesonide [Pulmicort] 1 mg INHALATION RT-BID #120 ml 07/27/20 [Rx] Docusate [Colace] 100 mg PO BID #60 cap 07/27/20 [Rx] Formoterol Fumarate [Perforomist] 20 mcg INHALATION RT-BID #60 nebu 07/27/20 [Rx] Ipratropium-Albuterol Nebulize [Duoneb 0.5 mg-3 mg/3 ml Soln] 3 ml INHALATION RT-QID ml 07/27/20 [Rx] Magnesium Oxide [Mag-Ox] 400 mg PO BID #60 tab 07/27/20 [Rx] Nicotine 7Mg/24Hr Patch [Habitrol] 1 patch TRANSDERM DAILY #30 patch 07/27/20 [Rx] predniSONE [Deltasone] 0 mg PO DIRECTED #18 tab 07/27/20 [Rx] Follow up Appointment(s)/Referral(s): Richie Vickers MD [Primary Care Provider] - [facility], [NON-STAFF] - [facility] [NON-STAFF] - Mahsa Castro MD [STAFF PHYSICIAN] - 07/20/20 1:45 pm Activity/Diet/Wound Care/Special Instructions: Patient will require Home O2 and a nebulizer due to Non-small cell lung CA and COPD. Patient will require a hospital bed due to needing the head of bed at 30 Degrees due to COPD and Non-small cell lung CA. Discharge Disposition: HOME WITH HOME HEALTH SERVICES
--- NOTE | 2020-07-27 07:51 | P.PN ---
Subjective Principal diagnosis: Weakness shortness of breath adenocarcinoma This is a continue progress on a 49-year-old female essentially admitted for respiratory failure related to carcinoma. The patient is doing well now with minimal supplementation. She's been placed on palliative care and will be hopefully discharge in a.m. Bronchoscopy is being Declined at this time secondary to her overall risk of intubation. The patient states poor sleep but she looks better rested today. Objective - Vital Signs Vital signs: Vital Signs Temp 98.1 F 07/27/20 04:25 Pulse 78 07/27/20 04:25 Resp 19 07/27/20 04:25 BP 141/68 07/27/20 04:25 Pulse Ox 98 07/27/20 04:25 Intake & Output 07/26/20 07/27/20 07/27/20 18:59 06:59 18:59 Intake Total 800 Output Total 200 0 Balance 600 0 Weight 77.6 kg Intake: Oral 800 Output: Urine 200 0 Other: Voiding Method Toilet # Voids 0 - Constitutional General appearance: Present: mild distress - EENT Eyes: Absent: abnormal pupil - Neck Neck: Absent: lymphadenopathy - Respiratory Respiratory: bilateral: diminished - Cardiovascular Rhythm: regular Heart sounds: normal: S1, S2 Abnormal Heart Sounds: Absent: S3 Gallop - Gastrointestinal General gastrointestinal: Present: soft. Absent: tenderness - Integumentary Integumentary: Present: normal - Musculoskeletal Musculoskeletal: Present: generalized weakness - Psychiatric Psychiatric: Present: appropriate affect - Labs CBC & Chem 7: 07/22/20 07:46 07/22/20 07:46 Labs: Abnormal Lab Results - Last 24 Hours (Table) 07/26/20 07/26/20 07/26/20 Range/Units 12:36 17:22 20:16 POC Glucose (mg/dL) 132 H 178 H 210 H (75-99) mg/dL 07/27/20 Range/Units 06:10 POC Glucose (mg/dL) 125 H (75-99) mg/dL Assessment and Plan (1) Acute respiratory failure Current Visit: Yes Status: Acute Priority: High Code(s): J96.00 - ACUTE RESPIRATORY FAILURE, UNSP W HYPOXIA OR HYPERCAPNIA SNOMED Code(s): 23302495 (2) Non-small cell lung cancer (NSCLC) Current Visit: Yes Status: Acute Priority: High Code(s): C34.90 - MALIGNANT NEOPLASM OF UNSP PART OF UNSP BRONCHUS OR LUNG SNOMED Code(s): 854585573 (3) Cigarette nicotine dependence Current Visit: No Status: Acute Code(s): F17.210 - NICOTINE DEPENDENCE, C IGARETTES, UNCOMPLICATED SNOMED Code(s): 25466874 Plan: Continue significant respiratory support. Relative improvement compared to several days ago. Reconcile medications. Anxiety medications as necessary. Prognosis is poor given her overall comorbidities Continue supportive care. Anticipate discharge with palliative care in a.m. Time with Patient: Greater than 30
[2020-07-27] MEDS: BUDESONIDE 1 MG/2 ML NEBU INHALATION SCH (08:55)
[2020-07-27] MEDS: IPRATROPIUM-ALBUTEROL 3 ML NEB INHALATION SCH ×2 (08:55→11:16)
[2020-07-27] MEDS: FORMOTEROL FUMARATE 20 MCG/2 ML NEBU INHALATION SCH (08:55)
[2020-07-27] MEDS: ACETYLCYSTEINE 800 MG/4 ML VIAL INHALATION SCH ×2 (08:55→11:16)
[2020-07-27] MEDS: DOCUSATE 100 MG CAP PO SCH (09:26)
[2020-07-27] MEDS: HEPARIN SODIUM,PORCINE/PF 5,000 UNIT/0.5 ML SYRINGE SQ SCH (09:26)
[2020-07-27] MEDS: MAGNESIUM OXIDE 400 MG TAB PO SCH (09:26)
[2020-07-27] MEDS: NICOTINE 7MG/24HR PATCH TRANSDERM SCH (09:27)
[2020-07-27] MEDS: FAMOTIDINE 20 MG/2 ML VIAL IV SCH (09:27)
[2020-07-27 09:35] VITALS: BP 125/80; RESP 24; TEMP 97.5
--- NOTE | 2020-07-27 10:09 | P.PN ---
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 axillary or hilar lymph nodes On radiation therapy to the brain which she wants to finish it Extensive history of smoking and nicotine use Recurrent pulmonary embolism on direct oral anticoagulant 07/27/2020, patient seen eval examined sitting upright on the chair breathing comfortably on 3 L oxygen, patient continued to get physical therapy, symptoms significantly improved, patient is status post palliative radiation earlier this morning today, agree with discharge planning, would recommend to follow-up as outpatient in office continue palliative radiation and being planned for palliative chemotherapy down the road with support 07/26/2020, patient seen eval examined, patient is scheduled for palliative radiation today, oxygen is down to 4 L, stable pulmonary standpoint for discharge home 07/22/2020, patient seen evzane examined during the rounds labs reviewed medications reviewed care plan discussed, respiratory status slightly better patient is on 50 L 50% high flow oxygen, slightly better than yesterday, today's chest x-ray reviewed continued to show complete atelectasis of the right lung appeared to be related to large endobronchial tumor/mass, we'll continue monitor observe closely no plans for bronchoscopy at this time as patient has been marginal high risk of injury is in respiratory failure, we'll continue conservative measures with bronchodilator, Mucomyst, chest PT 07/21/2020, patient continued to have shortness of breath still on high flow oxygen, radiation oncology and oncology service contemplating palliative radiation and chemotherapy, patient is at high risk of respiratory failure and ventilator requirement with anesthesia and bronchoscopy 07/20/2020, patient seen and evaluated examined, remains on high flow nasal cannula 90% 60 L saturation is 97% hemodynamically stable, patient is afebrile, patient being considered for palliative radiation and chemotherapy 07/19/2020, patient seen evzane examined during the rounds labs reviewed medications reviewed ultrasound of the chest as well as the computed tomography scan reviewed, patient ultrasound revealed a small pleural effusion not enough to drain it, the computed tomography scan shows total atelectasis of the right lung which appears to have progressed there is an appearance of endobronchial mass on the right mainstem, care plan discussed with the patient and family, we'll not do the thoracentesis, bronchoscopy is an option avoided oxygenation is improved highly likely patient with end up with life support and ventilator currently, patient is on 100% nonrebreather mask and high flow oxygen, u ndergoing chest PT and physical therapy for the right lung as well as Mucomyst with bronchodilator to remove additional mucous plugs 07/18/2020, patient seen eval examined during the rounds labs reviewed medications reviewed care plan discussed, chest x-ray reviewed from this morning patient continued to have atelectasis of the right lung, discussed with the staff and respiratory therapist plan to start bronchodilators with Mucomyst orders given, will initiate chest PT as well, patient remains on high flow oxygen, oxygen saturation remains stable 90-92%, afebrile hemodynamic status is stable, chest x-ray performed today reviewed large pleural effusion on the right side cannot be excluded with secondary mucus plugging causing complete obliteration of right lung, will hold and requests order ultrasound of the chest as well Patient presented to the emergency department with complaints of dyspnea that started 1 day prior to admission. Patient presented to emergency department with progressive shortness of breath hypoxia and confusion she was initially seen by another pulmonary group but she elected to change the horse groomer. Currently patient is off of 100% nonrebreather [place] has been on BiPAP machine off and on with the BiPAP setting of 14/6 with 100% oxygen, patient has been switched to high flow oxygen sats are 91-92% plan is to use his BiPAP machine at night high flow during the day. She is complaining of a mild cough with some phlegm production, denies any fever, no leg pain or leg swelling, no nausea vomiting or diarrhea, patient tested negative for COVID 19. Chest x-ray showed bilateral pleural effusions with cardiomegaly and bibasilar infiltrates, and a diffuse interstitial pattern. Patient had significantly elevated white count at 32.8, hemoglobin was 14.6, serum sodium was 132, potassium is 4.4, chloride was 97, BUN of 12, creatinine 0.34, alkaline phosphatase was 256, troponin was less than 0.012. ProBNP was 850, lactic acid was 4.5. Patient was given 2 L in IV fluid bolus, and her maintenance IV fluids are infusing at a rate of 130 ML per hour, she was started on antibiotics with Zosyn and azithromycin. She is on breathing treatments. He is tachypneic and short of breath, improved mentation, she is providing simple answers to questions, her daughter at the bedside helping with the history. Patient's spouse recently a few months ago from metastatic lung cancer. Her past history significant of smoking and nicotine use is still smoking actively, patient was diagnosed as lung cancer stage IV in May 2020, patient had biopsy of right axillary mass, pathology significant for adenocarcinoma patient has advanced metastatic disease to the adrenal gland the spleen and hilar with excellent a floor, patient is currently on radiation, patient also has a history of pulmonary embolism has been on Coumadin, Patient has finished chemotherapy but appears to be still on radiation therapy she has been considered for hospice but however patient wants to complete radiation therapy Her chest x-ray and July 16 showing near complete opacification of right hemithorax likely mucous plug and tumor related Objective - Vital Signs Vital signs: Vital Signs Temp 97.5 F L 07/27/20 09:00 Pulse 94 07/27/20 09:00 Resp 24 07/27/20 09:00 BP 125/80 07/27/20 09:00 Pulse Ox 95 07/27/20 09:00 Intake & Output 07/26/20 07/27/20 07/27/20 18:59 06:59 18:59 Intake Total 800 240 Output Total 200 0 Balance 600 0 240 Weight 77.6 kg Intake: Oral 800 240 Output: Urine 200 0 Other: Voiding Method Toilet # Voids 0 - Exam - Constitutional General appearance: average body habitus, disheveled - EENT Eyes: PERRLA ENT: hearing grossly normal Ears: bilateral: normal - Neck Neck: normal ROM Carotids: bilateral: upstroke normal Thyroid: bilateral: normal size - Respiratory Respiratory: bilateral: diminished especially on the right side with poor air entry, wheezing (On forced expiration fine expiratory wheezing present) over left side - Cardiovascular Rhythm: regular Heart sounds: normal: S1, S2 - Gastrointestinal General gastrointestinal: normal bowel sounds - Neurologic Neurologic: CNII-XII intact - Musculoskeletal Musculoskeletal: gait normal, generalized weakness, strength equal bilaterally - Psychiatric Psychiatric: A&O x's 3, appropriate affect, intact judgment & insight - Labs CBC & Chem 7: 07/22/20 07:46 07/22/20 07:46 Labs: Abnormal Lab Results - Last 24 Hours (Table) 07/26/20 07/26/2021 Range/Units 12:36 17:22 20:16 POC Glucose (mg/dL) 132 H 178 H 210 H (75-99) mg/dL 07/27/20 Range/Units 06:10 POC Glucose (mg/dL) 125 H (75-99) mg/dL Assessment and Plan Assessment: Right lung atelectasis likely tumor with some contribution with secondary mucus plugging Right-sided pleural effusion, small Acute on chronic hypoxic respiratory failure 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 axillary or hilar lymph nodes Bilateral pneumonia On radiation therapy to the brain which she wants to finish it Extensive history of smoking and nicotine use Recurrent pulmonary embolism on direct oral anticoagulant Plan: Agree with palliative chemo and radiation therapy Discharge planning follow-up as outpatient No plans for thoracentesis Patient is a poor surgical candidate for bronchoscopy as high risk of inducing respiratory failure and need for ventilator, repeat chest x-ray reviewed Continue bronchodilator with Mucomyst Continue physical therapy and chest PT Antibiotics can be changed to oral Ultrasound of the chest and computed tomography scan of the chest reviewed Continue supportive care with bronchodilators and IV steroids Radiation therapy to the brain as per patient choice Resume direct oral anticoagulants, we'll discuss with thoracic/radiation oncology Overall prognosis long-term very poor We'll follow clinical course closely further recommendations pending plan of care as per clinical response of the patient Time with Patient: Greater than 30
[2020-07-27 11:21] VITALS: PULSE 90
[2020-07-27 11:59] LABS: Glucose,Whole Blood 104 mg/dL (75-99)
== END 2020-07-27 13:46 | disposition home health service (06) | DRG 871 ==
LOC: EC 11:43 → 3SCARD 14:25
PROVIDERS: ADMIT Family Medicine; ATTEND Family Medicine
PROC: 5A09357 Assistance with Respiratory Ventilation, Less than 24 Consecutive Hours, Continuous Positive Airway Pressure (ICD-10-PCS; principal; 2020-07-15)
PROC: 5A0945A Assistance with Respiratory Ventilation, 24-96 Consecutive Hours, High Flow/Velocity Cannula (ICD-10-PCS; 2020-07-15)
DX: A41.9 Sepsis, unspecified organism (principal); J18.9 Pneumonia, unspecified organism; J96.21 Acute and chronic respiratory failure with hypoxia; J96.22 Acute and chronic respiratory failure with hypercapnia; C34.90 Malignant neoplasm of unspecified part of unspecified bronchus or lung; C77.3 Secondary and unspecified malignant neoplasm of axilla and upper limb lymph nodes; C79.31 Secondary malignant neoplasm of brain; C79.72 Secondary malignant neoplasm of left adrenal gland; C77.1 Secondary and unspecified malignant neoplasm of intrathoracic lymph nodes; C78.01 Secondary malignant neoplasm of right lung; J44.0 Chronic obstructive pulmonary disease with (acute) lower respiratory infection; J44.1 Chronic obstructive pulmonary disease with (acute) exacerbation; J90 Pleural effusion, not elsewhere classified; J98.11 Atelectasis; E87.2 Acidosis; E03.9 Hypothyroidism, unspecified; F17.210 Nicotine dependence, cigarettes, uncomplicated; F32.9 Major depressive disorder, single episode, unspecified; F41.9 Anxiety disorder, unspecified; Z51.5 Encounter for palliative care; M19.90 Unspecified osteoarthritis, unspecified site; T17.990A Other foreign object in respiratory tract, part unspecified in causing asphyxiation, initial encounter; Z20.822 Contact with and (suspected) exposure to COVID-19; G89.29 Other chronic pain; M47.816 Spondylosis without myelopathy or radiculopathy, lumbar region; Z86.711 Personal history of pulmonary embolism; Z79.01 Long term (current) use of anticoagulants; Z86.718 Personal history of other venous thrombosis and embolism; Z79.890 Hormone replacement therapy; Z83.3 Family history of diabetes mellitus; Z82.69 Family history of other diseases of the musculoskeletal system and connective tissue; Z86.14 Personal history of Methicillin resistant Staphylococcus aureus infection; Z92.3 Personal history of irradiation; Z98.1 Arthrodesis status; Z99.81 Dependence on supplemental oxygen; Z63.4 Disappearance and death of family member
CPT/HCPCS: 36415; 71045; 71275; 76604; 77280; 77290; 77295; 77300; 77332; 77334; 77412; 80048; 80053; 82803; 83605; 83735; 83880; 84484; 85025; 85027; 85610; 85730; 87040; 87070; 87205; 87635; 93005; 94640; 94660; 94667; 94668; 94760; 99291

== ENCOUNTER 2020-08-06 23:41 | Inpatient (IN) | payer MEDICARE, OTHER ==
[2020-08-07] MEDS ORDERED: IPRATROPIUM-ALBUTEROL 3 ML NEB INHALATION STA (00:07)
[2020-08-07] MEDS ORDERED: SODIUM CHLORIDE 0.9% 1,000 ML IV STA (00:08)
[2020-08-07] MEDS ORDERED: SODIUM CHLORIDE 0.9% 1,200 ML IV ONE (00:08)
--- NOTE | 2020-08-07 00:13 | ED ---
SOB HPI - General Chief Complaint: Shortness of Breath Stated Complaint: Low O2 Time Seen by Provider: 08/06/20 23:54 Source: patient, family Mode of arrival: wheelchair Limitations: no limitations - History of Present Illness Initial Comments: This patient is a 49-year-old woman with history of lung cancer who presents today because her oxygen saturations have been low at home. Patient was in usual state of health until about 2 days ago. Her daughter states that the cough is been increasing over that time. Over the course of today the oxygen saturations at home weren't down into the 60s, and when they discussed with the on-call, they were recommended to go to the emergency department. The patient denies any new chest pain. She does acknowledge increased cough over the past couple of days. She has been feeling a little short of breath. MD Complaint: shortness of breath, cough -: days(s) Severity scale (1-10): 0 Consistency: constant Improves With: nothing Worsens With: nothing Known History Of: COPD, other (Lung cancer) Associated Symptoms: cough Treatments Prior to Arrival: oxygen - Related Data Home Oxygen Therapy: Yes Home Oxygen Amount: 4 Liters Home Medications Medication Instructions Recorded Confirmed Levothyroxine Sodium [Synthroid] 88 mcg PO DAILY 04/20/14 08/07/20 Ibuprofen 800 mg PO TID PRN 07/03/17 08/07/20 Albuterol Inhaler [Ventolin Hfa 2 puff INHALATION RT-QID PRN 07/15/20 08/07/20 Inhaler] Albuterol Nebulized [Ventolin 2.5 mg INHALATION RT-QID PRN 07/15/20 08/07/20 Nebulized] Apixaban [Eliquis] 2.5 mg PO BID 07/15/20 08/07/20 Ascorbic Acid [Vitamin C] 1,000 mg PO DAILY 07/15/20 08/07/20 Dexamethasone [Decadron] See Taper PO DIRECTED 07/15/20 08/07/20 Magnesium Oxide 400 mg PO BID 07/15/20 08/07/20 Omeprazole 40 mg PO DAILY 07/15/20 08/07/20 Potassium Chloride ER [K-Dur 20] 40 meq PO DAILY 07/15/20 08/07/20 diazePAM [Valium] 5 mg PO BID PRN 08/07/20 08/07/20 oxyCODONE HCL/ACETAMINOPHEN 1 tablet PO Q4H PRN 08/07/20 08/07/20 [Percocet 10-325 mg] Previous Rx's Medication Instructions Recorded Budesonide [Pulmicort] 1 mg INHALATION RT-BID #120 ml 07/27/20 Docusate [Colace] 100 mg PO BID #60 cap 07/27/20 Formoterol Fumarate [Perforomist] 20 mcg INHALATION RT-BID #60 nebu 07/27/20 Ipratropium-Albuterol Nebulize 3 ml INHALATION RT-QID ml 07/27/20 [Duoneb 0.5 mg-3 mg/3 ml Soln] Magnesium Oxide [Mag-Ox] 400 mg PO BID #60 tab 07/27/20 Nicotine 7Mg/24Hr Patch [Habitrol] 1 patch TRANSDERM DAILY #30 patch 07/27/20 Amoxicillin/Potassium Clav 1 tab PO BID 7 Days #14 tab 08/09/20 [Augmentin 875-125 Tablet] Allergies Allergy/AdvReac Type Severity Reaction Status Date / Time Morpholine Analogues AdvReac Intermediate Hallucinati Verified 08/07/20 09:28 ons tramadol HCl [From Ultram] AdvReac Mild Unknown Verified 08/07/20 09:28 Review of Systems ROS Statement: Those systems with pertinent positive or pertinent negative responses have been documented in the HPI. ROS Other: All systems not noted in ROS Statement are negative. Constitutional: Reports: chills. Denies: fever Respiratory: Reports: cough, dyspnea. Denies: hemoptysis Cardiovascular: Denies: chest pain, palpitations, orthopnea, edema, syncope Gastrointestinal: Denies: abdominal pain, nausea, vomiting Genitourinary: Denies: dysuria, hematuria Musculoskeletal: Denies: back pain Skin: Denies: rash Neurological: Denies: headache, weakness, numbness Past Medical History Past Medical History: Cancer, COPD, Deep Vein Thrombosis (DVT), GERD/Reflux, Osteoarthritis (OA), Pulmonary Embolus (PE), Respiratory Disorder, Thyroid Disorder Additional Past Medical History / Comment(s): 04/2020 R axilla mass/biopsy/metastatic cancer, R lung to several areas including the brain/pt receiving radiation treatments, recurrent PEs. History of Any Multi-Drug Resistant Organisms: MRSA Date of last positivie culture/infection: 2007 MDRO Source:: culture back Past Surgical History: Back Surgery, Section, Tonsillectomy Additional Past Surgical History / Comment(s): R axillary mass bx, back surgery x7, screws in back. Past Anesthesia/Blood Transfusion Reactions: No Reported Reaction Past Psychological History: Anxiety, Depression Smoking Status: Former smoker Past Alcohol Use History: Occasional Past Drug Use History: Marijuana - Past Family History Father Family Medical History: No Reported History Additional Family Medical History / Comment(s): never knew father. Mother Family Medical History: Diabetes Mellitus, Musculoskeletal Disorder General Exam Limitations: no limitations General appearance: alert, in no apparent distress Head exam: Present: atraumatic, normocephalic Eye exam: Present: normal appearance. Absent: scleral icterus, conjunctival injection ENT exam: Present: normal oropharynx Respiratory exam: Present: respiratory distress, wheezes, rales, rhonchi. Absent: stridor, accessory muscle use, decreased breath sounds Cardiovascular Exam: Present: normal rhythm, tachycardia, normal heart sounds. Absent: systolic murmur, diastolic murmur, rubs, gallop GI/Abdominal exam: Present: soft. Absent: distended, tenderness, guarding, rebound, rigid, mass Extremities exam: Present: normal inspection, normal capillary refill. Absent: pedal edema, calf tenderness Back exam: Present: normal inspection. Absent: CVA tenderness (R), CVA tenderness (L) Neurological exam: Present: alert Skin exam: Present: warm, dry, intact, normal color. Absent: rash Course Vital Signs 08/06/20 08/07/20 08/07/20 23:42 00:24 00:32 Temperature 99.9 F H Pulse Rate 123 H 119 H 119 H Pulse Rate [ Pulse Oximetery ] Respiratory 26 H 25 H 21 Rate Blood Pressure 103/66 Blood Pressure [Left Arm] O2 Sat by Pulse 86 L Oximetry 08/07/20 08/07/20 08/07/20 01:30 01:56 02:58 Temperature 98.5 F 99.8 F H Pulse Rate 108 H 104 H Pulse Rate [ 106 H Pulse Oximetery ] Respiratory 18 22 22 Rate Blood Pressure 114/87 118/82 Blood Pressure 100/68 [Left Arm] O2 Sat by Pulse 98 96 91 L Oximetry Medical Decision Making - Medical Decision Making Patient's 49-year-old woman with lung cancer presenting with decreased pulse ox readings over past day. Patient clinically appearing to have superimposed pne umonia. Also elevated d-dimer. Patient sent for CT which does not reveal pulmonary embolism. Will admit for antibiotics, fluids, oxygen and pulmonary consultation. - Lab Data Result diagrams: 08/08/20 07:01 08/08/20 07:01 Lab Results 08/07/20 08/07/20 08/07/20 Range/Units 00:15 00:15 00:15 WBC 5.7 (3.8-10.6) k/uL RBC 3.53 L (3.80-5.40) m/uL Hgb 10.7 L (11.4-16.0) gm/dL Hct 32.2 L (34.0-46.0) % MCV 91.1 (80.0-100.0) fL MCH 30.2 (25.0-35.0) pg MCHC 33.1 (31.0-37.0) g/dL RDW 15.2 (11.5-15.5) % Plt Count 144 L (150-450) k/uL MPV 8.1 Neutrophils % (Manual) 81 % Band Neuts % (Manual) 9 % Lymphocytes % (Manual) 5 % Monocytes % (Manual) 5 % Neutrophils # (Manual) 5.10 (1.3-7.7) k/uL Lymphocytes # (Manual) 0.29 L (1.0-4.8) k/uL Monocytes # (Manual) 0.29 (0-1.0) k/uL Nucleated RBCs 0 (0-0) /100 WBC Manual Slide Review Performed PT 11.4 (9.0-12.0) sec INR 1.1 (<1.2) APTT 22.3 (22.0-30.0) sec D-Dimer 2.05 H (<0.60) mg/L FEU Sodium 129 L (137-145) mmol/L Potassium 4.0 (3.5-5.1) mmol/L Chloride 92 L (98-107) mmol/L Carbon Dioxide 27 (22-30) mmol/L Anion Gap 10 mmol/L BUN 15 (7-17) mg/dL Creatinine 0.36 L (0.52-1.04) mg/dL Est GFR (CKD-EPI)AfAm >90 (>60 ml/min/1.73 sqM) Est GFR (CKD-EPI)NonAf >90 (>60 ml/min/1.73 sqM) Glucose 145 H (74-99) mg/dL POC Glucose (mg/dL) (75-99) mg/dL POC Glu [employer] ID Plasma Lactic Acid Malvin (0.7-2.0) mmol/L Calcium 9.1 (8.4-10.2) mg/dL Magnesium 1.5 L (1.6-2.3) mg/dL Total Bilirubin 1.0 (0.2-1.3) mg/dL AST 24 (14-36) U/L ALT 26 (4-34) U/L Alkaline Phosphatase 267 H (38-126) U/L Troponin I (0.000-0.034) ng/mL NT-Pro-B Natriuret Pep pg/mL Total Protein 6.0 L (6.3-8.2) g/dL Albumin 3.0 L (3.5-5.0) g/dL 08/07/20 08/07/20 08/07/20 Range/Units 00:15 00:15 00:35 WBC (3.8-10.6) k/uL RBC (3.80-5.40) m/uL Hgb (11.4-16.0) gm/dL Hct (34.0-46.0) % MCV (80.0-100.0) fL MCH (25.0-35.0) pg MCHC (31.0-37.0) g/dL RDW (11.5-15.5) % Plt Count (150-450) k/uL MPV Neutrophils % (Manual) % Band Neuts % (Manual) % Lymphocytes % (Manual) % Monocytes % (Manual) % Neutrophils # (Manual) (1.3-7.7) k/uL Lymphocytes # (Manual) (1.0-4.8) k/uL Monocytes # (Manual) (0-1.0) k/uL Nucleated RBCs (0-0) /100 WBC Manual Slide Review PT (9.0-12.0) sec INR (<1.2) APTT (22.0-30.0) sec D-Dimer (<0.60) mg/L FEU Sodium (137-145) mmol/L Potassium (3.5-5.1) mmol/L Chloride (98-107) mmol/L Carbon Dioxide (22-30) mmol/L Anion Gap mmol/L BUN (7-17) mg/dL Creatinine (0.52-1.04) mg/dL Est GFR (CKD-EPI)AfAm (>60 ml/min/1.73 sqM) Est GFR (CKD-EPI)NonAf (>60 ml/min/1.73 sqM) Glucose (74-99) mg/dL POC Glucose (mg/dL) 146 H (75-99) mg/dL POC Glu [employer] ID Carballo, Mildred Plasma Lactic Acid Malvin (0.7-2.0) mmol/L Calcium (8.4-10.2) mg/dL Magnesium (1.6-2.3) mg/dL Total Bilirubin (0.2-1.3) mg/dL AST (14-36) U/L ALT (4-34) U/L Alkaline Phosphatase (38-126) U/L Troponin I <0.012 (0.000-0.034) ng/mL NT-Pro-B Natriuret Pep 258 pg/mL Total Protein (6.3-8.2) g/dL Albumin (3.5-5.0) g/dL 08/07/20 Range/Units 01:34 WBC (3.8-10.6) k/uL RBC (3.80-5.40) m/uL Hgb (11.4-16.0) gm/dL Hct (34.0-46.0) % MCV (80.0-100.0) fL MCH (25.0-35.0) pg MCHC (31.0-37.0) g/dL RDW (11.5-15.5) % Plt Count (150-450) k/uL MPV Neutrophils % (Manual) % Band Neuts % (Manual) % Lymphocytes % (Manual) % Monocytes % (Manual) % Neutrophils # (Manual) (1.3-7.7) k/uL Lymphocytes # (Manual) (1.0-4.8) k/uL Monocytes # (Manual) (0-1.0) k/uL Nucleated RBCs (0-0) /100 WBC Manual Slide Review PT (9.0-12.0) sec INR (<1.2) APTT (22.0-30.0) sec D-Dimer (<0.60) mg/L FEU Sodium (137-145) mmol/L Potassium (3.5-5.1) mmol/L Chloride (98-107) mmol/L Carbon Dioxide (22-30) mmol/L Anion Gap mmol/L BUN (7-17) mg/dL Creatinine (0.52-1.04) mg/dL Est GFR (CKD-EPI)AfAm (>60 ml/min/1.73 sqM) Est GFR (CKD-EPI)NonAf (>60 ml/min/1.73 sqM) Glucose (74-99) mg/dL POC Glucose (mg/dL) (75-99) mg/dL POC Glu [employer] ID Plasma Lactic Acid Malvin 2.0 (0.7-2.0) mmol/L Calcium (8.4-10.2) mg/dL Magnesium (1.6-2.3) mg/dL Total Bilirubin (0.2-1.3) mg/dL AST (14-36) U/L ALT (4-34) U/L Alkaline Phosphatase (38-126) U/L Troponin I (0.000-0.034) ng/mL NT-Pro-B Natriuret Pep pg/mL Total Protein (6.3-8.2) g/dL Albumin (3.5-5.0) g/dL - EKG Data -: EKG Interpreted by Or EKG shows normal: sinus rhythm, axis (Normal), intervals (Normal), QRS complexes (Normal), ST-T waves (Normal) Rate: tachycardia (Rate 119 bpm) Critical Care Time Critical Care Time: Yes (30 minutes) Disposition Clinical Impression: Pneumonia, Non-small cell lung cancer (NSCLC) Disposition: ADMITTED IP TO THIS HOSP Condition: Serious Is patient prescribed a controlled substance at d/c from ED?: No
[2020-08-07 00:36] LABS: Glucose,Whole Blood 146 mg/dL (75-99)
[2020-08-07 01:04] LABS: ALT 26 U/L (4-34); AST 24 U/L (14-36); African American GFR (CKD) >90 (>60 ml/min/1.73 sqM); Alkaline Phosphatase 267 U/L (38-126); Anion Gap 10 mmol/L; Blood Urea Nitrogen 15 mg/dL (7-17); Calcium 9.1 mg/dL (8.4-10.2); Carbon Dioxide 27 mmol/L (22-30); Chloride 92 mmol/L (98-107); Glucose 145 mg/dL (74-99); Magnesium 1.5 mg/dL (1.6-2.3); Non-African American GFR(CKD) >90 (>60 ml/min/1.73 sqM); Sodium 129 mmol/L (137-145)
[2020-08-07 01:12] LABS: HCT 32.2 % (34.0-46.0); HGB 10.7 gm/dL (11.4-16.0); MCH 30.2 pg (25.0-35.0); MCHC 33.1 g/dL (31.0-37.0); MCV 91.1 fL (80.0-100.0); Mean Platelet Volume 8.1; Platelet Count 144 k/uL (150-450); RBC 3.53 m/uL (3.80-5.40); RDW 15.2 % (11.5-15.5); WBC 5.7 k/uL (3.8-10.6)
[2020-08-07 01:27] LABS: INR 1.1 (<1.2); Partial Thromboplastin Time 22.3 sec (22.0-30.0); Prothrombin Time 11.4 sec (9.0-12.0)
[2020-08-07 01:28] LABS: D-Dimer 2.05 mg/L FEU (<0.60)
[2020-08-07] MEDS ORDERED: AZITHROMYCIN 500 MG TAB PO STA (02:03)
--- NOTE | 2020-08-07 02:19 | CT ---
EXAMINATION TYPE: CT angio chest DATE OF EXAM: 08/07/2020 COMPARISON: 07/18/2020 HISTORY: pe Short of breath CT DLP: 373.2 mGycm Automated exposure control for dose reduction was used. CONTRAST: Performed with IV Contrast, patient injected with 100 mL of Isovue 370. There are 3-D post processed images. There is 8 cm area of masslike consolidation at the right pulmonary hilum encasing the right pulmonar y artery. There is extensive airspace consolidation in the right lower lobe. There is no significant pleural fluid. There is some patchy infiltrate also in the left lower lobe. There is groundglass inte rstitial infiltrate in the mid and upper lung solano. There is enlarged mediastinal pretracheal lymph nodes that measure up to 2.3 cm. Thoracic aorta is intact. There is no aneurysm or dissection. I see no filling defects in the pulmonary arteries. There is diminished contrast in the right pulmona ry arteries. There is some right lower lobe pulmonary artery narrowing consistent with encasement. Th ere is significant narrowing of the right mainstem bronchus and the right lower lobe bronchi. The thoracic spine is intact. There is no compression fracture. Sternum is intact. There is partial visualization of adrenal masses and much larger on the left side and consistent with metastatic disease. Left adrenal mass measures 8.3 cm IMPRESSION: No evidence of pulmonary embolism. Significant abnormality in the right lung suggestive of large tumo r at the right pulmonary hilum with narrowing of the right lower lobe artery and partial occlusion of the right mainstem bronchus. There is improved aeration of the lung however compared to recent exam. There is extensive interstitial pulmonary infiltrates similar to old exam. Adrenal metastatic diseas e.
[2020-08-07 02:28] LABS: Band Neutrophils % 9 %; Lymphocytes # (M) 0.29 k/uL (1.0-4.8); Monocytes # (M) 0.29 k/uL (0-1.0); Neutrophils % (M) 81 %; Nucleated Red Blood Cells 0 /100 WBC (0-0); Total Cells Counted 100
[2020-08-07] MEDS ORDERED: PNEUMONIA PROTOCOL UTILIZED 1 EACH MISC PO PRN (02:31)
[2020-08-07] MEDS ORDERED: IPRATROPIUM-ALBUTEROL 3 ML NEB INHALATION PRN (02:31)
[2020-08-07] MEDS ORDERED: ALPRAZolam 0.25 MG TAB PO PRN (02:33)
[2020-08-07] MEDS ORDERED: HYDROcodone/APAP 10-325MG 1 EACH TAB PO PRN (02:33)
[2020-08-07] MEDS: SODIUM CHLORIDE 0.9% 1,000 ML IV SCH ×3 (02:58→21:42)
[2020-08-07] MEDS: oxyCODONE-APAP 10-325MG 1 EACH TAB PO PRN ×3 (05:37→19:12)
[2020-08-07] MEDS: LEVOTHYROXINE 88 MCG TAB PO SCH (06:33)
[2020-08-07] MEDS: ALBUTEROL NEBULIZED 2.5 MG/3 ML INHALATION SCH ×4 (07:55→19:53)
[2020-08-07] MEDS: FORMOTEROL FUMARATE 20 MCG/2 ML NEBU INHALATION SCH ×2 (07:55→19:53)
[2020-08-07] MEDS: BUDESONIDE 1 MG/2 ML NEBU INHALATION SCH ×2 (07:55→19:53)
[2020-08-07] MEDS: dexAMETHasone 4 MG TAB PO SCH ×3 (08:23→21:44)
[2020-08-07] MEDS: PIPERACILLIN-TAZOBACTAM 3.375 GM in SODIUM CHLORIDE 0.9% 100 ML IVPB SCH ×2 (08:23→16:34)
[2020-08-07] MEDS: APIXABAN 2.5 MG TABLET PO SCH ×2 (08:23→20:18)
[2020-08-07] MEDS: MAGNESIUM OXIDE 400 MG TAB PO SCH ×2 (08:23→20:18)
[2020-08-07] MEDS: PANTOPRAZOLE 40 MG TABLET PO SCH (08:23)
[2020-08-07] MEDS: DOCUSATE 100 MG CAP PO SCH ×2 (08:23→20:18)
[2020-08-07] MEDS ORDERED: ENOXAPARIN 40 MG/0.4 ML SYRINGE SQ SCH (09:00)
[2020-08-07 13:03] VITALS: BMI 29.2
[2020-08-07] MEDS: NICOTINE 7MG/24HR PATCH TRANSDERM SCH (16:32)
--- NOTE | 2020-08-07 23:20 | P.HPIM ---
History of Present Illness H&P Date: 08/07/20 Chief Complaint: SOB and Hypoxia Ms. Collado is a 57-year-old female who is recently diagnosed with right lung cancer with mets to the brain status post radiation therapy, DVT, PE, thyroid disorder, multiple joint osteoarthritis, thyroid disorder brought in by her chi ldren her oxygen saturations at home have been low. Patient was discharged couple of weeks back being treated for acute respiratory failure secondary to her malignancy. Patient is a poor historian so most of the history is obtained from her son and daughter who were at the bedside. They mentioned that patient's oxygen saturation dropped to as low as 60s, she was also complaining of increased shortness of breath and cough so they brought her in for further evaluation. Patient denied having any fever chills or rigors. No chest pain. She denies having any lower extremity swelling. In the ER at the time of admission she was found to be febrile with a temperature of 99.9, heart rate in 120s, respiratory rate 26, saturating at 86% on room air with blood pressure 103/66. So the patient was placed on nonrebreather and her saturations improved to about 90. Patient had a CT angiogram of the chest that was negative for PE but showed significant abnormality in the right lung suggestive of large tumor with narrowing of the right lower lobe artery and partial occlusion of the right mainstem bronchus. Additional metastatic disease also noted. On reviewing her labs she had white count of 5.7 hemoglobin 10.7, platelets 144. D-dimer 2.05. Sodium 129, potassium 4, chloride 92, bicarb 27, BUN 15, creatinine 0.36 magnesium 1.5, albumin 3. Review of Systems REVIEW OF SYSTEMS: CONSTITUTIONAL: + fatigue HEENT: No recent visual problems or hearing problems. Denied any sore throat. CARDIOVASCULAR: No chest pain, palpitations or lower extremity swelling PULMONARY: As per HPI GASTROINTESTINAL: No diarrhea, no nausea, no vomiting, no abdominal pain. NEUROLOGICAL: No headaches, no weakness, no numbness. Brain mets HEMATOLOGICAL: Denies any bleeding or petechiae. GENITOURINARY: Denies any burning micturition, frequency, or urgency. MUSCULOSKELETAL/RHEUMATOLOGICAL: generalized boy aches ENDOCRINE: Denies any polyuria or polydipsia. The 14-point review of systems as above. Past Medical History Past Medical History: Cancer, COPD, Deep Vein Thrombosis (DVT), GERD/Reflux, Osteoarthritis (OA), Pulmonary Embolus (PE), Respiratory Disorder, Thyroid Disorder Additional Past Medical History / Comment(s): 04/2020 R axilla mass/biopsy/metastatic cancer, R lung to several areas including the brain/pt receiving radiation treatments, recurrent PEs. History of Any Multi-Drug Resistant Organisms: MRSA Date of last positivie culture/infection: 2006 MDRO Source:: culture back Past Surgical History: Back Surgery, Section, Tonsillectomy Additional Past Surgical History / Comment(s): R axillary mass bx, back surgery x7, screws in back. Past Anesthesia/Blood Transfusion Reactions: No Reported Reaction Past Psychological History: Anxiety, Depression Smoking Status: Former smoker Past Alcohol Use History: Occasional Past Drug Use History: Marijuana - Past Family History Father Family Medical History: No Reported History Additional Family Medical History / Comment(s): never knew father. Mother Family Medical History: Diabetes Mellitus, Musculoskeletal Disorder Medications and Allergies Home Medications Medication Instructions Recorded Confirmed Type Levothyroxine Sodium [Synthroid] 88 mcg PO DAILY 04/20/14 08/07/20 History Ibuprofen 800 mg PO TID PRN 07/03/17 08/07/20 History Albuterol Inhaler [Ventolin Hfa 2 puff INHALATION RT-QID PRN 07/15/20 08/07/20 History Inhaler] Albuterol Nebulized [Ventolin 2.5 mg INHALATION RT-QID PRN 07/15/20 08/07/20 History Nebulized] Apixaban [Eliquis] 2.5 mg PO BID 07/15/20 08/07/20 History Ascorbic Acid [Vitamin C] 1,000 mg PO DAILY 07/15/20 08/07/20 History Dexamethasone [Decadron] See Taper PO DIRECTED 07/15/20 08/07/20 History Magnesium Oxide 400 mg PO BID 07/15/20 08/07/20 History Omeprazole 40 mg PO DAILY 07/15/20 08/07/20 History Potassium Chloride ER [K-Dur 20] 40 meq PO DAILY 07/15/20 08/07/20 History Budesonide [Pulmicort] 1 mg INHALATION RT-BID #120 ml 07/27/20 08/07/20 Rx Docusate [Colace] 100 mg PO BID #60 cap 07/27/20 08/07/20 Rx Formoterol Fumarate [Perforomist] 20 mcg INHALATION RT-BID #60 nebu 07/27/20 08/07/20 Rx Ipratropium-Albuterol Nebulize 3 ml INHALATION RT-QID ml 07/27/20 08/07/20 Rx [Duoneb 0.5 mg-3 mg/3 ml Soln] Magnesium Oxide [Mag-Ox] 400 mg PO BID #60 tab 07/27/20 08/07/20 Rx Nicotine 7Mg/24Hr Patch [Habitrol] 1 patch TRANSDERM DAILY #30 patch 07/27/20 08/07/20 Rx diazePAM [Valium] 5 mg PO BID PRN 08/07/20 08/07/20 History oxyCODONE HCL/ACETAMINOPHEN 1 tablet PO Q4H PRN 08/07/20 08/07/20 History [Percocet 10-325 mg] Allergies Allergy/AdvReac Type Severity Reaction Status Date / Time Morpholine Analogues AdvReac Intermediate Hallucinati Verified 08/07/20 09:28 ons tramadol HCl [From Ultram] AdvReac Mild Unknown Verified 08/07/20 09:28 Physical Exam Vitals: Vital Signs Temp Pulse Pulse Resp BP BP Pulse Ox 08/07/20 11:20 112 H 08/07/20 11:09 108 H 08/07/20 08:17 118 H 08/07/20 08:06 112 H 08/07/20 08:00 106 H 18 88 L 08/07/20 07:56 108 H 88 L 08/07/20 07:00 98.5 F 106 H 18 94/63 93 L 08/07/20 05:00 18 08/07/20 03:55 99.5 F 110 H 20 125/68 08/07/20 02:58 99.8 F H 104 H 22 118/82 91 L 08/07/20 01:56 108 H 22 114/87 96 08/07/20 00:32 119 H 21 08/07/20 00:24 119 H 25 H 08/06/20 23:42 99.9 F H 123 H 26 H 103/66 86 L Intake and Output 08/06/20 08/07/20 08/07/20 22:59 06:59 14:59 Other: Voiding Method Toilet Toilet # Voids 1 Weight 77.111 kg PHYSICAL EXAMINATION: GENERAL: The patient is alert and oriented x1-2 , not in any acute distress. chronicall ill appearing HEENT: Pupils are round and equally reacting to light. EOMI. No scleral icterus. + conjunctival pallor. Normocephalic, atraumatic. No pharyngeal erythema. No thyromegaly. CARDIOVASCULAR: S1 and S2 present. No murmurs, rubs, or gallops. PULMONARY: Dimished BS in all lung solano. She has coarse ronchi in the right upper lung solano. ABDOMEN: Soft, nontender, nondistended, normoactive bowel sounds. No palpable organomegaly. MUSCULOSKELETAL: No joint swelling or deformity. EXTREMITIES: No edema NEUROLOGICAL: Gross neurological examination did not reveal any focal deficits. SKIN:No rash Results CBC & Chem 7: 08/07/20 00:15 08/07/20 00:15 Labs: Abnormal Lab Results - Last 24 Hours (Table) 08/07/20 08/07/20 08/07/20 Range/Units 00:15 00:15 00:15 RBC 3.53 L (3.80-5.40) m/uL Hgb 10.7 L (11.4-16.0) gm/dL Hct 32.2 L (34.0-46.0) % Plt Count 144 L (150-450) k/uL Lymphocytes # (Manual) 0.29 L (1.0-4.8) k/uL D-Dimer 2.05 H (<0.60) mg/L FEU Sodium 129 L (137-145) mmol/L Chloride 92 L (98-107) mmol/L Creatinine 0.36 L (0.52-1.04) mg/dL Glucose 145 H (74-99) mg/dL POC Glucose (mg/dL) (75-99) mg/dL Magnesium 1.5 L (1.6-2.3) mg/dL Alkaline Phosphatase 267 H (38-126) U/L Total Protein 6.0 L (6.3-8.2) g/dL Albumin 3.0 L (3.5-5.0) g/dL 08/07/20 Range/Units 00:35 RBC (3.80-5.40) m/uL Hgb (11.4-16.0) gm/dL Hct (34.0-46.0) % Plt Count (150-450) k/uL Lymphocytes # (Manual) (1.0-4.8) k/uL D-Dimer (<0.60) mg/L FEU Sodium (137-145) mmol/L Chloride (98-107) mmol/L Creatinine (0.52-1.04) mg/dL Glucose (74-99) mg/dL POC Glucose (mg/dL) 146 H (75-99) mg/dL Magnesium (1.6-2.3) mg/dL Alkaline Phosphatase (38-126) U/L Total Protein (6.3-8.2) g/dL Albumin (3.5-5.0) g/dL Microbiology - Last 24 Hours (Table) 08/07/20 05:45 Wound Culture - Preliminary Axilla - Right Thrombosis Risk Factor Assmnt - Choose All That Apply Each Factor Represents 1 point: Age 41-60 years, Obesity (BMI >25) Each Risk Factor Represents 3 Points: History of DVT/PE Thrombosis Risk Factor Assessment Total Risk Factor Score: 5 Thrombosis Risk Factor Assessment Level: High Risk Assessment and Plan Assessment: ASSESSMENT Acute hypoxic respiratory failure secondary to right lung malignancy Metastatic adenocarcinoma of the right lung Hyponatremia Chronic anemia Chronic thrombocytopenia Hypomagnesemia Moderate protein calorie malnutrition History of DVT and PE Thyroid disorder GERD COPD Anxiety with depression Former smoker Medical marijuana use PLAN: As the patient was in acute hypoxic respiratory failure she was started on nonrebreather and her saturations have been above 90. She is currently on 15 L of oxygen via nasal cannula saturating above 90%. Patient has been empirically started on azithromycin and Zosyn for possible underlying pneumonia. Will consult ID Dr. Lim. Will consult oncology, Dr. Castro. Patient has been restarted on her home medication including anticoagulation with Eliquis. Overall prognosis is poor. The treatment plan was discussed in detail up with her son and daughter at bedside in detail. They are aware of her situation and also there has been ongoing discussion about pursuing palliative care. Further recommendations depending on the progress of the patient.
[2020-08-08] MEDS: diazePAM 5 MG TAB PO PRN (00:28)
[2020-08-08] MEDS: PIPERACILLIN-TAZOBACTAM 3.375 GM in SODIUM CHLORIDE 0.9% 100 ML IVPB SCH ×4 (00:28→19:46)
[2020-08-08] MEDS ORDERED: AZITHROMYCIN 500 MG in SODIUM CHLORIDE 0.9% 250 ML IVPB SCH (02:00)
[2020-08-08] MEDS: oxyCODONE-APAP 10-325MG 1 EACH TAB PO PRN ×3 (04:55→16:44)
[2020-08-08] MEDS: LEVOTHYROXINE 88 MCG TAB PO SCH (05:51)
[2020-08-08 07:38] LABS: African American GFR (CKD) >90 (>60 ml/min/1.73 sqM); Anion Gap 8 mmol/L; Blood Urea Nitrogen 8 mg/dL (7-17); Calcium 8.3 mg/dL (8.4-10.2); Carbon Dioxide 27 mmol/L (22-30); Chloride 98 mmol/L (98-107); Glucose 117 mg/dL (74-99); Non-African American GFR(CKD) >90 (>60 ml/min/1.73 sqM); Potassium 3.5 mmol/L (3.5-5.1); Sodium 133 mmol/L (137-145)
[2020-08-08 07:53] LABS: Basophils % (A) 0 %; Eosinophils % (A) 0 %; HCT 26.1 % (34.0-46.0); Lymphocytes # (A) 0.3 k/uL (1.0-4.8); Lymphocytes % (A) 10 %; MCH 29.9 pg (25.0-35.0); MCHC 32.5 g/dL (31.0-37.0); Mean Platelet Volume 7.8; Monocytes # (A) 0.1 k/uL (0-1.0); Monocytes % (A) 3 %; Neutrophils # (A) 2.2 k/uL (1.3-7.7); Neutrophils % (A) 84 %; Platelet Count 124 k/uL (150-450); RBC 2.84 m/uL (3.80-5.40); RDW 15.3 % (11.5-15.5); WBC 2.7 k/uL (3.8-10.6)
--- NOTE | 2020-08-08 07:58 | CONS ---
CONSULTATION DATE OF SERVICE: 08/07/2020 REASON FOR CONSULTATION: Pneumonia. HISTORY OF PRESENT ILLNESS: The patient is a 49-year-old female with past medical history significant for metastatic lung cancer and this patient has been on radiation therapy and not yet started on chemo. The patient has been sent to the ER for evaluation of increasing shortness of breath. The patient also has a cough which is moderate in intensity with occasional sputum production. No hemoptysis. Denies any pleuritic chest pain. The patient was noted to be hypoxic with O2 sats of 60%. Oncologist was called and the patient was advised to go to the hospital. On arrival to the ER, the patient did have a low-grade fever of 99.8 degrees Fahrenheit with O2 sats of 86% on arrival to the hospital, currently on 2 L nasal cannula. The patient did have a normal white count and normal creatinine. D-dimer was mildly elevated at 2.05. The patient did have a CT angiogram of the chest that was negative for PE. Did show right lung tumor. The right hilum with narrowing of the right lower lobe artery and partial occlusion of the right mainstem bronchus. However, there is improved aeration of the lung. The patient was started on Zosyn and Zithromax. Infectious Disease was consulted for further management of antibiotic therapy. The patient also has a wound to the right axilla had a previous biopsy. Has a diagnosis of the lung cancer. The patient complaining of pain to the right axillary area, more of a dull aching, at times throbbing 5 to 6/10, no radiation. Did have minimal drainage. No significant foul smelling. REVIEW OF SYSTEMS: Positive points have been mentioned in HPI. Rest of systems are negative. PAST MEDICAL HISTORY: COPD, DVT, GERD, osteoarthritis, PE, history of metastatic lung cancer. PAST SURGICAL HISTORY: Back surgery, , tonsillectomy, right axillary mass biopsy. SOCIAL HISTORY: Remote history of smoking. Occasionally drinks. Does admit to marijuana use. FAMILY HISTORY: Mother with history of diabetes. ALLERGIES: MORPHINE, . USUAL MEDICATIONS INCLUDE: The patient is currently on Ventolin, DuoNeb, Xanax Eliquis, vitamin C, Pulmicort, dexamethasone, Valium, Colace, Synthroid, Mag oxide, nicotine patch, Protonix, Zosyn and Zithromax. PHYSICAL EXAMINATION: VITAL SIGNS: Blood pressure 145/63 with a pulse of 102, temperature 98, she is 95% on 3 L nasal cannula. GENERAL DESCRIPTION: A middle-aged female up in the chair in no distress. No tachypnea or accessory muscles of respiration use. HEENT: Examination shows no pallor or scleral icterus. Oral mucous membrane is dry. NECK: Trachea central, no thyromegaly. LUNGS: Unlabored breathing, coarse breath sounds bilaterally, no wheeze. HEART: S1-S2, regular rate and rhythm. ABDOMEN: Soft, no tenderness. No guarding or rigidity. EXTREMITIES: No edema of the feet. SKIN: No rash or mass palpable. In the right axilla, the patient did have a superficial ulcerating wound with minimal slough tissue. No evidence of surrounding swelling. Did have minimal drainage but not foul smelling. NEUROLOGICAL: Patient is awake, alert, oriented times three. Mood and affect normal. LABS: Hemoglobin is 10.7, white count 5.7, BUN of 15, creatinine 0.36. CT report as mentioned above. DIAGNOSTIC IMPRESSION: 1. Patient admitted to the hospital with increasing shortness of breath, cough, sputum production and hypoxemia in this patient who does have a history of metastatic lung cancer, right-sided, with concern for possible postobstructive/Gram-negative pneumonia. 2. Patient who does have a necrotic wound to the right axillary area, but no significant cellulitis. PLAN: 1. We will try to obtain sputum for Gram stain and culture. 2. Check CRP and procalcitonin. 3. Continue the patient on Zosyn 3.375 gram q8h, however, discontinue Zithromax. 4. We will follow her clinical condition and culture to further adjust medication if needed. Thank you for this consultation. Will follow this patient along with you. MMODL / IJN: [id number] /
[2020-08-08 08:01] LABS: HGB 8.5 gm/dL (11.4-16.0)
[2020-08-08 08:22] LABS: C Reactive Protein 51.6 mg/dL (<1.0)
[2020-08-08] MEDS: BUDESONIDE 1 MG/2 ML NEBU INHALATION SCH ×2 (08:34→20:09)
[2020-08-08] MEDS: ALBUTEROL NEBULIZED 2.5 MG/3 ML INHALATION SCH ×4 (08:34→20:09)
[2020-08-08] MEDS: FORMOTEROL FUMARATE 20 MCG/2 ML NEBU INHALATION SCH ×2 (08:34→20:09)
--- NOTE | 2020-08-08 08:59 | XR ---
EXAMINATION TYPE: XR chest 2V DATE OF EXAM: 08/08/2020 COMPARISON: 07/22/2020 HISTORY: Pneumonia TECHNIQUE: Frontal and lateral views of the chest are obtained. FINDINGS AND IMPRESSION: Marked interval improvement in right hemithorax ventilation. Persistent bilateral interstitial and airspace opacities and/or atelectasis greater on the right. Right hemithorax or endobronchial mass cannot be entirely excluded. Small right pleural effusion. No pneumothorax. Cardiomediastinal silhouette within normal limit. No acute osseous abnormality.
[2020-08-08] MEDS: NICOTINE 7MG/24HR PATCH TRANSDERM SCH (09:07)
[2020-08-08] MEDS: dexAMETHasone 4 MG TAB PO SCH ×3 (09:07→20:36)
[2020-08-08] MEDS: POTASSIUM CHLORIDE ER 20 MEQ TAB.ER PO SCH (09:07)
[2020-08-08] MEDS: APIXABAN 2.5 MG TABLET PO SCH ×2 (09:07→20:36)
[2020-08-08] MEDS: ASCORBIC ACID 500 MG TAB PO SCH (09:07)
[2020-08-08] MEDS: DOCUSATE 100 MG CAP PO SCH ×2 (09:07→20:01)
[2020-08-08] MEDS: MAGNESIUM OXIDE 400 MG TAB PO SCH ×2 (09:07→20:36)
[2020-08-08] MEDS: PANTOPRAZOLE 40 MG TABLET PO SCH (09:08)
--- NOTE | 2020-08-08 10:20 | P.CNPUL ---
History of Present Illness Consult date: 08/08/20 Reason for consult: dyspnea, hypoxemia, pneumonia Chief complaint: Shortness of breath History of present illness: This is a 49-year-old female seen eval examined on the fourth floor patient is well-known to me she has a history of metastatic lung cancer stage IV patient recently discharged a few weeks ago, she has been on CPAP and BiPAP however eventually tapered down to 4 L nasal oxygen subsequently with discharge, patient has a mass in the right lung with right lung atelectasis and metastases to the brain patient has received radiation therapy for metastatic lesions in the brain as well as the lungs, on arrival patient has a computed tomography scan of his chest revealed 8 cm masslike lesion in the right hilum encasing pulmonary artery with extensive airspace consolidation of right lower lobe no significant fluid is present, tumor appears to be occluding fairly significant lumen of right mainstem bronchus, currently patient is on Forteo liter high flow oxygen, patient is on bronchodilator along with L request dexamethasone, and broad- spectrum antibiotics, Review of Systems All systems: negative Past Medical History Past Medical History: Cancer, COPD, Deep Vein Thrombosis (DVT), GERD/Reflux, Osteoarthritis (OA), Pulmonary Embolus (PE), Respiratory Disorder, Thyroid Disorder Additional Past Medical History / Comment(s): 04/2020 R axilla mass/biopsy/metastatic cancer, R lung to several areas including the brain/pt receiving radiation treatments, recurrent PEs. History of Any Multi-Drug Resistant Organisms: MRSA Date of last positivie culture/infection: 2006 MDRO Source:: culture back Past Surgical History: Back Surgery, Section, Tonsillectomy Additional Past Surgical History / Comment(s): R axillary mass bx, back surgery x7, screws in back. Past Anesthesia/Blood Transfusion Reactions: No Reported Reaction Past Psychological History: Anxiety, Depression Smoking Status: Former smoker Past Alcohol Use History: Occasional Past Drug Use History: Marijuana - Past Family History Father Family Medical History: No Reported History Additional Family Medical History / Comment(s): never knew father. Mother Family Medical History: Diabetes Mellitus, Musculoskeletal Disorder Medications and Allergies Home Medications Medication Instructions Recorded Confirmed Type Levothyroxine Sodium [Synthroid] 88 mcg PO DAILY 04/20/14 08/07/20 History Ibuprofen 800 mg PO TID PRN 07/03/17 08/07/20 History Albuterol Inhaler [Ventolin Hfa 2 puff INHALATION RT-QID PRN 07/15/20 08/07/20 History Inhaler] Albuterol Nebulized [Ventolin 2.5 mg INHALATION RT-QID PRN 07/15/20 08/07/20 History Nebulized] Apixaban [Eliquis] 2.5 mg PO BID 07/15/20 08/07/20 History Ascorbic Acid [Vitamin C] 1,000 mg PO DAILY 07/15/20 08/07/20 History Dexamethasone [Decadron] See Taper PO DIRECTED 07/15/20 08/07/20 History Magnesium Oxide 400 mg PO BID 07/15/20 08/07/20 History Omeprazole 40 mg PO DAILY 07/15/20 08/07/20 History Potassium Chloride ER [K-Dur 20] 40 meq PO DAILY 07/15/20 08/07/20 History Budesonide [Pulmicort] 1 mg INHALATION RT-BID #120 ml 07/27/20 08/07/20 Rx Docusate [Colace] 100 mg PO BID #60 cap 07/27/20 08/07/20 Rx Formoterol Fumarate [Perforomist] 20 mcg INHALATION RT-BID #60 nebu 07/27/20 08/07/20 Rx Ipratropium-Albuterol Nebulize 3 ml INHALATION RT-QID ml 07/27/20 08/07/20 Rx [Duoneb 0.5 mg-3 mg/3 ml Soln] Magnesium Oxide [Mag-Ox] 400 mg PO BID #60 tab 07/27/20 08/07/20 Rx Nicotine 7Mg/24Hr Patch [Habitrol] 1 patch TRANSDERM DAILY #30 patch 07/27/20 08/07/20 Rx diazePAM [Valium] 5 mg PO BID PRN 08/07/20 08/07/20 History oxyCODONE HCL/ACETAMINOPHEN 1 tablet PO Q4H PRN 08/07/20 08/07/20 History [Percocet 10-325 mg] Allergies Allergy/AdvReac Type Severity Reaction Status Date / Time Morpholine Analogues AdvReac Intermediate Hallucinati Verified 08/07/20 09:28 ons tramadol HCl [From Ultram] AdvReac Mild Unknown Verified 08/07/20 09:28 Physical Exam Vitals: Vital Signs Temp Pulse Pulse Pulse Resp BP Pulse Ox 08/08/20 08:57 107 H 08/08/20 08:45 106 H 08/08/20 08:44 106 H 08/08/20 08:38 88 L 08/08/20 08:34 106 H 24 08/08/20 07:44 93 L 08/08/20 07:00 97.6 F 104 H 20 105/66 82 L 08/08/20 00:29 97.9 F 112 H 20 105/74 92 L 08/07/20 20:19 102 H 08/07/20 20:06 100 08/07/20 19:54 108 H 08/07/20 19:53 98 F 117 H 17 145/63 95 08/07/20 19:45 112 H 24 08/07/20 15:40 110 H 08/07/20 15:22 114 H 08/07/20 14:00 98.2 F 64 18 111/71 98 08/07/20 11:20 112 H 08/07/20 11:09 108 H Intake and Output 08/07/20 08/08/20 08/08/20 22:59 06:59 14:59 Intake Total 450 Balance 450 Intake: Intake, IV Titration 450 Amount Piperacillin-Tazobactam 3 450 .375 gm In Sodium Chloride 0.9% 100 ml @ 25 mls/hr IVPB Q8HR [facility] Rx# :[id number] Other: Voiding Method Toilet # Voids 1 1 - Constitutional General appearance: average body habitus, disheveled - EENT Eyes: PERRLA Ears: bilateral: normal - Neck Neck: normal ROM Carotids: bilateral: upstroke normal Thyroid: bilateral: normal size - Respiratory Respiratory: right: diminished, left: CTA - Cardiovascular Rhythm: regular Heart sounds: normal: S1, S2 - Gastrointestinal General gastrointestinal: distended, normal bowel sounds, soft - Neurologic Neurologic: CNII-XII intact - Musculoskeletal Musculoskeletal: gait normal, generalized weakness, strength equal bilaterally - Psychiatric Psychiatric: A&O x's 3, appropriate affect, intact judgment & insight Results - Laboratory Findings CBC and BMP: 08/08/20 07:01 08/08/20 07:01 PT/INR, D-dimer PT 11.4 sec (9.0-12.0) 08/07/20 00:15 INR 1.1 (<1.2) 08/07/20 00:15 D-Dimer 2.05 mg/L FEU (<0.60) H 08/07/20 00:15 Abnormal lab findings: Abnormal Labs 08/07/20 08/07/20 08/07/20 00:15 00:15 00:15 WBC RBC 3.53 L Hgb 10.7 L Hct 32.2 L Plt Count 144 L Lymphocytes # Lymphocytes # (Manual) 0.29 L D-Dimer 2.05 H Sodium 129 L Chloride 92 L Creatinine 0.36 L Glucose 145 H POC Glucose (mg/dL) Calcium Magnesium 1.5 L Alkaline Phosphatase 267 H C-Reactive Protein Total Protein 6.0 L Albumin 3.0 L 08/07/20 08/08/20 08/08/20 00:35 07:01 07:01 WBC 2.7 L RBC 2.84 L Hgb 8.5 L D Hct 26.1 L Plt Count 124 L Lymphocytes # 0.3 L Lymphocytes # (Manual) D-Dimer Sodium 133 L Chloride Creatinine 0.24 L Glucose 117 H POC Glucose (mg/dL) 146 H Calcium 8.3 L Magnesium Alkaline Phosphatase C-Reactive Protein 51.6 H Total Protein Albumin - Diagnostic Findings Chest x-ray: report reviewed, image reviewed CT scan - chest: report reviewed, image reviewed (Reports as dictated above) Assessment and Plan Assessment: Right sided postobstructive pneumonia Acute hypoxic respiratory failure Large hilar mass due to lung cancer status post palliative radiation therapy Metastatic brain lesion from lung cancer status post palliative radiation t herapy Severe COPD Right atelectatic lung Plan: Continue bronchodilators Supplemental oxygen titrated down as tolerated Deep breathing exercises incentive spirometry Broad-spectrum antibiotics Dexamethasone We'll follow closely long-term prognosis is very poor further recommendations pending plan of care as per clinical response of patient Time with Patient: Greater than 30
[2020-08-08] MEDS: SODIUM CHLORIDE 0.9% 1,000 ML IV SCH ×2 (10:27→19:46)
[2020-08-08] MEDS ORDERED: HYDROmorphone 1 MG/ML 1 ML SYRINGE IVP PRN (16:51)
--- NOTE | 2020-08-08 18:27 | PN ---
PROGRESS NOTE DATE OF SERVICE: 08/08/2020 REASON FOR FOLLOWUP: Possible pneumonia. INTERVAL HISTORY: Patient remains to be afebrile. The patient is complaining of more shortness of breath. This morning she was hypoxic and requiring more high-flow oxygen. Denies any chest pain. She did have a cough and bringing up some sputum. No nausea, no vomiting. No abdominal pain or diarrhea. PHYSICAL EXAMINATION: Blood pressure 105/66, pulse of 104, temperature of 97.6. She is 92% on 13 liters high- flow oxygen. General description is a middle-aged female up in the bed in no distress. Respiratory system: Unlabored breathing, decreased intensive of breath sounds, no wheeze. Heart S1, S2. Regular rate and rhythm Abdomen is soft, no tenderness. Right axilla wound is currently dressed. No drainage on the dressing. LABS: Hemoglobin 8.5, white count 2.7, BUN of 8, creatinine 0.2. DIAGNOSTIC IMPRESSION/PLAN: Patient with metastatic lung cancer in the hospital with increasing shortness of breath, hypoxemia concerning for possible progression of the lung cancer plus-minus component of pneumonia. She is covered with Zosyn. Sputum cultures have been obtained and those will be followed. Antibiotic adjusted further. Family at the bedside. Questions were answered. MMODL / IJN: [id number] /
--- NOTE | 2020-08-08 19:40 | CONS ---
CONSULTATION DATE OF SERVICE: August 08, 2020. REASON FOR CONSULTATION: Lung cancer. CHIEF COMPLAINT: Short of breath. Kya muñoz is a very pleasant, 49 years old lady very well known to me. She was just recently diagnosed with unfortunately metastatic non-small cell lung carcinoma. She presented with right axillary mass. She first noticed in April of 2020. She had further evaluation, CT scan of the chest, abdomen, and pelvis revealing a large necrotic right lower lobe mass measures 7 x 8 cm with complete opacification of segmental bronchus of right lower lobe, mediastinal hilar nodes and in the right and as stated, large axillary mass. Biopsy confirmed the diagnosis of metastatic adenocarcinoma consistent with lung primary. Her biomarkers reveal that she has a PIK 3 mutation and PDL1 was 40%. The spiral staging workup also she had a brain MRI which revealed 3 brain lesions. She completed SP RT to the brain lesion and had palliative radiation therapy to the right axilla and palliative radiation therapy to her lung, which was completed on 08/03/2020. Unfortunately, her performance status has been rapidly declining. I saw her in the office last on 08/03/2020, and she was doing poorly. She has lost about 30 pounds, over 31. She has difficulty finding words. The patient came into the emergency department this time because of worsening dyspnea and cough. She had a CT scan of the chest in the emergency department revealing no evidence of pulmonary embolus. The CT angiogram of the chest in the emergency department revealing no evidence of pulmonary embolus. There was significant abnormality in the right lung suggestive of a large tumor and mass in the right lower lobe was partial occlusion of the right mainstem bronchus. The patient ended up being admitted to the hospital for possible post obstructive pneumonia and she is doing really very poorly. She is extremely dyspneic even with slight exertion. She has had having hard time finding words. She has cough, progressive dyspnea. She is in bed most of the time. She gets dyspneic even with slight exertion and she has lost a significant amount of weight as stated above. PAST MEDICAL HISTORY: In addition to what is stated above in regard to her recent diagnosis of lung cancer, she has a history of pulmonary embolus in the past. PAST SURGICAL HISTORY: She has a history of back surgery. FAMILY HISTORY: For malignancy. Her mother had ovarian cancer. Maternal grandmother had ovarian cancer. Second brother had cancer as well. REVIEW OF SYSTEMS: As stated above in history of present illness. CURRENT MEDICATION: Reviewed on electronic medical record. PHYSICAL EXAMINATION: She is very weak, tired, and cachectic and she is having hard time finding words, but she is alert and she answers questions appropriately. She does not appear to be in pain, but she is dyspneic. Her vital signs are temperature 97.6, pulse 104, respiration 20, blood pressure 105/68, pulse ox is 88 percent on high-flow cannula. HEENT: Normocephalic, atraumatic. Oral mucosa dry. NECK: Supple. CHEST was equal expansion bilaterally. LUNGS revealed decreased breath sounds right base about 2/3 up. HEART is tachy. ABDOMEN: Soft. EXTREMITIES: 1+ edema. LYMPHATICS: She has a very huge right axillary node lymph node and also she has a subcutaneous soft tissue lesion in her back. She also has a subcutaneous lesion noted in the lower thoracic spine on the right side. LABORATORY DATA: WBC of 2.7, hemoglobin 8.5, hematocrit 26.1, platelets are 124. Sodium 133, potassium 3.5, chloride 98, CO2 is 27, BUN is 8, creatinine 0.4. IMPRESSION: 1. Rapidly progressing metastatic non-small cell lung carcinoma with diagnostic and therapeutic circumstances stated above. 2. Respiratory failure secondary to above with possible post obstruction pneumonia. 3. Rapidly declining performance status. RECOMMENDATION: I had a long discussion with the patient and her son and her [id number] at bedside. Overall, prognosis is very poor. Given the rapid decline in her performance status, I do not believe the patient is a candidate for systemic treatment for her lung cancer. I highly recommended comfort care with hospice and they are agreeable to proceed with it. Thank you very for this consultation. MMODL / IJN: [id number] /
[2020-08-09] MEDS: diazePAM 5 MG TAB PO PRN (00:32)
[2020-08-09] MEDS: oxyCODONE-APAP 10-325MG 1 EACH TAB PO PRN ×3 (00:32→10:54)
[2020-08-09] MEDS: PIPERACILLIN-TAZOBACTAM 3.375 GM in SODIUM CHLORIDE 0.9% 100 ML IVPB SCH ×2 (00:33→08:06)
[2020-08-09] MEDS: LEVOTHYROXINE 88 MCG TAB PO SCH (02:29)
[2020-08-09] MEDS: SODIUM CHLORIDE 0.9% 1,000 ML IV SCH (02:29)
--- NOTE | 2020-08-09 03:09 | P.PN ---
Subjective Progress Note Date: 08/08/20 Principal diagnosis: Lung cancer with mets Ms. Collado is a 57-year-old female who is recently diagnosed with right lung cancer with mets to the brain status post radiation therapy, DVT, PE, thyroid disorder, multiple joint osteoarthritis, thyroid disorder brought in by her children her oxygen saturations at home have been low. Patient was discharged couple of weeks back being treated for acute respiratory failure secondary to her malignancy. Patient is a poor historian so most of the history is obtained from her son and daughter who were at the bedside. They mentioned that patient's oxygen saturation dropped to as low as 60s, she was also complaining of increased shortness of breath and cough so they brought her in for further evaluation. Patient denied having any fever chills or rigors. No chest pain. She denies having any lower extremity swelling. In the ER at the time of admission she was found to be febrile with a temperature of 99.9, heart rate in 120s, respiratory rate 26, saturating at 86% on room air with blood pressure 103/66. So the patient was placed on nonrebreather and her saturations improved to about 90. Patient had a CT angiogram of the chest that was negative for PE but showed significant abnormality in the right lung suggestive of large tumor with narrowing of the right lower lobe artery and partial occlusion of the right mainstem bronchus. Additional metastatic disease also noted. On reviewing her labs she had white c ount of 5.7 hemoglobin 10.7, platelets 144. D-dimer 2.05. Sodium 129, potassium 4, chloride 92, bicarb 27, BUN 15, creatinine 0.36 magnesium 1.5, albumin 3. On 08/08/2020 -patient is seen and examined at the bedside. Patient's family members including 2 sons and daughter at the bedside to have a discussion regarding considering hospice care. Patient is tearful and still trying to think about different options regarding her treatment care. On reviewing her vitals from this morning temperature of 98.2, heart rate between 90s 200s, respiratory rate 21, saturating at 90% on 15 L high flow oxygen with blood pressure 122/76. On reviewing her labs from this morning white count of 2.7, hemoglobin 8.5, platelets 124. Sodium 133, potassium 3.5, chloride 98, bicarb 27, BUN 8, creatinine 0.24. Active Medications Albuterol Sulfate (Albuterol Nebulized 2.5 Mg/3 Ml) 2.5 mg INHALATION RT-QID [facility] Last Admin: 08/08/20 20:09 Dose: 2.5 mg Documented by: Albuterol/Ipratropium (Ipratropium-Albuterol 3 Ml Neb) 3 ml INHALATION RT-Q4H PRN PRN Reason: shortness of breath Alprazolam (Alprazolam 0.25 Mg Tab) 0.25 mg PO TID PRN PRN Reason: Anxiety Apixaban (Apixaban 2.5 Mg Tablet) 2.5 mg PO BID [facility]; Protocol Last Admin: 08/08/20 20:36 Dose: 2.5 mg Documented by: Ascorbic Acid (Ascorbic Acid 500 Mg Tab) 1,000 mg PO DAILY [facility] Last Admin: 08/08/20 09:07 Dose: Not Given Documented by: Budesonide (Budesonide 1 Mg/2 Ml Nebu) 1 mg INHALATION RT-BID [facility] Last Admin: 08/08/20 20:09 Dose: 1 mg Documented by: Dexamethasone (Dexamethasone 4 Mg Tab) 4 mg PO TID [facility] Last Admin: 08/08/20 20:36 Dose: 4 mg Documented by: Diazepam (Diazepam 5 Mg Tab) 5 mg PO BID PRN PRN Reason: Anxiety Last Admin: 08/09/20 00:32 Dose: 5 mg Documented by: Docusate Sodium (Docusate 100 Mg Cap) 100 mg PO BID [facility] Last Admin: 08/08/20 20:01 Dose: Not Given Documented by: Formoterol Fumarate (Formoterol Fumarate 20 Mcg/2 Ml Nebu) 20 mcg INHALATION RT-BID [facility] Last Admin: 08/08/20 20:09 Dose: 20 mcg Documented by: Hydromorphone HCl (Hydromorphone 1 Mg/Ml 1 Ml Syringe) 1 mg IVP Q4HR PRN PRN Reason: Pain Sodium Chloride (Saline 0.9%) 1,000 mls @ 100 mls/hr IV .Q10H [facility] Last Admin: 08/09/20 02:29 Dose: Not Given Documented by: Piperacillin Sod/Tazobactam (Sod 3.375 gm/ Sodium Chloride) 100 mls @ 25 mls/hr IVPB Q8HR [facility] Stop: 08/14/20 08:01 Last Admin: 08/09/20 00:33 Dose: 25 mls/hr Documented by: Levothyroxine Sodium (Levothyroxine 88 Mcg Tab) 88 mcg PO DAILY@0630 [facility] Last Admin: 08/09/20 02:29 Dose: Not Given Documented by: Magnesium Oxide (Magnesium Oxide 400 Mg Tab) 400 mg PO BID [facility] Last Admin: 08/08/20 20:36 Dose: 400 mg Documented by: Miscellaneous Information (Pneumonia Protocol Utilized 1 Each Misc) 1 each PO ONCE PRN PRN Reason: Per Protocol Nicotine (Nicotine 7mg/24hr Patch) 1 patch TRANSDERM DAILY [facility] Last Admin: 08/08/20 09:07 Dose: 1 patch Documented by: Oxycodone/Acetaminophen (Oxycodone-Apap 10-325mg 1 Each Tab) 1 each PO Q4H PRN PRN Reason: Pain Last Admin: 08/09/20 00:32 Dose: 1 each Documented by: Pantoprazole Sodium (Pantoprazole 40 Mg Tablet) 40 mg PO AC-BRKFST [facility] Last Admin: 08/08/20 09:08 Dose: Not Given Documented by: Potassium Chloride (Potassium Chloride Er 20 Meq Tab.Er) 40 meq PO DAILY [facility] Last Admin: 08/08/20 09:07 Dose: 40 meq Documented by: Objective - Vital Signs Vital signs: Vital Signs Temp 97.9 F 08/08/20 13:31 Pulse 110 H 08/08/20 13:31 Resp 22 08/08/20 13:31 BP 105/72 08/08/20 13:31 Pulse Ox 92 L 08/08/20 13:31 Intake & Output 08/07/20 08/08/20 08/08/20 18:59 06:59 18:59 Intake Total 450 Balance 450 Weight 77.111 kg Intake: Intake, IV Titration 450 Amount Piperacillin-Tazobactam 3 450 .375 gm In Sodium Chloride 0.9% 100 ml @ 25 mls/hr IVPB Q8HR [facility] Rx# :[id number] Other: Voiding Method Toilet Toilet # Voids 1 1 - Exam PHYSICAL EXAMINATION: GENERAL: The patient is alert and oriented x1-2 , not in any acute distress. chronicall ill appearing and tearful HEENT: Pupils are round and equally reacting to light. EOMI. No scleral icterus. + conjunctival pallor. CARDIOVASCULAR: S1 and S2 present. No murmurs, rubs, or gallops. PULMONARY: Dimished BS in all lung solano. She has coarse ronchi in the right upper lung solano. ABDOMEN: Soft, nontender, nondistended, normoactive bowel sounds. No palpable or ganomegaly. MUSCULOSKELETAL: No joint swelling or deformity. EXTREMITIES: No edema NEUROLOGICAL: Gross neurological examination did not reveal any focal deficits. SKIN:No rash - Labs CBC & Chem 7: 08/08/20 07:08/08/20 07:01 Labs: Abnormal Lab Results - Last 24 Hours (Table) 08/08/20 08/08/20 08/08/20 Range/Units 07:01 07:01 07:01 WBC 2.7 L (3.8-10.6) k/uL RBC 2.84 L (3.80-5.40) m/uL Hgb 8.5 L D (11.4-16.0) gm/dL Hct 26.1 L (34.0-46.0) % Plt Count 124 L (150-450) k/uL Lymphocytes # 0.3 L (1.0-4.8) k/uL Sodium 133 L (137-145) mmol/L Creatinine 0.24 L (0.52-1.04) mg/dL Glucose 117 H (74-99) mg/dL Calcium 8.3 L (8.4-10.2) mg/dL C-Reactive Protein 51.6 H (<1.0) mg/dL Procalcitonin 0.45 H (0.02-0.09) ng/mL Microbiology - Last 24 Hours (Table) 08/08/20 07:41 Sputum Culture - Preliminary Sputum 08/07/20 05:45 Gram Stain - Preliminary Axilla - Right Wound Culture - Preliminary 08/07/20 00:15 Blood Culture - Preliminary Blood No Growth after 24 hours 08/07/20 00:15 Blood Culture - Preliminary Blood No Growth after 24 hours Assessment and Plan Assessment: ASSESSMENT Acute hypoxic respiratory failure secondary to right lung malignancy Metastatic adenocarcinoma of the right lung Hyponatremia Chronic anemia Chronic thrombocytopenia Hypomagnesemia Moderate protein calorie malnutrition History of DVT and PE Thyroid disorder GERD COPD Anxiety with depression Former smoker Medical marijuana use PLAN: Had a lengthy discussion with family members including 2 sons and daughter at bedside discussed about the rapidly progressing metastatic noncell lung cancer and her poor performance status, that she would not be a candidate for systemic treatment for her lung cancer. Answered all the questions of the family members to the best of my ability. For now we will continue with the current medication regimen. Family to have a discussion and most likely would consider hospice care. Time with Patient: Greater than 30 (Family discussion at bed side)
[2020-08-09] MEDS: ALBUTEROL NEBULIZED 2.5 MG/3 ML INHALATION SCH ×2 (07:22→11:06)
[2020-08-09] MEDS: BUDESONIDE 1 MG/2 ML NEBU INHALATION SCH (07:23)
[2020-08-09] MEDS: FORMOTEROL FUMARATE 20 MCG/2 ML NEBU INHALATION SCH (07:23)
[2020-08-09] MEDS: PANTOPRAZOLE 40 MG TABLET PO SCH (08:05)
[2020-08-09] MEDS: POTASSIUM CHLORIDE ER 20 MEQ TAB.ER PO SCH (08:05)
[2020-08-09] MEDS: DOCUSATE 100 MG CAP PO SCH (08:05)
[2020-08-09] MEDS: MAGNESIUM OXIDE 400 MG TAB PO SCH (08:05)
[2020-08-09] MEDS: ASCORBIC ACID 500 MG TAB PO SCH (08:05)
[2020-08-09] MEDS: APIXABAN 2.5 MG TABLET PO SCH (08:05)
[2020-08-09] MEDS: NICOTINE 7MG/24HR PATCH TRANSDERM SCH (08:06)
[2020-08-09] MEDS: dexAMETHasone 4 MG TAB PO SCH (08:06)
[2020-08-09 08:13] VITALS: BP 114/78; RESP 18; TEMP 97.4
--- NOTE | 2020-08-09 08:36 | P.DS ---
Providers Date of admission: 08/07/20 02:31 Attending physician: Linda Maldonado Consults: 08/07/20 02:42 Consult Physician Routine Consulting Provider: Codey Ferris Consult Reason/Comments: pneumonia, lung cancer Do you want consulting provider notified?: Yes 08/07/20 11:54 Consult Physician Urgent Consulting Provider: Keshawn Burciaga Consult Reason/Comments: Right lung Tumor Do you want consulting provider notified?: Yes 08/07/20 12:54 Consult Physician Routine Consulting Provider: Shreya Lim Consult Reason/Comments: Pneumonia Do you want consulting provider notified?: Yes Primary care physician: Richie Vickers [facility] Course: This is a history and physical/discharge summary on a patient of 49-year-old white female essentially admitted for generalized weakness and hypoxia. Metastatic lung carcinoma is noted and the patient has, with the family, opted for hospice after having palliative care. The patient would be discharged once hospice is available. Prognosis is poor secondary to her multiple comorbidities. Patient Condition at Discharge: Serious Plan - Discharge Summary Discharge Rx Participant: No New Discharge Prescriptions: New Amoxicillin/Potassium Clav [Augmentin 875-125 Tablet] 1 tab PO BID 7 Days #14 tab Continue Levothyroxine Sodium [Synthroid] 88 mcg PO DAILY Ibuprofen 800 mg PO TID PRN PRN Reason: Pain Albuterol Nebulized [Ventolin Nebulized] 2.5 mg INHALATION RT-QID PRN PRN Reason: Shortness Of Breath Albuterol Inhaler [Ventolin Hfa Inhaler] 2 puff INHALATION RT-QID PRN PRN Reason: Shortness Of Breath Potassium Chloride ER [K-Dur 20] 40 meq PO DAILY Docusate [Colace] 100 mg PO BID #60 cap Magnesium Oxide [Mag-Ox] 400 mg PO BID #60 tab Formoterol Fumarate [Perforomist] 20 mcg INHALATION RT-BID #60 nebu Budesonide [Pulmicort] 1 mg INHALATION RT-BID #120 ml Omeprazole 40 mg PO DAILY Apixaban [Eliquis] 2.5 mg PO BID Magnesium Oxide 400 mg PO BID Dexamethasone [Decadron] See Taper PO DIRECTED Ascorbic Acid [Vitamin C] 1,000 mg PO DAILY Ipratropium-Albuterol Nebulize [Duoneb 0.5 mg-3 mg/3 ml Soln] 3 ml INHALATION RT-QID ml Nicotine 7Mg/24Hr Patch [Habitrol] 1 patch TRANSDERM DAILY #30 patch oxyCODONE HCL/ACETAMINOPHEN [Percocet 10-325 mg] 1 tablet PO Q4H PRN PRN Reason: Pain diazePAM [Valium] 5 mg PO BID PRN PRN Reason: Anxiety Discharge Medication List Levothyroxine Sodium [Synthroid] 88 mcg PO DAILY 04/20/14 [History] Ibuprofen 800 mg PO TID PRN 07/03/17 [History] Albuterol Inhaler [Ventolin Hfa Inhaler] 2 puff INHALATION RT-QID PRN 07/15/20 [History] Albuterol Nebulized [Ventolin Nebulized] 2.5 mg INHALATION RT-QID PRN 07/15/20 [History] Apixaban [Eliquis] 2.5 mg PO BID 07/15/20 [History] Ascorbic Acid [Vitamin C] 1,000 mg PO DAILY 07/15/20 [History] Dexamethasone [Decadron] See Taper PO DIRECTED 07/15/20 [History] Magnesium Oxide 400 mg PO BID 07/15/20 [History] Omeprazole 40 mg PO DAILY 07/15/20 [History] Potassium Chloride ER [K-Dur 20] 40 meq PO DAILY 07/15/20 [History] Budesonide [Pulmicort] 1 mg INHALATION RT-BID #120 ml 07/27/20 [Rx] Docusate [Colace] 100 mg PO BID #60 cap 07/27/20 [Rx] Formoterol Fumarate [Perforomist] 20 mcg INHALATION RT-BID #60 nebu 07/27/20 [Rx] Ipratropium-Albuterol Nebulize [Duoneb 0.5 mg-3 mg/3 ml Soln] 3 ml INHALATION RT-QID ml 07/27/20 [Rx] Magnesium Oxide [Mag-Ox] 400 mg PO BID #60 tab 07/27/20 [Rx] Nicotine 7Mg/24Hr Patch [Habitrol] 1 patch TRANSDERM DAILY #30 patch 07/27/20 [Rx] diazePAM [Valium] 5 mg PO BID PRN 08/07/20 [History] oxyCODONE HCL/ACETAMINOPHEN [Percocet 10-325 mg] 1 tablet PO Q4H PRN 08/07/20 [History] Amoxicillin/Potassium Clav [Augmentin 875-125 Tablet] 1 tab PO BID 7 Days #14 tab 08/09/20 [Rx] Follow up Appointment(s)/Referral(s): [facility] - Richie Vickers MD [Primary Care Provider] - 3 Days Discharge Disposition: HOME WITH HOSPICE
[2020-08-09 11:17] VITALS: PULSE 96
--- NOTE | 2020-08-09 11:30 | P.PN ---
Subjective Progress Note Date: 08/09/20 Principal diagnosis: Right sided postobstructive pneumonia Acute hypoxic respiratory failure Large hilar mass due to lung cancer status post palliative radiation therapy Metastatic brain lesion from lung cancer status post palliative radiation therapy Severe COPD Right atelectatic lung 08/09/2020, patient seen eval reexamined during the rounds labs reviewed medications reviewed care plan discussed, respiratory status remains stable, denies the any chest pain, ongoing cough congestion shortness of breath is present, denies any hemoptysis, sputum is thick clear mucoid, patient remains on broad-spectrum antibiotics for postobstructive pneumonia, oxygen is titrated down to 10 L now, Objective - Vital Signs Vital signs: Vital Signs Temp 97.4 F L 08/09/20 08:00 Pulse 96 08/09/20 11:16 Resp 18 08/09/20 08:00 BP 114/78 08/09/20 08:00 Pulse Ox 92 L 08/09/20 08:00 Intake & Output 08/08/20 08/09/20 08/09/20 18:59 06:59 18:59 Output Total 400 Balance -400 Output: Urine 400 Other: Voiding Method Bedpan External Catheter # Voids 1 # Bowel Movements 0 - Exam - Constitutional General appearance: average body habitus, disheveled - EENT Eyes: PERRLA Ears: bilateral: normal - Neck Neck: normal ROM Carotids: bilateral: upstroke normal Thyroid: bilateral: normal size - Respiratory Respiratory: right: diminished, left: CTA - Cardiovascular Rhythm: regular Heart sounds: normal: S1, S2 - Gastrointestinal General gastrointestinal: distended, normal bowel sounds, soft - Neurologic Neurologic: CNII-XII intact - Musculoskeletal Musculoskeletal: gait normal, generalized weakness, strength equal bilaterally - Psychiatric Psychiatric: A&O x's 3, appropriate affect, intact judgment & insight - Labs CBC & Chem 7: 08/08/20 07:01 08/08/20 07:01 Labs: Abnormal Lab Results - Last 24 Hours (Table) 08/08/20 Range/Units 07:01 Procalcitonin 0.45 H (0.02-0.09) ng/mL Microbiology - Last 24 Hours (Table) 08/07/20 05:45 Gram Stain - Final Axilla - Right Wound Culture - Final 08/07/20 00:15 Blood Culture - Preliminary Blood No Growth after 48 hours 08/07/20 00:15 Blood Culture - Preliminary Blood No Growth after 48 hours 08/08/20 07:41 Gram Stain - Preliminary Sputum Sputum Culture - Preliminary Assessment and Plan Assessment: Right sided postobstructive pneumonia Acute hypoxic respiratory failure Large hilar mass due to lung cancer status post palliative radiation therapy Metastatic brain lesion from lung cancer status post palliative radiation therapy Severe COPD Right atelectatic lung Plan: Continue bronchodilators Supplemental oxygen titrated down as tolerated Deep breathing exercises incentive spirometry Broad-spectrum antibiotics Dexamethasone We'll follow closely long-term prognosis is very poor further recommendations pending plan of care as per clinical response of patient Time with Patient: Greater than 30
--- NOTE | 2020-08-09 14:29 | P.PN ---
Progress Note - Text Progress Note Date: 08/09/20 REASON FOR FOLLOWUP: pneumonia. INTERVAL HISTORY: Patient is afebrile. The patient is breathing comfortably. The pt denies any chest pain. She did have a cough and bringing up some sputum. No nausea, no vomiting. No abdominal pain or diarrhea. PHYSICAL EXAMINATION: Blood pressure 110/60, pulse of 104, temperature of 97.6. She is 92% on 13 liters high- flow oxygen. General description is a middle-aged female up in the bed in no distress. Respiratory system: Unlabored breathing, decreased intensive of breath sounds, no wheeze. Heart S1, S2. Regular rate and rhythm Abdomen is soft, no tenderness. Right axilla wound is currently dressed. No drainage on the dressing. LABS: reviewed DIAGNOSTIC IMPRESSION/PLAN: Patient with metastatic lung cancer in the hospital with increasing shortness of breath, hypoxemia concerning for possible progression of the lung cancer plus- minus component of pneumonia. She is covered with Zosyn. Sputum cultures so far pending , Family at the bedside Questions were answered. possible plan for hospice
== END 2020-08-09 14:23 | disposition hospice, home (50) | DRG 180 ==
LOC: EC 23:41 → 4SSUR 08-07 02:31
PROVIDERS: ADMIT Family Medicine; ATTEND Family Medicine
DX: C34.91 Malignant neoplasm of unspecified part of right bronchus or lung (principal); J18.9 Pneumonia, unspecified organism; J96.01 Acute respiratory failure with hypoxia; C77.1 Secondary and unspecified malignant neoplasm of intrathoracic lymph nodes; C79.31 Secondary malignant neoplasm of brain; E44.0 Moderate protein-calorie malnutrition; E87.1 Hypo-osmolality and hyponatremia; J44.0 Chronic obstructive pulmonary disease with (acute) lower respiratory infection; J98.11 Atelectasis; F41.8 Other specified anxiety disorders; E03.9 Hypothyroidism, unspecified; D64.9 Anemia, unspecified; D69.6 Thrombocytopenia, unspecified; E83.42 Hypomagnesemia; K21.9 Gastro-esophageal reflux disease without esophagitis; Z51.5 Encounter for palliative care; E07.9 Disorder of thyroid, unspecified; Z86.718 Personal history of other venous thrombosis and embolism; Z79.01 Long term (current) use of anticoagulants; Z86.711 Personal history of pulmonary embolism; Z79.890 Hormone replacement therapy; Z85.118 Personal history of other malignant neoplasm of bronchus and lung; Z87.891 Personal history of nicotine dependence; Z92.3 Personal history of irradiation; Z88.5 Allergy status to narcotic agent; Z88.8 Allergy status to other drugs, medicaments and biological substances; Z68.29 Body mass index [BMI] 29.0-29.9, adult
CPT/HCPCS: 36415; 71046; 71275; 80048; 80053; 83605; 83735; 83880; 84145; 84484; 85025; 85379; 85610; 85730; 86140; 87040; 87070; 87205; 93005; 94640; 94645; 94760; 96365; 99285